=== PATIENT | female | born 1965 | race African-American/Black ===

== ENCOUNTER 2016-11-16 15:59 | Emergency (ER) | payer SELFPAY ==
[~2016-11-16] VITALS: Ht 167.6 cm; Wt 99.8 kg
[2016-11-16 16:11] VITALS: BP 186/89
--- NOTE | 2016-11-16 17:18 | PHYS DOC ---
Past Medical History Past Medical History: Arthritis, COPD, Diabetes-Type II, Hypertension Additional Past Medical Histor: chronic back pain, plantar fascitis Past Surgical History: , Knee Replacement Additional Past Surgical Histo: rotator cuff Alcohol Use: Occasionally Drug Use: Marijuana Adult General Chief Complaint Chief Complaint: NOSEBLEED HPI HPI This is a 51-year-old female who's had intermittent nosebleeds for the last 3 weeks. She states it continues to recur from her left nare. She has not tried anything other than direct pressure. She denies any digital trauma or trauma to her face. She does states she has some mild congestion with her symptoms. She denies any significant shortness of breath. She denies any history of bleeding disorders. Patient upon arrival is not actively bleeding. Her blood pressure is elevated at 186/90. She states this is a known issue for her and she is on multiple blood pressure medications. She states she has had a difficult time controlling her blood pressure and is compliant with her medications. Review of Systems Review of Systems Constitutional: Denies fever or chills [] Eyes: Denies change in visual acuity, redness, or eye pain [] HENT: Denies nasal congestion or sore throat [] Respiratory: Denies cough or shortness of breath [] Cardiovascular: No additional information not addressed in HPI [] GI: Denies abdominal pain, nausea, vomiting, bloody stools or diarrhea [] : Denies dysuria or hematuria [] Musculoskeletal: Denies back pain or joint pain [] Integument: Denies rash or skin lesions [] Neurologic: Denies headache, focal weakness or sensory changes [] Endocrine: Denies polyuria or polydipsia [] Current Medications Current Medications Current Medications Medications (Trade) Dose Ordered Sig/[facility] Start Time Stop Time Status Last Admin Dose Admin Oxymetazoline HCl (Afrin) 2 spray 1X ONCE 11/16/16 17:30 11/16/16 17:31 DC 11/16/16 17:21 2 SPRAY Allergies Allergies Allergies Coded Allergies Type Severity Reaction Last Updated Verified lisinopril Allergy Intermediate 11/16/16 Yes Physical Exam Physical Exam Constitutional: Well developed, well nourished, no acute distress, non-toxic appearance. [] HENT: Normocephalic, atraumatic, bilateral external ears normal, oropharynx moist, no oral exudates, nose normal, there is no active bleeding noted, there is no blood noted in the oropharynx. [] Eyes: PERRLA, EOMI, conjunctiva normal, no discharge. [] Neck: Normal range of motion, no tenderness, supple, no stridor. [] Cardiovascular:Heart rate regular rhythm, no murmur [] Lungs & Thorax: Bilateral breath sounds clear to auscultation [] Abdomen: Bowel sounds normal, soft, no tenderness, no masses, no pulsatile masses. [] Skin: Warm, dry, no erythema, no rash. [] Back: No tenderness, no CVA tenderness. [] Extremities: No tenderness, no cyanosis, no clubbing, ROM intact, no edema. [] Neurologic: Alert and oriented X 3, normal motor function, normal sensory function, no focal deficits noted. [] Psychologic: Affect normal, judgement normal, mood normal. [] Current Patient Data Vital Signs Vital Signs Date Time Temp Pulse Resp B/P Pulse Ox O2 Delivery O2 Flow Rate FiO2 11/16/16 16:11 98.2 86 20 186/89 99 Room Air 98.2 Lab Values Laboratory Tests Test 11/16/16 17:17 White Blood Count 5.1x10^3/uL (4.0-11.0) Red Blood Count 4.62x10^6/uL (3.50-5.40) Hemoglobin 13.6g/dL (12.0-15.5) Hematocrit 39.4% (36.0-47.0) Mean Corpuscular Volume 85fL (79-100) Mean Corpuscular Hemoglobin 29pg (25-35) Mean Corpuscular Hemoglobin Concent 35g/dL (31-37) Red Cell Distribution Width 14.4% (11.5-14.5) Platelet Count 196x10^3/uL (140-400) Neutrophils (%) (Auto) 49% (31-73) Lymphocytes (%) (Auto) 43% (24-48) Monocytes (%) (Auto) 7% (0-9) Eosinophils (%) (Auto) 1% (0-3) Basophils (%) (Auto) 1% (0-3) Neutrophils # (Auto) 2.5x10^3uL (1.8-7.7) Lymphocytes # (Auto) 2.2x10^3/uL (1.0-4.8) Monocytes # (Auto) 0.3x10^3/uL (0.0-1.1) Eosinophils # (Auto) 0.1x10^3/uL (0.0-0.7) Basophils # (Auto) 0.0x10^3/uL (0.0-0.2) Laboratory Tests 11/16/16 17:17 EKG EKG [] Radiology/Procedures Radiology/Procedures [] Course & Med Decision Making Course & Med Decision Making Pertinent Labs and Imaging studies reviewed. (See chart for details) 51-year-old female who's having intermittent epistaxis from her left nares has a exam is essentially unremarkable. I counseled the patient that we will check a blood count to rule out any platelet abnormality and will be giving her a dose of Afrin in the department. She has a follow-up with her primary care doctor tomorrow and I believe this is an appropriate plan. I counseled her to continue to use her Afrin nasal spray in each nostril at home and to return if she has any uncontrollable bleeding. CBC is pending at this time but if normal she will be discharged. CBC was unremarkable. Patient was observed in the department for several hours with no rebleeding episodes. I'll be discharging her with Afrin with close follow-up with her primary care doctor. Elbert Disclaimer Elbert Disclaimer This electronic medical record was generated, in whole or in part, using a voice recognition dictation system. Departure Departure Impression: Primary Impression: Epistaxis, recurrent Disposition: 01 HOME, SELF-CARE Admitting Physician: Other Condition: STABLE Patient Instructions: Nosebleed, [id number] Additional Instructions: Please use your Afrin nasal spray in each nostril as prescribed. Follow-up with your primary care doctor in the morning as discussed to have your blood pressure rechecked. Return to ER if you have any worsening of your bleeding despite taking medication Scripts Oxymetazoline Hcl (Afrin)30 Ml Spray30 Ml NS BID #1 SPRAY Prov:MALIK WADSWORTH DO 11/16/16 MALIK WADSWORTH DO Nov 16, 2016 17:18
[2016-11-16 17:27] LABS: BASO % 1 % (0-3); EOS % 1 % (0-3); HEMATOCRIT 39.4 % (36.0-47.0); HEMOGLOBIN 13.6 g/dL (12.0-15.5); LYMPH # 2.2 x10^3/uL (1.0-4.8); LYMPH % 43 % (24-48); MEAN CORPUSCULAR HEMOGLOBIN 29 pg (25-35); MEAN CORPUSCULAR HGB CONC 35 g/dL (31-37); MEAN CORPUSCULAR VOLUME 85 fL (79-100); MONO % 7 % (0-9); NEUT % 49 % (31-73); PLATELET COUNT 196 x10^3/uL (140-400); RED BLOOD COUNT 4.62 x10^6/uL (3.50-5.40); RED CELL DISTRIBUTION WIDTH 14.4 % (11.5-14.5); WHITE BLOOD COUNT 5.1 x10^3/uL (4.0-11.0)
[2016-11-16] MEDS ORDERED: OXYMETAZOLINE 0.05% NASAL SPRAY 30ML BOTTLE. NS ONE (17:30)
[2016-11-16] MEDS ORDERED: OXYM30SP NS (17:36)
== END 2016-11-16 17:48 | disposition home or self-care (01) ==
LOC: ER 15:59
DX: R04.0 Epistaxis (principal); J44.9 Chronic obstructive pulmonary disease, unspecified; I10 Essential (primary) hypertension; G89.29 Other chronic pain; E11.9 Type 2 diabetes mellitus without complications; M19.90 Unspecified osteoarthritis, unspecified site; F12.10 Cannabis abuse, uncomplicated; Z88.8 Allergy status to other drugs, medicaments and biological substances
CPT/HCPCS: 36415; 85027; 99283

== ENCOUNTER 2017-09-03 10:04 | Inpatient (IN) | payer SELFPAY, OTHER ==
[2017-09-03 10:40] LABS: ADD MAN DIFF? NO
[2017-09-03 10:56] LABS: ANION GAP 10 (6-14); BLOOD UREA NITROGEN 15 mg/dL (7-20); CALCIUM 9.5 mg/dL (8.5-10.1); CARBON DIOXIDE 28 mmol/L (21-32); CHLORIDE 99 mmol/L (98-107); CREATININE 0.8 mg/dL (0.6-1.0); GFR 91.1; GLUCOSE 343 mg/dL (70-99); POTASSIUM 4.1 mmol/L (3.5-5.1); SODIUM 137 mmol/L (136-145)
[2017-09-03] MEDS: LABETALOL 20 MG/4 ML DISP.SYRIN. IVP (10:59)
[2017-09-03 11:05] LABS: TROPONINI 0.358 ng/mL (0.000-0.055)
[2017-09-03 11:10] LABS: ALBUMIN 3.7 g/dL (3.4-5.0); ALK PHOS 110 U/L (46-116); ALT (SGPT) 88 U/L (14-59); AST (SGOT) 49 U/L (15-37); DIRECT BILIRUBIN 0.1 mg/dL (0.0-0.2); LIPASE 140 U/L (73-393); TOTAL BILIRUBIN 0.6 mg/dL (0.2-1.0); TOTAL PROTEIN 7.3 g/dL (6.4-8.2)
[2017-09-03] MEDS: ASPIRIN CHEWABLE 81 MG TABLET. PO (11:12)
[2017-09-03 11:35] LABS: BASO % 1 % (0-3); EOS # 0.1 x10^3/uL (0.0-0.7); EOS % 2 % (0-3); HEMATOCRIT 42.4 % (36.0-47.0); HEMOGLOBIN 14.1 g/dL (12.0-15.5); LYMPH # 1.6 x10^3/uL (1.0-4.8); LYMPH % 38 % (24-48); MEAN CORPUSCULAR HEMOGLOBIN 28 pg (25-35); MEAN CORPUSCULAR HGB CONC 33 g/dL (31-37); MEAN CORPUSCULAR VOLUME 85 fL (79-100); MONO # 0.3 x10^3/uL (0.0-1.1); MONO % 8 % (0-9); NEUT # 2.1 x10^3uL (1.8-7.7); NEUT % 51 % (31-73); PLATELET COUNT 180 x10^3/uL (140-400); RED CELL DISTRIBUTION WIDTH 14.2 % (11.5-14.5); WHITE BLOOD COUNT 4.1 x10^3/uL (4.0-11.0)
[2017-09-03 11:48] LABS: CLARITY,URINE CLEAR; COLOR,URINE YELLOW
[2017-09-03 11:49] LABS: BACTERIA,URINE 0 /HPF (0-FEW); BILIRUBIN,URINE NEGATIVE (NEG); GLUCOSE,URINE 1000 mg/dL (NEG); NITRITE,URINE NEGATIVE (NEG); PROTEIN,URINE NEGATIVE (NEG-TRACE); RBC,URINE 0 /HPF (0-2); SQUAMOUS EPITHELIAL CELL,UR FEW /LPF; UROBILINOGEN,URINE 0.2 mg/dL (0.2 mg/dL); WBC,URINE 0 /HPF (0-4)
[2017-09-03 11:50] LABS: D-DIMER 0.34 ug/mlFEU (0.00-0.50)
[2017-09-03] MEDS ORDERED: NITROGLYCERIN SUBLINGUAL 0.4 MG BOTTLE OF 25. SL (12:15)
[2017-09-03] MEDS ORDERED: ONDANSETRON PF 4 MG/2 ML VIAL. IV (12:15)
[2017-09-03] MEDS: IV NORMAL SALINE 1000ML BAG 1,000 ML IV (13:12)
[2017-09-03] MEDS: MORPHINE SULFATE 2 MG/ML DISP.SYRIN. IV (13:20)
[2017-09-03 17:32] LABS: THYROID STIM HORMONE (TSH) 1.598 uIU/mL (0.358-3.74)
[2017-09-03] MEDS: ISOSORBIDE MONONITRATE ER 30 MG TAB.ER.24H PO (17:35)
[2017-09-03] MEDS: PANTOPRAZOLE 40 MG TABLET.DR. PO (17:35)
[2017-09-03] MEDS: CARVEDILOL 12.5 MG TABLET. PO (17:35)
[2017-09-03 18:21] LABS: TROPONINI 0.339 ng/mL (0.000-0.055)
[2017-09-03] MEDS: ATORVASTATIN CALCIUM 40 MG TABLET. PO (21:37)
[2017-09-03 21:52] LABS: POC GLUCOSE 314 mg/dL (70-99)
[2017-09-03] MEDS ORDERED: DEXTROSE 50% 25 GM / 50ML DISP.SYRIN. IV (22:15)
[2017-09-03] MEDS ORDERED: INSULIN REGULAR 100 UNIT/ML 10ML VIAL. IV (22:30)
[2017-09-03] MEDS: INSULIN ASPART 300 UNITS/3 ML INSULN.PEN SQ (23:03)
[2017-09-03] MEDS: hydrALAZINE 20 MG/ML VIAL. IVP (23:47)
[2017-09-04 02:44] LABS: TROPONINI 0.291 ng/mL (0.000-0.055)
[2017-09-04 03:10] LABS: POC GLUCOSE 220 mg/dL (70-99)
[2017-09-04 03:15] LABS: HEMOGLOBIN A1C 11.4 % (4.8-5.6)
[2017-09-04 05:18] LABS: ADD MAN DIFF? NO
[2017-09-04 05:43] LABS: BASO # 0.1 x10^3/uL (0.0-0.2); BASO % 1 % (0-3); EOS # 0.1 x10^3/uL (0.0-0.7); EOS % 2 % (0-3); HEMATOCRIT 39.2 % (36.0-47.0); HEMOGLOBIN 12.9 g/dL (12.0-15.5); LYMPH # 2.8 x10^3/uL (1.0-4.8); LYMPH % 53 % (24-48); MEAN CORPUSCULAR HEMOGLOBIN 28 pg (25-35); MEAN CORPUSCULAR HGB CONC 33 g/dL (31-37); MEAN CORPUSCULAR VOLUME 85 fL (79-100); MONO # 0.4 x10^3/uL (0.0-1.1); MONO % 7 % (0-9); NEUT % 38 % (31-73); PLATELET COUNT 192 x10^3/uL (140-400); RED BLOOD COUNT 4.64 x10^6/uL (3.50-5.40); RED CELL DISTRIBUTION WIDTH 14.2 % (11.5-14.5); WHITE BLOOD COUNT 5.3 x10^3/uL (4.0-11.0)
[2017-09-04 06:14] LABS: ANION GAP 11 (6-14); BLOOD UREA NITROGEN 13 mg/dL (7-20); CALCIUM 9.2 mg/dL (8.5-10.1); CARBON DIOXIDE 25 mmol/L (21-32); CHLORIDE 100 mmol/L (98-107); CREATININE 0.7 mg/dL (0.6-1.0); GFR 106.3; GLUCOSE 233 mg/dL (70-99); POTASSIUM 3.9 mmol/L (3.5-5.1); SODIUM 136 mmol/L (136-145)
[2017-09-04 06:18] LABS: CHOLESTEROL 165 mg/dL (0-200); HDLC 26 mg/dL (40-60); LDLC 92 mg/dL (0-100); NON-HDL CHOLESTEROL 139 mg/dL (0-129); TRIGLYCERIDES 234 mg/dL (0-150); VLDLC 47 mg/dL (0-40)
[2017-09-04 06:20] LABS: CHOLESTEROL/HDL RATIO 6.3
[2017-09-04] MEDS: CARVEDILOL 12.5 MG TABLET. PO (08:26)
[2017-09-04] MEDS: PANTOPRAZOLE 40 MG TABLET.DR. PO (08:26)
[2017-09-04] MEDS: ASPIRIN ENTERIC COATED 81 MG TABLET.DR. PO (08:26)
[2017-09-04] MEDS: INSULIN ASPART 300 UNITS/3 ML INSULN.PEN SQ (08:35)
[2017-09-04 08:46] LABS: POC GLUCOSE 306 mg/dL (70-99)
[2017-09-04] MEDS: hydroCHLOROthiazide 12.5 MG CAPSULE PO (09:00)
[2017-09-04] MEDS ORDERED: ATENOLOL PO (09:00)
[2017-09-04] MEDS ORDERED: METFORMIN HCL PO (09:00)
[2017-09-04] MEDS: ISOSORBIDE MONONITRATE ER 30 MG TAB.ER.24H PO (09:00)
[2017-09-04] MEDS ORDERED: SITAGLIPTIN PHOS PO (09:00)
[2017-09-04] MEDS: cloNIDine HCL 0.2 MG TABLET PO (10:00)
[2017-09-04] MEDS: amLODIPine BESYLATE 10 MG TABLET PO (10:00)
[2017-09-04] MEDS: GABAPENTIN 300 MG CAPSULE. PO (10:00)
[2017-09-04] MEDS: LINAGLIPTIN 5 MG TABLET PO (10:01)
[2017-09-04] MEDS: NAPROXEN 500 MG TABLET PO (10:01)
[2017-09-04] MEDS: CYCLOBENZAPRINE 10 MG TABLET. PO (10:01)
[2017-09-04] MEDS: NICOTINE 21MG PATCH. TD (10:03)
[2017-09-04] MEDS: glyBURIDE 5 MG TABLET PO (10:11)
[2017-09-04] MEDS ORDERED: ATORVASTATIN CALCIUM 20 MG TABLET PO (21:00)
[2017-09-04] MEDS ORDERED: ATORVASTATIN CALCIUM 40 MG TABLET. PO (21:00)
[2017-09-04] MEDS ORDERED: AMITRIPTYLINE HCL 10 MG TABLET. PO (21:00)
[2017-09-07 10:15] LABS: MRSA BY PCR Negative (Negative)
== END 2017-09-04 11:55 | disposition home or self-care (01) | DRG 281 ==
LOC: ER 10:04 → 1 WEST ICU 12:12
DX: I21.A1 Myocardial infarction type 2 (principal); I16.1 Hypertensive emergency; E11.65 Type 2 diabetes mellitus with hyperglycemia; I15.8 Other secondary hypertension; I10 Essential (primary) hypertension; E66.9 Obesity, unspecified; E78.5 Hyperlipidemia, unspecified; F17.210 Nicotine dependence, cigarettes, uncomplicated; G89.29 Other chronic pain; J44.9 Chronic obstructive pulmonary disease, unspecified; M19.90 Unspecified osteoarthritis, unspecified site; Z96.651 Presence of right artificial knee joint; Z68.32 Body mass index [BMI] 32.0-32.9, adult; Z79.1 Long term (current) use of non-steroidal anti-inflammatories (NSAID); Z88.8 Allergy status to other drugs, medicaments and biological substances; Z91.19 Patient's noncompliance with other medical treatment and regimen; Z83.3 Family history of diabetes mellitus; Z82.49 Family history of ischemic heart disease and other diseases of the circulatory system
CPT/HCPCS: 36415; 70450; 71046; 80048; 80061; 80076; 81001; 82962; 83036; 83690; 84443; 84484; 85025; 85379; 87641; 93005; 93306; 96361; 96372; 96374; 99285; 99285-25; 99406; J0360; J1650; J1815; J2270; J3490; J7030; J7050

== ENCOUNTER 2018-05-20 23:48 | Inpatient (IN) | payer SELFPAY ==
[~2018-05-20] VITALS: Ht 167.6 cm; Wt 107.5 kg
[~2018-05-20 23:48] MED LIST: AMIT10TA PO; AMLO10TA6 PO; ATEN100T PO; ATOR40TA59 PO; CARV12.52 PO; CEFP100T PO; CLON0.2T PO; CYCL10TA2 PO; CYCL5TAB PO; GABA-586 PO; GLYB5TAB3 PO; HYDR12.53 PO; ISOS30TA4 PO; NAPR-514 PO; NIFE60TA16 PO; OXYM30SP NS; PROAIR HFA8.5 GM INH; SITA1TAB11 PO
[2018-05-21] VITALS (28 sets, daily range): BP systolic 130–212; BP diastolic 68–125
--- NOTE | 2018-05-21 00:17 | PHYS DOC ---
Past Medical History Past Medical History: Anxiety, Arthritis, COPD, Diabetes-Type II, High Cholesterol, Hypertension Additional Past Medical Histor: chronic back pain, plantar fascitis Past Surgical History: , Knee Replacement Additional Past Surgical Histo: rotator cuff, left ankle surgery Smoking: Cigarettes Alcohol Use: Occasionally Drug Use: Marijuana Adult General Chief Complaint Chief Complaint: SHORTNESS OF BREATH HPI HPI Patient is a 51-year-old -[place] female who presents to the emergency room for evaluation. She states that 2 hours ago she began experiencing some burning in her chest, which has now presents with solid discomfort, which she is unable to further describe. She reports increased shortness of breath as well. She has not had any nausea or vomiting, dizziness or lightheadedness. She does complain of some pleuritic pain as well. She has had a cough, sometimes productive of small amounts of green sputum. She has not had any fevers or chills. Exertion does seem to worsen her pain, and shortness of breath. Her pain does not radiate. There are no alleviating factors to her symptoms otherwise. Review of Systems Review of Systems Constitutional: Denies fever or chills [] Eyes: Denies change in visual acuity, redness, or eye pain [] HENT: Denies nasal congestion or sore throat [] Respiratory: Reports cough, pleuritic pain, and shortness of breath[] Cardiovascular: No additional information not addressed in HPI [] GI: Denies abdominal pain, nausea, vomiting, bloody stools or diarrhea [] : Denies dysuria or hematuria [] Musculoskeletal: Denies back pain or joint pain [] Integument: Denies rash or skin lesions [] Neurologic: Denies headache, focal weakness or sensory changes [] Endocrine: Denies polyuria or polydipsia [] All other systems were reviewed and found to be within normal limits, except as documented in this note. Current Medications Current Medications Current Medications Medications (Trade) Dose Ordered Sig/Nura Start Time Stop Time Status Last Admin Dose Admin Aspirin (Children'S Aspirin) 324 mg 1X ONCE 05/21/18 00:30 05/21/18 00:31 DC 05/21/18 00:26 324 MG Furosemide (Lasix) 40 mg 1X ONCE 05/21/18 01:00 05/21/18 01:01 UNV Heparin Sodium (Porcine) (Heparin Sodium) 2,500 unit PRN Q6HRS PRN 05/21/18 01:00 UNV Heparin Sodium/ Dextrose 500 ml @ 0 mls/hr CONT PRN 05/21/18 01:00 UNV Labetalol HCl (Normodyne Iv Push) 20 mg 1X ONCE 05/21/18 00:30 05/21/18 00:31 DC 05/21/18 00:26 20 MG Nitroglycerin (Nitro-Bid Oint) 1 inch 1X ONCE 05/21/18 00:30 05/21/18 00:31 DC 05/21/18 00:27 1 INCH Nitroglycerin/ Dextrose 250 ml @ 0 mls/hr 1X ONCE 05/21/18 01:00 05/21/18 01:01 UNV Allergies Allergies Allergies Coded Allergies Type Severity Reaction Last Updated Verified lisinopril Allergy Intermediate 11/16/16 Yes Physical Exam Physical Exam PHYSICAL EXAM: CONSTITUTIONAL: Well developed, well nourished HEAD: normocephalic, atraumatic EENT: PERRL, EOMI. Conjunctivae normal color, sclerae non-icteric; moist mucous membranes. NECK: Supple, non-tender; no meningismus. LUNGS: There are crackles in the right lower lung lyman, the remainder of the lungs are clear bilaterally. HEART: Regular rate and rhythm, no murmur CHEST: No deformity; non-tender ABDOMEN: The abdomen is soft, and non-tender, no masses or bruits. EXTREM: Normal ROM; no deformity, no calf tenderness. Normal pulses palpable in all extremities. There is no pedal edema. SKIN: No rash; no diaphoresis NEURO: Alert; normal speech and cognition; CN's grossly intact; strength grossly intact without focal deficit. BACK: No CVA TTP. Current Patient Data Vital Signs Vital Signs Date Time Temp Pulse Resp B/P (MAP) Pulse Ox O2 Delivery O2 Flow Rate FiO2 05/21/18 00:27 85 222/104 05/21/18 00:01 24 97 Room Air Lab Values Laboratory Tests Test 05/21/18 00:15 White Blood Count 5.9 x10^3/uL (4.0-11.0) Red Blood Count 5.30 x10^6/uL (3.50-5.40) Hemoglobin 14.8 g/dL (12.0-15.5) Hematocrit 43.6 % (36.0-47.0) Mean Corpuscular Volume 82 fL (79-100) Mean Corpuscular Hemoglobin 28 pg (25-35) Mean Corpuscular Hemoglobin Concent 34 g/dL (31-37) Red Cell Distribution Width 16.2 % (11.5-14.5) H Platelet Count 199 x10^3/uL (140-400) Neutrophils (%) (Auto) 67 % (31-73) Lymphocytes (%) (Auto) 25 % (24-48) Monocytes (%) (Auto) 5 % (0-9) Eosinophils (%) (Auto) 1 % (0-3) Basophils (%) (Auto) 1 % (0-3) Neutrophils # (Auto) 4.0 x10^3uL (1.8-7.7) Lymphocytes # (Auto) 1.5 x10^3/uL (1.0-4.8) Monocytes # (Auto) 0.3 x10^3/uL (0.0-1.1) Eosinophils # (Auto) 0.1 x10^3/uL (0.0-0.7) Basophils # (Auto) 0.1 x10^3/uL (0.0-0.2) Prothrombin Time 12.7 SEC (11.7-14.0) Prothrombin Time INR 1.0 (0.8-1.1) D-Dimer (Emilia) 0.60 ug/mlFEU (0.00-0.50) H Sodium Level 138 mmol/L (136-145) Potassium Level 3.9 mmol/L (3.5-5.1) Chloride Level 100 mmol/L (98-107) Carbon Dioxide Level 30 mmol/L (21-32) Anion Gap 8 (6-14) Blood Urea Nitrogen 16 mg/dL (7-20) Creatinine 0.9 mg/dL (0.6-1.0) Estimated GFR (Cockcroft-Gault) 79.3 BUN/Creatinine Ratio 18 (6-20) Glucose Level 380 mg/dL (70-99) H Calcium Level 9.3 mg/dL (8.5-10.1) Magnesium Level 2.1 mg/dL (1.8-2.4) Total Bilirubin 0.8 mg/dL (0.2-1.0) Aspartate Amino Transferase (AST) 43 U/L (15-37) H Alanine Aminotransferase (ALT) 72 U/L (14-59) H Alkaline Phosphatase 120 U/L (46-116) H Creatine Kinase 78 U/L (26-192) Creatine Kinase MB (Mass) 1.2 ng/mL (0.0-3.6) Creatine Kinase MB Relative Index 1.5 % (0-4) Troponin I Quantitative 2.691 ng/mL (0.000-0.055) ZU-Etu-I-Type Natriuretic Peptide 946 pg/mL (0-124) H Total Protein 8.1 g/dL (6.4-8.2) Albumin 3.9 g/dL (3.4-5.0) Albumin/Globulin Ratio 0.9 (1.0-1.7) L Lipase 130 U/L (73-393) Laboratory Tests 05/21/18 00:15 Laboratory Tests 05/21/18 00:15 EKG EKG [Normal sinus rhythm at a rate of 89 beats for minute, normal axis, normal intervals. There are is T-wave inversion laterally, nonspecific ST/T changes are present diffusely. Lateral T wave inversion appears new compared to patient' s prior EKG from 11/2017,] Radiology/Procedures Radiology/Procedures [ER physician preliminary chest X interpretation: Mild pulmonary vascular congestion, cardiomegaly with normal mediastinum. No definite confluent infiltrate.] Course & Med Decision Making Course & Med Decision Making Pertinent Labs and Imaging studies reviewed. (See chart for details) [1:00 AM:The patient's condition remains stable. I spoke with the hospitalist , who accepted the patient to the hospital for further evaluation and treatment. I also spoke with Dr. Lisa, cardiology on-call. The patient be started on a nitroglycerin drip, heparin drip, and admitted to the ICU.Despite the mildly elevated d-dimer, clinical suspicion for pulmonary embolism is very low. Patient be started on heparin regardless, I do not believe that she needs an emergent CT angiogram at this time. CRITICAL CARE TIME: 50 Minutes, excluding any procedures and care of other patients.] Dragon Disclaimer Dragon Disclaimer This electronic medical record was generated, in whole or in part, using a voice recognition dictation system. Departure Departure Impression: Primary Impression: NSTEMI (non-ST elevated myocardial infarction) Additional Impression: Hypertensive emergency Disposition: ADMITTED INPATIENT Admitting Physician: Cj Verduzco Condition: GUARDED Referrals: NO PCP (PCP) Problem Qualifiers WEST BUTCHER MD May 21, 2018 00:17
[2018-05-21 00:24] LABS: BASO # 0.1 x10^3/uL (0.0-0.2); BASO % 1 % (0-3); EOS # 0.1 x10^3/uL (0.0-0.7); EOS % 1 % (0-3); HEMATOCRIT 43.6 % (36.0-47.0); HEMOGLOBIN 14.8 g/dL (12.0-15.5); LYMPH # 1.5 x10^3/uL (1.0-4.8); LYMPH % 25 % (24-48); MEAN CORPUSCULAR HEMOGLOBIN 28 pg (25-35); MEAN CORPUSCULAR HGB CONC 34 g/dL (31-37); MEAN CORPUSCULAR VOLUME 82 fL (79-100); MONO # 0.3 x10^3/uL (0.0-1.1); MONO % 5 % (0-9); NEUT % 67 % (31-73); PLATELET COUNT 199 x10^3/uL (140-400); RED CELL DISTRIBUTION WIDTH 16.2 % (11.5-14.5); WHITE BLOOD COUNT 5.9 x10^3/uL (4.0-11.0)
[2018-05-21] MEDS ORDERED: NITROGLYCERIN OINT 1 GM PACKET. TP ONE (00:30)
[2018-05-21] MEDS ORDERED: ASPIRIN CHEWABLE 81 MG TABLET. PO ONE (00:30)
[2018-05-21] MEDS ORDERED: LABETALOL 20 MG/4 ML DISP.SYRIN. IVP ONE (00:30)
[2018-05-21 00:32] LABS: CALCIUM 9.3 mg/dL (8.5-10.1); CREATININE 0.9 mg/dL (0.6-1.0); GFR 79.3; POTASSIUM 3.9 mmol/L (3.5-5.1)
[2018-05-21 00:34] LABS: PROTHROMBIN TIME PATIENT 12.7 SEC (11.7-14.0)
[2018-05-21 00:38] LABS: ALBUMIN 3.9 g/dL (3.4-5.0); ALBUMIN/GLOBULIN RATIO 0.9 (1.0-1.7); MAGNESIUM 2.1 mg/dL (1.8-2.4); TOTAL BILIRUBIN 0.8 mg/dL (0.2-1.0); TOTAL PROTEIN 8.1 g/dL (6.4-8.2)
[2018-05-21 00:46] LABS: D-DIMER 0.6 ug/mlFEU (0.00-0.50)
[2018-05-21] MEDS ORDERED: HEPARIN for IV BOLUS 10,000 UNIT/10 ML VIAL. IV PRN (01:00)
[2018-05-21] MEDS ORDERED: HEPARIN 25,000UTS/500ML PREMIX 500 ML IV PRN (01:00)
[2018-05-21] MEDS ORDERED: NITROGLYCERIN PREMIX 250 ML IV ONE (01:15)
[2018-05-21] MEDS ORDERED: HEPARIN for IV BOLUS 10,000 UNIT/10 ML VIAL. IV ONE (01:15)
[2018-05-21] MEDS ORDERED: ANTI-COAG MONITOR BY PHARMACY. MC PRN (01:15)
[2018-05-21] MEDS ORDERED: IV NORMAL SALINE 1000ML BAG 1,000 ML IV SCH ×2 (01:30→17:01)
[2018-05-21] MEDS ORDERED: FUROSEMIDE 40 MG/4 ML VIAL. IVP ONE ×2 (01:30→09:15)
--- NOTE | 2018-05-21 07:14 | EKG ---
[facility] [address] [place] [address] Test Date: 2018-05-21 Test Time: 01:10:58 Pat Name: TATIANA CARLTON Department: Room: 104 1 Gender: F Stock Layer: : 1965 Requested By: WEST BUTCHER Order Number: [id number] Reading MD: Doe Erickson MD Measurements Intervals [place] Rate: 82 P: 20 ND: 190 QRS: 14 QRSD: 102 T: 24 QT: 396 QTc: 466 Interpretive Statements SINUS RHYTHM LVH Electronically Signed On 05-24-2018 11:19:39 CDT by Doe Erickson MD
--- NOTE | 2018-05-21 07:16 | EKG ---
[facility] [address] [place] [address] Test Date: 2018-05-21 Test Time: 00:03:11 Pat Name: TATIANA CARLTON Department: Room: 104 1 Gender: F Analyst Business Analysis: : 1965 Requested By: WEST BUTCHER Order Number: [id number] Reading MD: Doe Erickson MD Measurements Intervals [place] Rate: 89 P: 26 [place]: 182 QRS: 18 QRSD: 108 T: 47 QT: 390 QTc: 476 Interpretive Statements SINUS RHYTHM LEFT ATRIAL ABNORMALITY PROLONGED QT ABNORMAL ECG Electronically Signed On 05-24-2018 11:15:26 CDT by Doe Erickson MD
[2018-05-21 08:03] LABS: CHOLESTEROL/HDL RATIO 3.9
--- NOTE | 2018-05-21 08:47 | PDOC2 ---
CARDIAC CONSULT DATE OF CONSULT Date of Consult DATE: 05/21/18 TIME: 08:38 REASON FOR CONSULT Reason for Consult: NSTEMI REFERRING PHYSICIAN Referring Physician: To SOURCE Source: Chart review, Patient HISTORY OF PRESENT ILLNESS HISTORY OF PRESENT ILLNESS This is a 52 yo AA female admitted for complains of chest pain. Reports that in the last 1-2 weeks she has been having episodes of PAREKH and exertional CP. She also has been having intermittent episodes of heartburn. Yesterday after dinner she started having heartburn and this time it stayed on and actually took aleve and pepcid and her symptoms did not get relieved. Also was having chest pressure and jaw pain with SOA. Denies any prior VTE, and CAD. She goes to [facility] for PCP and ran out of meds 2 weeks ago. Her BP has been uncontrolled lately. PAST MEDICAL HISTORY Past Medical History Cardiovascular: HTN, Hyperlipidemia Pulmonary: COPD CENTRAL NERVOUS SYSTEM: Seizure (remotely) GI: No pertinent hx Heme/Onc: No pertinent hx Hepatobiliary: No pertinent hx Psych: No pertinent hx Musculoskeletal: low back pain, Osteoarthritis, Other (plantar fascitis) Rheumatologic: No pertinent hx Infectious disease: No pertinent hx ENT: No pertinent hx Renal/: No pertinent hx Endocrine: Diabetes (2) Dermatology: No pertinent hx PAST SURGICAL HISTORY Past Surgical History Arthroscopy (RTC repair to left), (x4), Total knee replacement (right) FAMILY HISTORY Family History: Coronary Artery Disease (father) SOCIAL HISTORY Social History Smoke: <1 pack per day (>35) ALCOHOL: none Drugs: None Lives: Alone CURRENT MEDICATIONS CURRENT MEDICATIONS Current Medications Medications (Trade) Dose Ordered Sig/Nura Route PRN Reason Start Time Stop Time Status Last Admin Dose Admin Labetalol HCl (Normodyne Iv Push) 20 mg 1X ONCE IVP 05/21/18 00:30 05/21/18 00:31 DC 05/21/18 00:26 Nitroglycerin (Nitro-Bid Oint) 1 inch 1X ONCE TP 05/21/18 00:30 05/21/18 00:31 DC 05/21/18 00:27 Aspirin (Children'S Aspirin) 324 mg 1X ONCE PO 05/21/18 00:30 05/21/18 00:31 DC 05/21/18 00:26 Nitroglycerin/ Dextrose 250 ml @ 0 mls/hr 1X ONCE IV 05/21/18 01:15 05/21/18 01:16 DC 05/21/18 01:17 Heparin Sodium (Porcine) (Heparin Sodium) 4,000 unit 1X ONCE IV 05/21/18 01:15 05/21/18 01:16 DC 05/21/18 02:56 Heparin Sodium/ Dextrose 500 ml @ 0 mls/hr CONT PRN IV SEE I/O RECORD 05/21/18 01:00 05/21/18 01:21 Furosemide (Lasix) 40 mg 1X ONCE IVP 05/21/18 01:30 05/21/18 01:31 DC 05/21/18 01:23 Info (Anti-Coagulation Monitoring By Pharmacy) 1 each PRN DAILY PRN MC SEE COMMENTS 05/21/18 01:15 05/21/18 02:26 ALLERGIES ALLERGIES: Coded Allergies: lisinopril (Verified Allergy, Intermediate, 11/16/16) ROS Review of System 14 point ROS evaluated with pertinent positives noted per HPI PHYSICAL EXAM General: Alert, Oriented X3, Cooperative, No acute distress HEENT: Atraumatic, Mucous membr. moist/pink Lungs: Other (basilar crackles) Heart: Regular rate (SR), Other (S4; diastolic murmur to LLS and AYDEN border 3/ 6 ) Abdomen: Soft, No tenderness Extremities: No cyanosis, Other (trace LE) Skin: No breakdown, No significant lesion Neuro: Normal speech, Sensation intact Psych/Mental Status: Mental status NL, Mood NL MUSCULOSKELETAL: Osteoarthritic changes both hands VITALS VITALS Vital Signs Date Time Temp Pulse Resp B/P (MAP) Pulse Ox O2 Delivery O2 Flow Rate FiO2 05/21/18 08:00 Room Air 05/21/18 08:00 82 20 164/78 (106) 95 05/21/18 07:00 98.5 98.5 05/21/18 06:00 1.0 LABS Lab: Laboratory Tests Test 05/21/18 00:05 05/21/18 00:15 05/21/18 00:30 05/21/18 05:05 Triglycerides Level 203 mg/dL (0-150) Cholesterol Level 144 mg/dL (0-200) LDL Cholesterol, Calculated 66 mg/dL (0-100) VLDL Cholesterol, Calculated 41 mg/dL (0-40) Non-HDL Cholesterol Calculated 107 mg/dL (0-129) HDL Cholesterol 37 mg/dL (40-60) Cholesterol/HDL Ratio 3.9 White Blood Count 5.9 x10^3/uL (4.0-11.0) Red Blood Count 5.30 x10^6/uL (3.50-5.40) Hemoglobin 14.8 g/dL (12.0-15.5) Hematocrit 43.6 % (36.0-47.0) Mean Corpuscular Volume 82 fL (79-100) Mean Corpuscular Hemoglobin 28 pg (25-35) Mean Corpuscular Hemoglobin Concent 34 g/dL (31-37) Red Cell Distribution Width 16.2 % (11.5-14.5) Platelet Count 199 x10^3/uL (140-400) Neutrophils (%) (Auto) 67 % (31-73) Lymphocytes (%) (Auto) 25 % (24-48) Monocytes (%) (Auto) 5 % (0-9) Eosinophils (%) (Auto) 1 % (0-3) Basophils (%) (Auto) 1 % (0-3) Neutrophils # (Auto) 4.0 x10^3uL (1.8-7.7) Lymphocytes # (Auto) 1.5 x10^3/uL (1.0-4.8) Monocytes # (Auto) 0.3 x10^3/uL (0.0-1.1) Eosinophils # (Auto) 0.1 x10^3/uL (0.0-0.7) Basophils # (Auto) 0.1 x10^3/uL (0.0-0.2) Prothrombin Time 12.7 SEC (11.7-14.0) Prothromb Time International Ratio 1.0 (0.8-1.1) D-Dimer (Emilia) 0.60 ug/mlFEU (0.00-0.50) Sodium Level 138 mmol/L (136-145) Potassium Level 3.9 mmol/L (3.5-5.1) Chloride Level 100 mmol/L (98-107) Carbon Dioxide Level 30 mmol/L (21-32) Anion Gap 8 (6-14) Blood Urea Nitrogen 16 mg/dL (7-20) Creatinine 0.9 mg/dL (0.6-1.0) Estimated GFR (Cockcroft-Gault) 79.3 BUN/Creatinine Ratio 18 (6-20) Glucose Level 380 mg/dL (70-99) Calcium Level 9.3 mg/dL (8.5-10.1) Magnesium Level 2.1 mg/dL (1.8-2.4) Total Bilirubin 0.8 mg/dL (0.2-1.0) Aspartate Amino Transf (AST/SGOT) 43 U/L (15-37) Alanine Aminotransferase (ALT/SGPT) 72 U/L (14-59) Alkaline Phosphatase 120 U/L (46-116) Creatine Kinase 78 U/L (26-192) Creatine Kinase MB (Mass) 1.2 ng/mL (0.0-3.6) Creatine Kinase MB Relative Index 1.5 % (0-4) Troponin I Quantitative 2.691 ng/mL (0.000-0.055) BO-Mjr-Q-Type Natriuretic Peptide 946 pg/mL (0-124) Total Protein 8.1 g/dL (6.4-8.2) Albumin 3.9 g/dL (3.4-5.0) Albumin/Globulin Ratio 0.9 (1.0-1.7) Lipase 130 U/L (73-393) Activated Partial Thromboplast Time 29 SEC (24-38) Glucose (Fingerstick) 285 mg/dL (70-99) Test 05/21/18 06:08 Heparin Anti-Xa Act, Unfractionated 0.19 IU/mL (0.30-0.70) Troponin I Quantitative 6.497 ng/mL (0.000-0.055) ECHOCARDIOGRAM ECHOCARDIOGRAM <Conclusion> The left ventricular systolic function is normal. The Ejection Fraction is 55-60%. There is normal LV segmental wall motion. The left atrium is mildly dilated. Mild to moderate aortic regurgitation. Mild mitral regurgitation. Mild tricuspid regurgitation. There is no evidence of significant pericardial effusion. DATE: 05/21/18 0949 ASSESSMENT/PLAN ASSESSMENT/PLAN 1. NSTEMI 2. Malignant HTN 3. Acute on chronic diastolic CHF 4. Tobaccoism 5. DM2/HLP 6. Allergy to lisinopril 7. Noncompliance: follow with [facility] [place] [place] clinic ran out of meds 2 weeks ago Recommendations 1. LHC, risks and benefits explained and agreeable to proceed 2. TTE, lipids. Will review home meds and will restart accordingly 3. NPO for now continue heparin drip and cardene. 4. Lasix has been given 5. Smoking cessation HUNTER [employer] May 21, 2018 08:47
--- NOTE | 2018-05-21 09:08 | RAD ---
PORTABLE CHEST 1V Clinical Indication: soa Comparison: AP chest December 18, 2017. Findings: Atherosclerotic aortic arch. Cardiac size stable. Mild pulmonary vascular congestion. Mild bibasilar atelectasis. There is no pleural abnormality. Bones appear stable. IMPRESSION: 1. Mild pulmonary vascular congestion. 2. Mild bibasilar atelectasis. Electronically signed by: Gian Johnson MD (05/21/2018 9:05 AM) [id number]
--- NOTE | 2018-05-21 09:50 | CARD ---
MR#: [id number] Date of Study: 05/21/2018 Ordering Physician: HUNTER ARMENDARIZ, Referring Physician: JOANIE VELAZCO Tech: Eleanor Mckenna RDCS APPROVED REPORT EXAM: Two-dimensional and M-mode echocardiogram with Doppler and color Doppler. Other Information Quality : Good INDICATION Non STEMI 2D DIMENSIONS RVDd2.8 (2.9-3.5cm)Left Atrium(2D)5.0 (1.6-4.0cm) IVSd1.2 (0.7-1.1cm)Aortic Root(2D)3.2 (2.0-3.7cm) LVDd6.0 (3.9-5.9cm)LVOT Diameter2.1 (1.8-2.4cm) PWd1.4 (0.7-1.1cm)LVDs4.4 (2.5-4.0cm) FS (%) 27.7 %SV95.9 ml LVEF(%)55.0 (>50%) Aortic Valve AoV Peak Mundo.214.6cm/sAoV VTI31.7cm AO Peak GR.18.4mmHgLVOT VTI 23.36cm AO Mean GR.9mmHgAVA (VTI)2.50cm2 AI P 1/2 [id number] Mitral Valve MV E Logsystn746.4cm/sMV DECEL [id number] MV A Uigkdfcl208.2cm/sE/A Ratio1.1 TDI Lateral E' P. V3.15cm/sMedial E' P. V4.51cm/s E/Lateral E'37.0E/Medial E'25.8 LEFT VENTRICLE The Left Ventricle is mildly dilated. There is mild concentric left ventricular hypertrophy. The left ventricular systolic function is normal. The Ejection Fraction is 55-60%. There is normal LV segment al wall motion. RIGHT VENTRICLE The right ventricle is normal size. The right ventricular systolic function is normal. ATRIA The left atrium is mildly dilated. The right atrium size is normal. The interatrial septum is intact with no evidence for an atrial septal defect or patent foramen ovale as noted on 2-D or Doppler imagi ng. AORTIC VALVE The aortic valve is calcified but opens well. Doppler and Color Flow revealed mild to moderate aortic regurgitation. There is no significant aortic valvular stenosis. MITRAL VALVE The mitral valve is thickened but opens well. There is no evidence of mitral valve prolapse. There is no mitral valve stenosis. Doppler and Color-flow revealed mild mitral regurgitation. TRICUSPID VALVE The tricuspid valve is normal in structure and function. Doppler and Color Flow revealed mild tricusp id regurgitation. There is no tricuspid valve stenosis. PULMONIC VALVE The pulmonary valve is normal in structure and function. Doppler and Color Flow revealed mild pulmoni c valvular regurgitation. There is no pulmonic valvular stenosis. GREAT VESSELS The aortic root is normal in size. The ascending aorta is mildly dilated at 3.4 cm. The IVC is normal in size and collapses >50% with inspiration. PERICARDIAL EFFUSION There is no evidence of significant pericardial effusion. Critical Notification Critical Value: No <Conclusion> The left ventricular systolic function is normal. The Ejection Fraction is 55-60%. There is normal LV segmental wall motion. The left atrium is mildly dilated. Mild to moderate aortic regurgitation. Mild mitral regurgitation. Mild tricuspid regurgitation. There is no evidence of significant pericardial effusion. Signed by : Steven Felton, Electronically Approved : 05/21/2018 09:49:52
[2018-05-21 11:19] LABS: BACTERIA,URINE 0 /HPF (0-FEW); BILIRUBIN,URINE NEGATIVE (NEG); CLARITY,URINE CLEAR; COLOR,URINE YELLOW; NITRITE,URINE NEGATIVE (NEG); PROTEIN,URINE NEGATIVE (NEG-TRACE); RBC,URINE 0 /HPF (0-2); SQUAMOUS EPITHELIAL CELL,UR FEW /LPF; UROBILINOGEN,URINE 0.2 mg/dL (0.2 mg/dL); WBC,URINE OCC /HPF (0-4)
[2018-05-21 11:24] LABS: BARBITURATES NEG (NEG); BENZODIAZEPINES NEG (NEG); COCAINE NEG (NEG); METHADONE NEG (NEG); OPIATES NEG (NEG); PHENCYCLIDINE NEG (NEG)
[2018-05-21 11:25] LABS: AMPHETAMINE/METHAMPHETAMINE NEG (NEG)
[2018-05-21 11:26] LABS: CANNABINOIDS POS (NEG)
[2018-05-21] MEDS ORDERED: ATROPINE 0.5 MG/5 ML DISP.SYRINGE. ONE (12:00)
[2018-05-21] MEDS ORDERED: SODIUM BICARB ADULT 8.4% 50 MEQ/50 ML DISP.SYRIN. ONE (12:00)
[2018-05-21] MEDS ORDERED: EPINEPHrine SYRINGE 1 MG/10 ML SYRINGE ONE (12:00)
[2018-05-21] MEDS ORDERED: CALCIUM CHLORIDE 1,000 MG/10 ML DISP.SYRIN ONE (12:00)
[2018-05-21] MEDS ORDERED: LABETALOL 20 MG/4 ML DISP.SYRIN. IVP PRN (13:15)
[2018-05-21] MEDS ORDERED: LIDOCAINE 1% Multi-Dose 50 ML VIAL. ONE (14:25)
[2018-05-21] MEDS ORDERED: IODIXANOL 320 MG/ML 100 ML VIAL. ONE (14:25)
[2018-05-21] MEDS ORDERED: MIDAZOLAM HCL/PF 5 MG/5 ML VIAL. ONE (15:09)
[2018-05-21] MEDS ORDERED: fentaNYL PF VIAL 100 MCG/2 ML VIAL ONE (15:09)
[2018-05-21] MEDS ORDERED: MIDAZOLAM HCL/PF 5 MG/5 ML VIAL. IV ONE (15:30)
[2018-05-21] MEDS ORDERED: HEPARIN for IV BOLUS 10,000 UNIT/10 ML VIAL. ONE (15:30)
[2018-05-21] MEDS ORDERED: CONTRAST GIVEN. MC PRN (15:30)
[2018-05-21] MEDS ORDERED: LIDOCAINE 1% Multi-Dose 50 ML VIAL. INJ ONE (15:30)
[2018-05-21] MEDS ORDERED: IODIXANOL 320 MG/ML 100 ML VIAL. IART ONE (15:30)
--- NOTE | 2018-05-21 15:55 | HP ---
ADMIT DATE: 05/21/2018 CHIEF COMPLAINT: Chest pain. HISTORY OF PRESENT ILLNESS: The patient is a pleasant 52-year-old female who presented to the ER with chest pain. It has been occurring off and on for a couple of weeks. She thought it was gastritis or GERD. She had some associated dyspnea on exertion, worse with movement, better with sitting still, described as agonizing. When she hit the ER, we checked blood draw and her troponin is bumped up to 2.69. She has now been admitted to the ICU. She is going to the cardiac catheterization this morning. Her troponin has now bumped up to 6.49 and then 8.79. PAST MEDICAL HISTORY: Hypertension, hyperlipidemia, COPD, seizures, back pain, arthritis, diabetes. ALLERGIES: LISINOPRIL. FAMILY HISTORY: Coronary artery disease. SOCIAL HISTORY: She smokes. No drink or drugs. MEDICATIONS: Reviewed, please refer to the MRAD. She is on 14 home medications including albuterol, cyclobenzaprine, atorvastatin, clonidine, isosorbide mononitrate, atenolol, Coreg, amlodipine, nifedipine, naproxen, gabapentin, Janumet and glyburide. REVIEW OF SYSTEMS: GENERAL: No history of weight change, weakness or fevers. SKIN: No bruising, hair changes or rashes. EYES: No blurred, double or loss of vision. NOSE AND THROAT: No history of nosebleeds, hoarseness or sore throat. HEART: She complains of chest pain. LUNGS: Denies cough, hemoptysis, wheezing or shortness of breath. GASTROINTESTINAL: Denies changes in appetite, nausea, vomiting, diarrhea or constipation. GENITOURINARY: No history of frequency, urgency, hesitancy or nocturia. NEUROLOGIC: Denies history of numbness, tingling, tremor or weakness. PSYCHIATRIC: No history of panic, anxiety or depression. ENDOCRINE: No history of heat or cold intolerance, polyuria or polydipsia. EXTREMITIES: Denies muscle weakness, joint pain, pain on walking or stiffness. PHYSICAL EXAMINATION: VITAL SIGNS: Temperature 98, pulse 80, respirations 18, blood pressure 167/83. GENERAL: She is alert, cooperative, a little anxious. She is in the ICU. HEART: Distant S1, S2 with a soft S3. LUNGS: Slight crackles. No cough. ABDOMEN: Soft, distended. EXTREMITIES: Trace edema. SKIN: No rashes. ENDOCRINE: No thyromegaly. LYMPHATICS: No cervical nodes. HEMATOPOIETIC: No bruising. LABORATORY DATA: White count 5.9, hemoglobin 14.8, platelets 199. INR 1. Electrolytes are pending. Troponin is up to 8.7s. Drug screen positive for marijuana. MRSA screen negative. ASSESSMENT AND PLAN: Acute myocardial infarction. The patient has been admitted. We will check more serial enzymes, serial EKGs, echocardiogram. She is scheduled to go to cardiac catheterization today, consult Cardiology, anticoagulation, will try to resume home meds. PROGNOSIS: Guarded. EMMANUEL BENNETT DO DR: ED/cassius JOB#: [id number] / [id number]
[2018-05-21] MEDS ORDERED: fentaNYL PF VIAL 100 MCG/2 ML VIAL IV ONE (16:00)
--- NOTE | 2018-05-21 16:49 | CARD ---
MR#: [id number] Date of Study: 05/21/2018 Ordering Physician: HUNTER ARMENDARIZ, Referring Physician: JOANIE VELAZCO Tech: Leslie Mckenna, RT (R) APPROVED REPORT Procedures Left heart catheterization Selective coronary angiogram Left ventriculogram. The patient is a 52-year-old female with a history of poorly controlled diabetes mellitus and poorly controlled hypertension. She had not been taking medications for the past 2-3 weeks. She was admitted through the emergency room for chest discomfort a systolic pressure greater than 210. Initial tropon in was elevated at 5.0. The patient was treated with IV Cardene with good control of her blood pressu re. She was also started on diabetes medications. Her pain resolved. She had no ST segment changes co nsistent with a acute ST elevated myocardial infarction. However in this setting cardiac catheterizat ion was recommended to examine the patient's coronaries. Risks and benefits were discussed. The patie nt agreed to proceed. After informed consent was obtained the patient was brought to the heart catheterization lab. The are a of the right femoral artery was prepared usual manner with Betadine, sterile draping and local anes thetic. An 18-gauge needle was used to enter the right femoral artery, a wire placed and a 6 Turkish s stefano placed over the wire. A 6 Turkish JL4 diagnostic catheter was used to engage the left coronary s ystem and sequential injections in various views were obtained. A 6 Turkish Oliver right diagnostic catheter was then used to engage the right coronary artery system and sequential injections in variou s views were obtained. A pigtail catheter was advanced to ascending aorta and then the left ventricle . Pressures were obtained. A 30 MALLORY left ventriculogram was performed. Pullback pressures were measu red. The catheter was removed from the patient. Injection the sheath showed normal placement. The she ath was removed and sealed with a Angio-Seal product. The patient was moved to the holding area pain- free. Findings. Hemodynamics. Left ventricular pressure of 162/19/28. Aortic root pressure 160/82. Coronaries. Left main. The left main was a large vessel. It had a distal greater than 50% lesion in comparison to the proximal vessel. Left anterior descending. The LAD was a large vessel. It had a mid 70-75% lesion present. Left circumflex. The left circumflex was a smaller tortuous vessel. It had a mid to distal occlusion. A significant sized obtuse marginal 1 branch had diffuse disease up to 85%. Right coronary artery. The right coronary was a moderately small vessel. It had a mid 75-80% lesion. Left ventriculogram. A left ventricle had intact systolic function with an ejection fraction of 55-60%. <Conclusion> Left main lesion of 50% or greater. Three-vessel coronary disease as outlined above. Intact LV systolic function. Signed by : Denton Thompson MD Electronically Approved : 05/21/2018 16:49:03
[2018-05-21] MEDS: ISOSORBIDE MONONITRATE ER 30 MG TAB.ER.24H PO SCH (16:59)
[2018-05-21] MEDS: CARVEDILOL 12.5 MG TABLET. PO SCH (17:00)
[2018-05-21] MEDS: amLODIPine BESYLATE 10 MG TABLET PO SCH (17:00)
[2018-05-21] MEDS ORDERED: 0.9 % SODIUM CHLORIDE 10 ML DISP.SYRIN. IV PRN (17:15)
[2018-05-21] MEDS ORDERED: NITROGLYCERIN SUBLINGUAL 0.4 MG BOTTLE OF 25. SL PRN (17:15)
[2018-05-21] MEDS: ATORVASTATIN CALCIUM 40 MG TABLET. PO SCH (21:51)
[2018-05-21] MEDS: CYCLOBENZAPRINE 10 MG TABLET. PO PRN (21:51)
[2018-05-21] MEDS: INSULIN LISPRO 300 UNITS/3 ML INSULN.PEN. SQ SCH (22:00)
--- NOTE | 2018-05-21 23:20 | PDOC2 ---
CONSULT Date of Consult Date of Consult DATE: 05/21/18 TIME: 23:09 Reason for Consult Reason for Consult: NSTEMI Referring Physician Referring Physician: Dr Nolasco Identification/Chief Complaint Chief Complaint Chest pain Source Source: Chart review, Patient History of Present Illness Reason for Visit: 52 year old female, with a hx of poorly controlled DM, HTN, who presents with 2 weeks of chest pain and SOB. She thought that her chest pain was reflux. The pain yesterday was not relieved with antacids so she came to the ER. No EKG changes but troponin peaked at 8. SBP was also in the 200s. She had a LHC today which showed distal 50% LM disease, 70 proximal LAD stenosis, an occluded mid Lcx with a large OM1 with 80% mid stenosis and a 70-80% mid RCA lesion. LV function is preserved. I was consulted to consider the patient for surgical coronary revascularization. Past Medical History Cardiovascular: HTN, Hyperlipidemia Pulmonary: COPD CENTRAL NERVOUS SYSTEM: Seizure GI: No pertinent hx Heme/Onc: No pertinent hx Hepatobiliary: No pertinent hx Psych: No pertinent hx Musculoskeletal: low back pain, Osteoarthritis, Other Rheumatologic: No pertinent hx Infectious disease: No pertinent hx Renal/: No pertinent hx Endocrine: Diabetes Past Surgical History Past Surgical History: Arthroscopy, , Total knee replacement Family History Family History: Coronary Artery Disease (father) Social History ALCOHOL: none Drugs: None, Marijuana Lives: Alone Current Problem List Problem List Problems Medical Problems: (1) Hypertensive emergency Status: Acute Current Medications Current Medications Current Medications Labetalol HCl (Normodyne Iv Push) 20 mg 1X ONCE IVP Last administered on 05/21at 00:26; Start 05/21/18 at 00:30; Stop 05/21/18 at 00:31; Status DC Nitroglycerin (Nitro-Bid Oint) 1 inch 1X ONCE TP Last administered on at 00:27; Start 05/21/18 at 00:30; Stop 05/21/18 at 00:31; Status DC Aspirin (Children'S Aspirin) 324 mg 1X ONCE PO Last administered on at 00:26; Start 05/21/18 at 00:30; Stop 05/21/18 at 00:31; Status DC Nitroglycerin/ Dextrose 250 ml @ 0 mls/hr 1X ONCE IV Last administered on 01:17; Start 05/21/18 at 01:15; Stop 05/21/18 at 01:16; Status DC Heparin Sodium (Porcine) (Heparin Sodium) 4,000 unit 1X ONCE IV Last administered on 05/21/18at 02:56; Start 05/21/18 at 01:15; Stop 05/21/18 at 01 :16; Status DC Heparin Sodium/ Dextrose 500 ml @ 0 mls/hr CONT PRN IV SEE I/O RECORD Last administered on 05/21/18at 01:21; Start 05/21/18 at 01:00 Heparin Sodium (Porcine) (Heparin Sodium) 2,500 unit PRN Q6HRS PRN IV FOR UFH LEVEL LESS THAN 0.2 Last administered on 05/21/18 12:32; Start 05/21/18 at 01 :00 Furosemide (Lasix) 40 mg 1X ONCE IVP Last administered on 05/21/18at 01:23; Start 05/21/18 at 01:30; Stop 05/21/18 at 01:31; Status DC Info (Anti-Coagulation Monitoring By Pharmacy) 1 each PRN DAILY PRN MC SEE COMMENTS Last administered on 05/21/18at 02:26; Start 05/21/18 at 01:15 Sodium Chloride 1,000 ml @ 100 mls/hr Q10H IV ; Start 05/21/18 at 01:30; Stop 05/21/18 at 17:47; Status DC Nicardipine HCl 50 mg/Sodium Chloride 270 ml @ 27 mls/hr CONT PRN IV SEE I/O RECORD Last administered on 05/21/18at 21:58; Start 05/21/18 at 03:30 Furosemide (Lasix) 40 mg 1X ONCE IVP Last administered on 05/21/18 09:24; Start 05/21/18 at 09:15; Stop 05/21/18 at 09:16; Status DC Amlodipine Besylate (Norvasc) 10 mg DAILY PO Last administered on 05/21/18 17 :00; Start 05/21/18 at 14:00 Atorvastatin Calcium (Lipitor) 40 mg QHS PO Last administered on 05/21/18at 21: 51; Start 05/21/18 at 21:00 Carvedilol (Coreg) 25 mg BIDWMEALS PO Last administered on 10/26/18at 17:00; Start 05/21/18 at 17:00 Isosorbide Mononitrate (Imdur) 30 mg DAILY PO Last administered on 05/21/18at 16:59; Start 05/21/18 at 14:00 Labetalol HCl (Normodyne Iv Push) 20 mg PRN Q2HR PRN IVP HYPERTENSION, SEE COMMENTS; Start 05/21/18 at 13:15 Iodixanol (Visipaque 320) 100 ml STK-MED ONCE .ROUTE ; Start 05/21/18 at 14:25 ; Stop 05/21/18 at 14:26; Status DC Lidocaine HCl (Lidocaine 1% 50ml Vial) 50 ml STK-MED ONCE .ROUTE ; Start at 14:25; Stop 05/21/18 at 14:26; Status DC Heparin Sodium/ Sodium Chloride 500 ml @ As Directed STK-MED ONCE .ROUTE ; Start 05/21/18 at 14:25; Stop 05/21/18 at 14:26; Status DC Fentanyl Citrate (Fentanyl 2ml Vial) 100 mcg STK-MED ONCE .ROUTE ; Start at 15:09; Stop 05/21/18 at 15:10; Status DC Midazolam HCl (Versed) 5 mg STK-MED ONCE .ROUTE ; Start 05/21/18 at 15:09; Stop 05/21/18 at 15:10; Status DC Heparin Sodium/ Sodium Chloride 500 ml @ As Directed STK-MED ONCE .ROUTE ; Start 05/21/18 at 15:13; Stop 05/21/18 at 15:14; Status DC Heparin Sodium/ Sodium Chloride (HEPARIN for ARTERIAL LINE FLUSH) 1,000 unit 1X ONCE IART Last administered on 05/21/18at 15:30; Start 05/21/18 at 15:30; Stop 05/21/18 at 15:31; Status DC Heparin Sodium/ Sodium Chloride (HEPARIN for ARTERIAL LINE FLUSH) 1,000 unit 1X ONCE IART Last administered on 05/21/18at 15:30; Start 05/21/18 at 15:30; Stop 05/21/18 at 15:31; Status DC Midazolam HCl (Versed) 5 mg 1X ONCE IV Last administered on 05/21/18at 15:30; Start 05/21/18 at 15:30; Stop 05/21/18 at 15:31; Status DC Iodixanol (Visipaque 320) 100 ml 1X ONCE IART Last administered on 05/21/18at 15:30; Start 05/21/18 at 15:30; Stop 05/21/18 at 15:31; Status DC Lidocaine HCl (Lidocaine 1% 50ml Vial) 50 ml 1X ONCE INJ Last administered on 05/21/18at 15:30; Start 05/21/18 at 15:30; Stop 05/21/18 at 15:31; Status DC Info (CONTRAST GIVEN -- Rx MONITORING) 1 each PRN DAILY PRN MC SEE COMMENTS; Start 05/21/18 at 15:30; Stop 05/23/18 at 15:29 Heparin Sodium (Porcine) (Heparin Sodium) 10,000 unit STK-MED ONCE .ROUTE ; Start 05/21/18 at 15:30; Stop 05/21/18 at 15:31; Status DC Fentanyl Citrate (Fentanyl 2ml Vial) 100 mcg 1X ONCE IV Last administered on 05/21/18at 16:00; Start 05/21/18 at 16:00; Stop 05/21/18 at 16:01; Status DC Cefazolin Sodium/ Dextrose 50 ml @ 100 mls/hr 1X PREOP PRN IV PEROP DOSE/ PRIOR TO PROCEDURE; Start 05/22/18 at 06:00; Stop 05/22/18 at 18:00 Sodium Chloride (Normal Saline Flush) 3 ml QSHIFT PRN IV AFTER MEDS AND BLOOD DRAWS; Start 05/21/18 at 17:15 Sodium Chloride 1,000 ml @ 60 mls/hr [id number] IV Last administered on at 21:58; Start 05/21/18 at 17:01; Stop 05/22/18 at 01:00 Nitroglycerin (Nitrostat) 0.4 mg PRN Q5MIN PRN SL CHEST PAIN; Start 05/21/18 at 17:15 Insulin Human Lispro (HumaLOG) 0-9 UNITS TIDWMEALHC SQ Last administered on at 22:00; Start 05/21/18 at 22:00 Dextrose (Dextrose 50%-Water Syringe) 12.5 gm PRN Q15MIN PRN IV SEE COMMENTS; Start 05/21/18 at 21:00 Cyclobenzaprine HCl (Flexeril) 10 mg PRN Q6HRS PRN PO MUSCLE SPASMS Last administered on 05/21/18at 21:51; Start 05/21/18 at 21:00 Active Scripts Active Proair Hfa Inhaler (Albuterol Sulfate) 8.5 Gm Hfa.aer.ad 1 Puff INH PRN Q6HRS PRN 60 Days Cefpodoxime Proxetil 100 Mg Tablet 200 Mg PO BID 7 Days Nifedipine Er (Nifedipine) 60 Mg Tab.er.24 1 Tab PO DAILY Carvedilol 12.5 Mg Tablet 25 Mg PO BIDWMEALS Isosorbide Mononitrate Er (Isosorbide Mononitrate) 30 Mg Tab.er.24h 30 Mg PO DAILY Reported Janumet 50-1,000 Mg Tablet (Sitagliptin Phos/Metformin Hcl) 1 Each Tablet 2 Tab PO QHS Glyburide 5 Mg Tablet 2 Tab PO BID Cyclobenzaprine Hcl 10 Mg Tablet 1 Tab PO BID Amlodipine Besylate 10 Mg Tablet 10 Mg PO DAILY Atenolol 100 Mg Tablet 1 Tab PO DAILY Naproxen 500 Mg Tablet 1 Tab PO BID Atorvastatin Calcium 40 Mg Tablet 1 Tab PO QHS Gabapentin 300 Mg Capsule 300 Mg PO TID Clonidine Hcl 0.2 Mg Tablet 1 Tab PO BID Allergies Allergies: Coded Allergies: lisinopril (Verified Allergy, Intermediate, 11/16/16) ROS General: No: Chills, Night Sweats, Fatigue, Malaise, Appetite PSYCHOLOGICAL ROS: No: Anxiety, Behavioral Disorder, Concentration difficultie , Decreased libido, Depression, Disorientation, Hallucinations, Hostility, Irritablity, Memory difficulties, Mood Swings, Obsessive thoughts, Physical abuse, Sexual abuse, Sleep disturbances, Suicidal ideation Eyes: No Blurry vision, No Decreased vision, No Double vision, No Dry eyes, No Excessive tearing, No Eye Pain, No Itchy Eyes, No Loss of vision, No Photophobia , No Scotomata, No Uses contacts, No Uses glasses HEENT: No: Heacaches, Visual Changes, Hearing change, Nasal congestion, Nasal discharge, Oral lesions, Sinus pain, Sore Throat, Epistaxis, Sneezing, Snoring, Tinnitus, Vertigo, Vocal changes ALLERGY AND IMMUNOLOGY: No: Hives, Insect Bite Sensitivity, Itchy/Watery Eyes, Nasal Congestion, Post Nasal Drip, Seasonal Allergies Hematological and Lymphatic: No: Bleeding Problems, Blood Clots, Blood Transfusions, Brusing, Night Sweats, Pallor, Swollen Lymph Nodes ENDOCRINE: No: Breast Changes, Galactorrhea, Hair Pattern Changes, Hot Flashes , Malaise/lethargy, Mood Swings, Palpitations, Polydipsia/polyuria, Skin Changes , Temperature Intolerance, Unexpected Weight Changes Breast: No New/Changing Breast Lumps, No Nipple changes, No Nipple discharge Respiratory: YES: Shortness of breath; No: Cough, Hemoptysis, Orthopnea, Pleuritic Pain, SOB with excertion, Sputum Changes, Stridor, Tachypnea, Wheezing Cardiovascular: yes Chest Pain; No Palpitations, No Orthopnea, No Paroxysmal Noc. Dyspnea, No Edema, No Lt Headedness Gastrointestinal: No Nausea, No Vomiting, No Abdominal Pain, No Diarrhea, No Constipation, No Melena, No Hematochezia Genitourinary: No Dysuria, No Frequency, No Incontinence, No Hematuria, No Retention, No Discharge, No Urgency, No Pain, No Flank Pain Musculoskeletal: No Gait Disturbance, No Joint Pain, No Joint Stiffness, No Joint Swelling, No Muscle Pain, No Muscular Weakness, No Pain In:, No Swelling In: Neurological: No Behavorial Changes, No Bowel/Bladder ControlChng, No Confusion , No Dizziness, No Gait Disturbance, No Headaches, No Impaired Coord/balance, No Memory Loss, No Numbness/Tingling, No Seizures, No Speech Problems, No Tremors, No Visual Changes, No Weakness Skin: No Dry Skin, No Eczema, No Hair Changes, No Lumps, No Mole Changes, No Mottling, No Nail Changes, No Pruritus, No Rash, No Skin Lesion Changes, No Acne Physical Exam General: Alert, Oriented X3, No acute distress HEENT: Atraumatic, PERRLA Lungs: Clear to auscultation Heart: Regular rate, Normal S1, Normal S2, No murmurs Abdomen: Soft, No tenderness, No hepatosplenomegaly Extremities: No edema Skin: No significant lesion Neuro: Normal gait, Normal speech, Strength at 5/5 X4 ext, Normal tone, Sensation intact, Cranial nerves 3-12 NL Psych/Mental Status: Mental status NL MUSCULOSKELETAL: No deformity Vitals VITALS Vital Signs Date Time Temp Pulse Resp B/P (MAP) Pulse Ox O2 Delivery O2 Flow Rate FiO2 05/21/18 22:00 74 18 139/74 (95) 96 Room Air 05/21/18 20:00 98.5 98.5 05/21/18 15:49 2.0 Labs Labs Laboratory Tests Test 05/21/18 00:05 05/21/18 00:15 05/21/18 00:30 05/21/18 04:25 Triglycerides Level 203 mg/dL (0-150) Cholesterol Level 144 mg/dL (0-200) LDL Cholesterol, Calculated 66 mg/dL (0-100) VLDL Cholesterol, Calculated 41 mg/dL (0-40) Non-HDL Cholesterol Calculated 107 mg/dL (0-129) HDL Cholesterol 37 mg/dL (40-60) Cholesterol/HDL Ratio 3.9 White Blood Count 5.9 x10^3/uL (4.0-11.0) Red Blood Count 5.30 x10^6/uL (3.50-5.40) Hemoglobin 14.8 g/dL (12.0-15.5) Hematocrit 43.6 % (36.0-47.0) Mean Corpuscular Volume 82 fL (79-100) Mean Corpuscular Hemoglobin 28 pg (25-35) Mean Corpuscular Hemoglobin Concent 34 g/dL (31-37) Red Cell Distribution Width 16.2 % (11.5-14.5) Platelet Count 199 x10^3/uL (140-400) Neutrophils (%) (Auto) 67 % (31-73) Lymphocytes (%) (Auto) 25 % (24-48) Monocytes (%) (Auto) 5 % (0-9) Eosinophils (%) (Auto) 1 % (0-3) Basophils (%) (Auto) 1 % (0-3) Neutrophils # (Auto) 4.0 x10^3uL (1.8-7.7) Lymphocytes # (Auto) 1.5 x10^3/uL (1.0-4.8) Monocytes # (Auto) 0.3 x10^3/uL (0.0-1.1) Eosinophils # (Auto) 0.1 x10^3/uL (0.0-0.7) Basophils # (Auto) 0.1 x10^3/uL (0.0-0.2) Prothrombin Time 12.7 SEC (11.7-14.0) Prothromb Time International Ratio 1.0 (0.8-1.1) D-Dimer (Emilia) 0.60 ug/mlFEU (0.00-0.50) Sodium Level 138 mmol/L (136-145) Potassium Level 3.9 mmol/L (3.5-5.1) Chloride Level 100 mmol/L (98-107) Carbon Dioxide Level 30 mmol/L (21-32) Anion Gap 8 (6-14) Blood Urea Nitrogen 16 mg/dL (7-20) Creatinine 0.9 mg/dL (0.6-1.0) Estimated GFR (Cockcroft-Gault) 79.3 BUN/Creatinine Ratio 18 (6-20) Glucose Level 380 mg/dL (70-99) Calcium Level 9.3 mg/dL (8.5-10.1) Magnesium Level 2.1 mg/dL (1.8-2.4) Total Bilirubin 0.8 mg/dL (0.2-1.0) Aspartate Amino Transf (AST/SGOT) 43 U/L (15-37) Alanine Aminotransferase (ALT/SGPT) 72 U/L (14-59) Alkaline Phosphatase 120 U/L (46-116) Creatine Kinase 78 U/L (26-192) Creatine Kinase MB (Mass) 1.2 ng/mL (0.0-3.6) Creatine Kinase MB Relative Index 1.5 % (0-4) Troponin I Quantitative 2.691 ng/mL (0.000-0.055) WB-Uoq-L-Type Natriuretic Peptide 946 pg/mL (0-124) Total Protein 8.1 g/dL (6.4-8.2) Albumin 3.9 g/dL (3.4-5.0) Albumin/Globulin Ratio 0.9 (1.0-1.7) Lipase 130 U/L (73-393) Activated Partial Thromboplast Time 29 SEC (24-38) Nasal Screen MRSA (PCR) Negative (Negative) Test 05/21/18 05:05 05/21/18 06:08 05/21/18 08:07 05/21/18 10:10 Glucose (Fingerstick) 285 mg/dL (70-99) Heparin Anti-Xa Act, Unfractionated 0.19 IU/mL (0.30-0.70) Troponin I Quantitative 6.497 ng/mL (0.000-0.055) 8.791 ng/mL (0.000-0.055) Urine Color Yellow Urine Clarity Clear Urine pH 8.0 Urine Specific [place] 1.015 Urine Protein Negative mg/dL (NEG-TRACE) Urine Glucose (UA) 500 mg/dL (NEG) Urine Ketones (Stick) Negative mg/dL (NEG) Urine Blood Negative (NEG) Urine Nitrite Negative (NEG) Urine Bilirubin Negative (NEG) Urine Urobilinogen Dipstick 0.2 mg/dL (0.2 mg/dL) Urine Leukocyte Esterase Negative (NEG) Urine RBC 0 /HPF (0-2) Urine WBC Occ /HPF (0-4) Urine Squamous Epithelial Cells Few /LPF Urine Bacteria 0 /HPF (0-FEW) Urine Opiates Screen Neg (NEG) Urine Methadone Screen Neg (NEG) Urine Barbiturates Neg (NEG) Urine Phencyclidine Screen Neg (NEG) Urine Amphetamine/Methamphetamine Neg (NEG) Urine Benzodiazepines Screen Neg (NEG) Urine Cocaine Screen Neg (NEG) Urine Cannabinoids Screen Pos (NEG) Urine Ethyl Alcohol Neg (NEG) Test 05/21/18 12:00 05/21/18 20:47 Heparin Anti-Xa Act, Unfractionated 0.17 IU/mL (0.30-0.70) Glucose (Fingerstick) 272 mg/dL (70-99) Laboratory Tests Test 05/21/18 00:05 05/21/18 00:15 05/21/18 00:30 05/21/18 04:25 Triglycerides Level 203 mg/dL (0-150) Cholesterol Level 144 mg/dL (0-200) LDL Cholesterol, Calculated 66 mg/dL (0-100) VLDL Cholesterol, Calculated 41 mg/dL (0-40) Non-HDL Cholesterol Calculated 107 mg/dL (0-129) HDL Cholesterol 37 mg/dL (40-60) Cholesterol/HDL Ratio 3.9 White Blood Count 5.9 x10^3/uL (4.0-11.0) Red Blood Count 5.30 x10^6/uL (3.50-5.40) Hemoglobin 14.8 g/dL (12.0-15.5) Hematocrit 43.6 % (36.0-47.0) Mean Corpuscular Volume 82 fL (79-100) Mean Corpuscular Hemoglobin 28 pg (25-35) Mean Corpuscular Hemoglobin Concent 34 g/dL (31-37) Red Cell Distribution Width 16.2 % (11.5-14.5) Platelet Count 199 x10^3/uL (140-400) Neutrophils (%) (Auto) 67 % (31-73) Lymphocytes (%) (Auto) 25 % (24-48) Monocytes (%) (Auto) 5 % (0-9) Eosinophils (%) (Auto) 1 % (0-3) Basophils (%) (Auto) 1 % (0-3) Neutrophils # (Auto) 4.0 x10^3uL (1.8-7.7) Lymphocytes # (Auto) 1.5 x10^3/uL (1.0-4.8) Monocytes # (Auto) 0.3 x10^3/uL (0.0-1.1) Eosinophils # (Auto) 0.1 x10^3/uL (0.0-0.7) Basophils # (Auto) 0.1 x10^3/uL (0.0-0.2) Prothrombin Time 12.7 SEC (11.7-14.0) Prothromb Time International Ratio 1.0 (0.8-1.1) D-Dimer (Emilia) 0.60 ug/mlFEU (0.00-0.50) Sodium Level 138 mmol/L (136-145) Potassium Level 3.9 mmol/L (3.5-5.1) Chloride Level 100 mmol/L (98-107) Carbon Dioxide Level 30 mmol/L (21-32) Anion Gap 8 (6-14) Blood Urea Nitrogen 16 mg/dL (7-20) Creatinine 0.9 mg/dL (0.6-1.0) Estimated GFR (Cockcroft-Gault) 79.3 BUN/Creatinine Ratio 18 (6-20) Glucose Level 380 mg/dL (70-99) Calcium Level 9.3 mg/dL (8.5-10.1) Magnesium Level 2.1 mg/dL (1.8-2.4) Total Bilirubin 0.8 mg/dL (0.2-1.0) Aspartate Amino Transf (AST/SGOT) 43 U/L (15-37) Alanine Aminotransferase (ALT/SGPT) 72 U/L (14-59) Alkaline Phosphatase 120 U/L (46-116) Creatine Kinase 78 U/L (26-192) Creatine Kinase MB (Mass) 1.2 ng/mL (0.0-3.6) Creatine Kinase MB Relative Index 1.5 % (0-4) Troponin I Quantitative 2.691 ng/mL (0.000-0.055) AJ-Jzp-I-Type Natriuretic Peptide 946 pg/mL (0-124) Total Protein 8.1 g/dL (6.4-8.2) Albumin 3.9 g/dL (3.4-5.0) Albumin/Globulin Ratio 0.9 (1.0-1.7) Lipase 130 U/L (73-393) Activated Partial Thromboplast Time 29 SEC (24-38) Nasal Screen MRSA (PCR) Negative (Negative) Test 05/21/18 05:05 05/21/18 06:08 05/21/18 08:07 05/21/18 10:10 Glucose (Fingerstick) 285 mg/dL (70-99) Heparin Anti-Xa Act, Unfractionated 0.19 IU/mL (0.30-0.70) Troponin I Quantitative 6.497 ng/mL (0.000-0.055) 8.791 ng/mL (0.000-0.055) Urine Color Yellow Urine Clarity Clear Urine pH 8.0 Urine Specific [place] 1.015 Urine Protein Negative mg/dL (NEG-TRACE) Urine Glucose (UA) 500 mg/dL (NEG) Urine Ketones (Stick) Negative mg/dL (NEG) Urine Blood Negative (NEG) Urine Nitrite Negative (NEG) Urine Bilirubin Negative (NEG) Urine Urobilinogen Dipstick 0.2 mg/dL (0.2 mg/dL) Urine Leukocyte Esterase Negative (NEG) Urine RBC 0 /HPF (0-2) Urine WBC Occ /HPF (0-4) Urine Squamous Epithelial Cells Few /LPF Urine Bacteria 0 /HPF (0-FEW) Urine Opiates Screen Neg (NEG) Urine Methadone Screen Neg (NEG) Urine Barbiturates Neg (NEG) Urine Phencyclidine Screen Neg (NEG) Urine Amphetamine/Methamphetamine Neg (NEG) Urine Benzodiazepines Screen Neg (NEG) Urine Cocaine Screen Neg (NEG) Urine Cannabinoids Screen Pos (NEG) Urine Ethyl Alcohol Neg (NEG) Test 05/21/18 12:00 05/21/18 20:47 Heparin Anti-Xa Act, Unfractionated 0.17 IU/mL (0.30-0.70) Glucose (Fingerstick) 272 mg/dL (70-99) Images Images LHC: Hemodynamics. Left ventricular pressure of 162/19/28. Aortic root pressure 160/82. Coronaries. Left main. The left main was a large vessel. It had a distal greater than 50% lesion in comparison to the proximal vessel. Left anterior descending. The LAD was a large vessel. It had a mid 70-75% lesion present. Left circumflex. The left circumflex was a smaller tortuous vessel. It had a mid to distal occlusion. A significant sized obtuse marginal 1 branch had diffuse disease up to 85%. Right coronary artery. The right coronary was a moderately small vessel. It had a mid 75-80% lesion. Left ventriculogram. A left ventricle had intact systolic function with an ejection fraction of 55-60 %. Assessment/Plan Assessment/Plan 52 year old female, with a hx of poorly controlled DM, HTN, who presents with 2 weeks of chest pain and SOB. She thought that her chest pain was reflux. The pain yesterday was not relieved with antacids so she came to the ER. No EKG changes but troponin peaked at 8. SBP was also in the 200s. She had a LHC today which showed distal 50% LM disease, 70 proximal LAD stenosis, an occluded mid Lcx with a large OM1 with 80% mid stenosis and a 70-80% mid RCA lesion. LV function is preserved. Patient is a candidate for CABG. She will need LEAVITT to LAD, SVG to OM +/- SVG to RPDA, depending on vessel size. The risks which include but are not limited to mortality 1%, stroke 1%, renal failure needing dialysis 1%, infection 5%, resternotomy for bleeding 5%, arrhythmias 20%. Patient accepts these risks and agrees to proceed. Plan for CABG on 05/25/18 Will obtain: Carotid duplex Vein mapping Non contrast CT chest x match BRANT VOGT MD May 21, 2018 23:20
[2018-05-22] VITALS (16 sets, daily range): BP systolic 110–161; BP diastolic 59–86
[2018-05-22] MEDS: CARVEDILOL 12.5 MG TABLET. PO SCH ×2 (08:02→17:32)
[2018-05-22] MEDS: ISOSORBIDE MONONITRATE ER 30 MG TAB.ER.24H PO SCH (08:03)
[2018-05-22] MEDS: amLODIPine BESYLATE 10 MG TABLET PO SCH (08:03)
[2018-05-22] MEDS: INSULIN LISPRO 300 UNITS/3 ML INSULN.PEN. SQ SCH ×4 (08:15→20:32)
[2018-05-22 10:23] LABS: BASO % 0 % (0-3); EOS % 0 % (0-3); HEMATOCRIT 38.3 % (36.0-47.0); HEMOGLOBIN 13.1 g/dL (12.0-15.5); LYMPH # 1.7 x10^3/uL (1.0-4.8); LYMPH % 26 % (24-48); MEAN CORPUSCULAR HEMOGLOBIN 28 pg (25-35); MEAN CORPUSCULAR HGB CONC 34 g/dL (31-37); MEAN CORPUSCULAR VOLUME 82 fL (79-100); MONO # 0.6 x10^3/uL (0.0-1.1); MONO % 9 % (0-9); NEUT # 4.3 x10^3uL (1.8-7.7); NEUT % 65 % (31-73); PLATELET COUNT 192 x10^3/uL (140-400); RED BLOOD COUNT 4.68 x10^6/uL (3.50-5.40); RED CELL DISTRIBUTION WIDTH 16.6 % (11.5-14.5); WHITE BLOOD COUNT 6.7 x10^3/uL (4.0-11.0)
[2018-05-22 10:39] LABS: CALCIUM 8.7 mg/dL (8.5-10.1); GFR 70.2; POTASSIUM 3.6 mmol/L (3.5-5.1)
--- NOTE | 2018-05-22 12:18 | PDOC ---
PROGRESS NOTES Subjective Subjective Patient feeling better. Denied any chest pain. Objective Objective Vital Signs Date Time Temp Pulse Resp B/P (MAP) Pulse Ox O2 Delivery O2 Flow Rate FiO2 05/22/18 11:00 74 20 150/73 (98) 95 Room Air 05/22/18 08:00 99.8 99.8 05/21/18 15:49 2.0 Intake and Output 05/22/18 07:00 Intake Total 825 ml Output Total 751 ml Balance 74 ml IV Total 825 ml Output Urine Total 751 ml Physical Exam Abdomen: Soft, No tenderness, No hepatosplenomegaly Heart: Regular rate, Normal S1, Normal S2, Other (ESM 2/6 aortic) Extremities: No edema General: Alert, Oriented X3, No acute distress HEENT: Atraumatic, PERRLA Lungs: Clear to auscultation MUSCULOSKELETAL: No deformity Neuro: Normal gait, Normal speech, Strength at 5/5 X4 ext, Normal tone, Sensation intact, Cranial nerves 3-12 NL Psych/Mental Status: Mental status NL Skin: No significant lesion Assessment Assessment 1. NSTEMI: Cardiac catheterization showed three-vessel coronary artery disease. Plan for coronary artery bypass surgery on Thursday per CTS. Patient is currently chest pain-free. Telemetry did not show any significant arrhythmias overnight. Patient is presently off heparin infusion. 2. Malignant HTN: Blood pressure better controlled and she is off Cardene infusion. Continue current medical regimen. 3. Acute on chronic diastolic CHF: Better compensated. 4. DM2/HLP: Treat per IM. Plan Plan of Care Problems Medical Problems: (1) Hypertensive emergency Status: Acute Comment Review of Relevant I have reviewed the following items yan (where applicable) has been applied. Labs Laboratory Tests Test 05/21/18 20:47 05/22/18 08:02 05/22/18 09:40 Glucose (Fingerstick) 272 mg/dL (70-99) 274 mg/dL (70-99) White Blood Count 6.7 x10^3/uL (4.0-11.0) Red Blood Count 4.68 x10^6/uL (3.50-5.40) Hemoglobin 13.1 g/dL (12.0-15.5) Hematocrit 38.3 % (36.0-47.0) Mean Corpuscular Volume 82 fL (79-100) Mean Corpuscular Hemoglobin 28 pg (25-35) Mean Corpuscular Hemoglobin Concent 34 g/dL (31-37) Red Cell Distribution Width 16.6 % (11.5-14.5) Platelet Count 192 x10^3/uL (140-400) Neutrophils (%) (Auto) 65 % (31-73) Lymphocytes (%) (Auto) 26 % (24-48) Monocytes (%) (Auto) 9 % (0-9) Eosinophils (%) (Auto) 0 % (0-3) Basophils (%) (Auto) 0 % (0-3) Neutrophils # (Auto) 4.3 x10^3uL (1.8-7.7) Lymphocytes # (Auto) 1.7 x10^3/uL (1.0-4.8) Monocytes # (Auto) 0.6 x10^3/uL (0.0-1.1) Eosinophils # (Auto) 0.0 x10^3/uL (0.0-0.7) Basophils # (Auto) 0.0 x10^3/uL (0.0-0.2) Sodium Level 137 mmol/L (136-145) Potassium Level 3.6 mmol/L (3.5-5.1) Chloride Level 100 mmol/L (98-107) Carbon Dioxide Level 26 mmol/L (21-32) Anion Gap 11 (6-14) Blood Urea Nitrogen 16 mg/dL (7-20) Creatinine 1.0 mg/dL (0.6-1.0) Estimated GFR (Cockcroft-Gault) 70.2 Glucose Level 317 mg/dL (70-99) Calcium Level 8.7 mg/dL (8.5-10.1) Medications Current Medications Amlodipine Besylate (Norvasc) 10 mg DAILY PO Last administered on 05/22/18at 08 :03; Start 05/21/18 at 14:00 Atorvastatin Calcium (Lipitor) 40 mg QHS PO Last administered on 05/21/18at 21: 51; Start 05/21/18 at 21:00 Carvedilol (Coreg) 25 mg BIDWMEALS PO Last administered on 05/22/18at 08:02; Start 05/21/18 at 17:00 Cefazolin Sodium/ Dextrose 50 ml @ 100 mls/hr 1X PREOP PRN IV PEROP DOSE/ PRIOR TO PROCEDURE; Start 05/22/18 at 06:00; Stop 05/22/18 at 18:00 Cyclobenzaprine HCl (Flexeril) 10 mg PRN Q6HRS PRN PO MUSCLE SPASMS Last administered on 05/21/18at 21:51; Start 05/21/18 at 21:00 Dextrose (Dextrose 50%-Water Syringe) 12.5 gm PRN Q15MIN PRN IV SEE COMMENTS; Start 05/21/18 at 21:00 Fentanyl Citrate (Fentanyl 2ml Vial) 100 mcg 1X ONCE IV Last administered on 05/21/18at 16:00; Start 05/21/18 at 16:00; Stop 05/21/18 at 16:01; Status DC Fentanyl Citrate (Fentanyl 2ml Vial) 100 mcg STK-MED ONCE .ROUTE ; Start at 15:09; Stop 05/21/18 at 15:10; Status DC Heparin Sodium (Porcine) (Heparin Sodium) 10,000 unit STK-MED ONCE .ROUTE ; Start 05/21/18 at 15:30; Stop 05/21/18 at 15:31; Status DC Heparin Sodium/ Sodium Chloride 500 ml @ As Directed STK-MED ONCE .ROUTE ; Start 05/21/18 at 14:25; Stop 05/21/18 at 14:26; Status DC Heparin Sodium/ Sodium Chloride 500 ml @ As Directed STK-MED ONCE .ROUTE ; Start 05/21/18 at 15:13; Stop 05/21/18 at 15:14; Status DC Heparin Sodium/ Sodium Chloride (HEPARIN for ARTERIAL LINE FLUSH) 1,000 unit 1X ONCE IART Last administered on 05/21/18at 15:30; Start 05/21/18 at 15:30; Stop 05/21/18 at 15:31; Status DC Heparin Sodium/ Sodium Chloride (HEPARIN for ARTERIAL LINE FLUSH) 1,000 unit 1X ONCE IART Last administered on 05/21/18at 15:30; Start 05/21/18 at 15:30; Stop 05/21/18 at 15:31; Status DC Info (CONTRAST GIVEN -- Rx MONITORING) 1 each PRN DAILY PRN MC SEE COMMENTS; Start 05/21/18 at 15:30; Stop 05/23/18 at 15:29 Insulin Human Lispro (HumaLOG) 0-9 UNITS [id number] SQ Last administered on at 08:15; Start 05/21/18 at 22:00 Iodixanol (Visipaque 320) 100 ml 1X ONCE IART Last administered on 05/21/18at 15:30; Start 05/21/18 at 15:30; Stop 05/21/18 at 15:31; Status DC Iodixanol (Visipaque 320) 100 ml STK-MED ONCE .ROUTE ; Start 05/21/18 at 14:25 ; Stop 05/21/18 at 14:26; Status DC Isosorbide Mononitrate (Imdur) 30 mg DAILY PO Last administered on 05/22/18at 08:03; Start 05/21/18 at 14:00 Labetalol HCl (Normodyne Iv Push) 20 mg PRN Q2HR PRN IVP HYPERTENSION, SEE COMMENTS; Start 05/21/18 at 13:15 Lidocaine HCl (Lidocaine 1% 50ml Vial) 50 ml 1X ONCE INJ Last administered on 05/21/18at 15:30; Start 05/21/18 at 15:30; Stop 05/21/18 at 15:31; Status DC Lidocaine HCl (Lidocaine 1% 50ml Vial) 50 ml STK-MED ONCE .ROUTE ; Start at 14:25; Stop 05/21/18 at 14:26; Status DC Midazolam HCl (Versed) 5 mg 1X ONCE IV Last administered on 05/21/18at 15:30; Start 05/21/18 at 15:30; Stop 05/21/18 at 15:31; Status DC Midazolam HCl (Versed) 5 mg STK-MED ONCE .ROUTE ; Start 05/21/18 at 15:09; Stop 05/21/18 at 15:10; Status DC Nitroglycerin (Nitrostat) 0.4 mg PRN Q5MIN PRN SL CHEST PAIN; Start 05/21/18 at 17:15 Sodium Chloride 1,000 ml @ 60 mls/hr [id number] IV Last administered on at 21:58; Start 05/21/18 at 17:01; Stop 05/22/18 at 01:00; Status DC Sodium Chloride (Normal Saline Flush) 3 ml QSHIFT PRN IV AFTER MEDS AND BLOOD DRAWS; Start 05/21/18 at 17:15 Vitals/I & O Vital Sign - Last 24 Hours 05/21/18 05/21/18 05/21/18 05/21/18 13:00 14:00 15:49 16:00 Pulse 79 74 79 Resp 21 19 17 18 B/P (MAP) 181/91 (121) 167/83 (111) Pulse Ox 95 94 96 O2 Delivery Room Air Room Air Nasal Cannula O2 Flow Rate 2.0 05/21/18 05/21/18 05/21/18 05/21/18 16:00 16:00 16:15 16:30 Temp 98.6 98.6 Pulse 80 82 79 Resp 22 14 20 B/P (MAP) 130/72 (91) 153/73 (99) 161/81 (107) Pulse Ox 96 97 94 O2 Delivery Room Air Room Air Room Air Room Air 05/21/18 05/21/18 05/21/18 05/21/18 16:45 16:59 17:00 17:00 Pulse 74 80 80 80 Resp 19 B/P (MAP) 155/78 (103) 155/78 155/78 155/78 Pulse Ox 95 O2 Delivery Room Air 05/21/18 05/21/18 05/21/18 05/21/18 17:00 17:15 19:00 19:20 Pulse 80 80 80 Resp 18 18 18 B/P (MAP) 148/68 (94) 162/82 (108) 144/73 (96) Pulse Ox 96 95 95 O2 Delivery Room Air Room Air Room Air Room Air 05/21/18 05/21/18 05/21/18 05/21/18 20:00 21:00 22:00 23:00 Temp 98.5 98.5 Pulse 80 70 74 70 Resp 14 17 18 23 B/P (MAP) 162/82 (108) 155/81 (105) 139/74 (95) 137/79 (98) Pulse Ox 95 95 96 99 O2 Delivery Room Air Room Air Room Air Room Air 05/22/18 05/22/18 05/22/18 05/22/18 00:00 00:15 01:00 02:00 Temp 99.5 99.5 Pulse 69 72 77 Resp 23 22 20 B/P (MAP) 144/70 (94) 113/62 (79) 132/74 (93) Pulse Ox 96 96 92 O2 Delivery Room Air Room Air Room Air Room Air 05/22/18 05/22/18 05/22/18 05/22/18 03:00 03:57 04:00 05:00 Temp 100.0 100.0 Pulse 74 76 76 Resp 20 20 20 B/P (MAP) 146/86 (106) 151/74 (99) 134/72 (92) Pulse Ox 94 92 93 O2 Delivery Room Air Room Air Room Air Room Air 05/22/18 05/22/18 05/22/18 05/22/18 06:00 07:00 08:00 08:00 Temp 99.8 99.8 Pulse 70 80 77 Resp 20 18 18 B/P (MAP) 141/74 (96) 149/72 (97) 125/69 (87) Pulse Ox 94 96 96 O2 Delivery Room Air Room Air Room Air Room Air 05/22/18 05/22/18 05/22/18 05/22/18 08:02 08:03 08:03 09:00 Pulse 80 80 80 73 Resp 17 B/P (MAP) 133/72 149/71 149/71 134/72 (92) Pulse Ox 95 O2 Delivery Room Air 05/22/18 05/22/18 10:00 11:00 Pulse 75 74 Resp 20 20 B/P (MAP) 119/59 (79) 150/73 (98) Pulse Ox 95 95 O2 Delivery Room Air Room Air Intake and Output 05/21/18 05/21/18 05/22/18 15:00 23:00 07:00 Intake Total 825 ml Output Total 750 ml 1 ml Balance -750 ml -1 ml 825 ml FRANSISCO PEDROZA MD May 22, 2018 12:18
--- NOTE | 2018-05-22 12:39 | PDOC ---
PROGRESS NOTES Chief Complaint Chief Complaint NSTEMI s/p cath, scheduled for triple vessel CABG 05/25/2018 Hypertension Hyperlipidemia COPD H/o seizures H/o diabetes History of Present Illness History of Present Illness Pt seen and examined in ICU Laying in bed, resting NAD Discussed with RN Vitals Vitals Vital Signs Date Time Temp Pulse Resp B/P (MAP) Pulse Ox O2 Delivery O2 Flow Rate FiO2 05/22/18 11:00 74 20 150/73 (98) 95 Room Air 05/22/18 08:00 99.8 99.8 05/21/18 15:49 2.0 Physical Exam General: Alert, Oriented X3, No acute distress Heart: Regular rate, Normal S1, Normal S2, No murmurs Lungs: Clear Abdomen: Soft, No tenderness Extremities: No clubbing, No cyanosis, No edema Skin: No rashes, No breakdown Labs LABS Laboratory Tests Test 05/21/18 20:47 05/22/18 08:02 05/22/18 09:40 Glucose (Fingerstick) 272 mg/dL (70-99) 274 mg/dL (70-99) White Blood Count 6.7 x10^3/uL (4.0-11.0) Red Blood Count 4.68 x10^6/uL (3.50-5.40) Hemoglobin 13.1 g/dL (12.0-15.5) Hematocrit 38.3 % (36.0-47.0) Mean Corpuscular Volume 82 fL (79-100) Mean Corpuscular Hemoglobin 28 pg (25-35) Mean Corpuscular Hemoglobin Concent 34 g/dL (31-37) Red Cell Distribution Width 16.6 % (11.5-14.5) Platelet Count 192 x10^3/uL (140-400) Neutrophils (%) (Auto) 65 % (31-73) Lymphocytes (%) (Auto) 26 % (24-48) Monocytes (%) (Auto) 9 % (0-9) Eosinophils (%) (Auto) 0 % (0-3) Basophils (%) (Auto) 0 % (0-3) Neutrophils # (Auto) 4.3 x10^3uL (1.8-7.7) Lymphocytes # (Auto) 1.7 x10^3/uL (1.0-4.8) Monocytes # (Auto) 0.6 x10^3/uL (0.0-1.1) Eosinophils # (Auto) 0.0 x10^3/uL (0.0-0.7) Basophils # (Auto) 0.0 x10^3/uL (0.0-0.2) Sodium Level 137 mmol/L (136-145) Potassium Level 3.6 mmol/L (3.5-5.1) Chloride Level 100 mmol/L (98-107) Carbon Dioxide Level 26 mmol/L (21-32) Anion Gap 11 (6-14) Blood Urea Nitrogen 16 mg/dL (7-20) Creatinine 1.0 mg/dL (0.6-1.0) Estimated GFR (Cockcroft-Gault) 70.2 Glucose Level 317 mg/dL (70-99) Calcium Level 8.7 mg/dL (8.5-10.1) Review of Systems Review of Systems Pt c/o fatigue today, but denies any fevers, chills, AGUIAR, CP, SOA, or N/V/D Assessment and Plan Assessmemt and Plan Problems Medical Problems: (1) Hypertensive emergency Status: Acute Assessment: NSTEMI s/p cath, scheduled for triple vessel CABG 05/25/2018 Hypertension Hyperlipidemia COPD H/o seizures H/o diabetes Plan: ICU monitoring Off cardene drip BP control Home meds PT/OT Labs DVT ppx Comment Review of Relevant I have reviewed the following items yan (where applicable) has been applied. Labs Laboratory Tests Test 05/21/18 00:05 05/21/18 00:15 05/21/18 00:30 05/21/18 04:25 Triglycerides Level 203 mg/dL (0-150) Cholesterol Level 144 mg/dL (0-200) LDL Cholesterol, Calculated 66 mg/dL (0-100) VLDL Cholesterol, Calculated 41 mg/dL (0-40) Non-HDL Cholesterol Calculated 107 mg/dL (0-129) HDL Cholesterol 37 mg/dL (40-60) Cholesterol/HDL Ratio 3.9 White Blood Count 5.9 x10^3/uL (4.0-11.0) Red Blood Count 5.30 x10^6/uL (3.50-5.40) Hemoglobin 14.8 g/dL (12.0-15.5) Hematocrit 43.6 % (36.0-47.0) Mean Corpuscular Volume 82 fL (79-100) Mean Corpuscular Hemoglobin 28 pg (25-35) Mean Corpuscular Hemoglobin Concent 34 g/dL (31-37) Red Cell Distribution Width 16.2 % (11.5-14.5) Platelet Count 199 x10^3/uL (140-400) Neutrophils (%) (Auto) 67 % (31-73) Lymphocytes (%) (Auto) 25 % (24-48) Monocytes (%) (Auto) 5 % (0-9) Eosinophils (%) (Auto) 1 % (0-3) Basophils (%) (Auto) 1 % (0-3) Neutrophils # (Auto) 4.0 x10^3uL (1.8-7.7) Lymphocytes # (Auto) 1.5 x10^3/uL (1.0-4.8) Monocytes # (Auto) 0.3 x10^3/uL (0.0-1.1) Eosinophils # (Auto) 0.1 x10^3/uL (0.0-0.7) Basophils # (Auto) 0.1 x10^3/uL (0.0-0.2) Prothrombin Time 12.7 SEC (11.7-14.0) Prothromb Time International Ratio 1.0 (0.8-1.1) D-Dimer (Emilia) 0.60 ug/mlFEU (0.00-0.50) Sodium Level 138 mmol/L (136-145) Potassium Level 3.9 mmol/L (3.5-5.1) Chloride Level 100 mmol/L (98-107) Carbon Dioxide Level 30 mmol/L (21-32) Anion Gap 8 (6-14) Blood Urea Nitrogen 16 mg/dL (7-20) Creatinine 0.9 mg/dL (0.6-1.0) Estimated GFR (Cockcroft-Gault) 79.3 BUN/Creatinine Ratio 18 (6-20) Glucose Level 380 mg/dL (70-99) Calcium Level 9.3 mg/dL (8.5-10.1) Magnesium Level 2.1 mg/dL (1.8-2.4) Total Bilirubin 0.8 mg/dL (0.2-1.0) Aspartate Amino Transf (AST/SGOT) 43 U/L (15-37) Alanine Aminotransferase (ALT/SGPT) 72 U/L (14-59) Alkaline Phosphatase 120 U/L (46-116) Creatine Kinase 78 U/L (26-192) Creatine Kinase MB (Mass) 1.2 ng/mL (0.0-3.6) Creatine Kinase MB Relative Index 1.5 % (0-4) Troponin I Quantitative 2.691 ng/mL (0.000-0.055) KD-Ifn-R-Type Natriuretic Peptide 946 pg/mL (0-124) Total Protein 8.1 g/dL (6.4-8.2) Albumin 3.9 g/dL (3.4-5.0) Albumin/Globulin Ratio 0.9 (1.0-1.7) Lipase 130 U/L (73-393) Activated Partial Thromboplast Time 29 SEC (24-38) Nasal Screen MRSA (PCR) Negative (Negative) Test 05/21/18 05:05 05/21/18 06:08 05/21/18 08:07 05/21/18 10:10 Glucose (Fingerstick) 285 mg/dL (70-99) Heparin Anti-Xa Act, Unfractionated 0.19 IU/mL (0.30-0.70) Troponin I Quantitative 6.497 ng/mL (0.000-0.055) 8.791 ng/mL (0.000-0.055) Urine Color Yellow Urine Clarity Clear Urine pH 8.0 Urine Specific Sanders 1.015 Urine Protein Negative mg/dL (NEG-TRACE) Urine Glucose (UA) 500 mg/dL (NEG) Urine Ketones (Stick) Negative mg/dL (NEG) Urine Blood Negative (NEG) Urine Nitrite Negative (NEG) Urine Bilirubin Negative (NEG) Urine Urobilinogen Dipstick 0.2 mg/dL (0.2 mg/dL) Urine Leukocyte Esterase Negative (NEG) Urine RBC 0 /HPF (0-2) Urine WBC Occ /HPF (0-4) Urine Squamous Epithelial Cells Few /LPF Urine Bacteria 0 /HPF (0-FEW) Urine Opiates Screen Neg (NEG) Urine Methadone Screen Neg (NEG) Urine Barbiturates Neg (NEG) Urine Phencyclidine Screen Neg (NEG) Urine Amphetamine/Methamphetamine Neg (NEG) Urine Benzodiazepines Screen Neg (NEG) Urine Cocaine Screen Neg (NEG) Urine Cannabinoids Screen Pos (NEG) Urine Ethyl Alcohol Neg (NEG) Test 05/21/18 12:00 05/21/18 20:47 05/22/18 08:02 05/22/18 09:40 Heparin Anti-Xa Act, Unfractionated 0.17 IU/mL (0.30-0.70) Glucose (Fingerstick) 272 mg/dL (70-99) 274 mg/dL (70-99) White Blood Count 6.7 x10^3/uL (4.0-11.0) Red Blood Count 4.68 x10^6/uL (3.50-5.40) Hemoglobin 13.1 g/dL (12.0-15.5) Hematocrit 38.3 % (36.0-47.0) Mean Corpuscular Volume 82 fL (79-100) Mean Corpuscular Hemoglobin 28 pg (25-35) Mean Corpuscular Hemoglobin Concent 34 g/dL (31-37) Red Cell Distribution Width 16.6 % (11.5-14.5) Platelet Count 192 x10^3/uL (140-400) Neutrophils (%) (Auto) 65 % (31-73) Lymphocytes (%) (Auto) 26 % (24-48) Monocytes (%) (Auto) 9 % (0-9) Eosinophils (%) (Auto) 0 % (0-3) Basophils (%) (Auto) 0 % (0-3) Neutrophils # (Auto) 4.3 x10^3uL (1.8-7.7) Lymphocytes # (Auto) 1.7 x10^3/uL (1.0-4.8) Monocytes # (Auto) 0.6 x10^3/uL (0.0-1.1) Eosinophils # (Auto) 0.0 x10^3/uL (0.0-0.7) Basophils # (Auto) 0.0 x10^3/uL (0.0-0.2) Sodium Level 137 mmol/L (136-145) Potassium Level 3.6 mmol/L (3.5-5.1) Chloride Level 100 mmol/L (98-107) Carbon Dioxide Level 26 mmol/L (21-32) Anion Gap 11 (6-14) Blood Urea Nitrogen 16 mg/dL (7-20) Creatinine 1.0 mg/dL (0.6-1.0) Estimated GFR (Cockcroft-Gault) 70.2 Glucose Level 317 mg/dL (70-99) Calcium Level 8.7 mg/dL (8.5-10.1) Laboratory Tests Test 05/21/18 20:47 05/22/18 08:02 05/22/18 09:40 Glucose (Fingerstick) 272 mg/dL (70-99) 274 mg/dL (70-99) White Blood Count 6.7 x10^3/uL (4.0-11.0) Red Blood Count 4.68 x10^6/uL (3.50-5.40) Hemoglobin 13.1 g/dL (12.0-15.5) Hematocrit 38.3 % (36.0-47.0) Mean Corpuscular Volume 82 fL (79-100) Mean Corpuscular Hemoglobin 28 pg (25-35) Mean Corpuscular Hemoglobin Concent 34 g/dL (31-37) Red Cell Distribution Width 16.6 % (11.5-14.5) Platelet Count 192 x10^3/uL (140-400) Neutrophils (%) (Auto) 65 % (31-73) Lymphocytes (%) (Auto) 26 % (24-48) Monocytes (%) (Auto) 9 % (0-9) Eosinophils (%) (Auto) 0 % (0-3) Basophils (%) (Auto) 0 % (0-3) Neutrophils # (Auto) 4.3 x10^3uL (1.8-7.7) Lymphocytes # (Auto) 1.7 x10^3/uL (1.0-4.8) Monocytes # (Auto) 0.6 x10^3/uL (0.0-1.1) Eosinophils # (Auto) 0.0 x10^3/uL (0.0-0.7) Basophils # (Auto) 0.0 x10^3/uL (0.0-0.2) Sodium Level 137 mmol/L (136-145) Potassium Level 3.6 mmol/L (3.5-5.1) Chloride Level 100 mmol/L (98-107) Carbon Dioxide Level 26 mmol/L (21-32) Anion Gap 11 (6-14) Blood Urea Nitrogen 16 mg/dL (7-20) Creatinine 1.0 mg/dL (0.6-1.0) Estimated GFR (Cockcroft-Gault) 70.2 Glucose Level 317 mg/dL (70-99) Calcium Level 8.7 mg/dL (8.5-10.1) Medications Current Medications Labetalol HCl (Normodyne Iv Push) 20 mg 1X ONCE IVP Last administered on 05/21at 00:26; Start 05/21/18 at 00:30; Stop 05/21/18 at 00:31; Status DC Nitroglycerin (Nitro-Bid Oint) 1 inch 1X ONCE TP Last administered on at 00:27; Start 05/21/18 at 00:30; Stop 05/21/18 at 00:31; Status DC Aspirin (Children'S Aspirin) 324 mg 1X ONCE PO Last administered on at 00:26; Start 05/21/18 at 00:30; Stop 05/21/18 at 00:31; Status DC Nitroglycerin/ Dextrose 250 ml @ 0 mls/hr 1X ONCE IV Last administered on at 01:17; Start 05/21/18 at 01:15; Stop 05/21/18 at 01:16; Status DC Heparin Sodium (Porcine) (Heparin Sodium) 4,000 unit 1X ONCE IV Last administered on 05/21/18at 02:56; Start 05/21/18 at 01:15; Stop 05/21/18 at 01 :16; Status DC Heparin Sodium/ Dextrose 500 ml @ 0 mls/hr CONT PRN IV SEE I/O RECORD Last administered on 05/21/18at 01:21; Start 05/21/18 at 01:00 Heparin Sodium (Porcine) (Heparin Sodium) 2,500 unit PRN Q6HRS PRN IV FOR UFH LEVEL LESS THAN 0.2 Last administered on 05/21/18at 12:32; Start 05/21/18 at 01 :00 Furosemide (Lasix) 40 mg 1X ONCE IVP Last administered on 05/21/18at 01:23; Start 05/21/18 at 01:30; Stop 05/21/18 at 01:31; Status DC Info (Anti-Coagulation Monitoring By Pharmacy) 1 each PRN DAILY PRN MC SEE COMMENTS Last administered on 05/21/18at 02:26; Start 05/21/18 at 01:15 Sodium Chloride 1,000 ml @ 100 mls/hr Q10H IV ; Start 05/21/18 at 01:30; Stop 05/21/18 at 17:47; Status DC Nicardipine HCl 50 mg/Sodium Chloride 270 ml @ 27 mls/hr CONT PRN IV SEE I/O RECORD Last administered on 05/21/18at 21:58; Start 05/21/18 at 03:30 Furosemide (Lasix) 40 mg 1X ONCE IVP Last administered on 05/21/18at 09:24; Start 05/21/18 at 09:15; Stop 05/21/18 at 09:16; Status DC Amlodipine Besylate (Norvasc) 10 mg DAILY PO Last administered on 05/22/18at 08 :03; Start 05/21/18 at 14:00 Atorvastatin Calcium (Lipitor) 40 mg QHS PO Last administered on 05/21/18at 21: 51; Start 05/21/18 at 21:00 Carvedilol (Coreg) 25 mg BIDWMEALS PO Last administered on 05/22/18at 08:02; Start 05/21/18 at 17:00 Isosorbide Mononitrate (Imdur) 30 mg DAILY PO Last administered on 05/22/18at 08:03; Start 05/21/18 at 14:00 Labetalol HCl (Normodyne Iv Push) 20 mg PRN Q2HR PRN IVP HYPERTENSION, SEE COMMENTS; Start 05/21/18 at 13:15 Iodixanol (Visipaque 320) 100 ml STK-MED ONCE .ROUTE ; Start 05/21/18 at 14:25 ; Stop 05/21/18 at 14:26; Status DC Lidocaine HCl (Lidocaine 1% 50ml Vial) 50 ml STK-MED ONCE .ROUTE ; Start at 14:25; Stop 05/21/18 at 14:26; Status DC Heparin Sodium/ Sodium Chloride 500 ml @ As Directed STK-MED ONCE .ROUTE ; Start 05/21/18 at 14:25; Stop 05/21/18 at 14:26; Status DC Fentanyl Citrate (Fentanyl 2ml Vial) 100 mcg STK-MED ONCE .ROUTE ; Start at 15:09; Stop 05/21/18 at 15:10; Status DC Midazolam HCl (Versed) 5 mg STK-MED ONCE .ROUTE ; Start 05/21/18 at 15:09; Stop 05/21/18 at 15:10; Status DC Heparin Sodium/ Sodium Chloride 500 ml @ As Directed STK-MED ONCE .ROUTE ; Start 05/21/18 at 15:13; Stop 05/21/18 at 15:14; Status DC Heparin Sodium/ Sodium Chloride (HEPARIN for ARTERIAL LINE FLUSH) 1,000 unit 1X ONCE IART Last administered on 05/21/18at 15:30; Start 05/21/18 at 15:30; Stop 05/21/18 at 15:31; Status DC Heparin Sodium/ Sodium Chloride (HEPARIN for ARTERIAL LINE FLUSH) 1,000 unit 1X ONCE IART Last administered on 05/21/18at 15:30; Start 05/21/18 at 15:30; Stop 05/21/18 at 15:31; Status DC Midazolam HCl (Versed) 5 mg 1X ONCE IV Last administered on 05/21/18at 15:30; Start 05/21/18 at 15:30; Stop 05/21/18 at 15:31; Status DC Iodixanol (Visipaque 320) 100 ml 1X ONCE IART Last administered on 05/21/18at 15:30; Start 05/21/18 at 15:30; Stop 05/21/18 at 15:31; Status DC Lidocaine HCl (Lidocaine 1% 50ml Vial) 50 ml 1X ONCE INJ Last administered on 05/21/18at 15:30; Start 05/21/18 at 15:30; Stop 05/21/18 at 15:31; Status DC Info (CONTRAST GIVEN -- Rx MONITORING) 1 each PRN DAILY PRN MC SEE COMMENTS; Start 05/21/18 at 15:30; Stop 05/23/18 at 15:29 Heparin Sodium (Porcine) (Heparin Sodium) 10,000 unit STK-MED ONCE .ROUTE ; Start 05/21/18 at 15:30; Stop 05/21/18 at 15:31; Status DC Fentanyl Citrate (Fentanyl 2ml Vial) 100 mcg 1X ONCE IV Last administered on 05/21/18at 16:00; Start 05/21/18 at 16:00; Stop 05/21/18 at 16:01; Status DC Cefazolin Sodium/ Dextrose 50 ml @ 100 mls/hr 1X PREOP PRN IV PEROP DOSE/ PRIOR TO PROCEDURE; Start 05/22/18 at 06:00; Stop 05/22/18 at 18:00 Sodium Chloride (Normal Saline Flush) 3 ml QSHIFT PRN IV AFTER MEDS AND BLOOD DRAWS; Start 05/21/18 at 17:15 Sodium Chloride 1,000 ml @ 60 mls/hr [id number] IV Last administered on at 21:58; Start 05/21/18 at 17:01; Stop 05/22/18 at 01:00; Status DC Nitroglycerin (Nitrostat) 0.4 mg PRN Q5MIN PRN SL CHEST PAIN; Start 05/21/18 at 17:15 Insulin Human Lispro (HumaLOG) 0-9 UNITS [id number] SQ Last administered on at 08:15; Start 05/21/18 at 22:00 Dextrose (Dextrose 50%-Water Syringe) 12.5 gm PRN Q15MIN PRN IV SEE COMMENTS; Start 05/21/18 at 21:00 Cyclobenzaprine HCl (Flexeril) 10 mg PRN Q6HRS PRN PO MUSCLE SPASMS Last administered on 05/21/18at 21:51; Start 05/21/18 at 21:00 Active Scripts Active Proair Hfa Inhaler (Albuterol Sulfate) 8.5 Gm Hfa.aer.ad 1 Puff INH PRN Q6HRS PRN 60 Days Cefpodoxime Proxetil 100 Mg Tablet 200 Mg PO BID 7 Days Nifedipine Er (Nifedipine) 60 Mg Tab.er.24 1 Tab PO DAILY Carvedilol 12.5 Mg Tablet 25 Mg PO BIDWMEALS Isosorbide Mononitrate Er (Isosorbide Mononitrate) 30 Mg Tab.er.24h 30 Mg PO DAILY Reported Janumet 50-1,000 Mg Tablet (Sitagliptin Phos/Metformin Hcl) 1 Each Tablet 2 Tab PO QHS Glyburide 5 Mg Tablet 2 Tab PO BID Cyclobenzaprine Hcl 10 Mg Tablet 1 Tab PO BID Amlodipine Besylate 10 Mg Tablet 10 Mg PO DAILY Atenolol 100 Mg Tablet 1 Tab PO DAILY Naproxen 500 Mg Tablet 1 Tab PO BID Atorvastatin Calcium 40 Mg Tablet 1 Tab PO QHS Gabapentin 300 Mg Capsule 300 Mg PO TID Clonidine Hcl 0.2 Mg Tablet 1 Tab PO BID Vitals/I & O Vital Sign - Last 24 Hours 05/21/18 05/21/18 05/21/18 05/21/18 13:00 14:00 15:49 16:00 Pulse 79 74 79 Resp 21 19 17 18 B/P (MAP) 181/91 (121) 167/83 (111) Pulse Ox 95 94 96 O2 Delivery Room Air Room Air Nasal Cannula O2 Flow Rate 2.0 05/21/18 05/21/18 05/21/18 05/21/18 16:00 16:00 16:15 16:30 Temp 98.6 98.6 Pulse 80 82 79 Resp 22 14 20 B/P (MAP) 130/72 (91) 153/73 (99) 161/81 (107) Pulse Ox 96 97 94 O2 Delivery Room Air Room Air Room Air Room Air 05/21/18 05/21/18 05/21/18 05/21/18 16:45 16:59 17:00 17:00 Pulse 74 80 80 80 Resp 19 B/P (MAP) 155/78 (103) 155/78 155/78 155/78 Pulse Ox 95 O2 Delivery Room Air 05/21/18 05/21/18 05/21/18 05/21/18 17:00 17:15 19:00 19:20 Pulse 80 80 80 Resp 18 18 18 B/P (MAP) 148/68 (94) 162/82 (108) 144/73 (96) Pulse Ox 96 95 95 O2 Delivery Room Air Room Air Room Air Room Air 05/21/18 05/21/18 05/21/18 05/21/18 20:00 21:00 22:00 23:00 Temp 98.5 98.5 Pulse 80 70 74 70 Resp 14 17 18 23 B/P (MAP) 162/82 (108) 155/81 (105) 139/74 (95) 137/79 (98) Pulse Ox 95 95 96 99 O2 Delivery Room Air Room Air Room Air Room Air 05/22/18 05/22/18 05/22/18 05/22/18 00:00 00:15 01:00 02:00 Temp 99.5 99.5 Pulse 69 72 77 Resp 23 22 20 B/P (MAP) 144/70 (94) 113/62 (79) 132/74 (93) Pulse Ox 96 96 92 O2 Delivery Room Air Room Air Room Air Room Air 05/22/18 05/22/18 05/22/18 05/22/18 03:00 03:57 04:00 05:00 Temp 100.0 100.0 Pulse 74 76 76 Resp 20 20 20 B/P (MAP) 146/86 (106) 151/74 (99) 134/72 (92) Pulse Ox 94 92 93 O2 Delivery Room Air Room Air Room Air Room Air 05/22/18 05/22/18 05/22/18 05/22/18 06:00 07:00 08:00 08:00 Temp 99.8 99.8 Pulse 70 80 77 Resp 20 18 18 B/P (MAP) 141/74 (96) 149/72 (97) 125/69 (87) Pulse Ox 94 96 96 O2 Delivery Room Air Room Air Room Air Room Air 05/22/18 05/22/18 05/22/18 05/22/18 08:02 08:03 08:03 09:00 Pulse 80 80 80 73 Resp 17 B/P (MAP) 133/72 149/71 149/71 134/72 (92) Pulse Ox 95 O2 Delivery Room Air 05/22/18 05/22/18 10:00 11:00 Pulse 75 74 Resp 20 20 B/P (MAP) 119/59 (79) 150/73 (98) Pulse Ox 95 95 O2 Delivery Room Air Room Air Intake and Output 05/21/18 05/21/18 05/22/18 15:00 23:00 07:00 Intake Total 825 ml Output Total 750 ml 1 ml Balance -750 ml -1 ml 825 ml EMMANUEL BENNETT III DO May 22, 2018 12:39
--- NOTE | 2018-05-22 12:40 | RAD ---
Examination: CT CHEST WO CONTRAST History: PEROP CABG
; aortic calcification assessment. Comparison/Correlation: None Findings: Axial images of the chest were obtained without contrast. Sagittal and coronal reformatted images were provided. Main pulmonary artery diameter of 4.6 cm is noted. Scattered correlation of the thoracic aortic wall is mild pulmonary at the arch and proximal descending level. Minimal pericardial effusion noted. Coronary arterial calcification is significant particularly at the left anterior descending distribution proximally. Minimal left lower lobe basilar atelectasis is present. Minimal linear atelectasis at the posterior right basilar aspect. No pneumothorax. Visualized trachea is unremarkable. Bony structures are unremarkable for the patient's age. High density within the gallbladder which may represent calculus involvement or sludge is noted. Correlate with contrast demonstration is this may represent residual contrast related to vicarious excretion. Impression: No significant coronary arterial calcification. Bibasilar lower lobe atelectasis is present. Partial left lower lobe atelectasis present. Minimal right lower lobe linear atelectasis. Dilated main pulmonary artery of concern for pulmonary artery hypertension. High density within the gallbladder. Correlate for underlying sludge or calculus involvement. Correlate with contrast administration. Electronically signed by: Lee Day MD (05/22/2018 12:37 PM) [facility]
[2018-05-22] MEDS: CYCLOBENZAPRINE 10 MG TABLET. PO PRN (17:32)
[2018-05-22] MEDS: ATORVASTATIN CALCIUM 40 MG TABLET. PO SCH (20:29)
[2018-05-23 02:45] VITALS: BP 150/66
[2018-05-23 07:00] VITALS: BP 161/66
[2018-05-23] MEDS: ONDANSETRON PF 4 MG/2 ML VIAL. IV PRN (08:04)
[2018-05-23 08:05] LABS: BASO % 1 % (0-3); EOS % 1 % (0-3); HEMATOCRIT 38.1 % (36.0-47.0); HEMOGLOBIN 13.1 g/dL (12.0-15.5); LYMPH # 1.8 x10^3/uL (1.0-4.8); LYMPH % 33 % (24-48); MEAN CORPUSCULAR HEMOGLOBIN 28 pg (25-35); MEAN CORPUSCULAR HGB CONC 34 g/dL (31-37); MEAN CORPUSCULAR VOLUME 82 fL (79-100); MONO # 0.7 x10^3/uL (0.0-1.1); MONO % 12 % (0-9); NEUT # 2.9 x10^3uL (1.8-7.7); NEUT % 54 % (31-73); PLATELET COUNT 155 x10^3/uL (140-400); RED BLOOD COUNT 4.66 x10^6/uL (3.50-5.40); RED CELL DISTRIBUTION WIDTH 16.1 % (11.5-14.5); WHITE BLOOD COUNT 5.4 x10^3/uL (4.0-11.0)
[2018-05-23 08:11] LABS: CALCIUM 8.5 mg/dL (8.5-10.1); CREATININE 0.8 mg/dL (0.6-1.0); GFR 90.8; POTASSIUM 3.9 mmol/L (3.5-5.1)
[2018-05-23] MEDS: ISOSORBIDE MONONITRATE ER 30 MG TAB.ER.24H PO SCH (09:24)
[2018-05-23] MEDS: CARVEDILOL 12.5 MG TABLET. PO SCH ×2 (09:24→17:40)
[2018-05-23] MEDS: amLODIPine BESYLATE 10 MG TABLET PO SCH (09:24)
[2018-05-23] MEDS: INSULIN LISPRO 300 UNITS/3 ML INSULN.PEN. SQ SCH ×4 (09:29→20:50)
[2018-05-23 11:00] VITALS: BP 132/66
--- NOTE | 2018-05-23 11:06 | PDOC ---
PROGRESS NOTES Subjective Subjective Patient denied any chest pain Objective Objective Vital Signs Date Time Temp Pulse Resp B/P (MAP) Pulse Ox O2 Delivery O2 Flow Rate FiO2 05/23/18 09:24 77 150/66 05/23/18 08:00 Room Air 05/23/18 07:00 99.0 18 96 99.0 Intake and Output 05/23/18 07:00 Intake Total 1000 ml Output Total 1 ml Balance 999 ml Intake Oral 1000 ml Output Urine Total 1 ml # Voids 2 Physical Exam Abdomen: Soft, No tenderness Heart: Regular rate, Normal S1, Normal S2, Other (ESM 2/6 aortic) Extremities: No clubbing, No cyanosis, No edema General: Alert, Oriented X3, No acute distress HEENT: Atraumatic, PERRLA Lungs: Clear to auscultation MUSCULOSKELETAL: No deformity Neuro: Normal gait, Normal speech, Strength at 5/5 X4 ext, Normal tone, Sensation intact, Cranial nerves 3-12 NL Psych/Mental Status: Mental status NL Skin: No rashes, No breakdown Assessment Assessment 1. NSTEMI: Cardiac catheterization showed three-vessel coronary artery disease. Plan for coronary artery bypass surgery on Thursday per CTS. Patient is currently chest pain-free. Telemetry did not show any significant arrhythmias overnight. Patient is presently off heparin infusion. 2. Malignant HTN: Blood pressure better controlled. Continue current medical regimen. 3. Acute on chronic diastolic CHF: Better compensated. 4. DM2/HLP: Treat per IM Plan Plan of Care Problems Medical Problems: (1) Hypertensive emergency Status: Acute Comment Review of Relevant I have reviewed the following items yan (where applicable) has been applied. Labs Laboratory Tests Test 05/22/18 13:38 05/22/18 17:22 05/22/18 20:27 05/23/18 07:10 Glucose (Fingerstick) 333 mg/dL (70-99) 207 mg/dL (70-99) 285 mg/dL (70-99) White Blood Count 5.4 x10^3/uL (4.0-11.0) Red Blood Count 4.66 x10^6/uL (3.50-5.40) Hemoglobin 13.1 g/dL (12.0-15.5) Hematocrit 38.1 % (36.0-47.0) Mean Corpuscular Volume 82 fL (79-100) Mean Corpuscular Hemoglobin 28 pg (25-35) Mean Corpuscular Hemoglobin Concent 34 g/dL (31-37) Red Cell Distribution Width 16.1 % (11.5-14.5) Platelet Count 155 x10^3/uL (140-400) Neutrophils (%) (Auto) 54 % (31-73) Lymphocytes (%) (Auto) 33 % (24-48) Monocytes (%) (Auto) 12 % (0-9) Eosinophils (%) (Auto) 1 % (0-3) Basophils (%) (Auto) 1 % (0-3) Neutrophils # (Auto) 2.9 x10^3uL (1.8-7.7) Lymphocytes # (Auto) 1.8 x10^3/uL (1.0-4.8) Monocytes # (Auto) 0.7 x10^3/uL (0.0-1.1) Eosinophils # (Auto) 0.0 x10^3/uL (0.0-0.7) Basophils # (Auto) 0.0 x10^3/uL (0.0-0.2) Sodium Level 139 mmol/L (136-145) Potassium Level 3.9 mmol/L (3.5-5.1) Chloride Level 103 mmol/L (98-107) Carbon Dioxide Level 27 mmol/L (21-32) Anion Gap 9 (6-14) Blood Urea Nitrogen 13 mg/dL (7-20) Creatinine 0.8 mg/dL (0.6-1.0) Estimated GFR (Cockcroft-Gault) 90.8 Glucose Level 234 mg/dL (70-99) Calcium Level 8.5 mg/dL (8.5-10.1) Medications Current Medications Ondansetron HCl (Zofran) 4 mg PRN Q6HRS PRN IV NAUSEA/VOMITING Last administered on 05/23/18at 08:04; Start 05/23/18 at 08:00 Vitals/I & O Vital Sign - Last 24 Hours 05/22/18 05/22/18 05/22/18 05/22/18 13:00 16:00 17:32 19:20 Temp 99.8 99.8 Pulse 76 77 77 82 Resp 18 18 18 B/P (MAP) 156/73 (100) 110/67 (81) 110/67 126/60 (82) Pulse Ox 96 96 98 O2 Delivery Room Air Room Air Room Air 05/22/18 05/22/18 05/23/18 05/23/18 19:30 23:24 02:45 07:00 Temp 100.1 99.4 99.0 100.1 99.4 99.0 Pulse 77 77 78 Resp 20 18 18 B/P (MAP) 161/69 (99) 150/66 (94) 161/66 (97) Pulse Ox 100 98 96 O2 Delivery Room Air Room Air Room Air Room Air 05/23/18 05/23/18 05/23/18 05/23/18 08:00 09:24 09:24 09:24 Pulse 77 77 77 B/P (MAP) 150/66 150/66 150/66 O2 Delivery Room Air Intake and Output 05/22/18 05/22/18 05/23/18 15:00 23:00 07:00 Intake Total 500 ml 500 ml Output Total 1 ml Balance 499 ml 500 ml FRANSISCO PEDROZA MD May 23, 2018 11:06
--- NOTE | 2018-05-23 13:31 | PDOC ---
PROGRESS NOTES Chief Complaint Chief Complaint NSTEMI s/p cath, scheduled for triple vessel CABG 05/25/2018 Hypertension Hyperlipidemia COPD H/o seizures H/o diabetes History of Present Illness History of Present Illness Pt seen and examined in ICU Reclining in chair, calm, cooperative Discussed with RN Vitals Vitals Vital Signs Date Time Temp Pulse Resp B/P (MAP) Pulse Ox O2 Delivery O2 Flow Rate FiO2 05/23/18 11:00 99.5 70 18 132/66 (88) 96 Room Air 99.5 Physical Exam General: Alert, Oriented X3, No acute distress Heart: Regular rate, Normal S1, Normal S2, Other (ESM 2/6 aortic) Lungs: Clear Abdomen: Soft, No tenderness Extremities: No clubbing, No cyanosis, No edema Skin: No rashes, No breakdown Labs LABS Laboratory Tests Test 05/22/18 13:38 05/22/18 17:22 05/22/18 20:27 05/23/18 07:10 Glucose (Fingerstick) 333 mg/dL (70-99) 207 mg/dL (70-99) 285 mg/dL (70-99) White Blood Count 5.4 x10^3/uL (4.0-11.0) Red Blood Count 4.66 x10^6/uL (3.50-5.40) Hemoglobin 13.1 g/dL (12.0-15.5) Hematocrit 38.1 % (36.0-47.0) Mean Corpuscular Volume 82 fL (79-100) Mean Corpuscular Hemoglobin 28 pg (25-35) Mean Corpuscular Hemoglobin Concent 34 g/dL (31-37) Red Cell Distribution Width 16.1 % (11.5-14.5) Platelet Count 155 x10^3/uL (140-400) Neutrophils (%) (Auto) 54 % (31-73) Lymphocytes (%) (Auto) 33 % (24-48) Monocytes (%) (Auto) 12 % (0-9) Eosinophils (%) (Auto) 1 % (0-3) Basophils (%) (Auto) 1 % (0-3) Neutrophils # (Auto) 2.9 x10^3uL (1.8-7.7) Lymphocytes # (Auto) 1.8 x10^3/uL (1.0-4.8) Monocytes # (Auto) 0.7 x10^3/uL (0.0-1.1) Eosinophils # (Auto) 0.0 x10^3/uL (0.0-0.7) Basophils # (Auto) 0.0 x10^3/uL (0.0-0.2) Sodium Level 139 mmol/L (136-145) Potassium Level 3.9 mmol/L (3.5-5.1) Chloride Level 103 mmol/L (98-107) Carbon Dioxide Level 27 mmol/L (21-32) Anion Gap 9 (6-14) Blood Urea Nitrogen 13 mg/dL (7-20) Creatinine 0.8 mg/dL (0.6-1.0) Estimated GFR (Cockcroft-Gault) 90.8 Glucose Level 234 mg/dL (70-99) Calcium Level 8.5 mg/dL (8.5-10.1) Test 05/23/18 11:28 Glucose (Fingerstick) 297 mg/dL (70-99) Review of Systems Review of Systems Pt denies any fevers, chills, AGUIAR, CP, SOA, or N/V/D. Assessment and Plan Assessmemt and Plan Problems Medical Problems: (1) Hypertensive emergency Status: Acute Assessment: NSTEMI s/p cath, scheduled for triple vessel CABG 05/25/2018 Hypertension Hyperlipidemia COPD H/o seizures H/o diabetes Plan: ICU monitoring BP control Home meds PT/OT Labs DVT ppx Comment Review of Relevant I have reviewed the following items yan (where applicable) has been applied. Labs Laboratory Tests Test 05/21/18 20:47 05/22/18 08:02 05/22/18 09:40 05/22/18 13:38 Glucose (Fingerstick) 272 mg/dL (70-99) 274 mg/dL (70-99) 333 mg/dL (70-99) White Blood Count 6.7 x10^3/uL (4.0-11.0) Red Blood Count 4.68 x10^6/uL (3.50-5.40) Hemoglobin 13.1 g/dL (12.0-15.5) Hematocrit 38.3 % (36.0-47.0) Mean Corpuscular Volume 82 fL (79-100) Mean Corpuscular Hemoglobin 28 pg (25-35) Mean Corpuscular Hemoglobin Concent 34 g/dL (31-37) Red Cell Distribution Width 16.6 % (11.5-14.5) Platelet Count 192 x10^3/uL (140-400) Neutrophils (%) (Auto) 65 % (31-73) Lymphocytes (%) (Auto) 26 % (24-48) Monocytes (%) (Auto) 9 % (0-9) Eosinophils (%) (Auto) 0 % (0-3) Basophils (%) (Auto) 0 % (0-3) Neutrophils # (Auto) 4.3 x10^3uL (1.8-7.7) Lymphocytes # (Auto) 1.7 x10^3/uL (1.0-4.8) Monocytes # (Auto) 0.6 x10^3/uL (0.0-1.1) Eosinophils # (Auto) 0.0 x10^3/uL (0.0-0.7) Basophils # (Auto) 0.0 x10^3/uL (0.0-0.2) Sodium Level 137 mmol/L (136-145) Potassium Level 3.6 mmol/L (3.5-5.1) Chloride Level 100 mmol/L (98-107) Carbon Dioxide Level 26 mmol/L (21-32) Anion Gap 11 (6-14) Blood Urea Nitrogen 16 mg/dL (7-20) Creatinine 1.0 mg/dL (0.6-1.0) Estimated GFR (Cockcroft-Gault) 70.2 Glucose Level 317 mg/dL (70-99) Calcium Level 8.7 mg/dL (8.5-10.1) Test 05/22/18 17:22 05/22/18 20:27 05/23/18 07:10 05/23/18 11:28 Glucose (Fingerstick) 207 mg/dL (70-99) 285 mg/dL (70-99) 297 mg/dL (70-99) White Blood Count 5.4 x10^3/uL (4.0-11.0) Red Blood Count 4.66 x10^6/uL (3.50-5.40) Hemoglobin 13.1 g/dL (12.0-15.5) Hematocrit 38.1 % (36.0-47.0) Mean Corpuscular Volume 82 fL (79-100) Mean Corpuscular Hemoglobin 28 pg (25-35) Mean Corpuscular Hemoglobin Concent 34 g/dL (31-37) Red Cell Distribution Width 16.1 % (11.5-14.5) Platelet Count 155 x10^3/uL (140-400) Neutrophils (%) (Auto) 54 % (31-73) Lymphocytes (%) (Auto) 33 % (24-48) Monocytes (%) (Auto) 12 % (0-9) Eosinophils (%) (Auto) 1 % (0-3) Basophils (%) (Auto) 1 % (0-3) Neutrophils # (Auto) 2.9 x10^3uL (1.8-7.7) Lymphocytes # (Auto) 1.8 x10^3/uL (1.0-4.8) Monocytes # (Auto) 0.7 x10^3/uL (0.0-1.1) Eosinophils # (Auto) 0.0 x10^3/uL (0.0-0.7) Basophils # (Auto) 0.0 x10^3/uL (0.0-0.2) Sodium Level 139 mmol/L (136-145) Potassium Level 3.9 mmol/L (3.5-5.1) Chloride Level 103 mmol/L (98-107) Carbon Dioxide Level 27 mmol/L (21-32) Anion Gap 9 (6-14) Blood Urea Nitrogen 13 mg/dL (7-20) Creatinine 0.8 mg/dL (0.6-1.0) Estimated GFR (Cockcroft-Gault) 90.8 Glucose Level 234 mg/dL (70-99) Calcium Level 8.5 mg/dL (8.5-10.1) Laboratory Tests Test 05/22/18 13:38 05/22/18 17:22 05/22/18 20:27 05/23/18 07:10 Glucose (Fingerstick) 333 mg/dL (70-99) 207 mg/dL (70-99) 285 mg/dL (70-99) White Blood Count 5.4 x10^3/uL (4.0-11.0) Red Blood Count 4.66 x10^6/uL (3.50-5.40) Hemoglobin 13.1 g/dL (12.0-15.5) Hematocrit 38.1 % (36.0-47.0) Mean Corpuscular Volume 82 fL (79-100) Mean Corpuscular Hemoglobin 28 pg (25-35) Mean Corpuscular Hemoglobin Concent 34 g/dL (31-37) Red Cell Distribution Width 16.1 % (11.5-14.5) Platelet Count 155 x10^3/uL (140-400) Neutrophils (%) (Auto) 54 % (31-73) Lymphocytes (%) (Auto) 33 % (24-48) Monocytes (%) (Auto) 12 % (0-9) Eosinophils (%) (Auto) 1 % (0-3) Basophils (%) (Auto) 1 % (0-3) Neutrophils # (Auto) 2.9 x10^3uL (1.8-7.7) Lymphocytes # (Auto) 1.8 x10^3/uL (1.0-4.8) Monocytes # (Auto) 0.7 x10^3/uL (0.0-1.1) Eosinophils # (Auto) 0.0 x10^3/uL (0.0-0.7) Basophils # (Auto) 0.0 x10^3/uL (0.0-0.2) Sodium Level 139 mmol/L (136-145) Potassium Level 3.9 mmol/L (3.5-5.1) Chloride Level 103 mmol/L (98-107) Carbon Dioxide Level 27 mmol/L (21-32) Anion Gap 9 (6-14) Blood Urea Nitrogen 13 mg/dL (7-20) Creatinine 0.8 mg/dL (0.6-1.0) Estimated GFR (Cockcroft-Gault) 90.8 Glucose Level 234 mg/dL (70-99) Calcium Level 8.5 mg/dL (8.5-10.1) Test 05/23/18 11:28 Glucose (Fingerstick) 297 mg/dL (70-99) Medications Current Medications Labetalol HCl (Normodyne Iv Push) 20 mg 1X ONCE IVP Last administered on 05/21at 00:26; Start 05/21/18 at 00:30; Stop 05/21/18 at 00:31; Status DC Nitroglycerin (Nitro-Bid Oint) 1 inch 1X ONCE TP Last administered on at 00:27; Start 05/21/18 at 00:30; Stop 05/21/18 at 00:31; Status DC Aspirin (Children'S Aspirin) 324 mg 1X ONCE PO Last administered on at 00:26; Start 05/21/18 at 00:30; Stop 05/21/18 at 00:31; Status DC Nitroglycerin/ Dextrose 250 ml @ 0 mls/hr 1X ONCE IV Last administered on at 01:17; Start 05/21/18 at 01:15; Stop 05/21/18 at 01:16; Status DC Heparin Sodium (Porcine) (Heparin Sodium) 4,000 unit 1X ONCE IV Last administered on 05/21/18at 02:56; Start 05/21/18 at 01:15; Stop 05/21/18 at 01 :16; Status DC Heparin Sodium/ Dextrose 500 ml @ 0 mls/hr CONT PRN IV SEE I/O RECORD Last administered on 05/21/18at 01:21; Start 05/21/18 at 01:00 Heparin Sodium (Porcine) (Heparin Sodium) 2,500 unit PRN Q6HRS PRN IV FOR UFH LEVEL LESS THAN 0.2 Last administered on 05/21/18at 12:32; Start 05/21/18 at 01 :00 Furosemide (Lasix) 40 mg 1X ONCE IVP Last administered on 05/21/18at 01:23; Start 05/21/18 at 01:30; Stop 05/21/18 at 01:31; Status DC Info (Anti-Coagulation Monitoring By Pharmacy) 1 each PRN DAILY PRN MC SEE COMMENTS Last administered on 05/21/18at 02:26; Start 05/21/18 at 01:15 Sodium Chloride 1,000 ml @ 100 mls/hr Q10H IV ; Start 05/21/18 at 01:30; Stop 05/21/18 at 17:47; Status DC Nicardipine HCl 50 mg/Sodium Chloride 270 ml @ 27 mls/hr CONT PRN IV SEE I/O RECORD Last administered on 05/21/18at 21:58; Start 05/21/18 at 03:30 Furosemide (Lasix) 40 mg 1X ONCE IVP Last administered on 05/21/18at 09:24; Start 05/21/18 at 09:15; Stop 05/21/18 at 09:16; Status DC Amlodipine Besylate (Norvasc) 10 mg DAILY PO Last administered on 05/23/18at 09 :24; Start 05/21/18 at 14:00 Atorvastatin Calcium (Lipitor) 40 mg QHS PO Last administered on 05/22/18at 20: 29; Start 05/21/18 at 21:00 Carvedilol (Coreg) 25 mg BIDWMEALS PO Last administered on 05/23/18at 09:24; Start 05/21/18 at 17:00 Isosorbide Mononitrate (Imdur) 30 mg DAILY PO Last administered on 05/23/18at 09:24; Start 05/21/18 at 14:00 Labetalol HCl (Normodyne Iv Push) 20 mg PRN Q2HR PRN IVP HYPERTENSION, SEE COMMENTS; Start 05/21/18 at 13:15 Iodixanol (Visipaque 320) 100 ml STK-MED ONCE .ROUTE ; Start 05/21/18 at 14:25 ; Stop 05/21/18 at 14:26; Status DC Lidocaine HCl (Lidocaine 1% 50ml Vial) 50 ml STK-MED ONCE .ROUTE ; Start at 14:25; Stop 05/21/18 at 14:26; Status DC Heparin Sodium/ Sodium Chloride 500 ml @ As Directed STK-MED ONCE .ROUTE ; Start 05/21/18 at 14:25; Stop 05/21/18 at 14:26; Status DC Fentanyl Citrate (Fentanyl 2ml Vial) 100 mcg STK-MED ONCE .ROUTE ; Start at 15:09; Stop 05/21/18 at 15:10; Status DC Midazolam HCl (Versed) 5 mg STK-MED ONCE .ROUTE ; Start 05/21/18 at 15:09; Stop 05/21/18 at 15:10; Status DC Heparin Sodium/ Sodium Chloride 500 ml @ As Directed STK-MED ONCE .ROUTE ; Start 05/21/18 at 15:13; Stop 05/21/18 at 15:14; Status DC Heparin Sodium/ Sodium Chloride (HEPARIN for ARTERIAL LINE FLUSH) 1,000 unit 1X ONCE IART Last administered on 05/21/18at 15:30; Start 05/21/18 at 15:30; Stop 05/21/18 at 15:31; Status DC Heparin Sodium/ Sodium Chloride (HEPARIN for ARTERIAL LINE FLUSH) 1,000 unit 1X ONCE IART Last administered on 05/21/18at 15:30; Start 05/21/18 at 15:30; Stop 05/21/18 at 15:31; Status DC Midazolam HCl (Versed) 5 mg 1X ONCE IV Last administered on 05/21/18at 15:30; Start 05/21/18 at 15:30; Stop 05/21/18 at 15:31; Status DC Iodixanol (Visipaque 320) 100 ml 1X ONCE IART Last administered on 05/21/18at 15:30; Start 05/21/18 at 15:30; Stop 05/21/18 at 15:31; Status DC Lidocaine HCl (Lidocaine 1% 50ml Vial) 50 ml 1X ONCE INJ Last administered on 05/21/18at 15:30; Start 05/21/18 at 15:30; Stop 05/21/18 at 15:31; Status DC Info (CONTRAST GIVEN -- Rx MONITORING) 1 each PRN DAILY PRN MC SEE COMMENTS; Start 05/21/18 at 15:30; Stop 05/23/18 at 15:29 Heparin Sodium (Porcine) (Heparin Sodium) 10,000 unit STK-MED ONCE .ROUTE ; Start 05/21/18 at 15:30; Stop 05/21/18 at 15:31; Status DC Fentanyl Citrate (Fentanyl 2ml Vial) 100 mcg 1X ONCE IV Last administered on 05/21/18at 16:00; Start 05/21/18 at 16:00; Stop 05/21/18 at 16:01; Status DC Cefazolin Sodium/ Dextrose 50 ml @ 100 mls/hr 1X PREOP PRN IV PEROP DOSE/ PRIOR TO PROCEDURE; Start 05/22/18 at 06:00; Stop 05/22/18 at 18:00; Status DC Sodium Chloride (Normal Saline Flush) 3 ml QSHIFT PRN IV AFTER MEDS AND BLOOD DRAWS; Start 05/21/18 at 17:15 Sodium Chloride 1,000 ml @ 60 mls/hr [id number] IV Last administered on at 21:58; Start 05/21/18 at 17:01; Stop 05/22/18 at 01:00; Status DC Nitroglycerin (Nitrostat) 0.4 mg PRN Q5MIN PRN SL CHEST PAIN; Start 05/21/18 at 17:15 Insulin Human Lispro (HumaLOG) 0-9 UNITS TIDWMEALHC SQ Last administered on at 12:26; Start 05/21/18 at 22:00 Dextrose (Dextrose 50%-Water Syringe) 12.5 gm PRN Q15MIN PRN IV SEE COMMENTS; Start 05/21/18 at 21:00 Cyclobenzaprine HCl (Flexeril) 10 mg PRN Q6HRS PRN PO MUSCLE SPASMS Last administered on 05/22/18at 17:32; Start 05/21/18 at 21:00 Ondansetron HCl (Zofran) 4 mg PRN Q6HRS PRN IV NAUSEA/VOMITING Last administered on 05/23/18at 08:04; Start 05/23/18 at 08:00 Active Scripts Active Proair Hfa Inhaler (Albuterol Sulfate) 8.5 Gm Hfa.aer.ad 1 Puff INH PRN Q6HRS PRN 60 Days Cefpodoxime Proxetil 100 Mg Tablet 200 Mg PO BID 7 Days Nifedipine Er (Nifedipine) 60 Mg Tab.er.24 1 Tab PO DAILY Carvedilol 12.5 Mg Tablet 25 Mg PO BIDWMEALS Isosorbide Mononitrate Er (Isosorbide Mononitrate) 30 Mg Tab.er.24h 30 Mg PO DAILY Reported Janumet 50-1,000 Mg Tablet (Sitagliptin Phos/Metformin Hcl) 1 Each Tablet 2 Tab PO QHS Glyburide 5 Mg Tablet 2 Tab PO BID Cyclobenzaprine Hcl 10 Mg Tablet 1 Tab PO BID Amlodipine Besylate 10 Mg Tablet 10 Mg PO DAILY Atenolol 100 Mg Tablet 1 Tab PO DAILY Naproxen 500 Mg Tablet 1 Tab PO BID Atorvastatin Calcium 40 Mg Tablet 1 Tab PO QHS Gabapentin 300 Mg Capsule 300 Mg PO TID Clonidine Hcl 0.2 Mg Tablet 1 Tab PO BID Vitals/I & O Vital Sign - Last 24 Hours 05/22/18 05/22/18 05/22/18 05/22/18 16:00 17:32 19:20 19:30 Temp 99.8 99.8 Pulse 77 77 82 Resp 18 18 B/P (MAP) 110/67 (81) 110/67 126/60 (82) Pulse Ox 96 98 O2 Delivery Room Air Room Air Room Air 05/22/18 05/23/18 05/23/18 05/23/18 23:24 02:45 07:00 08:00 Temp 100.1 99.4 99.0 100.1 99.4 99.0 Pulse 77 77 78 Resp 20 18 18 B/P (MAP) 161/69 (99) 150/66 (94) 161/66 (97) Pulse Ox 100 98 96 O2 Delivery Room Air Room Air Room Air Room Air 05/23/18 05/23/18 05/23/18 05/23/18 09:24 09:24 09:24 11:00 Temp 99.5 99.5 Pulse 77 77 77 70 Resp 18 B/P (MAP) 150/66 150/66 150/66 132/66 (88) Pulse Ox 96 O2 Delivery Room Air Intake and Output 05/22/18 05/22/18 05/23/18 15:00 23:00 07:00 Intake Total 500 ml 500 ml Output Total 1 ml Balance 499 ml 500 ml EMMANUEL BENNETT III DO May 23, 2018 13:31
[2018-05-23 15:00] VITALS: BP 137/79
[2018-05-23] MEDS: CYCLOBENZAPRINE 10 MG TABLET. PO PRN (19:35)
[2018-05-23 19:50] VITALS: BP 128/82
[2018-05-23] MEDS: ATORVASTATIN CALCIUM 40 MG TABLET. PO SCH (20:51)
[2018-05-23] MEDS: ACETAMINOPHEN 325 MG TABLET. PO PRN (20:51)
[2018-05-23 22:45] VITALS: BP 154/82
[2018-05-24 03:05] VITALS: BP 131/76
[2018-05-24 04:08] LABS: BASO % 1 % (0-3); EOS # 0.1 x10^3/uL (0.0-0.7); EOS % 2 % (0-3); HEMOGLOBIN 11.8 g/dL (12.0-15.5); LYMPH % 36 % (24-48); MEAN CORPUSCULAR HEMOGLOBIN 28 pg (25-35); MEAN CORPUSCULAR HGB CONC 34 g/dL (31-37); MEAN CORPUSCULAR VOLUME 83 fL (79-100); MONO # 0.8 x10^3/uL (0.0-1.1); MONO % 15 % (0-9); NEUT # 2.5 x10^3uL (1.8-7.7); NEUT % 46 % (31-73); PLATELET COUNT 148 x10^3/uL (140-400); RED BLOOD COUNT 4.22 x10^6/uL (3.50-5.40); RED CELL DISTRIBUTION WIDTH 15.9 % (11.5-14.5); WHITE BLOOD COUNT 5.4 x10^3/uL (4.0-11.0)
[2018-05-24 04:23] LABS: CALCIUM 8.7 mg/dL (8.5-10.1); CREATININE 0.8 mg/dL (0.6-1.0); GFR 90.8; POTASSIUM 4.4 mmol/L (3.5-5.1)
[2018-05-24 07:50] VITALS: BP 146/82
[2018-05-24] MEDS: amLODIPine BESYLATE 10 MG TABLET PO SCH (08:41)
[2018-05-24] MEDS: CARVEDILOL 12.5 MG TABLET. PO SCH ×2 (08:42→17:28)
[2018-05-24] MEDS: ISOSORBIDE MONONITRATE ER 30 MG TAB.ER.24H PO SCH (08:42)
[2018-05-24] MEDS: INSULIN LISPRO 300 UNITS/3 ML INSULN.PEN. SQ SCH ×4 (08:45→21:18)
--- NOTE | 2018-05-24 09:44 | RAD ---
MR#: [id number] Date of Study: 05/21/2018 Ordering Physician: BRANT VOGT, Referring Physician: JOANIE VELAZCO, Tech: Suni Post BS, RTR, RDMS, RVT APPROVED REPORT Patient Location: IN-PATIENT Laterality:Bilateral Indications pre op Risk Factors Hypertension: Hyperlipidemia Diabetes Doppler Spectral Velocity Analysis Right Left pCCA 131/18 cm/spCCA 124/14 cm/s mCCA 161/15 cm/smCCA 92/13 cm/s dCCA 133/20 cm/sdCCA 104/16 cm/s ECA 167/ cm/sECA 317/ cm/s pICA 76/17 cm/spICA 71/16 cm/s Nickolas 90/24 cm/smICA 106/30 cm/s dICA 84/18 cm/sdICA 73/22 cm/s Vert. 128/ cm/sVert. 46/ cm/s ICA/CCA 0.56ICA/CCA 0.85 Findings Grayscale images of the bilateral carotid vessels were limited due to body habitus. On the right velocities are mildly elevated in the common carotid artery suggestive of diffuse 50% st enosis. The velocity criteria in the internal carotid artery is suggestive 0 to less than 50% stenosi s. The right vertebral artery velocity is elevated but antegrade fashion. Normal ICA to CCA ratios ar e noted. On the left overall velocities are suggestive 0 to less than 50% stenosis in the common and internal carotid vessels. Vertebral velocities are antegrade. Spectral waveforms are less than optimal but oth erwise no significant stenosis is identified. The left external carotid artery is suggestive greater than 70% stenosis. Critical Notification Critical Value: No <Conclusion> 1. No significant internal carotid artery stenosis bilaterally 2. 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 Signed by : Doe Erickson, Electronically Approved : 05/24/2018 09:43:23
--- NOTE | 2018-05-24 09:51 | RAD ---
MR#: [id number] Date of Study: 05/21/2018 Ordering Physician: BRANT VOGT, Referring Physician: JOANIE VELAZCO Tech: Suni Post BS, RTR, RDMS, RVT APPROVED REPORT Patient Location: IN-PATIENT Risk Factors Cardiac Disease Obesity Vein Measurements Great Saphenous Small Saphenous RightLeft RightLeft Saph-Fem. Junction 5.60mmProximal 1.60mm1.60mm Mid Thigh 3.30mm3.10mmMid 1.20mm2.00mm Distal Thigh 2.80mm3.40mmDistal 1.90mm Proximal Calf 3.10mm2.80mm Mid Calf 2.40mm1.80mm Distal Calf 2.60mm1.90mm Findings Grayscale images of the bilateral greater and lesser saphenous veins do not reveal any obvious eviden ce of thrombus There is a duplicate greater saphenous vein within the subcutaneous sheath. The first great saphenous vein measurements are as noted. The right lesser saphenous vein is definitive in nature. The left great saphenous vein has uniform dimensions in the thigh. It tapers to a small caliber below the knee. The left lesser saphenous vein is also small in caliber. Critical Notification Critical Value: No <Conclusion> 1. 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 Signed by : Doe Erickson, Electronically Approved : 05/24/2018 09:50:58
[2018-05-24 11:25] VITALS: BP 123/71
--- NOTE | 2018-05-24 12:25 | PDOC ---
PROGRESS NOTES Chief Complaint Chief Complaint NSTEMI s/p cath, scheduled for triple vessel CABG 05/25 Acute on chronic diastolic CHF HTN Hyperlipidemia H/o COPD H/o seizures H/o DM2 History of Present Illness History of Present Illness Pt seen and examined while sitting on bed Pt was pleasant, smiling, talkative and said she's ready for surgery tomorrow Pt expressed concern about fully understanding her condition as well as asked if she possibly had pneumonia We discussed her concerns, reviewed her CXR with her and her son and answered her questions about the upcoming CABG Vitals Vitals Vital Signs Date Time Temp Pulse Resp B/P (MAP) Pulse Ox O2 Delivery O2 Flow Rate FiO2 05/24/18 11:25 98.1 79 18 123/71 (88) 94 Room Air 98.1 Physical Exam Physical Exam Neck: Supple, no JVD General: Alert, Oriented X3, No acute distress Heart: Regular rate, Normal S1, Normal S2, Other (ESM 2/6 aortic) Lungs: Other (mild congestion heard in right upper lung) Abdomen: Normal bowel sounds, Soft, No tenderness Extremities: No clubbing, No cyanosis, No edema Skin: No rashes, No breakdown Labs LABS Laboratory Tests Test 05/23/18 17:44 05/23/18 20:39 05/24/18 03:15 05/24/18 03:25 Glucose (Fingerstick) 261 mg/dL (70-99) 195 mg/dL (70-99) Sodium Level 136 mmol/L (136-145) Potassium Level 4.4 mmol/L (3.5-5.1) Chloride Level 101 mmol/L (98-107) Carbon Dioxide Level 26 mmol/L (21-32) Anion Gap 9 (6-14) Blood Urea Nitrogen 14 mg/dL (7-20) Creatinine 0.8 mg/dL (0.6-1.0) Estimated GFR (Cockcroft-Gault) 90.8 Glucose Level 358 mg/dL (70-99) Calcium Level 8.7 mg/dL (8.5-10.1) White Blood Count 5.4 x10^3/uL (4.0-11.0) Red Blood Count 4.22 x10^6/uL (3.50-5.40) Hemoglobin 11.8 g/dL (12.0-15.5) Hematocrit 35.0 % (36.0-47.0) Mean Corpuscular Volume 83 fL (79-100) Mean Corpuscular Hemoglobin 28 pg (25-35) Mean Corpuscular Hemoglobin Concent 34 g/dL (31-37) Red Cell Distribution Width 15.9 % (11.5-14.5) Platelet Count 148 x10^3/uL (140-400) Neutrophils (%) (Auto) 46 % (31-73) Lymphocytes (%) (Auto) 36 % (24-48) Monocytes (%) (Auto) 15 % (0-9) Eosinophils (%) (Auto) 2 % (0-3) Basophils (%) (Auto) 1 % (0-3) Neutrophils # (Auto) 2.5 x10^3uL (1.8-7.7) Lymphocytes # (Auto) 2.0 x10^3/uL (1.0-4.8) Monocytes # (Auto) 0.8 x10^3/uL (0.0-1.1) Eosinophils # (Auto) 0.1 x10^3/uL (0.0-0.7) Basophils # (Auto) 0.0 x10^3/uL (0.0-0.2) Test 05/24/18 07:46 05/24/18 11:45 Glucose (Fingerstick) 274 mg/dL (70-99) 295 mg/dL (70-99) Review of Systems Review of Systems C/o cough productive of some mucus Denies chest pain, abdominal pain Otherwise stated she is feeling well and is ready for tomorrow's CABG She was very excited to have her daughter and son in town from [place] to see her through tomorrows procedure Assessment and Plan Assessmemt and Plan Problems Medical Problems: (1) Hypertensive emergency Status: Acute Assessment: NSTEMI s/p cath, scheduled for triple vessel CABG 05/25 Acute on chronic diastolic CHF HTN Hyperlipidemia H/o COPD H/o seizures H/o DM2 Plan: BP control PT/OT Labs DVT ppx Home meds Comment Review of Relevant I have reviewed the following items yan (where applicable) has been applied. Labs Laboratory Tests Test 05/22/18 13:38 05/22/18 17:22 05/22/18 20:27 05/23/18 07:10 Glucose (Fingerstick) 333 mg/dL (70-99) 207 mg/dL (70-99) 285 mg/dL (70-99) White Blood Count 5.4 x10^3/uL (4.0-11.0) Red Blood Count 4.66 x10^6/uL (3.50-5.40) Hemoglobin 13.1 g/dL (12.0-15.5) Hematocrit 38.1 % (36.0-47.0) Mean Corpuscular Volume 82 fL (79-100) Mean Corpuscular Hemoglobin 28 pg (25-35) Mean Corpuscular Hemoglobin Concent 34 g/dL (31-37) Red Cell Distribution Width 16.1 % (11.5-14.5) Platelet Count 155 x10^3/uL (140-400) Neutrophils (%) (Auto) 54 % (31-73) Lymphocytes (%) (Auto) 33 % (24-48) Monocytes (%) (Auto) 12 % (0-9) Eosinophils (%) (Auto) 1 % (0-3) Basophils (%) (Auto) 1 % (0-3) Neutrophils # (Auto) 2.9 x10^3uL (1.8-7.7) Lymphocytes # (Auto) 1.8 x10^3/uL (1.0-4.8) Monocytes # (Auto) 0.7 x10^3/uL (0.0-1.1) Eosinophils # (Auto) 0.0 x10^3/uL (0.0-0.7) Basophils # (Auto) 0.0 x10^3/uL (0.0-0.2) Sodium Level 139 mmol/L (136-145) Potassium Level 3.9 mmol/L (3.5-5.1) Chloride Level 103 mmol/L (98-107) Carbon Dioxide Level 27 mmol/L (21-32) Anion Gap 9 (6-14) Blood Urea Nitrogen 13 mg/dL (7-20) Creatinine 0.8 mg/dL (0.6-1.0) Estimated GFR (Cockcroft-Gault) 90.8 Glucose Level 234 mg/dL (70-99) Calcium Level 8.5 mg/dL (8.5-10.1) Test 05/23/18 11:28 05/23/18 17:44 05/23/18 20:39 05/24/18 03:15 Glucose (Fingerstick) 297 mg/dL (70-99) 261 mg/dL (70-99) 195 mg/dL (70-99) Sodium Level 136 mmol/L (136-145) Potassium Level 4.4 mmol/L (3.5-5.1) Chloride Level 101 mmol/L (98-107) Carbon Dioxide Level 26 mmol/L (21-32) Anion Gap 9 (6-14) Blood Urea Nitrogen 14 mg/dL (7-20) Creatinine 0.8 mg/dL (0.6-1.0) Estimated GFR (Cockcroft-Gault) 90.8 Glucose Level 358 mg/dL (70-99) Calcium Level 8.7 mg/dL (8.5-10.1) Test 05/24/18 03:25 05/24/18 07:46 05/24/18 11:45 White Blood Count 5.4 x10^3/uL (4.0-11.0) Red Blood Count 4.22 x10^6/uL (3.50-5.40) Hemoglobin 11.8 g/dL (12.0-15.5) Hematocrit 35.0 % (36.0-47.0) Mean Corpuscular Volume 83 fL (79-100) Mean Corpuscular Hemoglobin 28 pg (25-35) Mean Corpuscular Hemoglobin Concent 34 g/dL (31-37) Red Cell Distribution Width 15.9 % (11.5-14.5) Platelet Count 148 x10^3/uL (140-400) Neutrophils (%) (Auto) 46 % (31-73) Lymphocytes (%) (Auto) 36 % (24-48) Monocytes (%) (Auto) 15 % (0-9) Eosinophils (%) (Auto) 2 % (0-3) Basophils (%) (Auto) 1 % (0-3) Neutrophils # (Auto) 2.5 x10^3uL (1.8-7.7) Lymphocytes # (Auto) 2.0 x10^3/uL (1.0-4.8) Monocytes # (Auto) 0.8 x10^3/uL (0.0-1.1) Eosinophils # (Auto) 0.1 x10^3/uL (0.0-0.7) Basophils # (Auto) 0.0 x10^3/uL (0.0-0.2) Glucose (Fingerstick) 274 mg/dL (70-99) 295 mg/dL (70-99) Laboratory Tests Test 05/23/18 17:44 05/23/18 20:39 05/24/18 03:15 05/24/18 03:25 Glucose (Fingerstick) 261 mg/dL (70-99) 195 mg/dL (70-99) Sodium Level 136 mmol/L (136-145) Potassium Level 4.4 mmol/L (3.5-5.1) Chloride Level 101 mmol/L (98-107) Carbon Dioxide Level 26 mmol/L (21-32) Anion Gap 9 (6-14) Blood Urea Nitrogen 14 mg/dL (7-20) Creatinine 0.8 mg/dL (0.6-1.0) Estimated GFR (Cockcroft-Gault) 90.8 Glucose Level 358 mg/dL (70-99) Calcium Level 8.7 mg/dL (8.5-10.1) White Blood Count 5.4 x10^3/uL (4.0-11.0) Red Blood Count 4.22 x10^6/uL (3.50-5.40) Hemoglobin 11.8 g/dL (12.0-15.5) Hematocrit 35.0 % (36.0-47.0) Mean Corpuscular Volume 83 fL (79-100) Mean Corpuscular Hemoglobin 28 pg (25-35) Mean Corpuscular Hemoglobin Concent 34 g/dL (31-37) Red Cell Distribution Width 15.9 % (11.5-14.5) Platelet Count 148 x10^3/uL (140-400) Neutrophils (%) (Auto) 46 % (31-73) Lymphocytes (%) (Auto) 36 % (24-48) Monocytes (%) (Auto) 15 % (0-9) Eosinophils (%) (Auto) 2 % (0-3) Basophils (%) (Auto) 1 % (0-3) Neutrophils # (Auto) 2.5 x10^3uL (1.8-7.7) Lymphocytes # (Auto) 2.0 x10^3/uL (1.0-4.8) Monocytes # (Auto) 0.8 x10^3/uL (0.0-1.1) Eosinophils # (Auto) 0.1 x10^3/uL (0.0-0.7) Basophils # (Auto) 0.0 x10^3/uL (0.0-0.2) Test 05/24/18 07:46 05/24/18 11:45 Glucose (Fingerstick) 274 mg/dL (70-99) 295 mg/dL (70-99) Medications Current Medications Labetalol HCl (Normodyne Iv Push) 20 mg 1X ONCE IVP Last administered on 05/21at 00:26; Start 05/21/18 at 00:30; Stop 05/21/18 at 00:31; Status DC Nitroglycerin (Nitro-Bid Oint) 1 inch 1X ONCE TP Last administered on at 00:27; Start 05/21/18 at 00:30; Stop 05/21/18 at 00:31; Status DC Aspirin (Children'S Aspirin) 324 mg 1X ONCE PO Last administered on at 00:26; Start 05/21/18 at 00:30; Stop 05/21/18 at 00:31; Status DC Nitroglycerin/ Dextrose 250 ml @ 0 mls/hr 1X ONCE IV Last administered on at 01:17; Start 05/21/18 at 01:15; Stop 05/21/18 at 01:16; Status DC Heparin Sodium (Porcine) (Heparin Sodium) 4,000 unit 1X ONCE IV Last administered on 05/21/18at 02:56; Start 05/21/18 at 01:15; Stop 05/21/18 at 01 :16; Status DC Heparin Sodium/ Dextrose 500 ml @ 0 mls/hr CONT PRN IV SEE I/O RECORD Last administered on 05/21/18at 01:21; Start 05/21/18 at 01:00 Heparin Sodium (Porcine) (Heparin Sodium) 2,500 unit PRN Q6HRS PRN IV FOR UFH LEVEL LESS THAN 0.2 Last administered on 05/21/18at 12:32; Start 05/21/18 at 01 :00 Furosemide (Lasix) 40 mg 1X ONCE IVP Last administered on 05/21/18at 01:23; Start 05/21/18 at 01:30; Stop 05/21/18 at 01:31; Status DC Info (Anti-Coagulation Monitoring By Pharmacy) 1 each PRN DAILY PRN MC SEE COMMENTS Last administered on 05/21/18at 02:26; Start 05/21/18 at 01:15; Stop 05/23/18 at 14:55; Status DC Sodium Chloride 1,000 ml @ 100 mls/hr Q10H IV ; Start 05/21/18 at 01:30; Stop 05/21/18 at 17:47; Status DC Nicardipine HCl 50 mg/Sodium Chloride 270 ml @ 27 mls/hr CONT PRN IV SEE I/O RECORD Last administered on 05/21/18at 21:58; Start 05/21/18 at 03:30 Furosemide (Lasix) 40 mg 1X ONCE IVP Last administered on 05/21/18at 09:24; Start 05/21/18 at 09:15; Stop 05/21/18 at 09:16; Status DC Amlodipine Besylate (Norvasc) 10 mg DAILY PO Last administered on 05/24/18at 08 :41; Start 05/21/18 at 14:00 Atorvastatin Calcium (Lipitor) 40 mg QHS PO Last administered on 05/23/18at 20: 51; Start 05/21/18 at 21:00 Carvedilol (Coreg) 25 mg BIDWMEALS PO Last administered on 05/24/18at 08:42; Start 05/21/18 at 17:00 Isosorbide Mononitrate (Imdur) 30 mg DAILY PO Last administered on 05/24/18at 08:42; Start 05/21/18 at 14:00 Labetalol HCl (Normodyne Iv Push) 20 mg PRN Q2HR PRN IVP HYPERTENSION, SEE COMMENTS; Start 05/21/18 at 13:15 Iodixanol (Visipaque 320) 100 ml STK-MED ONCE .ROUTE ; Start 05/21/18 at 14:25 ; Stop 05/21/18 at 14:26; Status DC Lidocaine HCl (Lidocaine 1% 50ml Vial) 50 ml STK-MED ONCE .ROUTE ; Start at 14:25; Stop 05/21/18 at 14:26; Status DC Heparin Sodium/ Sodium Chloride 500 ml @ As Directed STK-MED ONCE .ROUTE ; Start 05/21/18 at 14:25; Stop 05/21/18 at 14:26; Status DC Fentanyl Citrate (Fentanyl 2ml Vial) 100 mcg STK-MED ONCE .ROUTE ; Start at 15:09; Stop 05/21/18 at 15:10; Status DC Midazolam HCl (Versed) 5 mg STK-MED ONCE .ROUTE ; Start 05/21/18 at 15:09; Stop 05/21/18 at 15:10; Status DC Heparin Sodium/ Sodium Chloride 500 ml @ As Directed STK-MED ONCE .ROUTE ; Start 05/21/18 at 15:13; Stop 05/21/18 at 15:14; Status DC Heparin Sodium/ Sodium Chloride (HEPARIN for ARTERIAL LINE FLUSH) 1,000 unit 1X ONCE IART Last administered on 05/21/18at 15:30; Start 05/21/18 at 15:30; Stop 05/21/18 at 15:31; Status DC Heparin Sodium/ Sodium Chloride (HEPARIN for ARTERIAL LINE FLUSH) 1,000 unit 1X ONCE IART Last administered on 05/21/18at 15:30; Start 05/21/18 at 15:30; Stop 05/21/18 at 15:31; Status DC Midazolam HCl (Versed) 5 mg 1X ONCE IV Last administered on 05/21/18at 15:30; Start 05/21/18 at 15:30; Stop 05/21/18 at 15:31; Status DC Iodixanol (Visipaque 320) 100 ml 1X ONCE IART Last administered on 05/21/18at 15:30; Start 05/21/18 at 15:30; Stop 05/21/18 at 15:31; Status DC Lidocaine HCl (Lidocaine 1% 50ml Vial) 50 ml 1X ONCE INJ Last administered on 05/21/18at 15:30; Start 05/21/18 at 15:30; Stop 05/21/18 at 15:31; Status DC Info (CONTRAST GIVEN -- Rx MONITORING) 1 each PRN DAILY PRN MC SEE COMMENTS; Start 05/21/18 at 15:30; Stop 05/23/18 at 15:29; Status DC Heparin Sodium (Porcine) (Heparin Sodium) 10,000 unit STK-MED ONCE .ROUTE ; Start 05/21/18 at 15:30; Stop 05/21/18 at 15:31; Status DC Fentanyl Citrate (Fentanyl 2ml Vial) 100 mcg 1X ONCE IV Last administered on 05/21/18at 16:00; Start 05/21/18 at 16:00; Stop 05/21/18 at 16:01; Status DC Cefazolin Sodium/ Dextrose 50 ml @ 100 mls/hr 1X PREOP PRN IV PEROP DOSE/ PRIOR TO PROCEDURE; Start 05/22/18 at 06:00; Stop 05/22/18 at 18:00; Status DC Sodium Chloride (Normal Saline Flush) 3 ml QSHIFT PRN IV AFTER MEDS AND BLOOD DRAWS; Start 05/21/18 at 17:15 Sodium Chloride 1,000 ml @ 60 mls/hr [id number] IV Last administered on at 21:58; Start 05/21/18 at 17:01; Stop 05/22/18 at 01:00; Status DC Nitroglycerin (Nitrostat) 0.4 mg PRN Q5MIN PRN SL CHEST PAIN; Start 05/21/18 at 17:15 Insulin Human Lispro (HumaLOG) 0-9 UNITS TIDWMEALHC SQ Last administered on at 08:45; Start 05/21/18 at 22:00 Dextrose (Dextrose 50%-Water Syringe) 12.5 gm PRN Q15MIN PRN IV SEE COMMENTS; Start 05/21/18 at 21:00 Cyclobenzaprine HCl (Flexeril) 10 mg PRN Q6HRS PRN PO MUSCLE SPASMS Last administered on 05/23/18at 19:35; Start 05/21/18 at 21:00 Ondansetron HCl (Zofran) 4 mg PRN Q6HRS PRN IV NAUSEA/VOMITING Last administered on 05/23/18at 08:04; Start 05/23/18 at 08:00 Acetaminophen (Tylenol) 650 mg PRN Q6HRS PRN PO MILD PAIN / TEMP Last administered on 05/23/18at 20:51; Start 05/23/18 at 20:45 Potassium Chloride 70 meq/ Sodium Bicarbonate 12.5 meq/Lidocaine HCl 24 ml/ Parenteral Electrolytes 571.5 ml @ 571.5 mls/ hr 1X ONCE IRR ; Start at 06:00; Stop 05/25/18 at 06:59 Potassium Chloride 15 meq/ Sodium Bicarbonate 12.5 meq/Parenteral Electrolytes 520 ml @ 520 mls/hr 1X ONCE IRR ; Start 05/25/18 at 06:00; Stop 05/25/18 at 06:59 Heparin Sodium (Porcine) 49074 unit/Ringer's Solution 1,020 ml @ 1,020 mls/hr 1X ONCE IRR ; Start 05/25/18 at 06:00; Stop 05/25/18 at 06:59 Cefazolin Sodium 1 gm/Sodium Chloride 500 ml @ 500 mls/hr 1X ONCE IRR ; Start 05/25/18 at 06:00; Stop 05/25/18 at 06:59 Active Scripts Active Proair Hfa Inhaler (Albuterol Sulfate) 8.5 Gm Hfa.aer.ad 1 Puff INH PRN Q6HRS PRN 60 Days Cefpodoxime Proxetil 100 Mg Tablet 200 Mg PO BID 7 Days Nifedipine Er (Nifedipine) 60 Mg Tab.er.24 1 Tab PO DAILY Carvedilol 12.5 Mg Tablet 25 Mg PO BIDWMEALS Isosorbide Mononitrate Er (Isosorbide Mononitrate) 30 Mg Tab.er.24h 30 Mg PO DAILY Reported Janumet 50-1,000 Mg Tablet (Sitagliptin Phos/Metformin Hcl) 1 Each Tablet 2 Tab PO QHS Glyburide 5 Mg Tablet 2 Tab PO BID Cyclobenzaprine Hcl 10 Mg Tablet 1 Tab PO BID Amlodipine Besylate 10 Mg Tablet 10 Mg PO DAILY Atenolol 100 Mg Tablet 1 Tab PO DAILY Naproxen 500 Mg Tablet 1 Tab PO BID Atorvastatin Calcium 40 Mg Tablet 1 Tab PO QHS Gabapentin 300 Mg Capsule 300 Mg PO TID Clonidine Hcl 0.2 Mg Tablet 1 Tab PO BID Vitals/I & O Vital Sign - Last 24 Hours 05/23/18 05/23/18 05/23/18 05/23/18 15:00 15:30 17:40 19:50 Temp 98.4 100.6 98.4 100.6 Pulse 84 84 81 Resp 18 20 B/P (MAP) 137/79 (98) 138/79 128/82 (97) Pulse Ox 97 97 O2 Delivery Room Air Room Air Room Air 05/23/18 05/23/18 05/24/18 05/24/18 20:00 22:45 03:05 07:50 Temp 97.6 98.2 99.3 97.6 98.2 99.3 Pulse 77 68 77 Resp 18 18 18 B/P (MAP) 154/82 (106) 131/76 (94) 146/82 (103) Pulse Ox 97 94 93 O2 Delivery Room Air Room Air Room Air Room Air 05/24/18 05/24/18 05/24/18 05/24/18 08:23 08:41 08:42 08:42 Pulse 77 77 77 B/P (MAP) 146/82 146/82 146/82 O2 Delivery Room Air 05/24/18 11:25 Temp 98.1 98.1 Pulse 79 Resp 18 B/P (MAP) 123/71 (88) Pulse Ox 94 O2 Delivery Room Air Intake and Output 05/23/18 05/23/18 05/24/18 15:00 23:00 07:00 Intake Total 1100 ml 880 ml Balance 1100 ml 880 ml EMMANUEL BENNETT III DO May 24, 2018 12:25
[2018-05-24 14:53] VITALS: BP 119/61
--- NOTE | 2018-05-24 16:57 | PDOC ---
CARDIO Progress Notes Date and Time Date of Service 05/24/18 Time of Evaluation 1415 Subjective Subjective: No Chest Pain, No shortness of breath Vitals Vitals Vital Signs Date Time Temp Pulse Resp B/P (MAP) Pulse Ox O2 Delivery O2 Flow Rate FiO2 05/24/18 14:53 98.6 82 16 119/61 (80) 97 Room Air 98.6 Weight Weight [ ] Input and Output Intake and Output Intake and Output 05/24/18 07:00 Intake Total 1980 ml Balance 1980 ml Intake Oral 1980 ml # Voids 5 Laboratory Labs Laboratory Tests Test 05/23/18 17:44 05/23/18 20:39 05/24/18 03:15 05/24/18 03:25 Glucose (Fingerstick) 261 mg/dL (70-99) 195 mg/dL (70-99) Sodium Level 136 mmol/L (136-145) Potassium Level 4.4 mmol/L (3.5-5.1) Chloride Level 101 mmol/L (98-107) Carbon Dioxide Level 26 mmol/L (21-32) Anion Gap 9 (6-14) Blood Urea Nitrogen 14 mg/dL (7-20) Creatinine 0.8 mg/dL (0.6-1.0) Estimated GFR (Cockcroft-Gault) 90.8 Glucose Level 358 mg/dL (70-99) Calcium Level 8.7 mg/dL (8.5-10.1) White Blood Count 5.4 x10^3/uL (4.0-11.0) Red Blood Count 4.22 x10^6/uL (3.50-5.40) Hemoglobin 11.8 g/dL (12.0-15.5) Hematocrit 35.0 % (36.0-47.0) Mean Corpuscular Volume 83 fL (79-100) Mean Corpuscular Hemoglobin 28 pg (25-35) Mean Corpuscular Hemoglobin Concent 34 g/dL (31-37) Red Cell Distribution Width 15.9 % (11.5-14.5) Platelet Count 148 x10^3/uL (140-400) Neutrophils (%) (Auto) 46 % (31-73) Lymphocytes (%) (Auto) 36 % (24-48) Monocytes (%) (Auto) 15 % (0-9) Eosinophils (%) (Auto) 2 % (0-3) Basophils (%) (Auto) 1 % (0-3) Neutrophils # (Auto) 2.5 x10^3uL (1.8-7.7) Lymphocytes # (Auto) 2.0 x10^3/uL (1.0-4.8) Monocytes # (Auto) 0.8 x10^3/uL (0.0-1.1) Eosinophils # (Auto) 0.1 x10^3/uL (0.0-0.7) Basophils # (Auto) 0.0 x10^3/uL (0.0-0.2) Test 05/24/18 07:46 05/24/18 11:45 Glucose (Fingerstick) 274 mg/dL (70-99) 295 mg/dL (70-99) Physical Exam HEENT: Neck Supple W Full Motion Chest: Symmetric LUNGS: Clear to Auscultation Heart: S1S2, RRR, murmurs (2/6 systolic murmur) Abdomen: Soft N/T Extremities: No Edema Neurology: alert, oriented, follow commands Assessment Assessment 1. NSTEMI; trop highest 8.7. 3. 3-vessel disease; plan for CABG tomorrow as per CTS. no acute events overnight. 2. Malignant hypertension; now controlled 3. Acute on chronic diastolic CHF; compensated. 4. DM2/HLP: Treat per LES GONZALEZ APRN May 24, 2018 16:57
[2018-05-24] MEDS: CYCLOBENZAPRINE 10 MG TABLET. PO PRN (17:28)
[2018-05-24 18:55] VITALS: BP 119/57
[2018-05-24] MEDS: ATORVASTATIN CALCIUM 40 MG TABLET. PO SCH (21:11)
[2018-05-24 22:30] VITALS: BP 159/76
[2018-05-25] VITALS (8 sets, daily range): BP systolic 128–164; BP diastolic 60–85
[2018-05-25] MEDS ORDERED: ROCURONIUM 100 MG/10 ML VIAL. ONE ×2 (02:49→08:57)
[2018-05-25] MEDS ORDERED: fentaNYL PF VIAL 100 MCG/2 ML VIAL ONE (02:49)
[2018-05-25] MEDS ORDERED: SUFentanil 100 MCG/2 ML AMPUL. ONE ×2 (02:49→08:44)
[2018-05-25] MEDS ORDERED: MIDAZOLAM HCL/PF 2 MG/2 ML VIAL. ONE (02:49)
[2018-05-25] MEDS ORDERED: NITROGLYCERIN PREMIX 250 ML IV ONE (02:54)
[2018-05-25] MEDS ORDERED: ePHEDrine PF IN SALINE 50 MG/5 ML DISP.SYRIN IV ONE (02:54)
[2018-05-25] MEDS ORDERED: AMINOCAPROIC ACID 5,000 MG/20 ML VIAL. IV ONE ×3 (02:55)
[2018-05-25] MEDS ORDERED: PHENYLEPHRINE 10 MG/ML VIAL. ONE ×3 (02:55)
[2018-05-25] MEDS ORDERED: HEPARIN for IV BOLUS 10,000 UNIT/10 ML VIAL. ONE ×2 (02:55→12:52)
[2018-05-25] MEDS ORDERED: HEPARIN 30,000 UNIT/30 ML VIAL. ONE ×2 (02:55→12:52)
[2018-05-25] MEDS ORDERED: ISOFLURANE > 120 MINUTES. IH ONE (02:55)
[2018-05-25] MEDS ORDERED: ETOMIDATE 20 MG/10 ML VIAL. IV ONE (03:01)
[2018-05-25] MEDS ORDERED: INSULIN REGULAR VIAL 150 UNIT in 0.9 % SODIUM CHLORIDE 150ML 150 ML IV PRN ×2 (03:15→14:00)
[2018-05-25] MEDS ORDERED: PAPAVERINE 60 MG/2 ML VIAL FOR OR ONLY. ONE (04:18)
[2018-05-25] MEDS ORDERED: VANCOMYCIN 10GM VIAL for OR. ONE (04:18)
[2018-05-25] MEDS ORDERED: SURGICEL HEMOSTAT 4X8 EACH. ONE (04:18)
[2018-05-25] MEDS ORDERED: ASPIRIN 300 MG SUPP.RECT ONE (04:18)
[2018-05-25] MEDS ORDERED: 0.9 % SODIUM CHLORIDE 20 ML VIAL. IJ ONE ×3 (04:19)
[2018-05-25 05:56] LABS: BASO % 1 % (0-3); EOS # 0.1 x10^3/uL (0.0-0.7); EOS % 1 % (0-3); HEMATOCRIT 37.3 % (36.0-47.0); HEMOGLOBIN 12.5 g/dL (12.0-15.5); LYMPH # 2.1 x10^3/uL (1.0-4.8); LYMPH % 35 % (24-48); MEAN CORPUSCULAR HEMOGLOBIN 28 pg (25-35); MEAN CORPUSCULAR HGB CONC 34 g/dL (31-37); MEAN CORPUSCULAR VOLUME 82 fL (79-100); MONO # 0.7 x10^3/uL (0.0-1.1); MONO % 11 % (0-9); NEUT # 3.2 x10^3uL (1.8-7.7); NEUT % 52 % (31-73); PLATELET COUNT 209 x10^3/uL (140-400); RED BLOOD COUNT 4.53 x10^6/uL (3.50-5.40); RED CELL DISTRIBUTION WIDTH 15.7 % (11.5-14.5); WHITE BLOOD COUNT 6.1 x10^3/uL (4.0-11.0)
[2018-05-25] MEDS ORDERED: POTASSIUM CHLORIDE 70 MEQ, SODIUM BICARBONATE VIAL 12.5 MEQ, LIDOCAINE 2% 24 ML in IV E... IRR ONE (06:00)
[2018-05-25] MEDS ORDERED: POTASSIUM CHLORIDE 15 MEQ, SODIUM BICARBONATE VIAL 12.5 MEQ in IV ELECTROLYTE-S (PH 7.4... IRR ONE (06:00)
[2018-05-25] MEDS ORDERED: HEPARIN 20,000 UNIT in IV RINGERS,LACTATED 1000ML 1,000 ML IRR ONE (06:00)
[2018-05-25 06:34] LABS: CREATININE 0.9 mg/dL (0.6-1.0); GFR 79.3; POTASSIUM 4.2 mmol/L (3.5-5.1)
[2018-05-25] MEDS ORDERED: LIDOCAINE 2% PF 2ML VIAL. ONE (06:58)
[2018-05-25] MEDS ORDERED: fentaNYL PF VIAL 100 MCG/2 ML VIAL IV PRN ×2 (07:00)
[2018-05-25] MEDS ORDERED: ONDANSETRON PF 4 MG/2 ML VIAL. IV PRN ×2 (07:00→14:00)
[2018-05-25] MEDS ORDERED: LIDOCAINE 1% PF 2 ML VIAL. ID PRN (07:00)
[2018-05-25] MEDS ORDERED: HYDROmorphone 2 MG/ML VIAL IV PRN (07:00)
[2018-05-25] MEDS ORDERED: IV RINGERS,LACTATED 1000ML 1,000 ML IV SCH ×2 (07:00→17:15)
[2018-05-25] MEDS ORDERED: PROCHLORPERAZINE 10 MG/2 ML VIAL. IV PRN (07:00)
[2018-05-25] MEDS ORDERED: MORPHINE SULFATE 2 MG/ML VIAL. IV PRN (07:00)
[2018-05-25] MEDS ORDERED: INSULIN LISPRO 100 UNIT/ML 3ML VIAL. SQ ONE (07:45)
[2018-05-25] MEDS ORDERED: MIDAZOLAM HCL/PF 5 MG/5 ML VIAL. ONE (07:48)
[2018-05-25] MEDS: CARVEDILOL 12.5 MG TABLET. PO SCH ×2 (08:00→16:27)
[2018-05-25] MEDS: INSULIN LISPRO 300 UNITS/3 ML INSULN.PEN. SQ SCH ×2 (08:00→12:00)
[2018-05-25] MEDS: amLODIPine BESYLATE 10 MG TABLET PO SCH (09:00)
[2018-05-25] MEDS: ISOSORBIDE MONONITRATE ER 30 MG TAB.ER.24H PO SCH (09:00)
[2018-05-25] MEDS ORDERED: ROCURONIUM 50 MG/5 ML VIAL. ONE (12:48)
[2018-05-25] MEDS ORDERED: ALBUMIN HUMAN 25% 200 ML IV ONE (12:52)
[2018-05-25] MEDS ORDERED: MAGNESIUM SULFATE 5 GM/10 ML VIAL. ONE (12:52)
[2018-05-25] MEDS ORDERED: SODIUM BICARB ADULT 8.4% 50 MEQ/50 ML DISP.SYRIN. ONE (12:52)
[2018-05-25] MEDS ORDERED: MANNITOL 25% 12.5 G/50 ML VIAL FOR OR. ONE (12:52)
[2018-05-25] MEDS ORDERED: CALCIUM CHLORIDE 1,000 MG/10 ML DISP.SYRIN ONE (12:52)
[2018-05-25] MEDS ORDERED: LIDOCAINE 2% PF Vial for OR 5 ML VIAL. ONE (12:52)
[2018-05-25 13:09] LABS: BASO % 0 % (0-3); EOS % 1 % (0-3); HEMATOCRIT 26.5 % (36.0-47.0); HEMOGLOBIN 9.1 g/dL (12.0-15.5); LYMPH # 1.5 x10^3/uL (1.0-4.8); LYMPH % 21 % (24-48); MEAN CORPUSCULAR HEMOGLOBIN 28 pg (25-35); MEAN CORPUSCULAR HGB CONC 34 g/dL (31-37); MEAN CORPUSCULAR VOLUME 82 fL (79-100); MONO # 0.3 x10^3/uL (0.0-1.1); MONO % 4 % (0-9); NEUT # 5.2 x10^3uL (1.8-7.7); NEUT % 75 % (31-73); PLATELET COUNT 97 x10^3/uL (140-400); RED BLOOD COUNT 3.23 x10^6/uL (3.50-5.40); RED CELL DISTRIBUTION WIDTH 15.4 % (11.5-14.5)
[2018-05-25 13:19] LABS: PROTHROMBIN TIME PATIENT 17.9 SEC (11.7-14.0)
[2018-05-25] MEDS ORDERED: PROTAMINE 250 MG/25 ML VIAL IV ONE ×2 (13:36)
--- NOTE | 2018-05-25 13:43 | PDOC ---
BRIEF OPERATIVE NOTE Date: May 25, 2018 Pre-Op Diagnosis NSTEMI Coronary artery disease Diabetes type 1 Hypertension Hyperlipidemia Morbid obesity COPD Post-Op Diagnosis NSTEMI Coronary artery disease Diabetes type 1 Hypertension Hyperlipidemia Morbid obesity COPD Procedure Performed CABG x 3 (LEAVITT to LAD, SVG to OM1, SVG to RPDA) Left endoscopic greater saphenous vein harvest Surgeon Brant Vogt MD Cigarette Examiner HEATHER Malave Anesthesiologist Dr Rodrigues Anesthesia Type: General Blood Loss Cellsaver IV Fluid Crystalloid: 1000 mls Cellsaver: 600 mls Urine Output 500 mls Specimens Obtained None Findings 2mm LAD and OM1 targets 1.5mm RPDA Good size LEAVITT with excellent flow Good quality and caliber saphenous vein conduit Off CPB without inotropic support BRANT VOGT MD May 25, 2018 13:43
--- NOTE | 2018-05-25 13:44 | PDOC4 ---
Operative Note Operative Note Date May 25, 2018 Preoperative diagnosis NSTEMI Coronary artery disease Diabetes type 1 Hypertension Hyperlipidemia Morbid obesity COPD Postoperative diagnosis NSTEMI Coronary artery disease Diabetes type 1 Hypertension Hyperlipidemia Morbid obesity COPD Procedure performed CABG x 3 (LEAVITT to LAD, SVG to OM1, SVG to RPDA) Left endoscopic greater saphenous vein harvest Surgeon Brant Vogt MD Roller Mechanic HEATHER Malave Anesthesiologist Dr Rodrigues Anesthesia type General Blood loss Cellsaver IV fluids Crystalloid: 1000 mls Cellsaver: 600 mls Urine output 500 mls Specimens obtained None Findings 2mm LAD and OM1 targets 1.5mm RPDA Good size LEAVITT with excellent flow Good quality and caliber saphenous vein conduit Off CPB without inotropic support Indication 52 year old female, with a hx of poorly controlled DM, HTN, who presented with 2 weeks of chest pain and SOB. She thought that her chest pain was reflux. The pain last weel was not relieved with antacids so she came to the ER. No EKG changes but troponin peaked at 8. SBP was also in the 200s. She had a LHC which showed distal 50% LM disease, 70% proximal LAD stenosis, an occluded mid Lcx with a large OM1 with 80% mid stenosis and a 70-80% mid RCA lesion. LV function is preserved. A CABG was indicated. Operation After appropriate identification, the patient was brought to the operating room and placed supine on the operating table. Anesthesia was induced and the airway was secured with an endotracheal tube. A right IJ [place]-Tara catheter was placed. A left radial arterial line was also inserted. Antibiotics were delivered and the patient was preped and draped in the usual standard surgical sterile fashion. A timeout was then performed. A median sternotomy was performed and the left internal mammary artery was harvested, which was of good size, with excellent flow. Simultaneously the left greater saphenous vein was harvested endoscopically, which was of good quality and caliber. The pericardium was incised. The patient was heparinized. Cardiopulmonary bypass was established through the ascending aorta and the right atrium. The patient was cooled to 34. Arrest was achieved with induction antegrade cold blood cardioplegia. The cross-clamp was applied and diastolic arrest was achieved. Intermittent dosages of antegrade cardioplegia was given every 20 minutes. Grafts: Saphenous vein graft to right posterior descending coronary artery, end to side anastomosis with 7-0 Prolene. 1.5 mm vessel. I attempted to place the graft on the distal RCA which appeared to be a bigger vessel. Once opened it was severely calcified so the arteriotomy was closed with 7-0 Prolene and a small RPDA was identified distally. Saphenous vein graft to obtuse marginal coronary artery, end to side anastomosis with 7-0 Prolene, 2 mm vessel. Left internal mammary artery to left anterior descending coronary artery, end to side anastomosis with 7-0 Prolene. 2 mm vessel. Two proximal anastomosis were performed using a 5-0 Prolene running suture. The cross-clamp was removed. The heart was allowed to rewarm and reperfuse. The grafts were de-aired. The patient resumed normal sinus rhythm after and was from cardiopulmonary bypass without inotropic support. All cannulae were removed. Heparin was reversed with protamine. Atrial and ventricular pacing wires were placed. Hemostasis was confirmed. An angled 32 English chest tube was placed in the left pleural space, a 32Fr angled in the posterior pericardium and a 32 straight in the anterior pericardium. The sternotomy was closed with seven stainless steel wires. The incision was closed with a layer of 0 Vicryl, followed by 2-0 Vicryl and then 4-0 Monocryl for the epidermis. Sterile dressings were applied. The total cardiopulmonary bypass time was 122 minutes and the cross-clamp time was 98 minutes. The instrument, sponge and needle counts were correct. The patient was then transferred to the ICU in critical condition. BRANT VOGT MD May 25, 2018 13:44
[2018-05-25] MEDS ORDERED: MAGNESIUM SULFATE 1GM 100 ML IV PRN (14:00)
[2018-05-25] MEDS ORDERED: AMIODARONE 900 MG in IV DEXTROSE 5% 500 ML IV PRN (14:00)
[2018-05-25] MEDS ORDERED: ACETAMINOPHEN 325 MG TABLET. PO PRN (14:00)
[2018-05-25] MEDS ORDERED: ASPIRIN 300 MG SUPP.RECT PR PRN (14:00)
[2018-05-25] MEDS ORDERED: DEXTROSE 50% 25 GM / 50ML DISP.SYRIN. IV PRN (14:00)
[2018-05-25] MEDS ORDERED: AMIODARONE 150 MG in IV DEXTROSE 5% 100ML 100 ML IV PRN (14:00)
[2018-05-25] MEDS ORDERED: PHENYLEPHRINE INJ 20 MG in IV NORMAL SALINE 250ML 250 ML IV PRN (14:00)
[2018-05-25] MEDS ORDERED: KCL PER PROTOCOL MC PRN (14:00)
[2018-05-25] MEDS ORDERED: NITROGLYCERIN PREMIX 250 ML IV PRN (14:00)
[2018-05-25] MEDS ORDERED: ALBUTEROL SULFATE 2.5 MG/3 ML NEBU. NEB PRN (14:00)
[2018-05-25] MEDS ORDERED: MEPERIDINE PF 25 MG/ML VIAL. IV PRN (14:00)
[2018-05-25 14:12] LABS: ART BE ISTAT 2 mmol/L (0-3); ART GLUC ISTAT 164 mg/dL (70-99); ART HCO3 ISTAT 26 mmol/L (21-28); ART HCT ISTAT 25 % (36-40); ART HGB ISTAT 8.5 g/dL (12-15); ART ION CA ISTAT 1.92 mmol/L (1.13-1.32); ART K ISTAT 4.3 mmol/L (3.5-5.0); ART NA ISTAT 136 mmol/L (135-145); ART PCO2 ISTAT 42 mmHg (35-45); ART PH ISTAT 7.41 (7.35-7.45); ART PO2 ISTAT 331 mmHg (75-100); ART SAT O2 SAT 100 % (95-99); ART TCO2 ISTAT 28 mmol/L (21-32)
[2018-05-25 14:12] LABS: ART BE ISTAT 1 mmol/L (0-3); ART GLUC ISTAT 193 mg/dL (70-99); ART HCO3 ISTAT 26 mmol/L (21-28); ART HCT ISTAT 26 % (36-40); ART HGB ISTAT 8.8 g/dL (12-15); ART ION CA ISTAT 1.07 mmol/L (1.13-1.32); ART K ISTAT 4.6 mmol/L (3.5-5.0); ART NA ISTAT 137 mmol/L (135-145); ART PCO2 ISTAT 49 mmHg (35-45); ART PH ISTAT 7.34 (7.35-7.45); ART PO2 ISTAT 307 mmHg (75-100); ART SAT O2 SAT 100 % (95-99); ART TCO2 ISTAT 28 mmol/L (21-32)
[2018-05-25 14:12] LABS: ART BE ISTAT 1 mmol/L (0-3); ART GLUC ISTAT 262 mg/dL (70-99); ART HCO3 ISTAT 26 mmol/L (21-28); ART HCT ISTAT 31 % (36-40); ART HGB ISTAT 10.5 g/dL (12-15); ART ION CA ISTAT 1.14 mmol/L (1.13-1.32); ART K ISTAT 4.2 mmol/L (3.5-5.0); ART NA ISTAT 137 mmol/L (135-145); ART PCO2 ISTAT 42 mmHg (35-45); ART PH ISTAT 7.39 (7.35-7.45); ART PO2 ISTAT 87 mmHg (75-100); ART SAT O2 SAT 97 % (95-99); ART TCO2 ISTAT 27 mmol/L (21-32)
[2018-05-25 14:12] LABS: FIO2 ISTAT 100; VEN BASE EXCESS ISTAT 0 mmol/L (0-3); VEN GLUC ISTAT 202 mg/dL (70-99); VEN HCO3 ISTAT 25 mmol/L (24-28); VEN HCT ISTAT 28 % (36-40); VEN HGB ISTAT 9.5 g/dL (12-15); VEN ION CA ISTAT 1.15 mmol/L (1.13-1.32); VEN K ISTAT 3.8 mmol/L (3.5-5.0); VEN NA ISTAT 138 mmol/L (135-145); VEN O2 ISTAT 35 mmHg (20-40); VEN PCO2 ISTAT 45 mmHg (41-51); VEN PH ISTAT 7.36 (7.32-7.42); VEN SO2 ISTAT 65 %; VEN TCO2 ISTAT 27 mmol/L (21-32)
[2018-05-25 14:12] LABS: ART BE ISTAT 0 mmol/L (0-3); ART GLUC ISTAT 184 mg/dL (70-99); ART HCO3 ISTAT 27 mmol/L (21-28); ART HCT ISTAT 30 % (36-40); ART HGB ISTAT 10.2 g/dL (12-15); ART ION CA ISTAT 1.15 mmol/L (1.13-1.32); ART K ISTAT 4.5 mmol/L (3.5-5.0); ART NA ISTAT 139 mmol/L (135-145); ART PCO2 ISTAT 55 mmHg (35-45); ART PH ISTAT 7.29 (7.35-7.45); ART PO2 ISTAT 191 mmHg (75-100); ART SAT O2 SAT 100 % (95-99); ART TCO2 ISTAT 28 mmol/L (21-32)
[2018-05-25 14:12] LABS: ART BE ISTAT 0 mmol/L (0-3); ART GLUC ISTAT 201 mg/dL (70-99); ART HCO3 ISTAT 26 mmol/L (21-28); ART HCT ISTAT 30 % (36-40); ART HGB ISTAT 10.2 g/dL (12-15); ART ION CA ISTAT 1.15 mmol/L (1.13-1.32); ART K ISTAT 4.1 mmol/L (3.5-5.0); ART NA ISTAT 138 mmol/L (135-145); ART PCO2 ISTAT 52 mmHg (35-45); ART PH ISTAT 7.31 (7.35-7.45); ART PO2 ISTAT 176 mmHg (75-100); ART SAT O2 SAT 99 % (95-99); ART TCO2 ISTAT 28 mmol/L (21-32)
[2018-05-25 14:12] LABS: ART BE ISTAT 0 mmol/L (0-3); ART GLUC ISTAT 245 mg/dL (70-99); ART HCO3 ISTAT 26 mmol/L (21-28); ART HCT ISTAT 28 % (36-40); ART HGB ISTAT 9.5 g/dL (12-15); ART ION CA ISTAT 1.13 mmol/L (1.13-1.32); ART K ISTAT 4.2 mmol/L (3.5-5.0); ART NA ISTAT 136 mmol/L (135-145); ART PCO2 ISTAT 44 mmHg (35-45); ART PH ISTAT 7.37 (7.35-7.45); ART PO2 ISTAT 149 mmHg (75-100); ART SAT O2 SAT 99 % (95-99); ART TCO2 ISTAT 27 mmol/L (21-32)
[2018-05-25 14:12] LABS: ART BE ISTAT 0 mmol/L (0-3); ART GLUC ISTAT 133 mg/dL (70-99); ART HCO3 ISTAT 24 mmol/L (21-28); ART HCT ISTAT 28 % (36-40); ART HGB ISTAT 9.5 g/dL (12-15); ART ION CA ISTAT 1.62 mmol/L (1.13-1.32); ART K ISTAT 3.9 mmol/L (3.5-5.0); ART NA ISTAT 139 mmol/L (135-145); ART PCO2 ISTAT 35 mmHg (35-45); ART PH ISTAT 7.45 (7.35-7.45); ART PO2 ISTAT 341 mmHg (75-100); ART SAT O2 SAT 100 % (95-99); ART TCO2 ISTAT 25 mmol/L (21-32)
[2018-05-25 14:12] LABS: ART BE ISTAT 2 mmol/L (0-3); ART GLUC ISTAT 181 mg/dL (70-99); ART HCO3 ISTAT 28 mmol/L (21-28); ART HCT ISTAT 30 % (36-40); ART HGB ISTAT 10.2 g/dL (12-15); ART ION CA ISTAT 1.12 mmol/L (1.13-1.32); ART K ISTAT 4.6 mmol/L (3.5-5.0); ART NA ISTAT 139 mmol/L (135-145); ART PCO2 ISTAT 50 mmHg (35-45); ART PH ISTAT 7.35 (7.35-7.45); ART PO2 ISTAT 317 mmHg (75-100); ART SAT O2 SAT 100 % (95-99); ART TCO2 ISTAT 29 mmol/L (21-32)
[2018-05-25 14:39] LABS: BASE EXCESS COOX -4 mmol/L (-3-3); HCO3 COOX 22 mmol/L (21-28); METHEMOGLOBIN 0.3 % (0.0-1.9); OXYHEMOGLOBIN 93.8 %; PCO2 COOX 41 mmHg (35-46); PO2 COOX 83 mmHg (75-108); SAT O2 COOX 95 % (92-99)
[2018-05-25] MEDS: PROPOFOL 100 ML IV PRN (15:01)
[2018-05-25] MEDS ORDERED: SODIUM BICARB ADULT 8.4% 50 MEQ/50 ML DISP.SYRIN. IV ONE (15:15)
[2018-05-25] MEDS: MORPHINE SULFATE 2 MG/ML VIAL. IV PRN ×3 (15:19→20:16)
[2018-05-25 15:46] LABS: HEMATOCRIT 32.8 % (36.0-47.0); HEMOGLOBIN 11.1 g/dL (12.0-15.5); RED BLOOD COUNT 3.99 x10^6/uL (3.50-5.40); RED CELL DISTRIBUTION WIDTH 15.6 % (11.5-14.5); WHITE BLOOD COUNT 8.2 x10^3/uL (4.0-11.0)
[2018-05-25 15:49] LABS: PROTHROMBIN TIME PATIENT 15.3 SEC (11.7-14.0)
[2018-05-25 15:52] LABS: CALCIUM 10.1 mg/dL (8.5-10.1); CREATININE 0.7 mg/dL (0.6-1.0); GFR 105.9; MAGNESIUM 2.4 mg/dL (1.8-2.4); POTASSIUM 4.2 mmol/L (3.5-5.1)
--- NOTE | 2018-05-25 16:14 | EKG ---
[facility] [address] [place] [address] Test Date: 2018-05-25 Test Time: 16:08:41 Pat Name: TATIANA CARLTON Department: Room: 108 1 Gender: F Labor Service Representative: IDALIA : [id number] Requested By: BRANT VOGT Order Number: [id number] Reading MD: Steven Felton Measurements Intervals Milner Rate: 81 P: -61 TX: 124 QRS: 20 QRSD: 96 T: 43 QT: 380 QTc: 442 Interpretive Statements SINUS RHYTHM QRS(T) CONTOUR ABNORMALITY CONSIDER ANTEROSEPTAL MYOCARDIAL DAMAGE POSSIBLY ABNORMAL ECG Electronically Signed On 05-28-2018 10:26:12 CDT by Steven Felton
[2018-05-25] MEDS: ALBUMIN HUMAN 5% 250 ML IV PRN ×4 (16:23→21:15)
--- NOTE | 2018-05-25 16:28 | RAD ---
Indication:POST OP CXR, ALL COUNTS REPORTED CORRECT PER ROOM. POST OPEN HEART. TECHNIQUE:Portable AP chest X-ray COMPARISON:CT chest from 05/22/2018 FINDINGS: ET tube is appropriate in position. Pulmonary artery catheter is seen with its tip in the central pulmonary outflow tract. 3 mediastinal chest tubes are seen. NG tube is seen with its tip in the distal GE junction. Heart is mildly enlarged in size. Lungs are clear. No pneumothorax or pleural effusion. Visualized bony thorax is within normal limits. IMPRESSION: Postoperative changes from CABG. No acute pulmonary process. Please advance NG tube by approximately 7 to 10 cm.w Electronically signed by: Richard Vallejo DO (05/25/2018 4:25 PM) [facility]
[2018-05-25] MEDS ORDERED: POTASSIUM CHLORIDE 20MEQ 50 ML IV ONE (16:30)
[2018-05-25] MEDS ORDERED: KETOROLAC 15 MG/ML VIAL. IV PRN (18:00)
[2018-05-25 18:25] LABS: BASE EXCESS ABG -1 mmol/L (-3-3); HCO3 ABG 24 mmol/L (21-28); PCO2 ABG 40 mmHg (35-46); PO2 ABG 66 mmHg (75-108); SAT O2 ABG 91 % (92-99)
[2018-05-25 18:27] LABS: FIO2 ABG 40%
[2018-05-25] MEDS: ONDANSETRON PF 4 MG/2 ML VIAL. IV PRN (19:42)
[2018-05-25 20:02] LABS: HEMATOCRIT 30.5 % (36.0-47.0); HEMOGLOBIN 10.3 g/dL (12.0-15.5); RED BLOOD COUNT 3.7 x10^6/uL (3.50-5.40); RED CELL DISTRIBUTION WIDTH 15.5 % (11.5-14.5); WHITE BLOOD COUNT 8.5 x10^3/uL (4.0-11.0)
[2018-05-25] MEDS: ACETAMINOPHEN 325 MG TABLET. PO PRN (20:15)
[2018-05-25] MEDS: CHLORHEXIDINE 0.12% 15 ML MOUTHWASH. MM SCH (20:39)
[2018-05-25] MEDS: FAMOTIDINE 20 MG/2 ML VIAL IVP SCH (20:39)
[2018-05-25] MEDS: SENNOSIDES/DOCUSATE 8.6/50MG TABLET. PO SCH (20:42)
[2018-05-25] MEDS: ATORVASTATIN CALCIUM 40 MG TABLET. PO SCH (20:42)
[2018-05-25] MEDS: oxyCODONE IR 5 MG TABLET PO PRN (21:54)
[2018-05-26] VITALS (30 sets, daily range): BP systolic 80–155; BP diastolic 40–83
[2018-05-26] MEDS: ACETAMINOPHEN 325 MG TABLET. PO PRN (01:59)
[2018-05-26] MEDS ORDERED: ALBUMIN HUMAN 5% 250 ML IV ONE (02:30)
[2018-05-26] MEDS: ONDANSETRON PF 4 MG/2 ML VIAL. IV PRN (02:37)
[2018-05-26] MEDS: MORPHINE SULFATE 2 MG/ML VIAL. IV PRN ×2 (03:44→19:35)
[2018-05-26] MEDS: oxyCODONE IR 5 MG TABLET PO PRN ×2 (04:09→17:03)
[2018-05-26] MEDS ORDERED: FUROSEMIDE 20 MG/2 ML VIAL. IVP ONE (06:00)
[2018-05-26 06:47] LABS: CALCIUM 8.9 mg/dL (8.5-10.1); CREATININE 1.7 mg/dL (0.6-1.0)
[2018-05-26] MEDS ORDERED: IV NORMAL SALINE 1000ML BAG 1,000 ML IV SCH (07:00)
[2018-05-26] MEDS ORDERED: DEXTROSE 50% 25 GM / 50ML DISP.SYRIN. IV ONE (07:00)
[2018-05-26 07:14] LABS: MAGNESIUM 2.4 mg/dL (1.8-2.4)
[2018-05-26] MEDS ORDERED: INSULIN REGULAR 100 UNIT/ML 3ML VIAL. IV ONE (07:30)
[2018-05-26] MEDS: ASPIRIN ENTERIC COATED 325 MG TABLET.DR. PO SCH (08:00)
[2018-05-26] MEDS: CARVEDILOL 12.5 MG TABLET. PO SCH ×2 (08:00→17:00)
[2018-05-26 08:07] LABS: BASO % 0 % (0-3); EOS % 0 % (0-3); HEMATOCRIT 30.3 % (36.0-47.0); HEMOGLOBIN 10.3 g/dL (12.0-15.5); LYMPH % 11 % (24-48); MEAN CORPUSCULAR HEMOGLOBIN 28 pg (25-35); MEAN CORPUSCULAR HGB CONC 34 g/dL (31-37); MEAN CORPUSCULAR VOLUME 83 fL (79-100); MONO # 1.2 x10^3/uL (0.0-1.1); MONO % 13 % (0-9); NEUT # 7.1 x10^3uL (1.8-7.7); NEUT % 76 % (31-73); PLATELET COUNT 166 x10^3/uL (140-400); RED BLOOD COUNT 3.64 x10^6/uL (3.50-5.40); RED CELL DISTRIBUTION WIDTH 15.7 % (11.5-14.5); WHITE BLOOD COUNT 9.3 x10^3/uL (4.0-11.0)
--- NOTE | 2018-05-26 08:24 | RAD ---
Portable chest, 05/26/2018: HISTORY: Postop CABG Comparison is made to yesterday's study. The ET tube, NG tube and [place] catheter been removed. A right vascular sheath, mediastinal drains and a left chest tube remain in place. The heart is enlarged. The pulmonary vascularity is within normal limits. There is mild atelectasis/infiltrate in the left base. No pneumothorax or large pleural effusion is seen. IMPRESSION: 1. Cardiomegaly. 2. Mild left basilar atelectasis/infiltrate. Electronically signed by: Ventura Anglin MD (05/26/2018 8:21 AM) [facility]
[2018-05-26] MEDS: CHLORHEXIDINE 0.12% 15 ML MOUTHWASH. MM SCH ×2 (09:00→21:14)
[2018-05-26] MEDS: amLODIPine BESYLATE 10 MG TABLET PO SCH (09:00)
[2018-05-26] MEDS: ISOSORBIDE MONONITRATE ER 30 MG TAB.ER.24H PO SCH (09:00)
[2018-05-26] MEDS: SENNOSIDES/DOCUSATE 8.6/50MG TABLET. PO SCH ×2 (09:00→21:14)
[2018-05-26] MEDS ORDERED: MIDAZOLAM HCL/PF 5 MG/5 ML VIAL. ONE ×2 (09:21→12:00)
[2018-05-26 09:24] LABS: HEMATOCRIT 26.4 % (36.0-47.0); HEMOGLOBIN 8.8 g/dL (12.0-15.5); RED BLOOD COUNT 3.12 x10^6/uL (3.50-5.40); RED CELL DISTRIBUTION WIDTH 15.9 % (11.5-14.5); WHITE BLOOD COUNT 12.2 x10^3/uL (4.0-11.0)
--- NOTE | 2018-05-26 09:25 | PDOC ---
CARDIO Progress Notes Date and Time Date of Service 05/26/2018 Time of Evaluation 0830 Subjective Subjective: Other (post code blue) Vitals Vitals Vital Signs Date Time Temp Pulse Resp B/P (MAP) Pulse Ox O2 Delivery O2 Flow Rate FiO2 05/26/18 06:00 60 25 141/62 (88) 92 Nasal Cannula 8.0 05/26/18 04:00 98.3 98.3 Weight Weight [ ] Input and Output Intake and Output Intake and Output 05/26/18 07:00 Intake Total 4547 ml Output Total 2044 ml Balance 2503 ml Intake Oral 1400 ml IV Total 3147 ml Output Urine Total 1585 ml Gastric Drainage Total 0 ml Chest Tube Drainage Total 459 ml Laboratory Labs Laboratory Tests Test 05/25/18 09:45 05/25/18 09:46 05/25/18 10:36 05/25/18 10:48 Bedside Hemoglobin (Calculated) 9.5 g/dL (12-15) 8.8 g/dL (12-15) Bedside Hematocrit 28 % (36-40) 28 % (36-40) 26 % (36-40) Bedside Arterial pH 7.37 (7.35-7.45) 7.34 (7.35-7.45) Bedside Arterial pCO2 44 mmHg (35-45) 49 mmHg (35-45) Bedside Arterial pO2 149 mmHg (75-100) 307 mmHg (75-100) Bedside Arterial HCO3 26 mmol/L (21-28) 26 mmol/L (21-28) Bedside Arterial Total CO2 27 mmol/L (21-32) 28 mmol/L (21-32) Arterial Bld O2 Saturation (Measur) 99 % (95-99) 100 % (95-99) Bedside Arterial Blood Base Excess 0 mmol/L (0-3) 1 mmol/L (0-3) Bedside FiO2 100.0 100 75.0 Bedside Sodium 136 mmol/L (135-145) 138 mmol/L (135-145) 137 mmol/L (135-145) Bedside Potassium 4.2 mmol/L (3.5-5.0) 3.8 mmol/L (3.5-5.0) 4.6 mmol/L (3.5-5.0) Glucose Level 245 mg/dL (70-99) 202 mg/dL (70-99) 193 mg/dL (70-99) Bedside Ionized Calcium (Donald) 1.13 mmol/L (1.13-1.32) 1.15 mmol/L (1.13-1.32) 1.07 mmol/L (1.13-1.32) Activated Clotting Time 487 SEC (90-125) Bedside Venous pH 7.36 (7.32-7.42) Bedside Venous pCO2 45 mmHg (41-51) Bedside Venous pO2 35 mmHg (20-40) Bedside Venous HCO3 25 mmol/L (24-28) Bedside Venous Blood Total CO2 27 mmol/L (21-32) Bedside Venous Blood O2 Saturation 65 % Bedside Venous Blood Base Excess 0 mmol/L (0-3) POC Venous Hemoglobin (Calc) 9.5 g/dL (12-15) Test 05/25/18 10:49 05/25/18 11:16 05/25/18 11:48 05/25/18 11:49 Activated Clotting Time 536 SEC (90-125) 455 SEC (90-125) 468 SEC (90-125) Bedside Hemoglobin (Calculated) 10.2 g/dL (12-15) 10.2 g/dL (12-15) Bedside Hematocrit 30 % (36-40) 30 % (36-40) Bedside Arterial pH 7.31 (7.35-7.45) 7.29 (7.35-7.45) Bedside Arterial pCO2 52 mmHg (35-45) 55 mmHg (35-45) Bedside Arterial pO2 176 mmHg (75-100) 191 mmHg (75-100) Bedside Arterial HCO3 26 mmol/L (21-28) 27 mmol/L (21-28) Bedside Arterial Total CO2 28 mmol/L (21-32) 28 mmol/L (21-32) Arterial Bld O2 Saturation (Measur) 99 % (95-99) 100 % (95-99) Bedside Arterial Blood Base Excess 0 mmol/L (0-3) 0 mmol/L (0-3) Bedside FiO2 70.0 75.0 Bedside Sodium 138 mmol/L (135-145) 139 mmol/L (135-145) Bedside Potassium 4.1 mmol/L (3.5-5.0) 4.5 mmol/L (3.5-5.0) Glucose Level 201 mg/dL (70-99) 184 mg/dL (70-99) Bedside Ionized Calcium (Donald) 1.15 mmol/L (1.13-1.32) 1.15 mmol/L (1.13-1.32) Test 05/25/18 12:16 05/25/18 12:54 05/25/18 12:55 05/25/18 13:00 Bedside Hemoglobin (Calculated) 10.2 g/dL (12-15) 8.5 g/dL (12-15) Bedside Hematocrit 30 % (36-40) 25 % (36-40) Activated Clotting Time 500 SEC (90-125) 116 SEC (90-125) Bedside Arterial pH 7.35 (7.35-7.45) 7.41 (7.35-7.45) Bedside Arterial pCO2 50 mmHg (35-45) 42 mmHg (35-45) Bedside Arterial pO2 317 mmHg (75-100) 331 mmHg (75-100) Bedside Arterial HCO3 28 mmol/L (21-28) 26 mmol/L (21-28) Bedside Arterial Total CO2 29 mmol/L (21-32) 28 mmol/L (21-32) Arterial Bld O2 Saturation (Measur) 100 % (95-99) 100 % (95-99) Bedside Arterial Blood Base Excess 2 mmol/L (0-3) 2 mmol/L (0-3) Bedside FiO2 85.0 100.0 Bedside Sodium 139 mmol/L (135-145) 136 mmol/L (135-145) Bedside Potassium 4.6 mmol/L (3.5-5.0) 4.3 mmol/L (3.5-5.0) Glucose Level 181 mg/dL (70-99) 164 mg/dL (70-99) Bedside Ionized Calcium (Donald) 1.12 mmol/L (1.13-1.32) 1.92 mmol/L (1.13-1.32) White Blood Count 7.0 x10^3/uL (4.0-11.0) Red Blood Count 3.23 x10^6/uL (3.50-5.40) Hemoglobin 9.1 g/dL (12.0-15.5) Hematocrit 26.5 % (36.0-47.0) Mean Corpuscular Volume 82 fL (79-100) Mean Corpuscular Hemoglobin 28 pg (25-35) Mean Corpuscular Hemoglobin Concent 34 g/dL (31-37) Red Cell Distribution Width 15.4 % (11.5-14.5) Platelet Count 97 x10^3/uL (140-400) Neutrophils (%) (Auto) 75 % (31-73) Lymphocytes (%) (Auto) 21 % (24-48) Monocytes (%) (Auto) 4 % (0-9) Eosinophils (%) (Auto) 1 % (0-3) Basophils (%) (Auto) 0 % (0-3) Neutrophils # (Auto) 5.2 x10^3uL (1.8-7.7) Lymphocytes # (Auto) 1.5 x10^3/uL (1.0-4.8) Monocytes # (Auto) 0.3 x10^3/uL (0.0-1.1) Eosinophils # (Auto) 0.0 x10^3/uL (0.0-0.7) Basophils # (Auto) 0.0 x10^3/uL (0.0-0.2) Prothrombin Time 17.9 SEC (11.7-14.0) Prothromb Time International Ratio 1.5 (0.8-1.1) Activated Partial Thromboplast Time 31 SEC (24-38) Fibrinogen 417 mg/dL (200-440) Test 05/25/18 13:49 05/25/18 14:35 05/25/18 14:40 05/25/18 15:30 Bedside Hemoglobin (Calculated) 9.5 g/dL (12-15) Bedside Hematocrit 28 % (36-40) Bedside Arterial pH 7.45 (7.35-7.45) Bedside Arterial pCO2 35 mmHg (35-45) Bedside Arterial pO2 341 mmHg (75-100) Bedside Arterial HCO3 24 mmol/L (21-28) Bedside Arterial Total CO2 25 mmol/L (21-32) Arterial Bld O2 Saturation (Measur) 100 % (95-99) Bedside Arterial Blood Base Excess 0 mmol/L (0-3) Bedside FiO2 100.0 Bedside Sodium 139 mmol/L (135-145) Bedside Potassium 3.9 mmol/L (3.5-5.0) Glucose Level 133 mg/dL (70-99) 218 mg/dL (70-99) Bedside Ionized Calcium (Donald) 1.62 mmol/L (1.13-1.32) Glucose (Fingerstick) 148 mg/dL (70-99) O2 Saturation 95 % (92-99) Arterial Blood pH 7.34 (7.35-7.45) Arterial Blood pCO2 at Patient Temp 41 mmHg (35-46) Arterial Blood pO2 at Patient Temp 83 mmHg (75-108) Arterial Blood HCO3 22 mmol/L (21-28) Arterial Blood Base Excess -4 mmol/L (-3-3) Oxyhemoglobin 93.8 % Methemoglobin 0.3 % (0.0-1.9) Carbon Monoxide, Quantitative 0.4 % (0.0-1.9) FiO2 100% simv12 650 ps10 White Blood Count 8.2 x10^3/uL (4.0-11.0) Red Blood Count 3.99 x10^6/uL (3.50-5.40) Hemoglobin 11.1 g/dL (12.0-15.5) Hematocrit 32.8 % (36.0-47.0) Mean Corpuscular Volume 82 fL (79-100) Mean Corpuscular Hemoglobin 28 pg (25-35) Mean Corpuscular Hemoglobin Concent 34 g/dL (31-37) Red Cell Distribution Width 15.6 % (11.5-14.5) Platelet Count 135 x10^3/uL (140-400) Prothrombin Time 15.3 SEC (11.7-14.0) Prothromb Time International Ratio 1.3 (0.8-1.1) Activated Partial Thromboplast Time 31 SEC (24-38) Sodium Level 142 mmol/L (136-145) Potassium Level 4.2 mmol/L (3.5-5.1) Chloride Level 108 mmol/L (98-107) Carbon Dioxide Level 28 mmol/L (21-32) Anion Gap 6 (6-14) Blood Urea Nitrogen 13 mg/dL (7-20) Creatinine 0.7 mg/dL (0.6-1.0) Estimated GFR (Cockcroft-Gault) 105.9 Calcium Level 10.1 mg/dL (8.5-10.1) Magnesium Level 2.4 mg/dL (1.8-2.4) Test 05/25/18 15:47 05/25/18 16:56 05/25/18 18:00 05/25/18 18:20 Glucose (Fingerstick) 201 mg/dL (70-99) 202 mg/dL (70-99) 188 mg/dL (70-99) O2 Saturation 91 % (92-99) Arterial Blood pH 7.39 (7.35-7.45) Arterial Blood pCO2 at Patient Temp 40 mmHg (35-46) Arterial Blood pO2 at Patient Temp 66 mmHg (75-108) Arterial Blood HCO3 24 mmol/L (21-28) Arterial Blood Base Excess -1 mmol/L (-3-3) FiO2 40% Test 05/25/18 19:04 05/25/18 19:57 05/25/18 21:07 05/25/18 22:02 Glucose (Fingerstick) 174 mg/dL (70-99) 165 mg/dL (70-99) 143 mg/dL (70-99) 125 mg/dL (70-99) White Blood Count 8.5 x10^3/uL (4.0-11.0) Red Blood Count 3.70 x10^6/uL (3.50-5.40) Hemoglobin 10.3 g/dL (12.0-15.5) Hematocrit 30.5 % (36.0-47.0) Mean Corpuscular Volume 83 fL (79-100) Mean Corpuscular Hemoglobin 28 pg (25-35) Mean Corpuscular Hemoglobin Concent 34 g/dL (31-37) Red Cell Distribution Width 15.5 % (11.5-14.5) Platelet Count 145 x10^3/uL (140-400) Potassium Level 5.4 mmol/L (3.5-5.1) Test 05/25/18 23:04 05/26/18 00:02 05/26/18 01:12 05/26/18 02:20 Glucose (Fingerstick) 121 mg/dL (70-99) 116 mg/dL (70-99) 113 mg/dL (70-99) 140 mg/dL (70-99) Test 05/26/18 03:14 05/26/18 04:17 05/26/18 05:30 05/26/18 05:32 Glucose (Fingerstick) 138 mg/dL (70-99) 135 mg/dL (70-99) 130 mg/dL (70-99) White Blood Count 9.3 x10^3/uL (4.0-11.0) Red Blood Count 3.64 x10^6/uL (3.50-5.40) Hemoglobin 10.3 g/dL (12.0-15.5) Hematocrit 30.3 % (36.0-47.0) Mean Corpuscular Volume 83 fL (79-100) Mean Corpuscular Hemoglobin 28 pg (25-35) Mean Corpuscular Hemoglobin Concent 34 g/dL (31-37) Red Cell Distribution Width 15.7 % (11.5-14.5) Platelet Count 166 x10^3/uL (140-400) Neutrophils (%) (Auto) 76 % (31-73) Lymphocytes (%) (Auto) 11 % (24-48) Monocytes (%) (Auto) 13 % (0-9) Eosinophils (%) (Auto) 0 % (0-3) Basophils (%) (Auto) 0 % (0-3) Neutrophils # (Auto) 7.1 x10^3uL (1.8-7.7) Lymphocytes # (Auto) 1.0 x10^3/uL (1.0-4.8) Monocytes # (Auto) 1.2 x10^3/uL (0.0-1.1) Eosinophils # (Auto) 0.0 x10^3/uL (0.0-0.7) Basophils # (Auto) 0.0 x10^3/uL (0.0-0.2) Test 05/26/18 06:25 05/26/18 06:40 Sodium Level 135 mmol/L (136-145) Potassium Level 7.0 mmol/L (3.5-5.1) Chloride Level 104 mmol/L (98-107) Carbon Dioxide Level 20 mmol/L (21-32) Anion Gap 11 (6-14) Blood Urea Nitrogen 22 mg/dL (7-20) Creatinine 1.7 mg/dL (0.6-1.0) Estimated GFR (Cockcroft-Gault) 38.0 Glucose Level 143 mg/dL (70-99) Calcium Level 8.9 mg/dL (8.5-10.1) Magnesium Level 2.4 mg/dL (1.8-2.4) Glucose (Fingerstick) 137 mg/dL (70-99) Physical Exam HEENT: Neck Supple W Full Motion Chest: Symmetric LUNGS: Other (diminished, intubated/vented) Heart: S1S2, RRR (AV paced), murmurs (2/6 systolic murmur) Abdomen: Soft N/T Neurology: other (sedated) Other Exams mid chest surgical dressing intact intact. Chest tubes intact with serosanguineous drain epicardial pacer in place. Assessment Assessment Pt was noted to be unresponsive upon RN check. Pt was noted to be pacing but no pulse and noted with agonal breathing. Code blue was initiated. K was noted earlier at 7 and IVF/D50/insulin were given. Lasix was also given earlier. She was noted initially with PEA then asystole. Epi x3 was given, HCO3 x2 given and I ordered for calcium to be given as well. ROSC noted with AV paced approximately 12 minutes. Pt has been reintubated and vented. 1. Post code Blue; likely from hyperkalemia 2. NSTEMI/CAD; S/P CABG x 3 (LEAVITT to LAD, SVG to OM1, SVG to RPDA) POD#1. 3. KANIKA with with hyperkalemia: K 7 4. Diastolic CHF: EF nml. Compensated 5. HTN; post ROSC 98/64 6. DM2/HLP 7. Mild post op anemia: expected. 8. Allergy to ACEi Recommendations 1. Continue IVF, Stop amiodarone. BP currently stable. May hold cardene. Pressor as warranted 2. BMP, Mg, CBC, lactic, PT/INR. Repeat BMP at 11. CXR, KUB 3. Notified CTS and primary valet parking attendant. 4. Consult pulmonary and nephrology. 5. Rectal Kayexelate. Albuterol x1 if K remains elevated HUNTER ARMENDARIZ APRN May 26, 2018 09:25
[2018-05-26 09:32] LABS: CALCIUM 10.3 mg/dL (8.5-10.1); CREATININE 2.3 mg/dL (0.6-1.0); GFR 26.8; MAGNESIUM 2.6 mg/dL (1.8-2.4)
--- NOTE | 2018-05-26 09:35 | PDOC5 ---
CODE REPORT CODE REPORT This provider on duty today in the ER responded to CODE BLUE alert in the intensive care unit. Patient is Nichelle Wetzel who was admitted recently for an NSTEMI. She had CABG yesterday. Patient was found unresponsive and in PEA. CODE BLUE was initiated. This provider came to ICU. CPR was in progress per ICU team. Patient was in PEA. ACLS protocol was carried out. This provider intubated patient emergently by rapid sequence intubation. NO medications were given for intubation. ET tube number 7.5, cuffed, MAC 4 blade was used. Patient was intubated, Positive END TIDAL CO2. ET tube was secured 24 at lip. OXYGEN SATURATION IMPROVED. CPR was continued. ROSC was achieved. Please see CODE BLUE SHEET for detail. Patient was in sinus rhythm, sustainable blood pressure present. Cardiology service was involved in resuscitation effort. Attending physician was notified. Chest xray was obtained, confirmed proper tube placement. MARILEE REYES DO May 26, 2018 09:35
[2018-05-26 09:36] LABS: PROTHROMBIN TIME PATIENT 28.6 SEC (11.7-14.0)
[2018-05-26 09:37] LABS: POTASSIUM 7.3 mmol/L (3.5-5.1)
[2018-05-26] MEDS ORDERED: SODIUM POLYSTYRENE SULFONATE 15 GM/60 ML ORAL.SUSP. PO ONE (09:45)
[2018-05-26] MEDS ORDERED: ALBUTEROL SULFATE 2.5 MG/3 ML NEBU. NEB ONE (09:45)
[2018-05-26] MEDS ORDERED: SODIUM POLYSTYRENE SULFONATE 15 GM/60 ML ORAL.SUSP. RC ONE (10:00)
--- NOTE | 2018-05-26 10:05 | RAD ---
KUB, PORTABLE CHEST 1V Clinical Indication: Endotracheal and og placement post code Comparison: AP chest, earlier same day. Findings: There is endotracheal tube, tip is 4.5 cm superior to the jenn. Enteric tube tip is in the proximal stomach. Mediastinal drains and left chest tube are unchanged. Right IJ sheath is stable. Median sternotomy wires and CABG. Stable cardiomegaly. There are interstitial opacities in the lungs. Left basilar airspace disease is unchanged. There is no pneumothorax. IMPRESSION: 1. Life support devices as above. 2. Interstitial opacities in the lungs may be pulmonary edema. 3. Unchanged left basilar airspace disease. Electronically signed by: Gian Johnson MD (05/26/2018 10:02 AM) [id number]
[2018-05-26 10:08] LABS: BASE EXCESS ABG -15 mmol/L (-3-3); FIO2 ABG 100; HCO3 ABG 12 mmol/L (21-28); PCO2 ABG 31 mmHg (35-46); PO2 ABG 73 mmHg (75-108); SAT O2 ABG 89 % (92-99)
[2018-05-26] MEDS ORDERED: SODIUM BICARB ADULT 8.4% 50 MEQ/50 ML DISP.SYRIN. IV ONE ×3 (10:15→22:45)
--- NOTE | 2018-05-26 10:34 | EKG ---
[facility] [address] [place] [address] Test Date: 2018-05-26 Test Time: 09:34:21 Pat Name: TATIANA CARLTON Department: Room: 108 1 Gender: Female Skein Straightener: SANDER : 1965 Requested By: TAYLOR MANNING Order Number: [id number] Reading MD: Steven Felton Measurements Intervals [place] Rate: 63 P: RI: QRS: -57 QRSD: 292 T: 100 QT: 528 QTc: 544 Interpretive Statements PACED RHYTHM WITH INTERMITTENT FAILURE TO SENSE Electronically Signed On 05-28-2018 10:33:16 CDT by Steven Felton
[2018-05-26] MEDS ORDERED: LIDOCAINE WITH 8.4% SOD BICARB 3 ML DISP.SYRIN. ONE (10:41)
[2018-05-26] MEDS ORDERED: HEPARIN for IV BOLUS 10,000 UNIT/10 ML VIAL. ONE (10:42)
[2018-05-26] MEDS: DEXTROSE 50% 25 GM / 50ML DISP.SYRIN. IV PRN ×2 (10:53→18:15)
[2018-05-26 10:59] LABS: CREATININE 2.7 mg/dL (0.6-1.0); GFR 22.3
[2018-05-26] MEDS ORDERED: LIDOCAINE WITH 8.4% SOD BICARB 3 ML DISP.SYRIN. INJ ONE (11:00)
[2018-05-26 11:03] LABS: POTASSIUM 8.6 mmol/L (3.5-5.1)
[2018-05-26] MEDS ORDERED: IV NORMAL SALINE 1000ML BAG 1,000 ML IV PRN ×2 (11:28)
[2018-05-26 11:29] LABS: BASE EXCESS ABG -16 mmol/L (-3-3); FIO2 ABG 100; HCO3 ABG 12 mmol/L (21-28); PCO2 ABG 36 mmHg (35-46); PO2 ABG 80 mmHg (75-108); SAT O2 ABG 90 % (92-99)
[2018-05-26] MEDS ORDERED: ALBUMIN HUMAN 25% 200 ML IV PRN (11:30)
[2018-05-26] MEDS ORDERED: ATROPINE 1 MG/10 ML DISP.SYRINGE. IM ONE (11:30)
[2018-05-26] MEDS ORDERED: CALCIUM CHLORIDE 1,000 MG/10 ML DISP.SYRIN IV ONE (11:30)
[2018-05-26] MEDS ORDERED: DIALYSIS PATIENT. MC PRN ×2 (11:30)
--- NOTE | 2018-05-26 11:43 | RAD ---
CHEST AP ONLY History: DIALYSIS CATHETER PLACEMENT. Comparison: Earlier today at 9:11 AM Cardiomediastinal silhouette: Remains enlarged. Lungs: Diffuse infiltrates/edema is again seen. There is worsening of airspace consolidation in the right upper lobe right lateral lung base not completely included. Pleura: No evidence of pleural effusion. Pneumothorax: None visualized Right IJ line stable. Feeding tube extends beyond the [id number] in the left upper quadrant. Endotracheal tube is stable in position. Impression: Worsening of right upper lobe infiltrate, continued infiltrates and edema throughout the remaining lung. Electronically signed by: Julio Olivares MD (05/26/2018 11:40 AM) [facility]
--- NOTE | 2018-05-26 11:56 | CARD ---
MR#: [id number] Date of Study: 05/26/2018 Ordering Physician: TAYLOR MANNING, Referring Physician: JOANIE VELAZCO Tech: Eleanor Mckenna RDCS APPROVED REPORT EXAM: LIMITED Two-dimensional echocardiogram Other Information Quality : Good INDICATION R/O Cardiac Tamponade, S/P Cardiac Arrest Surgery/Intervention CABG: Date: 05/25/18 LEFT VENTRICLE Mild LV dysfunction. EF 40-45%. Septal motion suggestive of CABG. The inferolateral wall is moderatel y hypokinetic. The anterior wall has normal function/wall motion. GREAT VESSELS The aortic root is normal in size. PERICARDIAL EFFUSION There is no evidence of significant pericardial effusion. Critical Notification Critical Value: No <Conclusion> Mild LV dysfunction. EF 40-45%. Septal motion suggestive of CABG. The inferolateral wall is moderatel y hypokinetic. The anterior wall has normal function/wall motion. There is no evidence of significant pericardial effusion. Limited echo only. Signed by : Doe Erickson, Electronically Approved : 05/26/2018 11:55:16
--- NOTE | 2018-05-26 11:57 | PDOC ---
Progress Note Subjective Subjective Code this morning. K was 7, treated, has gone up to 8,5. Creat 2,7, pH 7,15, post code. ROSC after 10 minutes. Now intubated, on epi, dopamine. Paced at 80. Expected tube output. UO 20-30cc/hr before code. No complains before arrest, was doing well. This was an acute event. ECHO shows normal LV function. ROS ROS Unable to assess-patient intubated and sedated Vital Sign Vital Signs Vital Signs Date Time Temp Pulse Resp B/P (MAP) Pulse Ox O2 Delivery O2 Flow Rate FiO2 05/26/18 09:17 Ventilator 05/26/18 06:00 60 25 141/62 (88) 92 8.0 05/26/18 04:00 98.3 98.3 Physical Exam PHYSICAL EXAM Abdo: non distended, non tender, soft Lungs: clear Heart: S1 S2 Calfs: soft Labs Lab Laboratory Tests Test 05/25/18 11:48 05/25/18 11:49 05/25/18 12:16 05/25/18 12:54 Bedside Hemoglobin (Calculated) 10.2 g/dL (12-15) 10.2 g/dL (12-15) 8.5 g/dL (12-15) Bedside Hematocrit 30 % (36-40) 30 % (36-40) 25 % (36-40) Bedside Arterial pH 7.29 (7.35-7.45) 7.35 (7.35-7.45) 7.41 (7.35-7.45) Bedside Arterial pCO2 55 mmHg (35-45) 50 mmHg (35-45) 42 mmHg (35-45) Bedside Arterial pO2 191 mmHg (75-100) 317 mmHg (75-100) 331 mmHg (75-100) Bedside Arterial HCO3 27 mmol/L (21-28) 28 mmol/L (21-28) 26 mmol/L (21-28) Bedside Arterial Total CO2 28 mmol/L (21-32) 29 mmol/L (21-32) 28 mmol/L (21-32) Arterial Bld O2 Saturation (Measur) 100 % (95-99) 100 % (95-99) 100 % (95-99) Bedside Arterial Blood Base Excess 0 mmol/L (0-3) 2 mmol/L (0-3) 2 mmol/L (0-3) Bedside FiO2 75.0 85.0 100.0 Bedside Sodium 139 mmol/L (135-145) 139 mmol/L (135-145) 136 mmol/L (135-145) Bedside Potassium 4.5 mmol/L (3.5-5.0) 4.6 mmol/L (3.5-5.0) 4.3 mmol/L (3.5-5.0) Glucose Level 184 mg/dL (70-99) 181 mg/dL (70-99) 164 mg/dL (70-99) Bedside Ionized Calcium (Donald) 1.15 mmol/L (1.13-1.32) 1.12 mmol/L (1.13-1.32) 1.92 mmol/L (1.13-1.32) Activated Clotting Time 468 SEC (90-125) 500 SEC (90-125) Test 05/25/18 12:55 05/25/18 13:00 05/25/18 13:49 05/25/18 14:35 Activated Clotting Time 116 SEC (90-125) White Blood Count 7.0 x10^3/uL (4.0-11.0) Red Blood Count 3.23 x10^6/uL (3.50-5.40) Hemoglobin 9.1 g/dL (12.0-15.5) Hematocrit 26.5 % (36.0-47.0) Mean Corpuscular Volume 82 fL (79-100) Mean Corpuscular Hemoglobin 28 pg (25-35) Mean Corpuscular Hemoglobin Concent 34 g/dL (31-37) Red Cell Distribution Width 15.4 % (11.5-14.5) Platelet Count 97 x10^3/uL (140-400) Neutrophils (%) (Auto) 75 % (31-73) Lymphocytes (%) (Auto) 21 % (24-48) Monocytes (%) (Auto) 4 % (0-9) Eosinophils (%) (Auto) 1 % (0-3) Basophils (%) (Auto) 0 % (0-3) Neutrophils # (Auto) 5.2 x10^3uL (1.8-7.7) Lymphocytes # (Auto) 1.5 x10^3/uL (1.0-4.8) Monocytes # (Auto) 0.3 x10^3/uL (0.0-1.1) Eosinophils # (Auto) 0.0 x10^3/uL (0.0-0.7) Basophils # (Auto) 0.0 x10^3/uL (0.0-0.2) Prothrombin Time 17.9 SEC (11.7-14.0) Prothromb Time International Ratio 1.5 (0.8-1.1) Activated Partial Thromboplast Time 31 SEC (24-38) Fibrinogen 417 mg/dL (200-440) Bedside Hemoglobin (Calculated) 9.5 g/dL (12-15) Bedside Hematocrit 28 % (36-40) Bedside Arterial pH 7.45 (7.35-7.45) Bedside Arterial pCO2 35 mmHg (35-45) Bedside Arterial pO2 341 mmHg (75-100) Bedside Arterial HCO3 24 mmol/L (21-28) Bedside Arterial Total CO2 25 mmol/L (21-32) Arterial Bld O2 Saturation (Measur) 100 % (95-99) Bedside Arterial Blood Base Excess 0 mmol/L (0-3) Bedside FiO2 100.0 Bedside Sodium 139 mmol/L (135-145) Bedside Potassium 3.9 mmol/L (3.5-5.0) Glucose Level 133 mg/dL (70-99) Bedside Ionized Calcium (Donald) 1.62 mmol/L (1.13-1.32) Glucose (Fingerstick) 148 mg/dL (70-99) Test 05/25/18 14:40 05/25/18 15:30 05/25/18 15:47 05/25/18 16:56 O2 Saturation 95 % (92-99) Arterial Blood pH 7.34 (7.35-7.45) Arterial Blood pCO2 at Patient Temp 41 mmHg (35-46) Arterial Blood pO2 at Patient Temp 83 mmHg (75-108) Arterial Blood HCO3 22 mmol/L (21-28) Arterial Blood Base Excess -4 mmol/L (-3-3) Oxyhemoglobin 93.8 % Methemoglobin 0.3 % (0.0-1.9) Carbon Monoxide, Quantitative 0.4 % (0.0-1.9) FiO2 100% simv12 650 ps10 White Blood Count 8.2 x10^3/uL (4.0-11.0) Red Blood Count 3.99 x10^6/uL (3.50-5.40) Hemoglobin 11.1 g/dL (12.0-15.5) Hematocrit 32.8 % (36.0-47.0) Mean Corpuscular Volume 82 fL (79-100) Mean Corpuscular Hemoglobin 28 pg (25-35) Mean Corpuscular Hemoglobin Concent 34 g/dL (31-37) Red Cell Distribution Width 15.6 % (11.5-14.5) Platelet Count 135 x10^3/uL (140-400) Prothrombin Time 15.3 SEC (11.7-14.0) Prothromb Time International Ratio 1.3 (0.8-1.1) Activated Partial Thromboplast Time 31 SEC (24-38) Sodium Level 142 mmol/L (136-145) Potassium Level 4.2 mmol/L (3.5-5.1) Chloride Level 108 mmol/L (98-107) Carbon Dioxide Level 28 mmol/L (21-32) Anion Gap 6 (6-14) Blood Urea Nitrogen 13 mg/dL (7-20) Creatinine 0.7 mg/dL (0.6-1.0) Estimated GFR (Cockcroft-Gault) 105.9 Glucose Level 218 mg/dL (70-99) Calcium Level 10.1 mg/dL (8.5-10.1) Magnesium Level 2.4 mg/dL (1.8-2.4) Glucose (Fingerstick) 201 mg/dL (70-99) 202 mg/dL (70-99) Test 05/25/18 18:00 05/25/18 18:20 05/25/18 19:04 05/25/18 19:57 Glucose (Fingerstick) 188 mg/dL (70-99) 174 mg/dL (70-99) 165 mg/dL (70-99) O2 Saturation 91 % (92-99) Arterial Blood pH 7.39 (7.35-7.45) Arterial Blood pCO2 at Patient Temp 40 mmHg (35-46) Arterial Blood pO2 at Patient Temp 66 mmHg (75-108) Arterial Blood HCO3 24 mmol/L (21-28) Arterial Blood Base Excess -1 mmol/L (-3-3) FiO2 40% White Blood Count 8.5 x10^3/uL (4.0-11.0) Red Blood Count 3.70 x10^6/uL (3.50-5.40) Hemoglobin 10.3 g/dL (12.0-15.5) Hematocrit 30.5 % (36.0-47.0) Mean Corpuscular Volume 83 fL (79-100) Mean Corpuscular Hemoglobin 28 pg (25-35) Mean Corpuscular Hemoglobin Concent 34 g/dL (31-37) Red Cell Distribution Width 15.5 % (11.5-14.5) Platelet Count 145 x10^3/uL (140-400) Potassium Level 5.4 mmol/L (3.5-5.1) Test 05/25/18 21:07 05/25/18 22:02 05/25/18 23:04 05/26/18 00:02 Glucose (Fingerstick) 143 mg/dL (70-99) 125 mg/dL (70-99) 121 mg/dL (70-99) 116 mg/dL (70-99) Test 05/26/18 01:12 05/26/18 02:20 05/26/18 03:14 05/26/18 04:17 Glucose (Fingerstick) 113 mg/dL (70-99) 140 mg/dL (70-99) 138 mg/dL (70-99) 135 mg/dL (70-99) Test 05/26/18 05:30 05/26/18 05:32 05/26/18 06:25 05/26/18 06:40 Glucose (Fingerstick) 130 mg/dL (70-99) 137 mg/dL (70-99) White Blood Count 9.3 x10^3/uL (4.0-11.0) Red Blood Count 3.64 x10^6/uL (3.50-5.40) Hemoglobin 10.3 g/dL (12.0-15.5) Hematocrit 30.3 % (36.0-47.0) Mean Corpuscular Volume 83 fL (79-100) Mean Corpuscular Hemoglobin 28 pg (25-35) Mean Corpuscular Hemoglobin Concent 34 g/dL (31-37) Red Cell Distribution Width 15.7 % (11.5-14.5) Platelet Count 166 x10^3/uL (140-400) Neutrophils (%) (Auto) 76 % (31-73) Lymphocytes (%) (Auto) 11 % (24-48) Monocytes (%) (Auto) 13 % (0-9) Eosinophils (%) (Auto) 0 % (0-3) Basophils (%) (Auto) 0 % (0-3) Neutrophils # (Auto) 7.1 x10^3uL (1.8-7.7) Lymphocytes # (Auto) 1.0 x10^3/uL (1.0-4.8) Monocytes # (Auto) 1.2 x10^3/uL (0.0-1.1) Eosinophils # (Auto) 0.0 x10^3/uL (0.0-0.7) Basophils # (Auto) 0.0 x10^3/uL (0.0-0.2) Sodium Level 135 mmol/L (136-145) Potassium Level 7.0 mmol/L (3.5-5.1) Chloride Level 104 mmol/L (98-107) Carbon Dioxide Level 20 mmol/L (21-32) Anion Gap 11 (6-14) Blood Urea Nitrogen 22 mg/dL (7-20) Creatinine 1.7 mg/dL (0.6-1.0) Estimated GFR (Cockcroft-Gault) 38.0 Glucose Level 143 mg/dL (70-99) Calcium Level 8.9 mg/dL (8.5-10.1) Magnesium Level 2.4 mg/dL (1.8-2.4) Test 05/26/18 09:05 05/26/18 09:10 05/26/18 09:55 05/26/18 10:45 Glucose (Fingerstick) 173 mg/dL (70-99) White Blood Count 12.2 x10^3/uL (4.0-11.0) Red Blood Count 3.12 x10^6/uL (3.50-5.40) Hemoglobin 8.8 g/dL (12.0-15.5) Hematocrit 26.4 % (36.0-47.0) Mean Corpuscular Volume 85 fL (79-100) Mean Corpuscular Hemoglobin 28 pg (25-35) Mean Corpuscular Hemoglobin Concent 33 g/dL (31-37) Red Cell Distribution Width 15.9 % (11.5-14.5) Platelet Count 135 x10^3/uL (140-400) Prothrombin Time 28.6 SEC (11.7-14.0) Prothromb Time International Ratio 2.8 (0.8-1.1) Sodium Level 140 mmol/L (136-145) 137 mmol/L (136-145) Potassium Level 7.3 mmol/L (3.5-5.1) 8.6 mmol/L (3.5-5.1) Chloride Level 104 mmol/L (98-107) 99 mmol/L (98-107) Carbon Dioxide Level 17 mmol/L (21-32) 15 mmol/L (21-32) Anion Gap 19 (6-14) 23 (6-14) Blood Urea Nitrogen 25 mg/dL (7-20) 27 mg/dL (7-20) Creatinine 2.3 mg/dL (0.6-1.0) 2.7 mg/dL (0.6-1.0) Estimated GFR (Cockcroft-Gault) 26.8 22.3 Glucose Level 177 mg/dL (70-99) 232 mg/dL (70-99) Lactic Acid Level 11.4 mmol/L (0.4-2.0) Calcium Level 10.3 mg/dL (8.5-10.1) 9.0 mg/dL (8.5-10.1) Magnesium Level 2.6 mg/dL (1.8-2.4) O2 Saturation 89 % (92-99) Arterial Blood pH 7.20 (7.35-7.45) Arterial Blood pCO2 at Patient Temp 31 mmHg (35-46) Arterial Blood pO2 at Patient Temp 73 mmHg (75-108) Arterial Blood HCO3 12 mmol/L (21-28) Arterial Blood Base Excess -15 mmol/L (-3-3) FiO2 100 Test 05/26/18 11:25 O2 Saturation 90 % (92-99) Arterial Blood pH 7.15 (7.35-7.45) Arterial Blood pCO2 at Patient Temp 36 mmHg (35-46) Arterial Blood pO2 at Patient Temp 80 mmHg (75-108) Arterial Blood HCO3 12 mmol/L (21-28) Arterial Blood Base Excess -16 mmol/L (-3-3) FiO2 100 Objective Assessment POD#1, s/p CABG x 3 (LEAVITT to LAD, SVG to RPDA, SVG to OM1) Code this morning. K was 7, treated, has gone up to 8,5. Creat 2,7, pH 7,15, post code. ROSC after 10 minutes. Now intubated, on epi, dopamine. Paced at 80. Expected tube output. UO 20-30cc/hr before code. No complains before arrest, was doing well. ECHO shows normal LV function. Not sure what the cause of the hyperkalemia and acidosis is. Most likely cause is acute renal failure causing the hyperK and acidosis or bowel ischemia which caused acidosis and subsequent hyperK. The lack of any abdominal complains before the code would be against this. Her creatinine has gone from 0,7 to 2,8, which makes the ARF cause more likely. Dialysis catheter has been placed Plan Plan of Care Emergent dialysis Follow K and pH after dialysis Give 2 amp bicarb now Add levo for BP if needed during dialysis BRANT VOGT MD May 26, 2018 11:57
--- NOTE | 2018-05-26 11:59 | RAD ---
Complete abdominal ultrasound History: Bowel obstruction. Comparison: None. Procedure: Transabdominal ultrasound images are obtained. Findings: Pancreas is obscured. Aorta and IVC are obscured. Liver is increased in echogenicity. No focal hepatic masses are identified. Right lobe of the liver measures enlarged at 23.5 cm. Gallbladder demonstrates wall thickening with wall thickness of 6 mm. There is pericholecystic fluid. Common bile duct measures normally at 5 mm in diameter. Spleen is homogeneous and measures 11.5 cm in length. Right kidney is measured at 14.1 cm in length. Right kidney is without evidence of obstruction. Left kidney measures 14.1 cm in length. Left kidney is without evidence of obstruction. Parenchymal echogenicity of both kidneys appears mildly increased. Impression: 1. Gallbladder wall thickening pericholecystic fluid. No convincing gallstones are seen. Patient is NPO from the lung., Finding are compatible with acalculous cholecystitis. 2. Echogenic, enlarged liver. Most likely etiology is fatty liver disease. At times, early cirrhosis or hepatitis can give a similar appearance. 3. Both kidneys are apparently mildly enlarged and mildly echogenic. Findings are compatible with nonspecific medical renal disease. Electronically signed by: Julio Irwin MD (05/26/2018 11:56 AM) [email or web address]
[2018-05-26] MEDS ORDERED: DOPamine 400MG/250ML PREMIX 400 MG/250 ML BAG IV ONE (12:00)
[2018-05-26] MEDS ORDERED: NOREPINEPHRINE PREMIX 8 MG/250 ML BAG. IV ONE (12:00)
[2018-05-26] MEDS ORDERED: LIDOCAINE 1% PF 2 ML VIAL. ONE (12:00)
--- NOTE | 2018-05-26 12:22 | CONS ---
DATE OF CONSULTATION: PULMONARY CONSULTATION ATTENDING PHYSICIAN: Dr. Lynn. REASON FOR CONSULTATION: Code blue cardiac arrest. HISTORY OF PRESENT ILLNESS: The patient is a 52-year-old obese patient who came into the hospital with chest pain. This was starting 1-2 weeks. She was seen by Cardiology and was found to have non-ST ID. She underwent a cardiac catheterization and had left main disease, 50% and 3-vessel coronary artery disease. She underwent coronary artery bypass grafting on 05/25/2018. She was extubated yesterday. This morning, she was sitting in a chair and was found to have agonal breathing. Lisa martinez was called. She was placed back on the ventilator. She had significant electrolyte abnormalities with potassium of 7.3. Renal function worsened to BUN of 25 and a creatinine of 2.3. Lactic acid was 11.4. Her INR was 2.8. ABG showed a pH of 7.39, pCO2 of 40 and a pO2 of 66 with bicarbonate 24 post intubation. This morning, another lisa martinez was called. She was noted to be bradycardic. She was already on epinephrine at 10 mcg and blood pressure also dropped in the 70s. I was in the ICU. The patient was acidotic with a pH of 7.20, pCO2 of 31 and a pO2 of 12. We gave 2 amps of bicarbonate. The patient's potassium level of 7.3. She has received insulin and an amp of D50. Her external pacer was not capturing and the rate was increased and an amp of atropine was given. She did have a pulse in the 80s and her blood pressure went up above 100. Her chest x-ray post-intubation showed development of asymmetric interstitial infiltrates favoring asymmetric edema. Her family was also at the bedside. We did a stat bedside echo and no definite pericardial tamponade were observed. PAST MEDICAL HISTORY: Significant for morbid obesity, BMI of 36. History of arthritis, COPD, type 2 diabetes, dyslipidemia, hypertension, chronic back pain and inflammatory fasciitis. PAST SURGICAL HISTORY: , knee replacement, rotator cuff and left ankle surgery. ALLERGIES: LISINOPRIL. MEDICATIONS: Reviewed as listed in the MRAD. PHYSICAL EXAMINATION: GENERAL: On examination, she intubated and sedated. VITAL SIGNS: Blood pressure is now in the 110s. Pulse is in the 80s. HEENT: Pupils small, but reactive. NECK: Supple. LUNGS: With diminished breath sounds. CARDIOVASCULAR EXAMINATION: Regular rate and rhythm. ABDOMEN: Soft, obese. EXTREMITIES: Trace pitting edema. LABORATORY DATA: Labs were reviewed. ABGs as discussed in my history of present illness. Urine drug screen positive for marijuana. BUN and creatinine were reviewed. Potassium was 7.3. Lactic 11.4. White cell count 12.2, hemoglobin 8.8 and platelets are 135,000. IMPRESSION: 1. Acute respiratory failure secondary to respiratory/cardiac arrest post coronary artery bypass graft. The patient was extubated yesterday and had to be reintubated today. Coded twice since re-intubation with PEA activity 2. Status post coronary artery bypass graft for 3-vessel coronary artery disease. 3. [id number] myocardial infarction, present on admission, with 3-vessel coronary artery disease. 4. Hyperkalemia. Probably the etiology of code blue 5. Acute renal failure. 6. Abnormal chest x-ray, consistent with asymmetric interstitial edema. 7. Reactive leukocytosis. 8. Positive marijuana use. 9. Metabolic acidosis.post code 10. Lactic acidosis secondary to code blue with poor perfusion. 11. shock RECOMMENDATIONS: 1. Discussed with Dr. Nolasco. Discussed with Dr. Cheek. We will continue with present assist control mode. We will follow ABGs and make necessary adjustment. 2. Two amps of bicarbonate has been given and we will give more amps of bicarbonate if acidosis is still low. 3. Followup hyperkalemia per renal recommendation and consider need for dialysis per Renal recommendation. 4. Follow chest x-rays. 5. Follow ABGs. 6. Follow CV Surgery recommendation. 7. Continue present vasopressors. She is currently in cardiogenic shock. 8. No evidence of any pericardial tamponade. 9. Continue external pacemaker. 10. Discussed with RN and RT. Discussed with the family and we will follow along with you. Critical care time 39 minutes. TAYLOR MANNING MD DR: IMTIAZ/cassius JOB#: [id number] / [id number] QUIQUE
--- NOTE | 2018-05-26 12:44 | PDOC ---
PROGRESS NOTES Chief Complaint Chief Complaint NSTEMI s/p triple vessel CABG (LEAVITT to LAD, SVG to RPDA, SVG to OM1) on 05/25 Hyperkalemia KANIKA PEA, coded three times on 05/26 before 1200hrs Acute on chronic diastolic CHF HTN Hyperlipidemia H/o COPD H/o seizures H/o T2DM History of Present Illness History of Present Illness Pt seen and examined in ICU Pt sedated and intubated on vent (AC20/600/100%/5 PEEP) Pt had gone into PEA and coded prior to our arrival in ICU During our examination, pt coded: CPR started, atropine, calcium, bicarb, dopamine given, stat echo ordered that showed normal LV function, HR responded to atropine and she stabilized briefly before coding again, CPR reinitiated, atropine given, patient stabilized; IR paged stat for temporary dialysis cath placement and HD is running Daughter and son at bedside Vitals Vitals Vital Signs Date Time Temp Pulse Resp B/P (MAP) Pulse Ox O2 Delivery O2 Flow Rate FiO2 05/26/18 11:48 Ventilator 05/26/18 06:00 60 25 141/62 (88) 92 8.0 05/26/18 04:00 98.3 98.3 Physical Exam Physical Exam Pupils pinpoint and reactive General: severe distress, Other (patient coded twice during examination) Heart: Other (ESM 2/6 aortic, lisette, PEA, widened QRS) Lungs: Clear, Other (diminished breath sounds, on vent) Abdomen: Soft, No masses Extremities: No clubbing, No cyanosis, No edema Skin: No rashes, No breakdown Labs LABS Laboratory Tests Test 05/25/18 12:54 05/25/18 12:55 05/25/18 13:00 05/25/18 13:49 Bedside Hemoglobin (Calculated) 8.5 g/dL (12-15) 9.5 g/dL (12-15) Bedside Hematocrit 25 % (36-40) 28 % (36-40) Bedside Arterial pH 7.41 (7.35-7.45) 7.45 (7.35-7.45) Bedside Arterial pCO2 42 mmHg (35-45) 35 mmHg (35-45) Bedside Arterial pO2 331 mmHg (75-100) 341 mmHg (75-100) Bedside Arterial HCO3 26 mmol/L (21-28) 24 mmol/L (21-28) Bedside Arterial Total CO2 28 mmol/L (21-32) 25 mmol/L (21-32) Arterial Bld O2 Saturation (Measur) 100 % (95-99) 100 % (95-99) Bedside Arterial Blood Base Excess 2 mmol/L (0-3) 0 mmol/L (0-3) Bedside FiO2 100.0 100.0 Bedside Sodium 136 mmol/L (135-145) 139 mmol/L (135-145) Bedside Potassium 4.3 mmol/L (3.5-5.0) 3.9 mmol/L (3.5-5.0) Glucose Level 164 mg/dL (70-99) 133 mg/dL (70-99) Bedside Ionized Calcium (Donald) 1.92 mmol/L (1.13-1.32) 1.62 mmol/L (1.13-1.32) Activated Clotting Time 116 SEC (90-125) White Blood Count 7.0 x10^3/uL (4.0-11.0) Red Blood Count 3.23 x10^6/uL (3.50-5.40) Hemoglobin 9.1 g/dL (12.0-15.5) Hematocrit 26.5 % (36.0-47.0) Mean Corpuscular Volume 82 fL (79-100) Mean Corpuscular Hemoglobin 28 pg (25-35) Mean Corpuscular Hemoglobin Concent 34 g/dL (31-37) Red Cell Distribution Width 15.4 % (11.5-14.5) Platelet Count 97 x10^3/uL (140-400) Neutrophils (%) (Auto) 75 % (31-73) Lymphocytes (%) (Auto) 21 % (24-48) Monocytes (%) (Auto) 4 % (0-9) Eosinophils (%) (Auto) 1 % (0-3) Basophils (%) (Auto) 0 % (0-3) Neutrophils # (Auto) 5.2 x10^3uL (1.8-7.7) Lymphocytes # (Auto) 1.5 x10^3/uL (1.0-4.8) Monocytes # (Auto) 0.3 x10^3/uL (0.0-1.1) Eosinophils # (Auto) 0.0 x10^3/uL (0.0-0.7) Basophils # (Auto) 0.0 x10^3/uL (0.0-0.2) Prothrombin Time 17.9 SEC (11.7-14.0) Prothromb Time International Ratio 1.5 (0.8-1.1) Activated Partial Thromboplast Time 31 SEC (24-38) Fibrinogen 417 mg/dL (200-440) Test 05/25/18 14:35 05/25/18 14:40 05/25/18 15:30 05/25/18 15:47 Glucose (Fingerstick) 148 mg/dL (70-99) 201 mg/dL (70-99) O2 Saturation 95 % (92-99) Arterial Blood pH 7.34 (7.35-7.45) Arterial Blood pCO2 at Patient Temp 41 mmHg (35-46) Arterial Blood pO2 at Patient Temp 83 mmHg (75-108) Arterial Blood HCO3 22 mmol/L (21-28) Arterial Blood Base Excess -4 mmol/L (-3-3) Oxyhemoglobin 93.8 % Methemoglobin 0.3 % (0.0-1.9) Carbon Monoxide, Quantitative 0.4 % (0.0-1.9) FiO2 100% simv12 650 ps10 White Blood Count 8.2 x10^3/uL (4.0-11.0) Red Blood Count 3.99 x10^6/uL (3.50-5.40) Hemoglobin 11.1 g/dL (12.0-15.5) Hematocrit 32.8 % (36.0-47.0) Mean Corpuscular Volume 82 fL (79-100) Mean Corpuscular Hemoglobin 28 pg (25-35) Mean Corpuscular Hemoglobin Concent 34 g/dL (31-37) Red Cell Distribution Width 15.6 % (11.5-14.5) Platelet Count 135 x10^3/uL (140-400) Prothrombin Time 15.3 SEC (11.7-14.0) Prothromb Time International Ratio 1.3 (0.8-1.1) Activated Partial Thromboplast Time 31 SEC (24-38) Sodium Level 142 mmol/L (136-145) Potassium Level 4.2 mmol/L (3.5-5.1) Chloride Level 108 mmol/L (98-107) Carbon Dioxide Level 28 mmol/L (21-32) Anion Gap 6 (6-14) Blood Urea Nitrogen 13 mg/dL (7-20) Creatinine 0.7 mg/dL (0.6-1.0) Estimated GFR (Cockcroft-Gault) 105.9 Glucose Level 218 mg/dL (70-99) Calcium Level 10.1 mg/dL (8.5-10.1) Magnesium Level 2.4 mg/dL (1.8-2.4) Test 05/25/18 16:56 05/25/18 18:00 05/25/18 18:20 05/25/18 19:04 Glucose (Fingerstick) 202 mg/dL (70-99) 188 mg/dL (70-99) 174 mg/dL (70-99) O2 Saturation 91 % (92-99) Arterial Blood pH 7.39 (7.35-7.45) Arterial Blood pCO2 at Patient Temp 40 mmHg (35-46) Arterial Blood pO2 at Patient Temp 66 mmHg (75-108) Arterial Blood HCO3 24 mmol/L (21-28) Arterial Blood Base Excess -1 mmol/L (-3-3) FiO2 40% Test 05/25/18 19:57 05/25/18 21:07 05/25/18 22:02 05/25/18 23:04 White Blood Count 8.5 x10^3/uL (4.0-11.0) Red Blood Count 3.70 x10^6/uL (3.50-5.40) Hemoglobin 10.3 g/dL (12.0-15.5) Hematocrit 30.5 % (36.0-47.0) Mean Corpuscular Volume 83 fL (79-100) Mean Corpuscular Hemoglobin 28 pg (25-35) Mean Corpuscular Hemoglobin Concent 34 g/dL (31-37) Red Cell Distribution Width 15.5 % (11.5-14.5) Platelet Count 145 x10^3/uL (140-400) Potassium Level 5.4 mmol/L (3.5-5.1) Glucose (Fingerstick) 165 mg/dL (70-99) 143 mg/dL (70-99) 125 mg/dL (70-99) 121 mg/dL (70-99) Test 05/26/18 00:02 05/26/18 01:12 05/26/18 02:20 05/26/18 03:14 Glucose (Fingerstick) 116 mg/dL (70-99) 113 mg/dL (70-99) 140 mg/dL (70-99) 138 mg/dL (70-99) Test 05/26/18 04:17 05/26/18 05:30 05/26/18 05:32 05/26/18 06:25 Glucose (Fingerstick) 135 mg/dL (70-99) 130 mg/dL (70-99) White Blood Count 9.3 x10^3/uL (4.0-11.0) Red Blood Count 3.64 x10^6/uL (3.50-5.40) Hemoglobin 10.3 g/dL (12.0-15.5) Hematocrit 30.3 % (36.0-47.0) Mean Corpuscular Volume 83 fL (79-100) Mean Corpuscular Hemoglobin 28 pg (25-35) Mean Corpuscular Hemoglobin Concent 34 g/dL (31-37) Red Cell Distribution Width 15.7 % (11.5-14.5) Platelet Count 166 x10^3/uL (140-400) Neutrophils (%) (Auto) 76 % (31-73) Lymphocytes (%) (Auto) 11 % (24-48) Monocytes (%) (Auto) 13 % (0-9) Eosinophils (%) (Auto) 0 % (0-3) Basophils (%) (Auto) 0 % (0-3) Neutrophils # (Auto) 7.1 x10^3uL (1.8-7.7) Lymphocytes # (Auto) 1.0 x10^3/uL (1.0-4.8) Monocytes # (Auto) 1.2 x10^3/uL (0.0-1.1) Eosinophils # (Auto) 0.0 x10^3/uL (0.0-0.7) Basophils # (Auto) 0.0 x10^3/uL (0.0-0.2) Sodium Level 135 mmol/L (136-145) Potassium Level 7.0 mmol/L (3.5-5.1) Chloride Level 104 mmol/L (98-107) Carbon Dioxide Level 20 mmol/L (21-32) Anion Gap 11 (6-14) Blood Urea Nitrogen 22 mg/dL (7-20) Creatinine 1.7 mg/dL (0.6-1.0) Estimated GFR (Cockcroft-Gault) 38.0 Glucose Level 143 mg/dL (70-99) Calcium Level 8.9 mg/dL (8.5-10.1) Magnesium Level 2.4 mg/dL (1.8-2.4) Test 05/26/18 06:40 05/26/18 09:05 05/26/18 09:10 05/26/18 09:55 Glucose (Fingerstick) 137 mg/dL (70-99) 173 mg/dL (70-99) White Blood Count 12.2 x10^3/uL (4.0-11.0) Red Blood Count 3.12 x10^6/uL (3.50-5.40) Hemoglobin 8.8 g/dL (12.0-15.5) Hematocrit 26.4 % (36.0-47.0) Mean Corpuscular Volume 85 fL (79-100) Mean Corpuscular Hemoglobin 28 pg (25-35) Mean Corpuscular Hemoglobin Concent 33 g/dL (31-37) Red Cell Distribution Width 15.9 % (11.5-14.5) Platelet Count 135 x10^3/uL (140-400) Prothrombin Time 28.6 SEC (11.7-14.0) Prothromb Time International Ratio 2.8 (0.8-1.1) Sodium Level 140 mmol/L (136-145) Potassium Level 7.3 mmol/L (3.5-5.1) Chloride Level 104 mmol/L (98-107) Carbon Dioxide Level 17 mmol/L (21-32) Anion Gap 19 (6-14) Blood Urea Nitrogen 25 mg/dL (7-20) Creatinine 2.3 mg/dL (0.6-1.0) Estimated GFR (Cockcroft-Gault) 26.8 Glucose Level 177 mg/dL (70-99) Lactic Acid Level 11.4 mmol/L (0.4-2.0) Calcium Level 10.3 mg/dL (8.5-10.1) Magnesium Level 2.6 mg/dL (1.8-2.4) O2 Saturation 89 % (92-99) Arterial Blood pH 7.20 (7.35-7.45) Arterial Blood pCO2 at Patient Temp 31 mmHg (35-46) Arterial Blood pO2 at Patient Temp 73 mmHg (75-108) Arterial Blood HCO3 12 mmol/L (21-28) Arterial Blood Base Excess -15 mmol/L (-3-3) FiO2 100 Test 05/26/18 10:45 05/26/18 11:25 05/26/18 12:07 Sodium Level 137 mmol/L (136-145) Potassium Level 8.6 mmol/L (3.5-5.1) Chloride Level 99 mmol/L (98-107) Carbon Dioxide Level 15 mmol/L (21-32) Anion Gap 23 (6-14) Blood Urea Nitrogen 27 mg/dL (7-20) Creatinine 2.7 mg/dL (0.6-1.0) Estimated GFR (Cockcroft-Gault) 22.3 Glucose Level 232 mg/dL (70-99) Calcium Level 9.0 mg/dL (8.5-10.1) O2 Saturation 90 % (92-99) Arterial Blood pH 7.15 (7.35-7.45) Arterial Blood pCO2 at Patient Temp 36 mmHg (35-46) Arterial Blood pO2 at Patient Temp 80 mmHg (75-108) Arterial Blood HCO3 12 mmol/L (21-28) Arterial Blood Base Excess -16 mmol/L (-3-3) FiO2 100 Glucose (Fingerstick) 152 mg/dL (70-99) Review of Systems Review of Systems Pt sedated, intubated on vent. Actively coded during examination. Unable to obtain. Assessment and Plan Assessmemt and Plan Problems Medical Problems: (1) Hypertensive emergency Status: Acute Assessment: NSTEMI s/p triple vessel CABG (LEAVITT to LAD, SVG to RPDA, SVG to OM1) on 05/25 Hyperkalemia KANIKA PEA, coded three times on 05/26 before 1200hrs Acute on chronic diastolic CHF HTN Hyperlipidemia H/o COPD H/o seizures H/o T2DM Plan: ICU monitoring Severe hyperkalemia: insulin, dextrose, kayexalate, calcium, stat hemodialysis PEA: CPR, stat echo with normal LV function, atropine, sodium bicarbonate, dopamine Monitor labs and ABG Vent monitoring IV pressors Prognosis guarded Total time spent: 42 minutes Comment Review of Relevant I have reviewed the following items yan (where applicable) has been applied. Labs Laboratory Tests Test 05/24/18 17:17 05/24/18 20:40 05/25/18 05:35 05/25/18 07:26 Glucose (Fingerstick) 262 mg/dL (70-99) 264 mg/dL (70-99) 254 mg/dL (70-99) White Blood Count 6.1 x10^3/uL (4.0-11.0) Red Blood Count 4.53 x10^6/uL (3.50-5.40) Hemoglobin 12.5 g/dL (12.0-15.5) Hematocrit 37.3 % (36.0-47.0) Mean Corpuscular Volume 82 fL (79-100) Mean Corpuscular Hemoglobin 28 pg (25-35) Mean Corpuscular Hemoglobin Concent 34 g/dL (31-37) Red Cell Distribution Width 15.7 % (11.5-14.5) Platelet Count 209 x10^3/uL (140-400) Neutrophils (%) (Auto) 52 % (31-73) Lymphocytes (%) (Auto) 35 % (24-48) Monocytes (%) (Auto) 11 % (0-9) Eosinophils (%) (Auto) 1 % (0-3) Basophils (%) (Auto) 1 % (0-3) Neutrophils # (Auto) 3.2 x10^3uL (1.8-7.7) Lymphocytes # (Auto) 2.1 x10^3/uL (1.0-4.8) Monocytes # (Auto) 0.7 x10^3/uL (0.0-1.1) Eosinophils # (Auto) 0.1 x10^3/uL (0.0-0.7) Basophils # (Auto) 0.0 x10^3/uL (0.0-0.2) Sodium Level 138 mmol/L (136-145) Potassium Level 4.2 mmol/L (3.5-5.1) Chloride Level 101 mmol/L (98-107) Carbon Dioxide Level 27 mmol/L (21-32) Anion Gap 10 (6-14) Blood Urea Nitrogen 13 mg/dL (7-20) Creatinine 0.9 mg/dL (0.6-1.0) Estimated GFR (Cockcroft-Gault) 79.3 Glucose Level 253 mg/dL (70-99) Calcium Level 9.0 mg/dL (8.5-10.1) Test 05/25/18 08:34 05/25/18 08:35 05/25/18 09:45 05/25/18 09:46 Bedside Hemoglobin (Calculated) 10.5 g/dL (12-15) 9.5 g/dL (12-15) Bedside Hematocrit 31 % (36-40) 28 % (36-40) Bedside Arterial pH 7.39 (7.35-7.45) 7.37 (7.35-7.45) Bedside Arterial pCO2 42 mmHg (35-45) 44 mmHg (35-45) Bedside Arterial pO2 87 mmHg (75-100) 149 mmHg (75-100) Bedside Arterial HCO3 26 mmol/L (21-28) 26 mmol/L (21-28) Bedside Arterial Total CO2 27 mmol/L (21-32) 27 mmol/L (21-32) Arterial Bld O2 Saturation (Measur) 97 % (95-99) 99 % (95-99) Bedside Arterial Blood Base Excess 1 mmol/L (0-3) 0 mmol/L (0-3) Bedside FiO2 100.0 100.0 Bedside Sodium 137 mmol/L (135-145) 136 mmol/L (135-145) Bedside Potassium 4.2 mmol/L (3.5-5.0) 4.2 mmol/L (3.5-5.0) Glucose Level 262 mg/dL (70-99) 245 mg/dL (70-99) Bedside Ionized Calcium (Donald) 1.14 mmol/L (1.13-1.32) 1.13 mmol/L (1.13-1.32) Activated Clotting Time 108 SEC (90-125) 487 SEC (90-125) Test 05/25/18 10:36 05/25/18 10:48 05/25/18 10:49 05/25/18 11:16 Bedside Hematocrit 28 % (36-40) 26 % (36-40) 30 % (36-40) Bedside Venous pH 7.36 (7.32-7.42) Bedside Venous pCO2 45 mmHg (41-51) Bedside Venous pO2 35 mmHg (20-40) Bedside Venous HCO3 25 mmol/L (24-28) Bedside Venous Blood Total CO2 27 mmol/L (21-32) Bedside Venous Blood O2 Saturation 65 % Bedside Venous Blood Base Excess 0 mmol/L (0-3) POC Venous Hemoglobin (Calc) 9.5 g/dL (12-15) Bedside FiO2 100 75.0 70.0 Bedside Sodium 138 mmol/L (135-145) 137 mmol/L (135-145) 138 mmol/L (135-145) Bedside Potassium 3.8 mmol/L (3.5-5.0) 4.6 mmol/L (3.5-5.0) 4.1 mmol/L (3.5-5.0) Glucose Level 202 mg/dL (70-99) 193 mg/dL (70-99) 201 mg/dL (70-99) Bedside Ionized Calcium (Donald) 1.15 mmol/L (1.13-1.32) 1.07 mmol/L (1.13-1.32) 1.15 mmol/L (1.13-1.32) Bedside Hemoglobin (Calculated) 8.8 g/dL (12-15) 10.2 g/dL (12-15) Bedside Arterial pH 7.34 (7.35-7.45) 7.31 (7.35-7.45) Bedside Arterial pCO2 49 mmHg (35-45) 52 mmHg (35-45) Bedside Arterial pO2 307 mmHg (75-100) 176 mmHg (75-100) Bedside Arterial HCO3 26 mmol/L (21-28) 26 mmol/L (21-28) Bedside Arterial Total CO2 28 mmol/L (21-32) 28 mmol/L (21-32) Arterial Bld O2 Saturation (Measur) 100 % (95-99) 99 % (95-99) Bedside Arterial Blood Base Excess 1 mmol/L (0-3) 0 mmol/L (0-3) Activated Clotting Time 536 SEC (90-125) 455 SEC (90-125) Test 05/25/18 11:48 05/25/18 11:49 05/25/18 12:16 05/25/18 12:54 Bedside Hemoglobin (Calculated) 10.2 g/dL (12-15) 10.2 g/dL (12-15) 8.5 g/dL (12-15) Bedside Hematocrit 30 % (36-40) 30 % (36-40) 25 % (36-40) Bedside Arterial pH 7.29 (7.35-7.45) 7.35 (7.35-7.45) 7.41 (7.35-7.45) Bedside Arterial pCO2 55 mmHg (35-45) 50 mmHg (35-45) 42 mmHg (35-45) Bedside Arterial pO2 191 mmHg (75-100) 317 mmHg (75-100) 331 mmHg (75-100) Bedside Arterial HCO3 27 mmol/L (21-28) 28 mmol/L (21-28) 26 mmol/L (21-28) Bedside Arterial Total CO2 28 mmol/L (21-32) 29 mmol/L (21-32) 28 mmol/L (21-32) Arterial Bld O2 Saturation (Measur) 100 % (95-99) 100 % (95-99) 100 % (95-99) Bedside Arterial Blood Base Excess 0 mmol/L (0-3) 2 mmol/L (0-3) 2 mmol/L (0-3) Bedside FiO2 75.0 85.0 100.0 Bedside Sodium 139 mmol/L (135-145) 139 mmol/L (135-145) 136 mmol/L (135-145) Bedside Potassium 4.5 mmol/L (3.5-5.0) 4.6 mmol/L (3.5-5.0) 4.3 mmol/L (3.5-5.0) Glucose Level 184 mg/dL (70-99) 181 mg/dL (70-99) 164 mg/dL (70-99) Bedside Ionized Calcium (Donald) 1.15 mmol/L (1.13-1.32) 1.12 mmol/L (1.13-1.32) 1.92 mmol/L (1.13-1.32) Activated Clotting Time 468 SEC (90-125) 500 SEC (90-125) Test 05/25/18 12:55 05/25/18 13:00 05/25/18 13:49 05/25/18 14:35 Activated Clotting Time 116 SEC (90-125) White Blood Count 7.0 x10^3/uL (4.0-11.0) Red Blood Count 3.23 x10^6/uL (3.50-5.40) Hemoglobin 9.1 g/dL (12.0-15.5) Hematocrit 26.5 % (36.0-47.0) Mean Corpuscular Volume 82 fL (79-100) Mean Corpuscular Hemoglobin 28 pg (25-35) Mean Corpuscular Hemoglobin Concent 34 g/dL (31-37) Red Cell Distribution Width 15.4 % (11.5-14.5) Platelet Count 97 x10^3/uL (140-400) Neutrophils (%) (Auto) 75 % (31-73) Lymphocytes (%) (Auto) 21 % (24-48) Monocytes (%) (Auto) 4 % (0-9) Eosinophils (%) (Auto) 1 % (0-3) Basophils (%) (Auto) 0 % (0-3) Neutrophils # (Auto) 5.2 x10^3uL (1.8-7.7) Lymphocytes # (Auto) 1.5 x10^3/uL (1.0-4.8) Monocytes # (Auto) 0.3 x10^3/uL (0.0-1.1) Eosinophils # (Auto) 0.0 x10^3/uL (0.0-0.7) Basophils # (Auto) 0.0 x10^3/uL (0.0-0.2) Prothrombin Time 17.9 SEC (11.7-14.0) Prothromb Time International Ratio 1.5 (0.8-1.1) Activated Partial Thromboplast Time 31 SEC (24-38) Fibrinogen 417 mg/dL (200-440) Bedside Hemoglobin (Calculated) 9.5 g/dL (12-15) Bedside Hematocrit 28 % (36-40) Bedside Arterial pH 7.45 (7.35-7.45) Bedside Arterial pCO2 35 mmHg (35-45) Bedside Arterial pO2 341 mmHg (75-100) Bedside Arterial HCO3 24 mmol/L (21-28) Bedside Arterial Total CO2 25 mmol/L (21-32) Arterial Bld O2 Saturation (Measur) 100 % (95-99) Bedside Arterial Blood Base Excess 0 mmol/L (0-3) Bedside FiO2 100.0 Bedside Sodium 139 mmol/L (135-145) Bedside Potassium 3.9 mmol/L (3.5-5.0) Glucose Level 133 mg/dL (70-99) Bedside Ionized Calcium (Donald) 1.62 mmol/L (1.13-1.32) Glucose (Fingerstick) 148 mg/dL (70-99) Test 05/25/18 14:40 05/25/18 15:30 05/25/18 15:47 05/25/18 16:56 O2 Saturation 95 % (92-99) Arterial Blood pH 7.34 (7.35-7.45) Arterial Blood pCO2 at Patient Temp 41 mmHg (35-46) Arterial Blood pO2 at Patient Temp 83 mmHg (75-108) Arterial Blood HCO3 22 mmol/L (21-28) Arterial Blood Base Excess -4 mmol/L (-3-3) Oxyhemoglobin 93.8 % Methemoglobin 0.3 % (0.0-1.9) Carbon Monoxide, Quantitative 0.4 % (0.0-1.9) FiO2 100% simv12 650 ps10 White Blood Count 8.2 x10^3/uL (4.0-11.0) Red Blood Count 3.99 x10^6/uL (3.50-5.40) Hemoglobin 11.1 g/dL (12.0-15.5) Hematocrit 32.8 % (36.0-47.0) Mean Corpuscular Volume 82 fL (79-100) Mean Corpuscular Hemoglobin 28 pg (25-35) Mean Corpuscular Hemoglobin Concent 34 g/dL (31-37) Red Cell Distribution Width 15.6 % (11.5-14.5) Platelet Count 135 x10^3/uL (140-400) Prothrombin Time 15.3 SEC (11.7-14.0) Prothromb Time International Ratio 1.3 (0.8-1.1) Activated Partial Thromboplast Time 31 SEC (24-38) Sodium Level 142 mmol/L (136-145) Potassium Level 4.2 mmol/L (3.5-5.1) Chloride Level 108 mmol/L (98-107) Carbon Dioxide Level 28 mmol/L (21-32) Anion Gap 6 (6-14) Blood Urea Nitrogen 13 mg/dL (7-20) Creatinine 0.7 mg/dL (0.6-1.0) Estimated GFR (Cockcroft-Gault) 105.9 Glucose Level 218 mg/dL (70-99) Calcium Level 10.1 mg/dL (8.5-10.1) Magnesium Level 2.4 mg/dL (1.8-2.4) Glucose (Fingerstick) 201 mg/dL (70-99) 202 mg/dL (70-99) Test 05/25/18 18:00 05/25/18 18:20 05/25/18 19:04 05/25/18 19:57 Glucose (Fingerstick) 188 mg/dL (70-99) 174 mg/dL (70-99) 165 mg/dL (70-99) O2 Saturation 91 % (92-99) Arterial Blood pH 7.39 (7.35-7.45) Arterial Blood pCO2 at Patient Temp 40 mmHg (35-46) Arterial Blood pO2 at Patient Temp 66 mmHg (75-108) Arterial Blood HCO3 24 mmol/L (21-28) Arterial Blood Base Excess -1 mmol/L (-3-3) FiO2 40% White Blood Count 8.5 x10^3/uL (4.0-11.0) Red Blood Count 3.70 x10^6/uL (3.50-5.40) Hemoglobin 10.3 g/dL (12.0-15.5) Hematocrit 30.5 % (36.0-47.0) Mean Corpuscular Volume 83 fL (79-100) Mean Corpuscular Hemoglobin 28 pg (25-35) Mean Corpuscular Hemoglobin Concent 34 g/dL (31-37) Red Cell Distribution Width 15.5 % (11.5-14.5) Platelet Count 145 x10^3/uL (140-400) Potassium Level 5.4 mmol/L (3.5-5.1) Test 05/25/18 21:07 05/25/18 22:02 05/25/18 23:04 05/26/18 00:02 Glucose (Fingerstick) 143 mg/dL (70-99) 125 mg/dL (70-99) 121 mg/dL (70-99) 116 mg/dL (70-99) Test 05/26/18 01:12 05/26/18 02:20 05/26/18 03:14 05/26/18 04:17 Glucose (Fingerstick) 113 mg/dL (70-99) 140 mg/dL (70-99) 138 mg/dL (70-99) 135 mg/dL (70-99) Test 05/26/18 05:30 05/26/18 05:32 05/26/18 06:25 05/26/18 06:40 Glucose (Fingerstick) 130 mg/dL (70-99) 137 mg/dL (70-99) White Blood Count 9.3 x10^3/uL (4.0-11.0) Red Blood Count 3.64 x10^6/uL (3.50-5.40) Hemoglobin 10.3 g/dL (12.0-15.5) Hematocrit 30.3 % (36.0-47.0) Mean Corpuscular Volume 83 fL (79-100) Mean Corpuscular Hemoglobin 28 pg (25-35) Mean Corpuscular Hemoglobin Concent 34 g/dL (31-37) Red Cell Distribution Width 15.7 % (11.5-14.5) Platelet Count 166 x10^3/uL (140-400) Neutrophils (%) (Auto) 76 % (31-73) Lymphocytes (%) (Auto) 11 % (24-48) Monocytes (%) (Auto) 13 % (0-9) Eosinophils (%) (Auto) 0 % (0-3) Basophils (%) (Auto) 0 % (0-3) Neutrophils # (Auto) 7.1 x10^3uL (1.8-7.7) Lymphocytes # (Auto) 1.0 x10^3/uL (1.0-4.8) Monocytes # (Auto) 1.2 x10^3/uL (0.0-1.1) Eosinophils # (Auto) 0.0 x10^3/uL (0.0-0.7) Basophils # (Auto) 0.0 x10^3/uL (0.0-0.2) Sodium Level 135 mmol/L (136-145) Potassium Level 7.0 mmol/L (3.5-5.1) Chloride Level 104 mmol/L (98-107) Carbon Dioxide Level 20 mmol/L (21-32) Anion Gap 11 (6-14) Blood Urea Nitrogen 22 mg/dL (7-20) Creatinine 1.7 mg/dL (0.6-1.0) Estimated GFR (Cockcroft-Gault) 38.0 Glucose Level 143 mg/dL (70-99) Calcium Level 8.9 mg/dL (8.5-10.1) Magnesium Level 2.4 mg/dL (1.8-2.4) Test 05/26/18 09:05 05/26/18 09:10 05/26/18 09:55 05/26/18 10:45 Glucose (Fingerstick) 173 mg/dL (70-99) White Blood Count 12.2 x10^3/uL (4.0-11.0) Red Blood Count 3.12 x10^6/uL (3.50-5.40) Hemoglobin 8.8 g/dL (12.0-15.5) Hematocrit 26.4 % (36.0-47.0) Mean Corpuscular Volume 85 fL (79-100) Mean Corpuscular Hemoglobin 28 pg (25-35) Mean Corpuscular Hemoglobin Concent 33 g/dL (31-37) Red Cell Distribution Width 15.9 % (11.5-14.5) Platelet Count 135 x10^3/uL (140-400) Prothrombin Time 28.6 SEC (11.7-14.0) Prothromb Time International Ratio 2.8 (0.8-1.1) Sodium Level 140 mmol/L (136-145) 137 mmol/L (136-145) Potassium Level 7.3 mmol/L (3.5-5.1) 8.6 mmol/L (3.5-5.1) Chloride Level 104 mmol/L (98-107) 99 mmol/L (98-107) Carbon Dioxide Level 17 mmol/L (21-32) 15 mmol/L (21-32) Anion Gap 19 (6-14) 23 (6-14) Blood Urea Nitrogen 25 mg/dL (7-20) 27 mg/dL (7-20) Creatinine 2.3 mg/dL (0.6-1.0) 2.7 mg/dL (0.6-1.0) Estimated GFR (Cockcroft-Gault) 26.8 22.3 Glucose Level 177 mg/dL (70-99) 232 mg/dL (70-99) Lactic Acid Level 11.4 mmol/L (0.4-2.0) Calcium Level 10.3 mg/dL (8.5-10.1) 9.0 mg/dL (8.5-10.1) Magnesium Level 2.6 mg/dL (1.8-2.4) O2 Saturation 89 % (92-99) Arterial Blood pH 7.20 (7.35-7.45) Arterial Blood pCO2 at Patient Temp 31 mmHg (35-46) Arterial Blood pO2 at Patient Temp 73 mmHg (75-108) Arterial Blood HCO3 12 mmol/L (21-28) Arterial Blood Base Excess -15 mmol/L (-3-3) FiO2 100 Test 05/26/18 11:25 05/26/18 12:07 O2 Saturation 90 % (92-99) Arterial Blood pH 7.15 (7.35-7.45) Arterial Blood pCO2 at Patient Temp 36 mmHg (35-46) Arterial Blood pO2 at Patient Temp 80 mmHg (75-108) Arterial Blood HCO3 12 mmol/L (21-28) Arterial Blood Base Excess -16 mmol/L (-3-3) FiO2 100 Glucose (Fingerstick) 152 mg/dL (70-99) Laboratory Tests Test 05/25/18 12:54 05/25/18 12:55 05/25/18 13:00 05/25/18 13:49 Bedside Hemoglobin (Calculated) 8.5 g/dL (12-15) 9.5 g/dL (12-15) Bedside Hematocrit 25 % (36-40) 28 % (36-40) Bedside Arterial pH 7.41 (7.35-7.45) 7.45 (7.35-7.45) Bedside Arterial pCO2 42 mmHg (35-45) 35 mmHg (35-45) Bedside Arterial pO2 331 mmHg (75-100) 341 mmHg (75-100) Bedside Arterial HCO3 26 mmol/L (21-28) 24 mmol/L (21-28) Bedside Arterial Total CO2 28 mmol/L (21-32) 25 mmol/L (21-32) Arterial Bld O2 Saturation (Measur) 100 % (95-99) 100 % (95-99) Bedside Arterial Blood Base Excess 2 mmol/L (0-3) 0 mmol/L (0-3) Bedside FiO2 100.0 100.0 Bedside Sodium 136 mmol/L (135-145) 139 mmol/L (135-145) Bedside Potassium 4.3 mmol/L (3.5-5.0) 3.9 mmol/L (3.5-5.0) Glucose Level 164 mg/dL (70-99) 133 mg/dL (70-99) Bedside Ionized Calcium (Donald) 1.92 mmol/L (1.13-1.32) 1.62 mmol/L (1.13-1.32) Activated Clotting Time 116 SEC (90-125) White Blood Count 7.0 x10^3/uL (4.0-11.0) Red Blood Count 3.23 x10^6/uL (3.50-5.40) Hemoglobin 9.1 g/dL (12.0-15.5) Hematocrit 26.5 % (36.0-47.0) Mean Corpuscular Volume 82 fL (79-100) Mean Corpuscular Hemoglobin 28 pg (25-35) Mean Corpuscular Hemoglobin Concent 34 g/dL (31-37) Red Cell Distribution Width 15.4 % (11.5-14.5) Platelet Count 97 x10^3/uL (140-400) Neutrophils (%) (Auto) 75 % (31-73) Lymphocytes (%) (Auto) 21 % (24-48) Monocytes (%) (Auto) 4 % (0-9) Eosinophils (%) (Auto) 1 % (0-3) Basophils (%) (Auto) 0 % (0-3) Neutrophils # (Auto) 5.2 x10^3uL (1.8-7.7) Lymphocytes # (Auto) 1.5 x10^3/uL (1.0-4.8) Monocytes # (Auto) 0.3 x10^3/uL (0.0-1.1) Eosinophils # (Auto) 0.0 x10^3/uL (0.0-0.7) Basophils # (Auto) 0.0 x10^3/uL (0.0-0.2) Prothrombin Time 17.9 SEC (11.7-14.0) Prothromb Time International Ratio 1.5 (0.8-1.1) Activated Partial Thromboplast Time 31 SEC (24-38) Fibrinogen 417 mg/dL (200-440) Test 05/25/18 14:35 05/25/18 14:40 05/25/18 15:30 05/25/18 15:47 Glucose (Fingerstick) 148 mg/dL (70-99) 201 mg/dL (70-99) O2 Saturation 95 % (92-99) Arterial Blood pH 7.34 (7.35-7.45) Arterial Blood pCO2 at Patient Temp 41 mmHg (35-46) Arterial Blood pO2 at Patient Temp 83 mmHg (75-108) Arterial Blood HCO3 22 mmol/L (21-28) Arterial Blood Base Excess -4 mmol/L (-3-3) Oxyhemoglobin 93.8 % Methemoglobin 0.3 % (0.0-1.9) Carbon Monoxide, Quantitative 0.4 % (0.0-1.9) FiO2 100% simv12 650 ps10 White Blood Count 8.2 x10^3/uL (4.0-11.0) Red Blood Count 3.99 x10^6/uL (3.50-5.40) Hemoglobin 11.1 g/dL (12.0-15.5) Hematocrit 32.8 % (36.0-47.0) Mean Corpuscular Volume 82 fL (79-100) Mean Corpuscular Hemoglobin 28 pg (25-35) Mean Corpuscular Hemoglobin Concent 34 g/dL (31-37) Red Cell Distribution Width 15.6 % (11.5-14.5) Platelet Count 135 x10^3/uL (140-400) Prothrombin Time 15.3 SEC (11.7-14.0) Prothromb Time International Ratio 1.3 (0.8-1.1) Activated Partial Thromboplast Time 31 SEC (24-38) Sodium Level 142 mmol/L (136-145) Potassium Level 4.2 mmol/L (3.5-5.1) Chloride Level 108 mmol/L (98-107) Carbon Dioxide Level 28 mmol/L (21-32) Anion Gap 6 (6-14) Blood Urea Nitrogen 13 mg/dL (7-20) Creatinine 0.7 mg/dL (0.6-1.0) Estimated GFR (Cockcroft-Gault) 105.9 Glucose Level 218 mg/dL (70-99) Calcium Level 10.1 mg/dL (8.5-10.1) Magnesium Level 2.4 mg/dL (1.8-2.4) Test 05/25/18 16:56 05/25/18 18:00 05/25/18 18:20 05/25/18 19:04 Glucose (Fingerstick) 202 mg/dL (70-99) 188 mg/dL (70-99) 174 mg/dL (70-99) O2 Saturation 91 % (92-99) Arterial Blood pH 7.39 (7.35-7.45) Arterial Blood pCO2 at Patient Temp 40 mmHg (35-46) Arterial Blood pO2 at Patient Temp 66 mmHg (75-108) Arterial Blood HCO3 24 mmol/L (21-28) Arterial Blood Base Excess -1 mmol/L (-3-3) FiO2 40% Test 05/25/18 19:57 05/25/18 21:07 05/25/18 22:02 05/25/18 23:04 White Blood Count 8.5 x10^3/uL (4.0-11.0) Red Blood Count 3.70 x10^6/uL (3.50-5.40) Hemoglobin 10.3 g/dL (12.0-15.5) Hematocrit 30.5 % (36.0-47.0) Mean Corpuscular Volume 83 fL (79-100) Mean Corpuscular Hemoglobin 28 pg (25-35) Mean Corpuscular Hemoglobin Concent 34 g/dL (31-37) Red Cell Distribution Width 15.5 % (11.5-14.5) Platelet Count 145 x10^3/uL (140-400) Potassium Level 5.4 mmol/L (3.5-5.1) Glucose (Fingerstick) 165 mg/dL (70-99) 143 mg/dL (70-99) 125 mg/dL (70-99) 121 mg/dL (70-99) Test 05/26/18 00:02 05/26/18 01:12 05/26/18 02:20 05/26/18 03:14 Glucose (Fingerstick) 116 mg/dL (70-99) 113 mg/dL (70-99) 140 mg/dL (70-99) 138 mg/dL (70-99) Test 05/26/18 04:17 05/26/18 05:30 05/26/18 05:32 05/26/18 06:25 Glucose (Fingerstick) 135 mg/dL (70-99) 130 mg/dL (70-99) White Blood Count 9.3 x10^3/uL (4.0-11.0) Red Blood Count 3.64 x10^6/uL (3.50-5.40) Hemoglobin 10.3 g/dL (12.0-15.5) Hematocrit 30.3 % (36.0-47.0) Mean Corpuscular Volume 83 fL (79-100) Mean Corpuscular Hemoglobin 28 pg (25-35) Mean Corpuscular Hemoglobin Concent 34 g/dL (31-37) Red Cell Distribution Width 15.7 % (11.5-14.5) Platelet Count 166 x10^3/uL (140-400) Neutrophils (%) (Auto) 76 % (31-73) Lymphocytes (%) (Auto) 11 % (24-48) Monocytes (%) (Auto) 13 % (0-9) Eosinophils (%) (Auto) 0 % (0-3) Basophils (%) (Auto) 0 % (0-3) Neutrophils # (Auto) 7.1 x10^3uL (1.8-7.7) Lymphocytes # (Auto) 1.0 x10^3/uL (1.0-4.8) Monocytes # (Auto) 1.2 x10^3/uL (0.0-1.1) Eosinophils # (Auto) 0.0 x10^3/uL (0.0-0.7) Basophils # (Auto) 0.0 x10^3/uL (0.0-0.2) Sodium Level 135 mmol/L (136-145) Potassium Level 7.0 mmol/L (3.5-5.1) Chloride Level 104 mmol/L (98-107) Carbon Dioxide Level 20 mmol/L (21-32) Anion Gap 11 (6-14) Blood Urea Nitrogen 22 mg/dL (7-20) Creatinine 1.7 mg/dL (0.6-1.0) Estimated GFR (Cockcroft-Gault) 38.0 Glucose Level 143 mg/dL (70-99) Calcium Level 8.9 mg/dL (8.5-10.1) Magnesium Level 2.4 mg/dL (1.8-2.4) Test 05/26/18 06:40 05/26/18 09:05 05/26/18 09:10 05/26/18 09:55 Glucose (Fingerstick) 137 mg/dL (70-99) 173 mg/dL (70-99) White Blood Count 12.2 x10^3/uL (4.0-11.0) Red Blood Count 3.12 x10^6/uL (3.50-5.40) Hemoglobin 8.8 g/dL (12.0-15.5) Hematocrit 26.4 % (36.0-47.0) Mean Corpuscular Volume 85 fL (79-100) Mean Corpuscular Hemoglobin 28 pg (25-35) Mean Corpuscular Hemoglobin Concent 33 g/dL (31-37) Red Cell Distribution Width 15.9 % (11.5-14.5) Platelet Count 135 x10^3/uL (140-400) Prothrombin Time 28.6 SEC (11.7-14.0) Prothromb Time International Ratio 2.8 (0.8-1.1) Sodium Level 140 mmol/L (136-145) Potassium Level 7.3 mmol/L (3.5-5.1) Chloride Level 104 mmol/L (98-107) Carbon Dioxide Level 17 mmol/L (21-32) Anion Gap 19 (6-14) Blood Urea Nitrogen 25 mg/dL (7-20) Creatinine 2.3 mg/dL (0.6-1.0) Estimated GFR (Cockcroft-Gault) 26.8 Glucose Level 177 mg/dL (70-99) Lactic Acid Level 11.4 mmol/L (0.4-2.0) Calcium Level 10.3 mg/dL (8.5-10.1) Magnesium Level 2.6 mg/dL (1.8-2.4) O2 Saturation 89 % (92-99) Arterial Blood pH 7.20 (7.35-7.45) Arterial Blood pCO2 at Patient Temp 31 mmHg (35-46) Arterial Blood pO2 at Patient Temp 73 mmHg (75-108) Arterial Blood HCO3 12 mmol/L (21-28) Arterial Blood Base Excess -15 mmol/L (-3-3) FiO2 100 Test 05/26/18 10:45 05/26/18 11:25 05/26/18 12:07 Sodium Level 137 mmol/L (136-145) Potassium Level 8.6 mmol/L (3.5-5.1) Chloride Level 99 mmol/L (98-107) Carbon Dioxide Level 15 mmol/L (21-32) Anion Gap 23 (6-14) Blood Urea Nitrogen 27 mg/dL (7-20) Creatinine 2.7 mg/dL (0.6-1.0) Estimated GFR (Cockcroft-Gault) 22.3 Glucose Level 232 mg/dL (70-99) Calcium Level 9.0 mg/dL (8.5-10.1) O2 Saturation 90 % (92-99) Arterial Blood pH 7.15 (7.35-7.45) Arterial Blood pCO2 at Patient Temp 36 mmHg (35-46) Arterial Blood pO2 at Patient Temp 80 mmHg (75-108) Arterial Blood HCO3 12 mmol/L (21-28) Arterial Blood Base Excess -16 mmol/L (-3-3) FiO2 100 Glucose (Fingerstick) 152 mg/dL (70-99) Medications Current Medications Labetalol HCl (Normodyne Iv Push) 20 mg 1X ONCE IVP Last administered on 05/21at 00:26; Start 05/21/18 at 00:30; Stop 05/21/18 at 00:31; Status DC Nitroglycerin (Nitro-Bid Oint) 1 inch 1X ONCE TP Last administered on at 00:27; Start 05/21/18 at 00:30; Stop 05/21/18 at 00:31; Status DC Aspirin (Children'S Aspirin) 324 mg 1X ONCE PO Last administered on at 00:26; Start 05/21/18 at 00:30; Stop 05/21/18 at 00:31; Status DC Nitroglycerin/ Dextrose 250 ml @ 0 mls/hr 1X ONCE IV Last administered on at 01:17; Start 05/21/18 at 01:15; Stop 05/21/18 at 01:16; Status DC Heparin Sodium (Porcine) (Heparin Sodium) 4,000 unit 1X ONCE IV Last administered on 05/21/18at 02:56; Start 05/21/18 at 01:15; Stop 05/21/18 at 01 :16; Status DC Heparin Sodium/ Dextrose 500 ml @ 0 mls/hr CONT PRN IV SEE I/O RECORD Last administered on 05/21/18at 01:21; Start 05/21/18 at 01:00; Stop 05/25/18 at 15 :21; Status DC Heparin Sodium (Porcine) (Heparin Sodium) 2,500 unit PRN Q6HRS PRN IV FOR UFH LEVEL LESS THAN 0.2 Last administered on 05/21/18at 12:32; Start 05/21/18 at 01 :00; Stop 05/25/18 at 15:21; Status DC Furosemide (Lasix) 40 mg 1X ONCE IVP Last administered on 05/21/18at 01:23; Start 05/21/18 at 01:30; Stop 05/21/18 at 01:31; Status DC Info (Anti-Coagulation Monitoring By Pharmacy) 1 each PRN DAILY PRN MC SEE COMMENTS Last administered on 05/21/18at 02:26; Start 05/21/18 at 01:15; Stop 05/23/18 at 14:55; Status DC Sodium Chloride 1,000 ml @ 100 mls/hr Q10H IV ; Start 05/21/18 at 01:30; Stop 05/21/18 at 17:47; Status DC Nicardipine HCl 50 mg/Sodium Chloride 270 ml @ 27 mls/hr CONT PRN IV SEE I/O RECORD Last administered on 05/26/18at 06:13; Start 05/21/18 at 03:30 Furosemide (Lasix) 40 mg 1X ONCE IVP Last administered on 05/21/18at 09:24; Start 05/21/18 at 09:15; Stop 05/21/18 at 09:16; Status DC Amlodipine Besylate (Norvasc) 10 mg DAILY PO Last administered on 05/24/18at 08 :41; Start 05/21/18 at 14:00 Atorvastatin Calcium (Lipitor) 40 mg QHS PO Last administered on 05/25/18at 20: 42; Start 05/21/18 at 21:00 Carvedilol (Coreg) 25 mg BIDWMEALS PO Last administered on 05/24/18at 17:28; Start 05/21/18 at 17:00 Isosorbide Mononitrate (Imdur) 30 mg DAILY PO Last administered on 05/24/18at 08:42; Start 05/21/18 at 14:00 Labetalol HCl (Normodyne Iv Push) 20 mg PRN Q2HR PRN IVP HYPERTENSION, SEE COMMENTS; Start 05/21/18 at 13:15 Iodixanol (Visipaque 320) 100 ml STK-MED ONCE .ROUTE ; Start 05/21/18 at 14:25 ; Stop 05/21/18 at 14:26; Status DC Lidocaine HCl (Lidocaine 1% 50ml Vial) 50 ml STK-MED ONCE .ROUTE ; Start at 14:25; Stop 05/21/18 at 14:26; Status DC Heparin Sodium/ Sodium Chloride 500 ml @ As Directed STK-MED ONCE .ROUTE ; Start 05/21/18 at 14:25; Stop 05/21/18 at 14:26; Status DC Fentanyl Citrate (Fentanyl 2ml Vial) 100 mcg STK-MED ONCE .ROUTE ; Start at 15:09; Stop 05/21/18 at 15:10; Status DC Midazolam HCl (Versed) 5 mg STK-MED ONCE .ROUTE ; Start 05/21/18 at 15:09; Stop 05/21/18 at 15:10; Status DC Heparin Sodium/ Sodium Chloride 500 ml @ As Directed STK-MED ONCE .ROUTE ; Start 05/21/18 at 15:13; Stop 05/21/18 at 15:14; Status DC Heparin Sodium/ Sodium Chloride (HEPARIN for ARTERIAL LINE FLUSH) 1,000 unit 1X ONCE IART Last administered on 05/21/18at 15:30; Start 05/21/18 at 15:30; Stop 05/21/18 at 15:31; Status DC Heparin Sodium/ Sodium Chloride (HEPARIN for ARTERIAL LINE FLUSH) 1,000 unit 1X ONCE IART Last administered on 05/21/18at 15:30; Start 05/21/18 at 15:30; Stop 05/21/18 at 15:31; Status DC Midazolam HCl (Versed) 5 mg 1X ONCE IV Last administered on 05/21/18at 15:30; Start 05/21/18 at 15:30; Stop 05/21/18 at 15:31; Status DC Iodixanol (Visipaque 320) 100 ml 1X ONCE IART Last administered on 05/21/18at 15:30; Start 05/21/18 at 15:30; Stop 05/21/18 at 15:31; Status DC Lidocaine HCl (Lidocaine 1% 50ml Vial) 50 ml 1X ONCE INJ Last administered on 05/21/18at 15:30; Start 05/21/18 at 15:30; Stop 05/21/18 at 15:31; Status DC Info (CONTRAST GIVEN -- Rx MONITORING) 1 each PRN DAILY PRN MC SEE COMMENTS; Start 05/21/18 at 15:30; Stop 05/23/18 at 15:29; Status DC Heparin Sodium (Porcine) (Heparin Sodium) 10,000 unit STK-MED ONCE .ROUTE ; Start 05/21/18 at 15:30; Stop 05/21/18 at 15:31; Status DC Fentanyl Citrate (Fentanyl 2ml Vial) 100 mcg 1X ONCE IV Last administered on 05/21/18at 16:00; Start 05/21/18 at 16:00; Stop 05/21/18 at 16:01; Status DC Cefazolin Sodium/ Dextrose 50 ml @ 100 mls/hr 1X PREOP PRN IV PEROP DOSE/ PRIOR TO PROCEDURE; Start 05/22/18 at 06:00; Stop 05/22/18 at 18:00; Status DC Sodium Chloride (Normal Saline Flush) 3 ml QSHIFT PRN IV AFTER MEDS AND BLOOD DRAWS; Start 05/21/18 at 17:15 Sodium Chloride 1,000 ml @ 60 mls/hr [id number] IV Last administered on at 21:58; Start 05/21/18 at 17:01; Stop 05/22/18 at 01:00; Status DC Nitroglycerin (Nitrostat) 0.4 mg PRN Q5MIN PRN SL CHEST PAIN; Start 05/21/18 at 17:15 Insulin Human Lispro (HumaLOG) 0-9 UNITS [id number] SQ Last administered on at 21:18; Start 05/21/18 at 22:00; Stop 05/25/18 at 16:30; Status DC Dextrose (Dextrose 50%-Water Syringe) 12.5 gm PRN Q15MIN PRN IV SEE COMMENTS Last administered on 05/26/18at 10:53; Start 05/21/18 at 21:00 Cyclobenzaprine HCl (Flexeril) 10 mg PRN Q6HRS PRN PO MUSCLE SPASMS Last administered on 05/24/18at 17:28; Start 05/21/18 at 21:00 Ondansetron HCl (Zofran) 4 mg PRN Q6HRS PRN IV NAUSEA/VOMITING Last administered on 05/26/18at 02:37; Start 05/23/18 at 08:00 Acetaminophen (Tylenol) 650 mg PRN Q6HRS PRN PO MILD PAIN / TEMP Last administered on 05/26/18at 01:59; Start 05/23/18 at 20:45 Potassium Chloride 70 meq/ Sodium Bicarbonate 12.5 meq/Lidocaine HCl 24 ml/ Parenteral Electrolytes 571.5 ml @ 571.5 mls/ hr 1X ONCE IRR Last administered on 05/25/18at 10:38; Start 05/25/18 at 06:00; Stop 05/25/18 at 06 :59; Status DC Potassium Chloride 15 meq/ Sodium Bicarbonate 12.5 meq/Parenteral Electrolytes 520 ml @ 520 mls/hr 1X ONCE IRR Last administered on 05/25/18at 10:38; Start 05/25/18 at 06:00; Stop 05/25/18 at 06:59; Status DC Heparin Sodium (Porcine) 84043 unit/Ringer's Solution 1,020 ml @ 1,020 mls/hr 1X ONCE IRR Last administered on 05/25/18at 08:49; Start 05/25/18 at 06:00; Stop 05/25/18 at 06:59; Status DC Cefazolin Sodium 1 gm/Sodium Chloride 500 ml @ 500 mls/hr 1X ONCE IRR Last administered on 05/25/18at 08:49; Start 05/25/18 at 06:00; Stop 05/25/18 at 06 :59; Status DC Ondansetron HCl (Zofran) 4 mg PRN Q6HRS PRN IV NAUSEA/VOMITING; Start at 07:00; Stop 05/26/18 at 06:59; Status DC Fentanyl Citrate (Fentanyl 2ml Vial) 25 mcg PRN Q5MIN PRN IV MILD PAIN; Start 05/25/18 at 07:00; Stop 05/26/18 at 06:59; Status DC Fentanyl Citrate (Fentanyl 2ml Vial) 50 mcg PRN Q5MIN PRN IV MODERATE TO SEVERE PAIN; Start 05/25/18 at 07:00; Stop 05/26/18 at 06:59; Status DC Morphine Sulfate (Morphine Sulfate) 1 mg PRN Q10MIN PRN IV SEVERE PAIN; Start 05/25/18 at 07:00; Stop 05/26/18 at 06:59; Status DC Ringer's Solution 1,000 ml @ 30 mls/hr Q24H IV Last administered on at 07:41; Start 05/25/18 at 07:00; Stop 05/25/18 at 17:08; Status DC Lidocaine HCl (Xylocaine-Mpf 1% 2ml Vial) 2 ml PRN 1X PRN ID IV START Last administered on 05/25/18at 07:20; Start 05/25/18 at 07:00; Stop 05/26/18 at 06 :59; Status DC Hydromorphone HCl (Dilaudid) 0.5 mg PRN Q10MIN PRN IV SEV PAIN, Second choice; Start 05/25/18 at 07:00; Stop 05/26/18 at 06:59; Status DC Prochlorperazine Edisylate (Compazine) 5 mg PACU PRN PRN IV NAUSEA, MRX1; Start 05/25/18 at 07:00; Stop 05/26/18 at 06:59; Status DC Rocuronium Hamilton (Zemuron) 100 mg STK-MED ONCE .ROUTE ; Start 05/25/18 at 02: 49; Stop 05/25/18 at 02:50; Status DC Sufentanil Citrate (Sufenta) 100 mcg STK-MED ONCE .ROUTE ; Start 05/25/18 at 02 :49; Stop 05/25/18 at 02:50; Status DC Fentanyl Citrate (Fentanyl 2ml Vial) 100 mcg STK-MED ONCE .ROUTE ; Start at 02:49; Stop 05/25/18 at 02:50; Status DC Midazolam HCl (Versed) 2 mg STK-MED ONCE .ROUTE ; Start 05/25/18 at 02:49; Stop 05/25/18 at 02:50; Status DC Ephedrine Sulfate (ePHEDrine PF IN SALINE SYRINGE) 50 mg STK-MED ONCE IV ; Start 05/25/18 at 02:54; Stop 05/25/18 at 02:55; Status DC Nitroglycerin/ Dextrose 250 ml @ As Directed STK-MED ONCE IV ; Start 05/25/18 at 02:54; Stop 05/25/18 at 02:55; Status DC Aminocaproic Acid (Amicar) 5,000 mg STK-MED ONCE IV ; Start 05/25/18 at 02:55; Stop 05/25/18 at 02:56; Status DC Heparin Sodium (Porcine) (Heparin Sodium) 10,000 unit STK-MED ONCE .ROUTE ; Start 05/25/18 at 02:55; Stop 05/25/18 at 02:56; Status DC Heparin Sodium (Porcine) 30,000 unit STK-MED ONCE .ROUTE ; Start 05/25/18 at 02 :55; Stop 05/25/18 at 02:56; Status DC Phenylephrine HCl (Bryan-Synephrine Inj) 10 mg STK-MED ONCE .ROUTE ; Start at 02:55; Stop 05/25/18 at 02:56; Status DC Phenylephrine HCl (Bryan-Synephrine Inj) 10 mg STK-MED ONCE .ROUTE ; Start at 02:55; Stop 05/25/18 at 02:56; Status DC Phenylephrine HCl (Bryan-Synephrine Inj) 10 mg STK-MED ONCE .ROUTE ; Start at 02:55; Stop 05/25/18 at 02:56; Status DC Aminocaproic Acid (Amicar) 5,000 mg STK-MED ONCE IV ; Start 05/25/18 at 02:55; Stop 05/25/18 at 02:56; Status DC Aminocaproic Acid (Amicar) 5,000 mg STK-MED ONCE IV ; Start 05/25/18 at 02:55; Stop 05/25/18 at 02:56; Status DC Isoflurane (Isoflurane) 90 ml STK-MED ONCE IH ; Start 05/25/18 at 02:55; Stop 05/25/18 at 02:56; Status DC Etomidate (Amidate) 20 mg STK-MED ONCE IV ; Start 05/25/18 at 03:01; Stop at 03:02; Status DC Insulin Human Regular 150 unit/ Sodium Chloride 151.5 ml @ 1 mls/hr CONT PRN IV SEE I/O RECORD Last administered on 05/25/18at 15:02; Start 05/25/18 at 03: 15 Vancomycin HCl (VANCO for OR ONLY) 10 gm STK-MED ONCE .ROUTE Last administered on 05/25/18at 08:49; Start 05/25/18 at 04:18; Stop 05/25/18 at 05:18; Status DC Cellulose (Surgicel Hemostat 4x8) 1 each STK-MED ONCE .ROUTE Last administered on 05/25/18at 08:49; Start 05/25/18 at 04:18; Stop 05/25/18 at 05:19; Status DC Papaverine HCl 60 mg STK-MED ONCE .ROUTE Last administered on 05/25/18at 08:49 ; Start 05/25/18 at 04:18; Stop 05/25/18 at 05:19; Status DC Aspirin (Aspirin) 300 mg STK-MED ONCE .ROUTE Last administered on 05/25/18at 13 :51; Start 05/25/18 at 04:18; Stop 05/25/18 at 05:19; Status DC Sodium Chloride (SODIUM CHLORIDE 20ml) 20 ml STK-MED ONCE IJ Last administered on 05/25/18at 08:49; Start 05/25/18 at 04:19; Stop 05/25/18 at 05:19; Status DC Sodium Chloride (SODIUM CHLORIDE 20ml) 20 ml STK-MED ONCE IJ Last administered on 05/25/18at 08:49; Start 05/25/18 at 04:19; Stop 05/25/18 at 05:20; Status DC Sodium Chloride (SODIUM CHLORIDE 20ml) 20 ml STK-MED ONCE IJ Last administered on 05/25/18at 08:49; Start 05/25/18 at 04:19; Stop 05/25/18 at 05:20; Status DC Cefazolin Sodium/ Dextrose 50 ml @ As Directed STK-MED ONCE IV ; Start at 06:58; Stop 05/25/18 at 06:59; Status DC Lidocaine HCl (Xylocaine-Mpf 2% Vial) 2 ml STK-MED ONCE .ROUTE ; Start at 06:58; Stop 05/25/18 at 06:59; Status DC Insulin Human Lispro (HumaLOG VIAL) 5 unit 1X ONCE SQ ; Start 05/25/18 at 07: 45; Stop 05/25/18 at 07:54; Status DC Cefazolin Sodium/ Dextrose 50 ml @ 100 mls/hr 1X ONCE IV Last administered on 05/25/18at 08:31; Start 05/25/18 at 07:45; Stop 05/25/18 at 08:14; Status DC Midazolam HCl (Versed) 5 mg STK-MED ONCE .ROUTE ; Start 05/25/18 at 07:48; Stop 05/25/18 at 07:49; Status DC Sufentanil Citrate (Sufenta) 100 mcg STK-MED ONCE .ROUTE ; Start 05/25/18 at 08 :44; Stop 05/25/18 at 08:45; Status DC Rocuronium Hamilton (Zemuron) 100 mg STK-MED ONCE .ROUTE ; Start 05/25/18 at 08: 57; Stop 05/25/18 at 08:58; Status DC Cefazolin Sodium/ Dextrose 50 ml @ 100 mls/hr 1X ONCE IV Last administered on 05/25/18at 12:45; Start 05/25/18 at 12:45; Stop 05/25/18 at 13:14; Status DC Rocuronium Hamilton (Zemuron) 50 mg STK-MED ONCE .ROUTE ; Start 05/25/18 at 12: 48; Stop 05/25/18 at 12:49; Status DC Heparin Sodium (Porcine) (Heparin Sodium) 10,000 unit STK-MED ONCE .ROUTE ; Start 05/25/18 at 12:52; Stop 05/25/18 at 12:53; Status DC Lidocaine HCl (Lidocaine Pf 2% Vial) 5 ml STK-MED ONCE .ROUTE ; Start 05/25/18 at 12:52; Stop 05/25/18 at 12:53; Status DC Magnesium Sulfate 5 gm STK-MED ONCE .ROUTE ; Start 05/25/18 at 12:52; Stop at 12:53; Status DC Heparin Sodium (Porcine) 30,000 unit STK-MED ONCE .ROUTE ; Start 05/25/18 at 12 :52; Stop 05/25/18 at 12:53; Status DC Mannitol (Mannitol) 12.5 g STK-MED ONCE .ROUTE ; Start 05/25/18 at 12:52; Stop 05/25/18 at 12:53; Status DC Albumin Human 200 ml @ As Directed STK-MED ONCE IV ; Start 05/25/18 at 12:52; Stop 05/25/18 at 12:53; Status DC Calcium Chloride (Calcium Chloride) 1,000 mg STK-MED ONCE .ROUTE ; Start at 12:52; Stop 05/25/18 at 12:53; Status DC Sodium Bicarbonate (Sodium Bicarb Adult 8.4% Syr) 50 meq STK-MED ONCE .ROUTE ; Start 05/25/18 at 12:52; Stop 05/25/18 at 12:53; Status DC Protamine Sulfate (Protamine) 250 mg STK-MED ONCE IV ; Start 05/25/18 at 13:36 ; Stop 05/25/18 at 13:37; Status DC Protamine Sulfate (Protamine) 250 mg STK-MED ONCE IV ; Start 05/25/18 at 13:36 ; Stop 05/25/18 at 13:37; Status DC Albumin Human 250 ml @ 60 mls/hr PRN Q4HRS PRN IV SEE I/O RECORD Last administered on 05/25/18at 21:15; Start 05/25/18 at 14:00; Stop 05/26/18 at 13 :45 Insulin Human Regular 150 unit/ Sodium Chloride 151.5 ml @ 0 mls/hr CONT PRN PRN IV SEE I/O RECORD; Start 05/25/18 at 14:00; Status UNV Dextrose (Dextrose 50%-Water Syringe) 25 gm PRN Q15MIN PRN IV LOW BLOOD SUGAR; Start 05/25/18 at 14:00; Status UNV Nitroglycerin/ Dextrose 250 ml @ 0 mls/hr CONT PRN PRN IV SEE I/O RECORD; Start 05/25/18 at 14:00 Phenylephrine HCl 20 mg/Sodium Chloride 252 ml @ 0 mls/hr CONT PRN PRN IV HYPOTENSION; Start 05/25/18 at 14:00 Epinephrine HCl 4 mg/Sodium Chloride 254 ml @ 0 mls/hr CONT PRN PRN IV POST CV SURGERY; Start 05/25/18 at 14:00 Amiodarone HCl 150 mg/Dextrose 103 ml @ 200 mls/hr 1X PRN PRN IV VT Last administered on 05/25/18at 14:55; Start 05/25/18 at 14:00 Amiodarone HCl 900 mg/Dextrose 518 ml @ 33.33 mls/ hr CONT PRN PRN IV SEE COMMENTS Last administered on 05/25/18at 14:55; Start 05/25/18 at 14:00 Info (KCl Per Protocol) 1 ea CONT PRN PRN MC SEE COMMENTS; Start 05/25/18 at 14:00 Magnesium Sulfate/ Dextrose 100 ml @ 100 mls/hr PRN DAILY PRN IV FOR MAG < 2.2 ; Start 05/25/18 at 14:00 Famotidine (Pepcid Vial) 20 mg BID IVP Last administered on 05/25/18at 20:39; Start 05/25/18 at 21:00 Ondansetron HCl (Zofran) 4 mg PRN Q4HRS PRN IV NAUSEA/VOMITING; Start at 14:00; Status UNV Morphine Sulfate (Morphine Sulfate) 2 mg PRN Q1HR PRN IV PAIN Last administered on 05/26/18at 03:44; Start 05/25/18 at 14:00 Acetaminophen (Tylenol) 650 mg PRN Q4HRS PRN PO MILD PAIN / TEMP; Start at 14:00; Status UNV Meperidine HCl (Demerol) 12.5 mg PRN Q15MIN PRN IV SHIVERING; Start 05/25/18 at 14:00; Stop 05/26/18 at 13:46 Propofol 100 ml @ 0 mls/hr CONT PRN PRN IV POSTOP SEDATION UNTIL EXTUBATE Last administered on 05/25/18at 15:01; Start 05/25/18 at 14:00 Senna/Docusate Sodium (Senna Plus) 1 tab BID PO Last administered on at 20:42; Start 05/25/18 at 21:00 Chlorhexidine Gluconate (Peridex) 15 ml BID MM ; Start 05/25/18 at 21:00 Aspirin (Ecotrin) 325 mg DAILYWBKFT PO ; Start 05/26/18 at 08:00 Aspirin (Aspirin) 300 mg PRN DAILY PRN MD IF UNABLE TO TAKE PO; Start at 14:00 Albuterol Sulfate (Ventolin Neb Soln) 2.5 mg PRN Q4HRS PRN NEB SHORTNESS OF BREATH; Start 05/25/18 at 14:00 Nicardipine HCl 50 mg/Sodium Chloride 270 ml @ 0 mls/hr CONT PRN PRN IV PER PROTOCOL; Start 05/25/18 at 14:00; Status UNV Cefazolin Sodium/ Dextrose 50 ml @ 100 mls/hr Q8H IV Last administered on at 04:54; Start 05/25/18 at 16:00; Stop 05/27/18 at 05:29 Oxycodone HCl (Roxicodone) 10 mg PRN Q6HRS PRN PO MODERATE-SEVERE PAIN Last administered on 05/26/18at 04:09; Start 05/25/18 at 14:00 Sodium Bicarbonate (Sodium Bicarb Adult 8.4% Syr) 50 meq 1X ONCE IV Last administered on 05/25/18at 15:18; Start 05/25/18 at 15:15; Stop 05/25/18 at 15 :16; Status DC Potassium Chloride/Water 50 ml @ 50 mls/hr 1X ONCE IV Last administered on at 16:33; Start 05/25/18 at 16:30; Stop 05/25/18 at 17:29; Status DC Ringer's Solution 1,000 ml @ 30 mls/hr Q24H IV Last administered on at 17:17; Start 05/25/18 at 17:15 Ketorolac Tromethamine (Toradol 15mg Vial) 15 mg PRN Q6HRS PRN IV PAIN; Start 05/25/18 at 18:00; Stop 05/30/18 at 17:59 Albumin Human 250 ml @ 62.5 mls/hr 1X ONCE IV Last administered on at 02:13; Start 05/26/18 at 02:30; Stop 05/26/18 at 06:29; Status DC Furosemide (Lasix) 20 mg 1X ONCE IVP Last administered on 05/26/18at 06:14; Start 05/26/18 at 06:00; Stop 05/26/18 at 06:01; Status DC Sodium Chloride 1,000 ml @ 60 mls/hr [id number] IV Last administered on at 08:20; Start 05/26/18 at 07:00 Insulin Human Regular (HumuLIN R VIAL) 10 unit 1X ONCE IV Last administered on 05/26/18at 07:30; Start 05/26/18 at 07:30; Stop 05/26/18 at 07:31; Status DC Dextrose (Dextrose 50%-Water Syringe) 25 gm 1X ONCE IV Last administered on at 08:17; Start 05/26/18 at 07:00; Stop 05/26/18 at 07:11; Status DC Midazolam HCl (Versed) 5 mg STK-MED ONCE .ROUTE ; Start 05/26/18 at 09:21; Stop 05/26/18 at 09:22; Status DC Epinephrine HCl 4 mg/Sodium Chloride 254 ml @ 385.92 mls/ hr CONT PRN IV SEE I /O RECORD; Start 05/26/18 at 09:45; Status UNV Albuterol Sulfate (Ventolin Neb Soln) 2.5 mg 1X ONCE NEB ; Start 05/26/18 at 09:45; Stop 05/26/18 at 09:46; Status DC Sodium Polystyrene Sulfonate (Kayexalate) 30 gm 1X ONCE PO ; Start 05/26/18 at 09:45; Stop 05/26/18 at 09:48; Status DC Sodium Polystyrene Sulfonate (Kayexalate) 30 gm 1X ONCE RC ; Start 05/26/18 at 10:00; Stop 05/26/18 at 10:01; Status DC Sodium Bicarbonate (Sodium Bicarb Adult 8.4% Syr) 100 meq 1X ONCE IV Last administered on 05/26/18at 10:52; Start 05/26/18 at 10:15; Stop 05/26/18 at 10 :16; Status DC Dopamine HCl/ Dextrose 250 ml @ As Directed STK-MED ONCE IV ; Start 05/26/18 at 10:29; Stop 05/26/18 at 10:30; Status DC Lidocaine/Sodium Bicarbonate (Buffered Lidocaine 1%) 3 ml STK-MED ONCE .ROUTE ; Start 05/26/18 at 10:41; Stop 05/26/18 at 10:42; Status DC Heparin Sodium (Porcine) (Heparin Sodium) 10,000 unit STK-MED ONCE .ROUTE ; Start 05/26/18 at 10:42; Stop 05/26/18 at 10:43; Status DC Lidocaine/Sodium Bicarbonate (Buffered Lidocaine 1%) 6 ml 1X ONCE INJ Last administered on 05/26/18at 11:00; Start 05/26/18 at 11:00; Stop 05/26/18 at 11 :01; Status DC Heparin Sodium (Porcine) (Heparin Sodium) 2,500 unit 1X ONCE INT CAT Last administered on 05/26/18at 11:30; Start 05/26/18 at 11:00; Stop 05/26/18 at 11 :01; Status DC Atropine Sulfate (ATROPINE 1mg SYRINGE) 2 mg 1X ONCE IM ; Start 05/26/18 at 11 :30; Stop 05/26/18 at 11:31; Status DC Calcium Chloride (Calcium Chloride) 1,000 mg 1X ONCE IV Last administered on 05/26/18at 11:30; Start 05/26/18 at 11:30; Stop 05/26/18 at 11:31; Status DC Sodium Chloride 1,000 ml @ 1,000 mls/hr Q1H PRN IV hypotension; Start at 11:28; Stop 05/26/18 at 17:27 Albumin Human 200 ml @ 200 mls/hr 1X PRN PRN IV Hypotension; Start 05/26/18 at 11:30; Stop 05/26/18 at 17:29 Sodium Chloride 1,000 ml @ 400 mls/hr Q2H30M PRN IV PATENCY; Start 05/26/18 at 11:28; Stop 05/26/18 at 23:27 Info (PHARMACY MONITORING -- do not chart) 1 each PRN DAILY PRN MC SEE COMMENTS ; Start 05/26/18 at 11:30 Info (PHARMACY MONITORING -- do not chart) 1 each PRN DAILY PRN MC SEE COMMENTS ; Start 05/26/18 at 11:30; Status UNV Sodium Bicarbonate (Sodium Bicarb Adult 8.4% Syr) 50 meq 1X ONCE IV Last administered on 05/26/18at 11:53; Start 05/26/18 at 11:45; Stop 05/26/18 at 11 :46; Status DC Active Scripts Active Proair Hfa Inhaler (Albuterol Sulfate) 8.5 Gm Hfa.aer.ad 1 Puff INH PRN Q6HRS PRN 60 Days Cefpodoxime Proxetil 100 Mg Tablet 200 Mg PO BID 7 Days Nifedipine Er (Nifedipine) 60 Mg Tab.er.24 1 Tab PO DAILY Carvedilol 12.5 Mg Tablet 25 Mg PO BIDWMEALS Isosorbide Mononitrate Er (Isosorbide Mononitrate) 30 Mg Tab.er.24h 30 Mg PO DAILY Reported Janumet 50-1,000 Mg Tablet (Sitagliptin Phos/Metformin Hcl) 1 Each Tablet 2 Tab PO QHS Glyburide 5 Mg Tablet 2 Tab PO BID Cyclobenzaprine Hcl 10 Mg Tablet 1 Tab PO BID Amlodipine Besylate 10 Mg Tablet 10 Mg PO DAILY Atenolol 100 Mg Tablet 1 Tab PO DAILY Naproxen 500 Mg Tablet 1 Tab PO BID Atorvastatin Calcium 40 Mg Tablet 1 Tab PO QHS Gabapentin 300 Mg Capsule 300 Mg PO TID Clonidine Hcl 0.2 Mg Tablet 1 Tab PO BID Vitals/I & O Vital Sign - Last 24 Hours 05/25/18 05/25/18 05/25/18 05/25/18 14:15 14:15 14:15 14:44 Temp 99.3 99.3 Pulse 82 Resp 12 B/P (MAP) 142/60 (87) 142/60 (87) Pulse Ox 100 97 O2 Delivery Mechanical Ventilator Ventilator Ventilator 05/25/18 05/25/18 05/25/18 05/25/18 14:55 15:00 15:19 16:44 Pulse 89 Resp 12 B/P (MAP) 180/78 Pulse Ox 97 98 O2 Delivery Mechanical Ventilator Room Air Ventilator 05/25/18 05/25/18 05/25/18 05/25/18 17:29 17:54 19:00 19:00 Temp 102.2 102.2 Pulse 80 Resp 12 20 B/P (MAP) 132/68 (89) Pulse Ox 98 97 96 O2 Delivery Nasal Cannula O2 Flow Rate 4.0 05/25/18 05/25/18 05/25/18 05/25/18 19:30 19:46 20:00 20:00 Temp 102.4 102.4 Pulse 82 Resp 23 B/P (MAP) 130/60 (83) Pulse Ox 96 96 O2 Delivery Nasal Cannula Nasal Cannula Nasal Cannula O2 Flow Rate 4.0 4.0 4.0 05/25/18 05/25/18 05/25/18 05/25/18 20:16 21:00 21:00 21:04 Temp 102.4 102.4 Pulse 81 Resp 17 15 15 B/P (MAP) 145/85 (105) Pulse Ox 97 96 O2 Delivery Nasal Cannula Nasal Cannula O2 Flow Rate 4.0 1005/25/18 05/25/18 05/25/18 21:54 22:00 22:00 23:00 Temp 101.8 101.5 101.8 101.5 Pulse 76 74 Resp 17 15 17 B/P (MAP) 128/62 (84) 131/60 (83) Pulse Ox 94 95 96 O2 Delivery Nasal Cannula Nasal Cannula Nasal Cannula O2 Flow Rate 4.0 4.0 05/25/18 05/26/18 05/26/18 05/26/18 23:08 00:00 00:00 00:00 Temp 101.2 101.2 Pulse 72 Resp 17 20 B/P (MAP) 137/60 (85) Pulse Ox 91 O2 Delivery Nasal Cannula Nasal Cannula Nasal Cannula O2 Flow Rate 4.0 4.0 05/26/18 05/26/18 05/26/18 05/26/18 01:00 02:00 03:00 03:44 Pulse 66 56 60 Resp 15 20 22 27 B/P (MAP) 131/60 (83) 131/56 (81) 143/56 (85) Pulse Ox 91 92 96 95 O2 Delivery Nasal Cannula Nasal Cannula Nasal Cannula Nasal Cannula O2 Flow Rate 5.0 8.0 8.0 8.0 05/26/18 05/26/18 05/26/18 05/26/18 04:00 04:00 04:00 04:09 Temp 98.3 98.3 Pulse 60 Resp 23 B/P (MAP) 155/83 (107) Pulse Ox 93 92 O2 Delivery Nasal Cannula Nasal Cannula Nasal Cannula O2 Flow Rate 8.0 8.0 05/26/18 05/26/18 05/26/18 05/26/18 04:48 05:00 05:58 06:00 Pulse 60 60 Resp 20 25 B/P (MAP) 141/59 (86) 141/62 (88) Pulse Ox 93 93 92 92 O2 Delivery Nasal Cannula Nasal Cannula Nasal Cannula O2 Flow Rate 8.0 8.0 8.0 05/26/18 05/26/18 09:17 11:48 O2 Delivery Ventilator Ventilator Intake and Output 05/25/18 05/25/18 05/26/18 15:00 23:00 07:00 Intake Total 2308 ml 2239 ml Output Total 1686 ml 358 ml Balance 622 ml 1881 ml CASTLE,NIAL K III DO May 26, 2018 12:44
--- NOTE | 2018-05-26 12:47 | RAD ---
Procedure: Ultrasound-guided placement left internal jugular temporary dialysis [id number]/2018 12:42 PM Clinical Indication: dialysis catheter placement Discussion: The risks and benefits of the procedure were discussed the patient's family members. The procedure was also performed under medical necessity consent.. A timeout procedure was performed. All elements of maximal sterile barrier technique including the use of a cap, mask, sterile gown, sterile gloves, large sterile sheet, appropriate hand hygiene, and 2% chlorhexidine for cutaneous antisepsis (or acceptable alternative antiseptic per current guidelines) were followed for this procedure. The patient was prepped and draped in the usual sterile fashion. Ultrasound interrogation of the left neck revealed patency and compressibility of the left internal jugular vein. A 21-gauge micropuncture was then used to gain access to this vein under ultrasound guidance. A hard copy ultrasound image was recorded. A guidewire was advanced centrally. Following, dilatation a 24 cm temporary dialysis catheter was placed Catheter was found to flush and aspirate normally. Follow-up chest radiograph demonstrates tip at the cavoatrial junction. Catheter secured in place and a sterile dressing was applied. No immediate complications were identified. Impression: Successful ultrasound-guided placement of left internal jugular temporary dialysis catheter
--- NOTE | 2018-05-26 14:50 | PDOC2 ---
CONSULT Date of Consult Date of Consult DATE: 05/26/18 TIME: 14:31 Reason for Consult Reason for Consult: Hyperkalemia Identification/Chief Complaint Chief Complaint unable to obtain, Pt intubated Source Source: Chart review History of Present Illness Reason for Visit: Pt is a 52 yo AA female admitted for complains of chest pain. Episodes of PAREKH and exertional CP going on for 1-2 weeks . She also has been having intermittent episodes of heartburn. Yesterday after dinner she started having heartburn which was constant , she took aleve and pepcid and her symptoms did not get relieved. She was having chest pressure and jaw pain with SOA. Denies any prior VTE, and CAD. She goes to [facility] [place] for PCP and ran out of meds 2 weeks ago. Her BP has been uncontrolled lately. 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 She underwent coronary artery bypass grafting on 05/25/2018. She was extubated yesterday. This morning, she was sitting in a chair and was found to have agonal breathing. Ester martinez was called. She was placed back on the ventilator. Post code she had significant electrolyte abnormalities with potassium of 7.3 and worsening of renal function BUN 25 and creatinine of 2.3. Lactic acid was 11.4. Temporizing measures taken for Hyperkalemia .Another code blue was called, she was was noted to be bradycardic--was on epinephrine at 10 mcg and Bp also dropped in the 70s. Her external pacer was not capturing and the rate and an amp of atropine was given. Chest x-ray post-intubation - development of asymmetric interstitial infiltrates favoring asymmetric edema. Renal Consulted for emergent Dialysis -Hyperkalemic K went up to 8 , coded x 2 . Past Medical History Cardiovascular: HTN, Hyperlipidemia Pulmonary: COPD CENTRAL NERVOUS SYSTEM: Seizure GI: No pertinent hx Heme/Onc: No pertinent hx Hepatobiliary: No pertinent hx Psych: No pertinent hx Musculoskeletal: low back pain, Osteoarthritis, Other Rheumatologic: No pertinent hx Infectious disease: No pertinent hx Renal/: No pertinent hx Endocrine: Diabetes Past Surgical History Past Surgical History: Arthroscopy, , Total knee replacement Family History Family History: Coronary Artery Disease (father) Social History ALCOHOL: none Drugs: None, Marijuana Lives: Alone Current Problem List Problem List Problems Medical Problems: (1) Hypertensive emergency Status: Acute Current Medications Current Medications Current Medications Labetalol HCl (Normodyne Iv Push) 20 mg 1X ONCE IVP Last administered on 05/21at 00:26; Start 05/21/18 at 00:30; Stop 05/21/18 at 00:31; Status DC Nitroglycerin (Nitro-Bid Oint) 1 inch 1X ONCE TP Last administered on at 00:27; Start 05/21/18 at 00:30; Stop 05/21/18 at 00:31; Status DC Aspirin (Children'S Aspirin) 324 mg 1X ONCE PO Last administered on at 00:26; Start 05/21/18 at 00:30; Stop 05/21/18 at 00:31; Status DC Nitroglycerin/ Dextrose 250 ml @ 0 mls/hr 1X ONCE IV Last administered on at 01:17; Start 05/21/18 at 01:15; Stop 05/21/18 at 01:16; Status DC Heparin Sodium (Porcine) (Heparin Sodium) 4,000 unit 1X ONCE IV Last administered on 05/21/18at 02:56; Start 05/21/18 at 01:15; Stop 05/21/18 at 01 :16; Status DC Heparin Sodium/ Dextrose 500 ml @ 0 mls/hr CONT PRN IV SEE I/O RECORD Last administered on 05/21/18at 01:21; Start 05/21/18 at 01:00; Stop 05/25/18 at 15 :21; Status DC Heparin Sodium (Porcine) (Heparin Sodium) 2,500 unit PRN Q6HRS PRN IV FOR UFH LEVEL LESS THAN 0.2 Last administered on 05/21/18at 12:32; Start 05/21/18 at 01 :00; Stop 05/25/18 at 15:21; Status DC Furosemide (Lasix) 40 mg 1X ONCE IVP Last administered on 05/21/18at 01:23; Start 05/21/18 at 01:30; Stop 05/21/18 at 01:31; Status DC Info (Anti-Coagulation Monitoring By Pharmacy) 1 each PRN DAILY PRN MC SEE COMMENTS Last administered on 05/21/18at 02:26; Start 05/21/18 at 01:15; Stop 05/23/18 at 14:55; Status DC Sodium Chloride 1,000 ml @ 100 mls/hr Q10H IV ; Start 05/21/18 at 01:30; Stop 05/21/18 at 17:47; Status DC Nicardipine HCl 50 mg/Sodium Chloride 270 ml @ 27 mls/hr CONT PRN IV SEE I/O RECORD Last administered on 05/26/18at 06:13; Start 05/21/18 at 03:30 Furosemide (Lasix) 40 mg 1X ONCE IVP Last administered on 05/21/18at 09:24; Start 05/21/18 at 09:15; Stop 05/21/18 at 09:16; Status DC Amlodipine Besylate (Norvasc) 10 mg DAILY PO Last administered on 05/24/18at 08 :41; Start 05/21/18 at 14:00 Atorvastatin Calcium (Lipitor) 40 mg QHS PO Last administered on 05/25/18at 20: 42; Start 05/21/18 at 21:00 Carvedilol (Coreg) 25 mg BIDWMEALS PO Last administered on 05/24/18at 17:28; Start 05/21/18 at 17:00 Isosorbide Mononitrate (Imdur) 30 mg DAILY PO Last administered on 05/24/18at 08:42; Start 05/21/18 at 14:00 Labetalol HCl (Normodyne Iv Push) 20 mg PRN Q2HR PRN IVP HYPERTENSION, SEE COMMENTS; Start 05/21/18 at 13:15 Iodixanol (Visipaque 320) 100 ml STK-MED ONCE .ROUTE ; Start 05/21/18 at 14:25 ; Stop 05/21/18 at 14:26; Status DC Lidocaine HCl (Lidocaine 1% 50ml Vial) 50 ml STK-MED ONCE .ROUTE ; Start at 14:25; Stop 05/21/18 at 14:26; Status DC Heparin Sodium/ Sodium Chloride 500 ml @ As Directed STK-MED ONCE .ROUTE ; Start 05/21/18 at 14:25; Stop 05/21/18 at 14:26; Status DC Fentanyl Citrate (Fentanyl 2ml Vial) 100 mcg STK-MED ONCE .ROUTE ; Start at 15:09; Stop 05/21/18 at 15:10; Status DC Midazolam HCl (Versed) 5 mg STK-MED ONCE .ROUTE ; Start 05/21/18 at 15:09; Stop 05/21/18 at 15:10; Status DC Heparin Sodium/ Sodium Chloride 500 ml @ As Directed STK-MED ONCE .ROUTE ; Start 05/21/18 at 15:13; Stop 05/21/18 at 15:14; Status DC Heparin Sodium/ Sodium Chloride (HEPARIN for ARTERIAL LINE FLUSH) 1,000 unit 1X ONCE IART Last administered on 05/21/18at 15:30; Start 05/21/18 at 15:30; Stop 05/21/18 at 15:31; Status DC Heparin Sodium/ Sodium Chloride (HEPARIN for ARTERIAL LINE FLUSH) 1,000 unit 1X ONCE IART Last administered on 05/21/18at 15:30; Start 05/21/18 at 15:30; Stop 05/21/18 at 15:31; Status DC Midazolam HCl (Versed) 5 mg 1X ONCE IV Last administered on 05/21/18at 15:30; Start 05/21/18 at 15:30; Stop 05/21/18 at 15:31; Status DC Iodixanol (Visipaque 320) 100 ml 1X ONCE IART Last administered on 05/21/18at 15:30; Start 05/21/18 at 15:30; Stop 05/21/18 at 15:31; Status DC Lidocaine HCl (Lidocaine 1% 50ml Vial) 50 ml 1X ONCE INJ Last administered on 05/21/18at 15:30; Start 05/21/18 at 15:30; Stop 05/21/18 at 15:31; Status DC Info (CONTRAST GIVEN -- Rx MONITORING) 1 each PRN DAILY PRN MC SEE COMMENTS; Start 05/21/18 at 15:30; Stop 05/23/18 at 15:29; Status DC Heparin Sodium (Porcine) (Heparin Sodium) 10,000 unit STK-MED ONCE .ROUTE ; Start 05/21/18 at 15:30; Stop 05/21/18 at 15:31; Status DC Fentanyl Citrate (Fentanyl 2ml Vial) 100 mcg 1X ONCE IV Last administered on 05/21/18at 16:00; Start 05/21/18 at 16:00; Stop 05/21/18 at 16:01; Status DC Cefazolin Sodium/ Dextrose 50 ml @ 100 mls/hr 1X PREOP PRN IV PEROP DOSE/ PRIOR TO PROCEDURE; Start 05/22/18 at 06:00; Stop 05/22/18 at 18:00; Status DC Sodium Chloride (Normal Saline Flush) 3 ml QSHIFT PRN IV AFTER MEDS AND BLOOD DRAWS; Start 05/21/18 at 17:15 Sodium Chloride 1,000 ml @ 60 mls/hr [id number] IV Last administered on at 21:58; Start 05/21/18 at 17:01; Stop 05/22/18 at 01:00; Status DC Nitroglycerin (Nitrostat) 0.4 mg PRN Q5MIN PRN SL CHEST PAIN; Start 05/21/18 at 17:15 Insulin Human Lispro (HumaLOG) 0-9 UNITS [id number] SQ Last administered on at 21:18; Start 05/21/18 at 22:00; Stop 05/25/18 at 16:30; Status DC Dextrose (Dextrose 50%-Water Syringe) 12.5 gm PRN Q15MIN PRN IV SEE COMMENTS Last administered on 05/26/18at 10:53; Start 05/21/18 at 21:00 Cyclobenzaprine HCl (Flexeril) 10 mg PRN Q6HRS PRN PO MUSCLE SPASMS Last administered on 05/24/18at 17:28; Start 05/21/18 at 21:00 Ondansetron HCl (Zofran) 4 mg PRN Q6HRS PRN IV NAUSEA/VOMITING Last administered on 05/26/18at 02:37; Start 05/23/18 at 08:00 Acetaminophen (Tylenol) 650 mg PRN Q6HRS PRN PO MILD PAIN / TEMP Last administered on 05/26/18at 01:59; Start 05/23/18 at 20:45 Potassium Chloride 70 meq/ Sodium Bicarbonate 12.5 meq/Lidocaine HCl 24 ml/ Parenteral Electrolytes 571.5 ml @ 571.5 mls/ hr 1X ONCE IRR Last administered on 05/25/18at 10:38; Start 05/25/18 at 06:00; Stop 05/25/18 at 06 :59; Status DC Potassium Chloride 15 meq/ Sodium Bicarbonate 12.5 meq/Parenteral Electrolytes 520 ml @ 520 mls/hr 1X ONCE IRR Last administered on 05/25/18at 10:38; Start 05/25/18 at 06:00; Stop 05/25/18 at 06:59; Status DC Heparin Sodium (Porcine) 31631 unit/Ringer's Solution 1,020 ml @ 1,020 mls/hr 1X ONCE IRR Last administered on 05/25/18at 08:49; Start 05/25/18 at 06:00; Stop 05/25/18 at 06:59; Status DC Cefazolin Sodium 1 gm/Sodium Chloride 500 ml @ 500 mls/hr 1X ONCE IRR Last administered on 05/25/18at 08:49; Start 05/25/18 at 06:00; Stop 05/25/18 at 06 :59; Status DC Ondansetron HCl (Zofran) 4 mg PRN Q6HRS PRN IV NAUSEA/VOMITING; Start at 07:00; Stop 05/26/18 at 06:59; Status DC Fentanyl Citrate (Fentanyl 2ml Vial) 25 mcg PRN Q5MIN PRN IV MILD PAIN; Start 05/25/18 at 07:00; Stop 05/26/18 at 06:59; Status DC Fentanyl Citrate (Fentanyl 2ml Vial) 50 mcg PRN Q5MIN PRN IV MODERATE TO SEVERE PAIN; Start 05/25/18 at 07:00; Stop 05/26/18 at 06:59; Status DC Morphine Sulfate (Morphine Sulfate) 1 mg PRN Q10MIN PRN IV SEVERE PAIN; Start 05/25/18 at 07:00; Stop 05/26/18 at 06:59; Status DC Ringer's Solution 1,000 ml @ 30 mls/hr Q24H IV Last administered on at 07:41; Start 05/25/18 at 07:00; Stop 05/25/18 at 17:08; Status DC Lidocaine HCl (Xylocaine-Mpf 1% 2ml Vial) 2 ml PRN 1X PRN ID IV START Last administered on 05/25/18at 07:20; Start 05/25/18 at 07:00; Stop 05/26/18 at 06 :59; Status DC Hydromorphone HCl (Dilaudid) 0.5 mg PRN Q10MIN PRN IV SEV PAIN, Second choice; Start 05/25/18 at 07:00; Stop 05/26/18 at 06:59; Status DC Prochlorperazine Edisylate (Compazine) 5 mg PACU PRN PRN IV NAUSEA, MRX1; Start 05/25/18 at 07:00; Stop 05/26/18 at 06:59; Status DC Rocuronium Athena (Zemuron) 100 mg STK-MED ONCE .ROUTE ; Start 05/25/18 at 02: 49; Stop 05/25/18 at 02:50; Status DC Sufentanil Citrate (Sufenta) 100 mcg STK-MED ONCE .ROUTE ; Start 05/25/18 at 02 :49; Stop 05/25/18 at 02:50; Status DC Fentanyl Citrate (Fentanyl 2ml Vial) 100 mcg STK-MED ONCE .ROUTE ; Start at 02:49; Stop 05/25/18 at 02:50; Status DC Midazolam HCl (Versed) 2 mg STK-MED ONCE .ROUTE ; Start 05/25/18 at 02:49; Stop 05/25/18 at 02:50; Status DC Ephedrine Sulfate (ePHEDrine PF IN SALINE SYRINGE) 50 mg STK-MED ONCE IV ; Start 05/25/18 at 02:54; Stop 05/25/18 at 02:55; Status DC Nitroglycerin/ Dextrose 250 ml @ As Directed STK-MED ONCE IV ; Start 05/25/18 at 02:54; Stop 05/25/18 at 02:55; Status DC Aminocaproic Acid (Amicar) 5,000 mg STK-MED ONCE IV ; Start 05/25/18 at 02:55; Stop 05/25/18 at 02:56; Status DC Heparin Sodium (Porcine) (Heparin Sodium) 10,000 unit STK-MED ONCE .ROUTE ; Start 05/25/18 at 02:55; Stop 05/25/18 at 02:56; Status DC Heparin Sodium (Porcine) 30,000 unit STK-MED ONCE .ROUTE ; Start 05/25/18 at 02 :55; Stop 05/25/18 at 02:56; Status DC Phenylephrine HCl (Bryan-Synephrine Inj) 10 mg STK-MED ONCE .ROUTE ; Start at 02:55; Stop 05/25/18 at 02:56; Status DC Phenylephrine HCl (Bryan-Synephrine Inj) 10 mg STK-MED ONCE .ROUTE ; Start at 02:55; Stop 05/25/18 at 02:56; Status DC Phenylephrine HCl (Bryan-Synephrine Inj) 10 mg STK-MED ONCE .ROUTE ; Start at 02:55; Stop 05/25/18 at 02:56; Status DC Aminocaproic Acid (Amicar) 5,000 mg STK-MED ONCE IV ; Start 05/25/18 at 02:55; Stop 05/25/18 at 02:56; Status DC Aminocaproic Acid (Amicar) 5,000 mg STK-MED ONCE IV ; Start 05/25/18 at 02:55; Stop 05/25/18 at 02:56; Status DC Isoflurane (Isoflurane) 90 ml STK-MED ONCE IH ; Start 05/25/18 at 02:55; Stop 05/25/18 at 02:56; Status DC Etomidate (Amidate) 20 mg STK-MED ONCE IV ; Start 05/25/18 at 03:01; Stop at 03:02; Status DC Insulin Human Regular 150 unit/ Sodium Chloride 151.5 ml @ 1 mls/hr CONT PRN IV SEE I/O RECORD Last administered on 05/25/18at 15:02; Start 05/25/18 at 03: 15 Vancomycin HCl (VANCO for OR ONLY) 10 gm STK-MED ONCE .ROUTE Last administered on 05/25/18at 08:49; Start 05/25/18 at 04:18; Stop 05/25/18 at 05:18; Status DC Cellulose (Surgicel Hemostat 4x8) 1 each STK-MED ONCE .ROUTE Last administered on 05/25/18at 08:49; Start 05/25/18 at 04:18; Stop 05/25/18 at 05:19; Status DC Papaverine HCl 60 mg STK-MED ONCE .ROUTE Last administered on 05/25/18at 08:49 ; Start 05/25/18 at 04:18; Stop 05/25/18 at 05:19; Status DC Aspirin (Aspirin) 300 mg STK-MED ONCE .ROUTE Last administered on 05/25/18at 13 :51; Start 05/25/18 at 04:18; Stop 05/25/18 at 05:19; Status DC Sodium Chloride (SODIUM CHLORIDE 20ml) 20 ml STK-MED ONCE IJ Last administered on 05/25/18at 08:49; Start 05/25/18 at 04:19; Stop 05/25/18 at 05:19; Status DC Sodium Chloride (SODIUM CHLORIDE 20ml) 20 ml STK-MED ONCE IJ Last administered on 05/25/18at 08:49; Start 05/25/18 at 04:19; Stop 05/25/18 at 05:20; Status DC Sodium Chloride (SODIUM CHLORIDE 20ml) 20 ml STK-MED ONCE IJ Last administered on 05/25/18at 08:49; Start 05/25/18 at 04:19; Stop 05/25/18 at 05:20; Status DC Cefazolin Sodium/ Dextrose 50 ml @ As Directed STK-MED ONCE IV ; Start at 06:58; Stop 05/25/18 at 06:59; Status DC Lidocaine HCl (Xylocaine-Mpf 2% Vial) 2 ml STK-MED ONCE .ROUTE ; Start at 06:58; Stop 05/25/18 at 06:59; Status DC Insulin Human Lispro (HumaLOG VIAL) 5 unit 1X ONCE SQ ; Start 05/25/18 at 07: 45; Stop 05/25/18 at 07:54; Status DC Cefazolin Sodium/ Dextrose 50 ml @ 100 mls/hr 1X ONCE IV Last administered on 05/25/18at 08:31; Start 05/25/18 at 07:45; Stop 05/25/18 at 08:14; Status DC Midazolam HCl (Versed) 5 mg STK-MED ONCE .ROUTE ; Start 05/25/18 at 07:48; Stop 05/25/18 at 07:49; Status DC Sufentanil Citrate (Sufenta) 100 mcg STK-MED ONCE .ROUTE ; Start 05/25/18 at 08 :44; Stop 05/25/18 at 08:45; Status DC Rocuronium Athena (Zemuron) 100 mg STK-MED ONCE .ROUTE ; Start 05/25/18 at 08: 57; Stop 05/25/18 at 08:58; Status DC Cefazolin Sodium/ Dextrose 50 ml @ 100 mls/hr 1X ONCE IV Last administered on 05/25/18at 12:45; Start 05/25/18 at 12:45; Stop 05/25/18 at 13:14; Status DC Rocuronium Athena (Zemuron) 50 mg STK-MED ONCE .ROUTE ; Start 05/25/18 at 12: 48; Stop 05/25/18 at 12:49; Status DC Heparin Sodium (Porcine) (Heparin Sodium) 10,000 unit STK-MED ONCE .ROUTE ; Start 05/25/18 at 12:52; Stop 05/25/18 at 12:53; Status DC Lidocaine HCl (Lidocaine Pf 2% Vial) 5 ml STK-MED ONCE .ROUTE ; Start 05/25/18 at 12:52; Stop 05/25/18 at 12:53; Status DC Magnesium Sulfate 5 gm STK-MED ONCE .ROUTE ; Start 05/25/18 at 12:52; Stop at 12:53; Status DC Heparin Sodium (Porcine) 30,000 unit STK-MED ONCE .ROUTE ; Start 05/25/18 at 12 :52; Stop 05/25/18 at 12:53; Status DC Mannitol (Mannitol) 12.5 g STK-MED ONCE .ROUTE ; Start 05/25/18 at 12:52; Stop 05/25/18 at 12:53; Status DC Albumin Human 200 ml @ As Directed STK-MED ONCE IV ; Start 05/25/18 at 12:52; Stop 05/25/18 at 12:53; Status DC Calcium Chloride (Calcium Chloride) 1,000 mg STK-MED ONCE .ROUTE ; Start at 12:52; Stop 05/25/18 at 12:53; Status DC Sodium Bicarbonate (Sodium Bicarb Adult 8.4% Syr) 50 meq STK-MED ONCE .ROUTE ; Start 05/25/18 at 12:52; Stop 05/25/18 at 12:53; Status DC Protamine Sulfate (Protamine) 250 mg STK-MED ONCE IV ; Start 05/25/18 at 13:36 ; Stop 05/25/18 at 13:37; Status DC Protamine Sulfate (Protamine) 250 mg STK-MED ONCE IV ; Start 05/25/18 at 13:36 ; Stop 05/25/18 at 13:37; Status DC Albumin Human 250 ml @ 60 mls/hr PRN Q4HRS PRN IV SEE I/O RECORD Last administered on 05/25/18at 21:15; Start 05/25/18 at 14:00; Stop 05/26/18 at 13 :45; Status DC Insulin Human Regular 150 unit/ Sodium Chloride 151.5 ml @ 0 mls/hr CONT PRN PRN IV SEE I/O RECORD; Start 05/25/18 at 14:00; Status UNV Dextrose (Dextrose 50%-Water Syringe) 25 gm PRN Q15MIN PRN IV LOW BLOOD SUGAR; Start 05/25/18 at 14:00; Status UNV Nitroglycerin/ Dextrose 250 ml @ 0 mls/hr CONT PRN PRN IV SEE I/O RECORD; Start 05/25/18 at 14:00 Phenylephrine HCl 20 mg/Sodium Chloride 252 ml @ 0 mls/hr CONT PRN PRN IV HYPOTENSION; Start 05/25/18 at 14:00 Epinephrine HCl 4 mg/Sodium Chloride 254 ml @ 0 mls/hr CONT PRN PRN IV POST CV SURGERY; Start 05/25/18 at 14:00 Amiodarone HCl 150 mg/Dextrose 103 ml @ 200 mls/hr 1X PRN PRN IV VT Last administered on 05/25/18at 14:55; Start 05/25/18 at 14:00 Amiodarone HCl 900 mg/Dextrose 518 ml @ 33.33 mls/ hr CONT PRN PRN IV SEE COMMENTS Last administered on 05/25/18at 14:55; Start 05/25/18 at 14:00 Info (KCl Per Protocol) 1 ea CONT PRN PRN MC SEE COMMENTS; Start 05/25/18 at 14:00 Magnesium Sulfate/ Dextrose 100 ml @ 100 mls/hr PRN DAILY PRN IV FOR MAG < 2.2 ; Start 05/25/18 at 14:00 Famotidine (Pepcid Vial) 20 mg BID IVP Last administered on 05/25/18at 20:39; Start 05/25/18 at 21:00 Ondansetron HCl (Zofran) 4 mg PRN Q4HRS PRN IV NAUSEA/VOMITING; Start at 14:00; Status UNV Morphine Sulfate (Morphine Sulfate) 2 mg PRN Q1HR PRN IV PAIN Last administered on 05/26/18at 03:44; Start 05/25/18 at 14:00 Acetaminophen (Tylenol) 650 mg PRN Q4HRS PRN PO MILD PAIN / TEMP; Start at 14:00; Status UNV Meperidine HCl (Demerol) 12.5 mg PRN Q15MIN PRN IV SHIVERING; Start 05/25/18 at 14:00; Stop 05/26/18 at 13:46; Status DC Propofol 100 ml @ 0 mls/hr CONT PRN PRN IV POSTOP SEDATION UNTIL EXTUBATE Last administered on 05/25/18at 15:01; Start 05/25/18 at 14:00 Senna/Docusate Sodium (Senna Plus) 1 tab BID PO Last administered on at 20:42; Start 05/25/18 at 21:00 Chlorhexidine Gluconate (Peridex) 15 ml BID MM ; Start 05/25/18 at 21:00 Aspirin (Ecotrin) 325 mg DAILYWBKFT PO ; Start 05/26/18 at 08:00 Aspirin (Aspirin) 300 mg PRN DAILY PRN NV IF UNABLE TO TAKE PO; Start at 14:00 Albuterol Sulfate (Ventolin Neb Soln) 2.5 mg PRN Q4HRS PRN NEB SHORTNESS OF BREATH; Start 05/25/18 at 14:00 Nicardipine HCl 50 mg/Sodium Chloride 270 ml @ 0 mls/hr CONT PRN PRN IV PER PROTOCOL; Start 05/25/18 at 14:00; Status UNV Cefazolin Sodium/ Dextrose 50 ml @ 100 mls/hr Q8H IV Last administered on at 04:54; Start 05/25/18 at 16:00; Stop 05/27/18 at 05:29 Oxycodone HCl (Roxicodone) 10 mg PRN Q6HRS PRN PO MODERATE-SEVERE PAIN Last administered on 05/26/18at 04:09; Start 05/25/18 at 14:00 Sodium Bicarbonate (Sodium Bicarb Adult 8.4% Syr) 50 meq 1X ONCE IV Last administered on 05/25/18at 15:18; Start 05/25/18 at 15:15; Stop 05/25/18 at 15 :16; Status DC Potassium Chloride/Water 50 ml @ 50 mls/hr 1X ONCE IV Last administered on at 16:33; Start 05/25/18 at 16:30; Stop 05/25/18 at 17:29; Status DC Ringer's Solution 1,000 ml @ 30 mls/hr Q24H IV Last administered on at 17:17; Start 05/25/18 at 17:15 Ketorolac Tromethamine (Toradol 15mg Vial) 15 mg PRN Q6HRS PRN IV PAIN; Start 05/25/18 at 18:00; Stop 05/30/18 at 17:59 Albumin Human 250 ml @ 62.5 mls/hr 1X ONCE IV Last administered on at 02:13; Start 05/26/18 at 02:30; Stop 05/26/18 at 06:29; Status DC Furosemide (Lasix) 20 mg 1X ONCE IVP Last administered on 05/26/18at 06:14; Start 05/26/18 at 06:00; Stop 05/26/18 at 06:01; Status DC Sodium Chloride 1,000 ml @ 60 mls/hr [id number] IV Last administered on at 08:20; Start 05/26/18 at 07:00 Insulin Human Regular (HumuLIN R VIAL) 10 unit 1X ONCE IV Last administered on 05/26/18at 07:30; Start 05/26/18 at 07:30; Stop 05/26/18 at 07:31; Status DC Dextrose (Dextrose 50%-Water Syringe) 25 gm 1X ONCE IV Last administered on at 08:17; Start 05/26/18 at 07:00; Stop 05/26/18 at 07:11; Status DC Midazolam HCl (Versed) 5 mg STK-MED ONCE .ROUTE ; Start 05/26/18 at 09:21; Stop 05/26/18 at 09:22; Status DC Epinephrine HCl 4 mg/Sodium Chloride 254 ml @ 385.92 mls/ hr CONT PRN IV SEE I /O RECORD; Start 05/26/18 at 09:45; Status UNV Albuterol Sulfate (Ventolin Neb Soln) 2.5 mg 1X ONCE NEB ; Start 05/26/18 at 09:45; Stop 05/26/18 at 09:46; Status DC Sodium Polystyrene Sulfonate (Kayexalate) 30 gm 1X ONCE PO ; Start 05/26/18 at 09:45; Stop 05/26/18 at 09:48; Status DC Sodium Polystyrene Sulfonate (Kayexalate) 30 gm 1X ONCE RC ; Start 05/26/18 at 10:00; Stop 05/26/18 at 10:01; Status DC Sodium Bicarbonate (Sodium Bicarb Adult 8.4% Syr) 100 meq 1X ONCE IV Last administered on 05/26/18at 10:52; Start 05/26/18 at 10:15; Stop 05/26/18 at 10 :16; Status DC Dopamine HCl/ Dextrose 250 ml @ As Directed STK-MED ONCE IV ; Start 05/26/18 at 10:29; Stop 05/26/18 at 10:30; Status DC Lidocaine/Sodium Bicarbonate (Buffered Lidocaine 1%) 3 ml STK-MED ONCE .ROUTE ; Start 05/26/18 at 10:41; Stop 05/26/18 at 10:42; Status DC Heparin Sodium (Porcine) (Heparin Sodium) 10,000 unit STK-MED ONCE .ROUTE ; Start 05/26/18 at 10:42; Stop 05/26/18 at 10:43; Status DC Lidocaine/Sodium Bicarbonate (Buffered Lidocaine 1%) 6 ml 1X ONCE INJ Last administered on 05/26/18at 11:00; Start 05/26/18 at 11:00; Stop 05/26/18 at 11 :01; Status DC Heparin Sodium (Porcine) (Heparin Sodium) 2,500 unit 1X ONCE INT CAT Last administered on 05/26/18at 11:30; Start 05/26/18 at 11:00; Stop 05/26/18 at 11 :01; Status DC Atropine Sulfate (ATROPINE 1mg SYRINGE) 2 mg 1X ONCE IM ; Start 05/26/18 at 11 :30; Stop 05/26/18 at 11:31; Status DC Calcium Chloride (Calcium Chloride) 1,000 mg 1X ONCE IV Last administered on 05/26/18at 11:30; Start 05/26/18 at 11:30; Stop 05/26/18 at 11:31; Status DC Sodium Chloride 1,000 ml @ 1,000 mls/hr Q1H PRN IV hypotension; Start at 11:28; Stop 05/26/18 at 17:27 Albumin Human 200 ml @ 200 mls/hr 1X PRN PRN IV Hypotension; Start 05/26/18 at 11:30; Stop 05/26/18 at 17:29 Sodium Chloride 1,000 ml @ 400 mls/hr Q2H30M PRN IV PATENCY; Start 05/26/18 at 11:28; Stop 05/26/18 at 23:27 Info (PHARMACY MONITORING -- do not chart) 1 each PRN DAILY PRN MC SEE COMMENTS ; Start 05/26/18 at 11:30 Info (PHARMACY MONITORING -- do not chart) 1 each PRN DAILY PRN MC SEE COMMENTS ; Start 05/26/18 at 11:30; Status UNV Sodium Bicarbonate (Sodium Bicarb Adult 8.4% Syr) 50 meq 1X ONCE IV Last administered on 05/26/18at 11:53; Start 05/26/18 at 11:45; Stop 05/26/18 at 11 :46; Status DC Active Scripts Active Proair Hfa Inhaler (Albuterol Sulfate) 8.5 Gm Hfa.aer.ad 1 Puff INH PRN Q6HRS PRN 60 Days Cefpodoxime Proxetil 100 Mg Tablet 200 Mg PO BID 7 Days Nifedipine Er (Nifedipine) 60 Mg Tab.er.24 1 Tab PO DAILY Carvedilol 12.5 Mg Tablet 25 Mg PO BIDWMEALS Isosorbide Mononitrate Er (Isosorbide Mononitrate) 30 Mg Tab.er.24h 30 Mg PO DAILY Reported Janumet 50-1,000 Mg Tablet (Sitagliptin Phos/Metformin Hcl) 1 Each Tablet 2 Tab PO QHS Glyburide 5 Mg Tablet 2 Tab PO BID Cyclobenzaprine Hcl 10 Mg Tablet 1 Tab PO BID Amlodipine Besylate 10 Mg Tablet 10 Mg PO DAILY Atenolol 100 Mg Tablet 1 Tab PO DAILY Naproxen 500 Mg Tablet 1 Tab PO BID Atorvastatin Calcium 40 Mg Tablet 1 Tab PO QHS Gabapentin 300 Mg Capsule 300 Mg PO TID Clonidine Hcl 0.2 Mg Tablet 1 Tab PO BID Allergies Allergies: Coded Allergies: lisinopril (Verified Allergy, Intermediate, 11/16/16) ROS Review of System Unable to Obtain, Intubated Physical Exam Physical Exam GENERAL: intubated and sedated. HEENT: Pupils small, but reactive. NECK: Supple. LUNGS: With diminished breath sounds. CARDIOVASCULAR EXAMINATION: Regular rate and rhythm. ABDOMEN: Soft, obese. EXTREMITIES: Trace pitting edema Barber + NEURO - Intubated on vent SKIN- No rash Vital Signs Vital Signs Date Time Temp Pulse Resp B/P (MAP) Pulse Ox O2 Delivery O2 Flow Rate FiO2 05/26/18 13:35 95 Ventilator 05/26/18 13:00 84 20 90/50 (63) 05/26/18 12:00 98.3 98.3 05/26/18 09:00 8.0 Assessment & Plan Hyperkalemia-- secondary to respiratory/cardiac arrest post coronary artery bypass graft on 05/25 . Coded this am followed by Hyperkalemia, Temporizing measures including Ca Gluconate and Insulin Given' Code Blue called gain with Bradycardia, Hypotensive , K Up to 8.4 Emergent dialysis Done , seen on HD , On Epi and Dopamine Repeat Labs , Monitor KANIKA - post Code, Normal Creatinine on admission Decreased UOP HD today- emergent as above Acute respiratory failure secondary to respiratory/cardiac arrest post coronary artery bypass graft. The patient was extubated yesterday and had to be reintubated today. Status post coronary artery bypass graft for 3-vessel coronary artery disease. [id number] myocardial infarction, present on admission, with 3- vessel coronary artery disease. Interstial Edema - On chest x-ray Positive marijuana use. Metabolic acidosis/ Lactic acidosis secondary to code blue with poor perfusio Discussed with RN, Pulm, Cardiology and family Labs Labs Laboratory Tests Test 05/24/18 17:17 05/24/18 20:40 05/25/18 05:35 05/25/18 07:26 Glucose (Fingerstick) 262 mg/dL (70-99) 264 mg/dL (70-99) 254 mg/dL (70-99) White Blood Count 6.1 x10^3/uL (4.0-11.0) Red Blood Count 4.53 x10^6/uL (3.50-5.40) Hemoglobin 12.5 g/dL (12.0-15.5) Hematocrit 37.3 % (36.0-47.0) Mean Corpuscular Volume 82 fL (79-100) Mean Corpuscular Hemoglobin 28 pg (25-35) Mean Corpuscular Hemoglobin Concent 34 g/dL (31-37) Red Cell Distribution Width 15.7 % (11.5-14.5) Platelet Count 209 x10^3/uL (140-400) Neutrophils (%) (Auto) 52 % (31-73) Lymphocytes (%) (Auto) 35 % (24-48) Monocytes (%) (Auto) 11 % (0-9) Eosinophils (%) (Auto) 1 % (0-3) Basophils (%) (Auto) 1 % (0-3) Neutrophils # (Auto) 3.2 x10^3uL (1.8-7.7) Lymphocytes # (Auto) 2.1 x10^3/uL (1.0-4.8) Monocytes # (Auto) 0.7 x10^3/uL (0.0-1.1) Eosinophils # (Auto) 0.1 x10^3/uL (0.0-0.7) Basophils # (Auto) 0.0 x10^3/uL (0.0-0.2) Sodium Level 138 mmol/L (136-145) Potassium Level 4.2 mmol/L (3.5-5.1) Chloride Level 101 mmol/L (98-107) Carbon Dioxide Level 27 mmol/L (21-32) Anion Gap 10 (6-14) Blood Urea Nitrogen 13 mg/dL (7-20) Creatinine 0.9 mg/dL (0.6-1.0) Estimated GFR (Cockcroft-Gault) 79.3 Glucose Level 253 mg/dL (70-99) Calcium Level 9.0 mg/dL (8.5-10.1) Test 05/25/18 08:34 05/25/18 08:35 05/25/18 09:45 05/25/18 09:46 Bedside Hemoglobin (Calculated) 10.5 g/dL (12-15) 9.5 g/dL (12-15) Bedside Hematocrit 31 % (36-40) 28 % (36-40) Bedside Arterial pH 7.39 (7.35-7.45) 7.37 (7.35-7.45) Bedside Arterial pCO2 42 mmHg (35-45) 44 mmHg (35-45) Bedside Arterial pO2 87 mmHg (75-100) 149 mmHg (75-100) Bedside Arterial HCO3 26 mmol/L (21-28) 26 mmol/L (21-28) Bedside Arterial Total CO2 27 mmol/L (21-32) 27 mmol/L (21-32) Arterial Bld O2 Saturation (Measur) 97 % (95-99) 99 % (95-99) Bedside Arterial Blood Base Excess 1 mmol/L (0-3) 0 mmol/L (0-3) Bedside FiO2 100.0 100.0 Bedside Sodium 137 mmol/L (135-145) 136 mmol/L (135-145) Bedside Potassium 4.2 mmol/L (3.5-5.0) 4.2 mmol/L (3.5-5.0) Glucose Level 262 mg/dL (70-99) 245 mg/dL (70-99) Bedside Ionized Calcium (Donald) 1.14 mmol/L (1.13-1.32) 1.13 mmol/L (1.13-1.32) Activated Clotting Time 108 SEC (90-125) 487 SEC (90-125) Test 05/25/18 10:36 05/25/18 10:48 05/25/18 10:49 05/25/18 11:16 Bedside Hematocrit 28 % (36-40) 26 % (36-40) 30 % (36-40) Bedside Venous pH 7.36 (7.32-7.42) Bedside Venous pCO2 45 mmHg (41-51) Bedside Venous pO2 35 mmHg (20-40) Bedside Venous HCO3 25 mmol/L (24-28) Bedside Venous Blood Total CO2 27 mmol/L (21-32) Bedside Venous Blood O2 Saturation 65 % Bedside Venous Blood Base Excess 0 mmol/L (0-3) POC Venous Hemoglobin (Calc) 9.5 g/dL (12-15) Bedside FiO2 100 75.0 70.0 Bedside Sodium 138 mmol/L (135-145) 137 mmol/L (135-145) 138 mmol/L (135-145) Bedside Potassium 3.8 mmol/L (3.5-5.0) 4.6 mmol/L (3.5-5.0) 4.1 mmol/L (3.5-5.0) Glucose Level 202 mg/dL (70-99) 193 mg/dL (70-99) 201 mg/dL (70-99) Bedside Ionized Calcium (Donald) 1.15 mmol/L (1.13-1.32) 1.07 mmol/L (1.13-1.32) 1.15 mmol/L (1.13-1.32) Bedside Hemoglobin (Calculated) 8.8 g/dL (12-15) 10.2 g/dL (12-15) Bedside Arterial pH 7.34 (7.35-7.45) 7.31 (7.35-7.45) Bedside Arterial pCO2 49 mmHg (35-45) 52 mmHg (35-45) Bedside Arterial pO2 307 mmHg (75-100) 176 mmHg (75-100) Bedside Arterial HCO3 26 mmol/L (21-28) 26 mmol/L (21-28) Bedside Arterial Total CO2 28 mmol/L (21-32) 28 mmol/L (21-32) Arterial Bld O2 Saturation (Measur) 100 % (95-99) 99 % (95-99) Bedside Arterial Blood Base Excess 1 mmol/L (0-3) 0 mmol/L (0-3) Activated Clotting Time 536 SEC (90-125) 455 SEC (90-125) Test 05/25/18 11:48 05/25/18 11:49 05/25/18 12:16 05/25/18 12:54 Bedside Hemoglobin (Calculated) 10.2 g/dL (12-15) 10.2 g/dL (12-15) 8.5 g/dL (12-15) Bedside Hematocrit 30 % (36-40) 30 % (36-40) 25 % (36-40) Bedside Arterial pH 7.29 (7.35-7.45) 7.35 (7.35-7.45) 7.41 (7.35-7.45) Bedside Arterial pCO2 55 mmHg (35-45) 50 mmHg (35-45) 42 mmHg (35-45) Bedside Arterial pO2 191 mmHg (75-100) 317 mmHg (75-100) 331 mmHg (75-100) Bedside Arterial HCO3 27 mmol/L (21-28) 28 mmol/L (21-28) 26 mmol/L (21-28) Bedside Arterial Total CO2 28 mmol/L (21-32) 29 mmol/L (21-32) 28 mmol/L (21-32) Arterial Bld O2 Saturation (Measur) 100 % (95-99) 100 % (95-99) 100 % (95-99) Bedside Arterial Blood Base Excess 0 mmol/L (0-3) 2 mmol/L (0-3) 2 mmol/L (0-3) Bedside FiO2 75.0 85.0 100.0 Bedside Sodium 139 mmol/L (135-145) 139 mmol/L (135-145) 136 mmol/L (135-145) Bedside Potassium 4.5 mmol/L (3.5-5.0) 4.6 mmol/L (3.5-5.0) 4.3 mmol/L (3.5-5.0) Glucose Level 184 mg/dL (70-99) 181 mg/dL (70-99) 164 mg/dL (70-99) Bedside Ionized Calcium (Donald) 1.15 mmol/L (1.13-1.32) 1.12 mmol/L (1.13-1.32) 1.92 mmol/L (1.13-1.32) Activated Clotting Time 468 SEC (90-125) 500 SEC (90-125) Test 05/25/18 12:55 05/25/18 13:00 05/25/18 13:49 05/25/18 14:35 Activated Clotting Time 116 SEC (90-125) White Blood Count 7.0 x10^3/uL (4.0-11.0) Red Blood Count 3.23 x10^6/uL (3.50-5.40) Hemoglobin 9.1 g/dL (12.0-15.5) Hematocrit 26.5 % (36.0-47.0) Mean Corpuscular Volume 82 fL (79-100) Mean Corpuscular Hemoglobin 28 pg (25-35) Mean Corpuscular Hemoglobin Concent 34 g/dL (31-37) Red Cell Distribution Width 15.4 % (11.5-14.5) Platelet Count 97 x10^3/uL (140-400) Neutrophils (%) (Auto) 75 % (31-73) Lymphocytes (%) (Auto) 21 % (24-48) Monocytes (%) (Auto) 4 % (0-9) Eosinophils (%) (Auto) 1 % (0-3) Basophils (%) (Auto) 0 % (0-3) Neutrophils # (Auto) 5.2 x10^3uL (1.8-7.7) Lymphocytes # (Auto) 1.5 x10^3/uL (1.0-4.8) Monocytes # (Auto) 0.3 x10^3/uL (0.0-1.1) Eosinophils # (Auto) 0.0 x10^3/uL (0.0-0.7) Basophils # (Auto) 0.0 x10^3/uL (0.0-0.2) Prothrombin Time 17.9 SEC (11.7-14.0) Prothromb Time International Ratio 1.5 (0.8-1.1) Activated Partial Thromboplast Time 31 SEC (24-38) Fibrinogen 417 mg/dL (200-440) Bedside Hemoglobin (Calculated) 9.5 g/dL (12-15) Bedside Hematocrit 28 % (36-40) Bedside Arterial pH 7.45 (7.35-7.45) Bedside Arterial pCO2 35 mmHg (35-45) Bedside Arterial pO2 341 mmHg (75-100) Bedside Arterial HCO3 24 mmol/L (21-28) Bedside Arterial Total CO2 25 mmol/L (21-32) Arterial Bld O2 Saturation (Measur) 100 % (95-99) Bedside Arterial Blood Base Excess 0 mmol/L (0-3) Bedside FiO2 100.0 Bedside Sodium 139 mmol/L (135-145) Bedside Potassium 3.9 mmol/L (3.5-5.0) Glucose Level 133 mg/dL (70-99) Bedside Ionized Calcium (Donald) 1.62 mmol/L (1.13-1.32) Glucose (Fingerstick) 148 mg/dL (70-99) Test 05/25/18 14:40 05/25/18 15:30 05/25/18 15:47 05/25/18 16:56 O2 Saturation 95 % (92-99) Arterial Blood pH 7.34 (7.35-7.45) Arterial Blood pCO2 at Patient Temp 41 mmHg (35-46) Arterial Blood pO2 at Patient Temp 83 mmHg (75-108) Arterial Blood HCO3 22 mmol/L (21-28) Arterial Blood Base Excess -4 mmol/L (-3-3) Oxyhemoglobin 93.8 % Methemoglobin 0.3 % (0.0-1.9) Carbon Monoxide, Quantitative 0.4 % (0.0-1.9) FiO2 100% simv12 650 ps10 White Blood Count 8.2 x10^3/uL (4.0-11.0) Red Blood Count 3.99 x10^6/uL (3.50-5.40) Hemoglobin 11.1 g/dL (12.0-15.5) Hematocrit 32.8 % (36.0-47.0) Mean Corpuscular Volume 82 fL (79-100) Mean Corpuscular Hemoglobin 28 pg (25-35) Mean Corpuscular Hemoglobin Concent 34 g/dL (31-37) Red Cell Distribution Width 15.6 % (11.5-14.5) Platelet Count 135 x10^3/uL (140-400) Prothrombin Time 15.3 SEC (11.7-14.0) Prothromb Time International Ratio 1.3 (0.8-1.1) Activated Partial Thromboplast Time 31 SEC (24-38) Sodium Level 142 mmol/L (136-145) Potassium Level 4.2 mmol/L (3.5-5.1) Chloride Level 108 mmol/L (98-107) Carbon Dioxide Level 28 mmol/L (21-32) Anion Gap 6 (6-14) Blood Urea Nitrogen 13 mg/dL (7-20) Creatinine 0.7 mg/dL (0.6-1.0) Estimated GFR (Cockcroft-Gault) 105.9 Glucose Level 218 mg/dL (70-99) Calcium Level 10.1 mg/dL (8.5-10.1) Magnesium Level 2.4 mg/dL (1.8-2.4) Glucose (Fingerstick) 201 mg/dL (70-99) 202 mg/dL (70-99) Test 05/25/18 18:00 05/25/18 18:20 05/25/18 19:04 05/25/18 19:57 Glucose (Fingerstick) 188 mg/dL (70-99) 174 mg/dL (70-99) 165 mg/dL (70-99) O2 Saturation 91 % (92-99) Arterial Blood pH 7.39 (7.35-7.45) Arterial Blood pCO2 at Patient Temp 40 mmHg (35-46) Arterial Blood pO2 at Patient Temp 66 mmHg (75-108) Arterial Blood HCO3 24 mmol/L (21-28) Arterial Blood Base Excess -1 mmol/L (-3-3) FiO2 40% White Blood Count 8.5 x10^3/uL (4.0-11.0) Red Blood Count 3.70 x10^6/uL (3.50-5.40) Hemoglobin 10.3 g/dL (12.0-15.5) Hematocrit 30.5 % (36.0-47.0) Mean Corpuscular Volume 83 fL (79-100) Mean Corpuscular Hemoglobin 28 pg (25-35) Mean Corpuscular Hemoglobin Concent 34 g/dL (31-37) Red Cell Distribution Width 15.5 % (11.5-14.5) Platelet Count 145 x10^3/uL (140-400) Potassium Level 5.4 mmol/L (3.5-5.1) Test 05/25/18 21:07 05/25/18 22:02 05/25/18 23:04 05/26/18 00:02 Glucose (Fingerstick) 143 mg/dL (70-99) 125 mg/dL (70-99) 121 mg/dL (70-99) 116 mg/dL (70-99) Test 05/26/18 01:12 05/26/18 02:20 05/26/18 03:14 05/26/18 04:17 Glucose (Fingerstick) 113 mg/dL (70-99) 140 mg/dL (70-99) 138 mg/dL (70-99) 135 mg/dL (70-99) Test 05/26/18 05:30 05/26/18 05:32 05/26/18 06:25 05/26/18 06:40 Glucose (Fingerstick) 130 mg/dL (70-99) 137 mg/dL (70-99) White Blood Count 9.3 x10^3/uL (4.0-11.0) Red Blood Count 3.64 x10^6/uL (3.50-5.40) Hemoglobin 10.3 g/dL (12.0-15.5) Hematocrit 30.3 % (36.0-47.0) Mean Corpuscular Volume 83 fL (79-100) Mean Corpuscular Hemoglobin 28 pg (25-35) Mean Corpuscular Hemoglobin Concent 34 g/dL (31-37) Red Cell Distribution Width 15.7 % (11.5-14.5) Platelet Count 166 x10^3/uL (140-400) Neutrophils (%) (Auto) 76 % (31-73) Lymphocytes (%) (Auto) 11 % (24-48) Monocytes (%) (Auto) 13 % (0-9) Eosinophils (%) (Auto) 0 % (0-3) Basophils (%) (Auto) 0 % (0-3) Neutrophils # (Auto) 7.1 x10^3uL (1.8-7.7) Lymphocytes # (Auto) 1.0 x10^3/uL (1.0-4.8) Monocytes # (Auto) 1.2 x10^3/uL (0.0-1.1) Eosinophils # (Auto) 0.0 x10^3/uL (0.0-0.7) Basophils # (Auto) 0.0 x10^3/uL (0.0-0.2) Sodium Level 135 mmol/L (136-145) Potassium Level 7.0 mmol/L (3.5-5.1) Chloride Level 104 mmol/L (98-107) Carbon Dioxide Level 20 mmol/L (21-32) Anion Gap 11 (6-14) Blood Urea Nitrogen 22 mg/dL (7-20) Creatinine 1.7 mg/dL (0.6-1.0) Estimated GFR (Cockcroft-Gault) 38.0 Glucose Level 143 mg/dL (70-99) Calcium Level 8.9 mg/dL (8.5-10.1) Magnesium Level 2.4 mg/dL (1.8-2.4) Test 05/26/18 09:05 05/26/18 09:10 05/26/18 09:55 05/26/18 10:45 Glucose (Fingerstick) 173 mg/dL (70-99) White Blood Count 12.2 x10^3/uL (4.0-11.0) Red Blood Count 3.12 x10^6/uL (3.50-5.40) Hemoglobin 8.8 g/dL (12.0-15.5) Hematocrit 26.4 % (36.0-47.0) Mean Corpuscular Volume 85 fL (79-100) Mean Corpuscular Hemoglobin 28 pg (25-35) Mean Corpuscular Hemoglobin Concent 33 g/dL (31-37) Red Cell Distribution Width 15.9 % (11.5-14.5) Platelet Count 135 x10^3/uL (140-400) Prothrombin Time 28.6 SEC (11.7-14.0) Prothromb Time International Ratio 2.8 (0.8-1.1) Sodium Level 140 mmol/L (136-145) 137 mmol/L (136-145) Potassium Level 7.3 mmol/L (3.5-5.1) 8.6 mmol/L (3.5-5.1) Chloride Level 104 mmol/L (98-107) 99 mmol/L (98-107) Carbon Dioxide Level 17 mmol/L (21-32) 15 mmol/L (21-32) Anion Gap 19 (6-14) 23 (6-14) Blood Urea Nitrogen 25 mg/dL (7-20) 27 mg/dL (7-20) Creatinine 2.3 mg/dL (0.6-1.0) 2.7 mg/dL (0.6-1.0) Estimated GFR (Cockcroft-Gault) 26.8 22.3 Glucose Level 177 mg/dL (70-99) 232 mg/dL (70-99) Lactic Acid Level 11.4 mmol/L (0.4-2.0) Calcium Level 10.3 mg/dL (8.5-10.1) 9.0 mg/dL (8.5-10.1) Magnesium Level 2.6 mg/dL (1.8-2.4) O2 Saturation 89 % (92-99) Arterial Blood pH 7.20 (7.35-7.45) Arterial Blood pCO2 at Patient Temp 31 mmHg (35-46) Arterial Blood pO2 at Patient Temp 73 mmHg (75-108) Arterial Blood HCO3 12 mmol/L (21-28) Arterial Blood Base Excess -15 mmol/L (-3-3) FiO2 100 Test 05/26/18 11:25 05/26/18 12:07 05/26/18 13:01 O2 Saturation 90 % (92-99) Arterial Blood pH 7.15 (7.35-7.45) Arterial Blood pCO2 at Patient Temp 36 mmHg (35-46) Arterial Blood pO2 at Patient Temp 80 mmHg (75-108) Arterial Blood HCO3 12 mmol/L (21-28) Arterial Blood Base Excess -16 mmol/L (-3-3) FiO2 100 Glucose (Fingerstick) 152 mg/dL (70-99) 112 mg/dL (70-99) Laboratory Tests Test 05/25/18 14:35 05/25/18 14:40 05/25/18 15:30 05/25/18 15:47 Glucose (Fingerstick) 148 mg/dL (70-99) 201 mg/dL (70-99) O2 Saturation 95 % (92-99) Arterial Blood pH 7.34 (7.35-7.45) Arterial Blood pCO2 at Patient Temp 41 mmHg (35-46) Arterial Blood pO2 at Patient Temp 83 mmHg (75-108) Arterial Blood HCO3 22 mmol/L (21-28) Arterial Blood Base Excess -4 mmol/L (-3-3) Oxyhemoglobin 93.8 % Methemoglobin 0.3 % (0.0-1.9) Carbon Monoxide, Quantitative 0.4 % (0.0-1.9) FiO2 100% simv12 650 ps10 White Blood Count 8.2 x10^3/uL (4.0-11.0) Red Blood Count 3.99 x10^6/uL (3.50-5.40) Hemoglobin 11.1 g/dL (12.0-15.5) Hematocrit 32.8 % (36.0-47.0) Mean Corpuscular Volume 82 fL (79-100) Mean Corpuscular Hemoglobin 28 pg (25-35) Mean Corpuscular Hemoglobin Concent 34 g/dL (31-37) Red Cell Distribution Width 15.6 % (11.5-14.5) Platelet Count 135 x10^3/uL (140-400) Prothrombin Time 15.3 SEC (11.7-14.0) Prothromb Time International Ratio 1.3 (0.8-1.1) Activated Partial Thromboplast Time 31 SEC (24-38) Sodium Level 142 mmol/L (136-145) Potassium Level 4.2 mmol/L (3.5-5.1) Chloride Level 108 mmol/L (98-107) Carbon Dioxide Level 28 mmol/L (21-32) Anion Gap 6 (6-14) Blood Urea Nitrogen 13 mg/dL (7-20) Creatinine 0.7 mg/dL (0.6-1.0) Estimated GFR (Cockcroft-Gault) 105.9 Glucose Level 218 mg/dL (70-99) Calcium Level 10.1 mg/dL (8.5-10.1) Magnesium Level 2.4 mg/dL (1.8-2.4) Test 05/25/18 16:56 05/25/18 18:00 05/25/18 18:20 05/25/18 19:04 Glucose (Fingerstick) 202 mg/dL (70-99) 188 mg/dL (70-99) 174 mg/dL (70-99) O2 Saturation 91 % (92-99) Arterial Blood pH 7.39 (7.35-7.45) Arterial Blood pCO2 at Patient Temp 40 mmHg (35-46) Arterial Blood pO2 at Patient Temp 66 mmHg (75-108) Arterial Blood HCO3 24 mmol/L (21-28) Arterial Blood Base Excess -1 mmol/L (-3-3) FiO2 40% Test 05/25/18 19:57 05/25/18 21:07 05/25/18 22:02 05/25/18 23:04 White Blood Count 8.5 x10^3/uL (4.0-11.0) Red Blood Count 3.70 x10^6/uL (3.50-5.40) Hemoglobin 10.3 g/dL (12.0-15.5) Hematocrit 30.5 % (36.0-47.0) Mean Corpuscular Volume 83 fL (79-100) Mean Corpuscular Hemoglobin 28 pg (25-35) Mean Corpuscular Hemoglobin Concent 34 g/dL (31-37) Red Cell Distribution Width 15.5 % (11.5-14.5) Platelet Count 145 x10^3/uL (140-400) Potassium Level 5.4 mmol/L (3.5-5.1) Glucose (Fingerstick) 165 mg/dL (70-99) 143 mg/dL (70-99) 125 mg/dL (70-99) 121 mg/dL (70-99) Test 05/26/18 00:02 05/26/18 01:12 05/26/18 02:20 05/26/18 03:14 Glucose (Fingerstick) 116 mg/dL (70-99) 113 mg/dL (70-99) 140 mg/dL (70-99) 138 mg/dL (70-99) Test 05/26/18 04:17 05/26/18 05:30 05/26/18 05:32 05/26/18 06:25 Glucose (Fingerstick) 135 mg/dL (70-99) 130 mg/dL (70-99) White Blood Count 9.3 x10^3/uL (4.0-11.0) Red Blood Count 3.64 x10^6/uL (3.50-5.40) Hemoglobin 10.3 g/dL (12.0-15.5) Hematocrit 30.3 % (36.0-47.0) Mean Corpuscular Volume 83 fL (79-100) Mean Corpuscular Hemoglobin 28 pg (25-35) Mean Corpuscular Hemoglobin Concent 34 g/dL (31-37) Red Cell Distribution Width 15.7 % (11.5-14.5) Platelet Count 166 x10^3/uL (140-400) Neutrophils (%) (Auto) 76 % (31-73) Lymphocytes (%) (Auto) 11 % (24-48) Monocytes (%) (Auto) 13 % (0-9) Eosinophils (%) (Auto) 0 % (0-3) Basophils (%) (Auto) 0 % (0-3) Neutrophils # (Auto) 7.1 x10^3uL (1.8-7.7) Lymphocytes # (Auto) 1.0 x10^3/uL (1.0-4.8) Monocytes # (Auto) 1.2 x10^3/uL (0.0-1.1) Eosinophils # (Auto) 0.0 x10^3/uL (0.0-0.7) Basophils # (Auto) 0.0 x10^3/uL (0.0-0.2) Sodium Level 135 mmol/L (136-145) Potassium Level 7.0 mmol/L (3.5-5.1) Chloride Level 104 mmol/L (98-107) Carbon Dioxide Level 20 mmol/L (21-32) Anion Gap 11 (6-14) Blood Urea Nitrogen 22 mg/dL (7-20) Creatinine 1.7 mg/dL (0.6-1.0) Estimated GFR (Cockcroft-Gault) 38.0 Glucose Level 143 mg/dL (70-99) Calcium Level 8.9 mg/dL (8.5-10.1) Magnesium Level 2.4 mg/dL (1.8-2.4) Test 05/26/18 06:40 05/26/18 09:05 05/26/18 09:10 05/26/18 09:55 Glucose (Fingerstick) 137 mg/dL (70-99) 173 mg/dL (70-99) White Blood Count 12.2 x10^3/uL (4.0-11.0) Red Blood Count 3.12 x10^6/uL (3.50-5.40) Hemoglobin 8.8 g/dL (12.0-15.5) Hematocrit 26.4 % (36.0-47.0) Mean Corpuscular Volume 85 fL (79-100) Mean Corpuscular Hemoglobin 28 pg (25-35) Mean Corpuscular Hemoglobin Concent 33 g/dL (31-37) Red Cell Distribution Width 15.9 % (11.5-14.5) Platelet Count 135 x10^3/uL (140-400) Prothrombin Time 28.6 SEC (11.7-14.0) Prothromb Time International Ratio 2.8 (0.8-1.1) Sodium Level 140 mmol/L (136-145) Potassium Level 7.3 mmol/L (3.5-5.1) Chloride Level 104 mmol/L (98-107) Carbon Dioxide Level 17 mmol/L (21-32) Anion Gap 19 (6-14) Blood Urea Nitrogen 25 mg/dL (7-20) Creatinine 2.3 mg/dL (0.6-1.0) Estimated GFR (Cockcroft-Gault) 26.8 Glucose Level 177 mg/dL (70-99) Lactic Acid Level 11.4 mmol/L (0.4-2.0) Calcium Level 10.3 mg/dL (8.5-10.1) Magnesium Level 2.6 mg/dL (1.8-2.4) O2 Saturation 89 % (92-99) Arterial Blood pH 7.20 (7.35-7.45) Arterial Blood pCO2 at Patient Temp 31 mmHg (35-46) Arterial Blood pO2 at Patient Temp 73 mmHg (75-108) Arterial Blood HCO3 12 mmol/L (21-28) Arterial Blood Base Excess -15 mmol/L (-3-3) FiO2 100 Test 05/26/18 10:45 05/26/18 11:25 05/26/18 12:07 05/26/18 13:01 Sodium Level 137 mmol/L (136-145) Potassium Level 8.6 mmol/L (3.5-5.1) Chloride Level 99 mmol/L (98-107) Carbon Dioxide Level 15 mmol/L (21-32) Anion Gap 23 (6-14) Blood Urea Nitrogen 27 mg/dL (7-20) Creatinine 2.7 mg/dL (0.6-1.0) Estimated GFR (Cockcroft-Gault) 22.3 Glucose Level 232 mg/dL (70-99) Calcium Level 9.0 mg/dL (8.5-10.1) O2 Saturation 90 % (92-99) Arterial Blood pH 7.15 (7.35-7.45) Arterial Blood pCO2 at Patient Temp 36 mmHg (35-46) Arterial Blood pO2 at Patient Temp 80 mmHg (75-108) Arterial Blood HCO3 12 mmol/L (21-28) Arterial Blood Base Excess -16 mmol/L (-3-3) FiO2 100 Glucose (Fingerstick) 152 mg/dL (70-99) 112 mg/dL (70-99) Review All relevant outside records, renal labs, imaging studies, telemetry/EKG's were reviewed. Images Images US abdomen--\ Liver is increased in echogenicity. No focal hepatic masses are identified. Right lobe of the liver measures enlarged at 23.5 cm. Gallbladder demonstrates wall thickening with wall thickness of 6 mm. There is pericholecystic fluid. Common bile duct measures normally at 5 mm in diameter. Spleen is homogeneous and measures 11.5 cm in length. Right kidney is measured at 14.1 cm in length. Right kidney is without evidence of obstruction. Left kidney measures 14.1 cm in length. Left kidney is without evidence of obstruction. Parenchymal echogenicity of both kidneys appears mildly increased. Impression: 1. Gallbladder wall thickening pericholecystic fluid. No convincing gallstones are seen. Patient is NPO from the lung., Finding are compatible with acalculous cholecystitis. 2. Echogenic, enlarged liver. Most likely etiology is fatty liver disease. At times, early cirrhosis or hepatitis can give a similar appearance. 3. Both kidneys are apparently mildly enlarged and mildly echogenic. Findings are compatible with nonspecific medical renal disease. CxR-- Worsening of right upper lobe infiltrate, continued infiltrates and edema throughout the remaining lung. MABEL ODONNELL MD May 26, 2018 14:50
[2018-05-26] MEDS: FAMOTIDINE 20 MG/2 ML VIAL IVP SCH ×2 (17:04→21:14)
[2018-05-26 18:01] LABS: HEMATOCRIT 25.4 % (36.0-47.0); HEMOGLOBIN 8.5 g/dL (12.0-15.5)
[2018-05-26] MEDS ORDERED: NOREPINEPHRIN 8MG/250ML PREMIX 250 ML IV ONE (18:25)
[2018-05-26] MEDS: PROPOFOL 100 ML IV PRN (19:36)
[2018-05-26] MEDS ORDERED: VANCOMYCIN PER PHARMACY MC PRN (19:45)
[2018-05-26] MEDS ORDERED: PIP/TAZO PER PHARMACY MC PRN (19:45)
[2018-05-26 19:50] LABS: PCO2 ABG 33 mmHg (35-46)
[2018-05-26 20:14] LABS: FIO2 ABG 80
[2018-05-26] MEDS ORDERED: IV RINGERS,LACTATED 1000ML 1,000 ML IV SCH (20:15)
[2018-05-26] MEDS: POTASSIUM CHLORIDE 15 MEQ in DIALYSIS SOLUTION BGK 0/2.5 5,000 ML IV SCH ×8 (20:15→22:38)
[2018-05-26] MEDS ORDERED: VANCOMYCIN 2 GM in IV NORMAL SALINE 500ML BAG 500 ML IV ONE (20:30)
[2018-05-26] MEDS ORDERED: SODIUM BICARBONATE VIAL 150 MEQ in IV DEXTROSE 5 %-0.45 % NACL 1,000 ML IV SCH (20:30)
[2018-05-26] MEDS: PIPERACILLIN/TAZOBACTAM 4.5 GM in IV NORMAL SALINE 100ML 100 ML IV SCH (20:31)
[2018-05-26] MEDS: fentaNYL PF VIAL 100 MCG/2 ML VIAL IV PRN (20:36)
[2018-05-26] MEDS: ATORVASTATIN CALCIUM 40 MG TABLET. PO SCH (21:14)
[2018-05-26 21:29] LABS: CALCIUM 7.9 mg/dL (8.5-10.1); CREATININE 2.1 mg/dL (0.6-1.0); GFR 29.8; MAGNESIUM 2.1 mg/dL (1.8-2.4); PHOSPHORUS 6.5 mg/dL (2.6-4.7); POTASSIUM 4.9 mmol/L (3.5-5.1)
[2018-05-26 22:12] LABS: BASE EXCESS ABG -13 mmol/L (-3-3); HCO3 ABG 13 mmol/L (21-28); PCO2 ABG 30 mmHg (35-46); PO2 ABG 83 mmHg (75-108); SAT O2 ABG 92 % (92-99)
[2018-05-26 22:16] LABS: FIO2 ABG 60
[2018-05-26] MEDS ORDERED: CALCIUM CHLORIDE 1,000 MG/10 ML DISP.SYRIN ONE (23:00)
[2018-05-26] MEDS ORDERED: EPINEPHrine SYRINGE 1 MG/10 ML SYRINGE ONE (23:00)
[2018-05-26] MEDS ORDERED: SODIUM BICARB ADULT 8.4% 50 MEQ/50 ML DISP.SYRIN. ONE (23:00)
[2018-05-27] VITALS (27 sets, daily range): BP systolic 0–104; BP diastolic 0–68
[2018-05-27] MEDS ORDERED: LIDOCAINE 1% PF 2 ML VIAL. ONE (00:16)
[2018-05-27] MEDS: fentaNYL PF VIAL 100 MCG/2 ML VIAL IV PRN ×4 (00:44→04:51)
[2018-05-27] MEDS: POTASSIUM CHLORIDE 15 MEQ in DIALYSIS SOLUTION BGK 0/2.5 5,000 ML IV SCH ×12 (01:20→09:12)
[2018-05-27 02:01] LABS: CALCIUM 7.5 mg/dL (8.5-10.1); CREATININE 1.9 mg/dL (0.6-1.0); GFR 33.5; MAGNESIUM 2.5 mg/dL (1.8-2.4); POTASSIUM 4.7 mmol/L (3.5-5.1)
[2018-05-27] MEDS ORDERED: ALBUMIN HUMAN 5% 500 ML IV ONE ×2 (02:30→11:15)
[2018-05-27] MEDS: NOREPINEPHRIN 8MG/250ML PREMIX 250 ML IV PRN ×2 (03:46→09:44)
[2018-05-27 05:06] LABS: BASO # 0.1 x10^3/uL (0.0-0.2); BASO % 1 % (0-3); EOS % 0 % (0-3); HEMATOCRIT 21.4 % (36.0-47.0); HEMOGLOBIN 7.1 g/dL (12.0-15.5); LYMPH # 2.4 x10^3/uL (1.0-4.8); LYMPH % 22 % (24-48); MEAN CORPUSCULAR HEMOGLOBIN 28 pg (25-35); MEAN CORPUSCULAR HGB CONC 33 g/dL (31-37); MEAN CORPUSCULAR VOLUME 85 fL (79-100); MONO # 0.8 x10^3/uL (0.0-1.1); MONO % 7 % (0-9); NEUT # 7.8 x10^3uL (1.8-7.7); NEUT % 71 % (31-73); PLATELET COUNT 44 x10^3/uL (140-400); RED BLOOD COUNT 2.51 x10^6/uL (3.50-5.40); RED CELL DISTRIBUTION WIDTH 15.4 % (11.5-14.5); WHITE BLOOD COUNT 11.1 x10^3/uL (4.0-11.0)
[2018-05-27 05:26] LABS: CALCIUM 7.4 mg/dL (8.5-10.1); CREATININE 1.7 mg/dL (0.6-1.0); MAGNESIUM 2.4 mg/dL (1.8-2.4); POTASSIUM 4.6 mmol/L (3.5-5.1)
[2018-05-27] MEDS: PIPERACILLIN/TAZOBACTAM 4.5 GM in IV NORMAL SALINE 100ML 100 ML IV SCH (05:34)
[2018-05-27] MEDS: DEXTROSE 50% 25 GM / 50ML DISP.SYRIN. IV PRN ×2 (05:48→09:16)
[2018-05-27 05:56] LABS: BASE EXCESS ABG -17 mmol/L (-3-3); HCO3 ABG 10 mmol/L (21-28); PCO2 ABG 29 mmHg (35-46); PO2 ABG 88 mmHg (75-108); SAT O2 ABG 91 % (92-99)
[2018-05-27 06:04] LABS: FIO2 ABG 60
[2018-05-27] MEDS ORDERED: SODIUM BICARB ADULT 8.4% 50 MEQ/50 ML DISP.SYRIN. IV ONE ×2 (06:15→09:30)
[2018-05-27] MEDS ORDERED: CALCIUM GLUCONATE 1,000 MG/10 ML VIAL. IVP ONE (06:15)
[2018-05-27 07:52] LABS: PO2 ABG 64 mmHg (75-108)
[2018-05-27 07:53] LABS: BASE EXCESS ABG -6 mmol/L (-3-3); HCO3 ABG 19 mmol/L (21-28)
[2018-05-27 07:56] LABS: SAT O2 ABG 89 % (92-99)
[2018-05-27] MEDS: CARVEDILOL 12.5 MG TABLET. PO SCH (08:00)
[2018-05-27] MEDS: ASPIRIN ENTERIC COATED 325 MG TABLET.DR. PO SCH (08:00)
[2018-05-27 08:09] LABS: BASE EXCESS ABG -11 mmol/L (-3-3); HCO3 ABG 15 mmol/L (21-28); PCO2 ABG 33 mmHg (35-46); PO2 ABG 101 mmHg (75-108); SAT O2 ABG 95 % (92-99)
[2018-05-27 08:11] LABS: FIO2 ABG 80
--- NOTE | 2018-05-27 08:24 | RAD ---
Portable chest, 05/27/2018: HISTORY: Postop CABG Comparison is made to yesterday's study. The ET tube tip lies well above the jenn. A left jugular catheter extends into the superior aspect of the right atrium. An NG tube extends into the stomach. A right jugular vascular sheath remains in place. 2 mediastinal drains and a left chest tube remain in place. The heart is enlarged. There are persistent pulmonary infiltrates with poor definition of the underlying pulmonary vascularity. The appearance suggests pulmonary edema. The pulmonary opacities have improved slightly in the right upper chest. These parahilar opacities have worsened slightly on the left. There is now obscuration of the left hemidiaphragm.. There may be a component of left-sided pleural fluid. There is no evidence of pneumothorax. IMPRESSION: 1. Stable tube positions. 2. Ongoing pulmonary edema with slight interval improvement on the right and worsening on the left. Electronically signed by: Ventura Anglin MD (05/27/2018 8:21 AM) [facility]
[2018-05-27 08:45] LABS: BASE EXCESS ABG -19 mmol/L (-3-3); HCO3 ABG 9 mmol/L (21-28); PCO2 ABG 28 mmHg (35-46); PO2 ABG 73 mmHg (75-108); SAT O2 ABG 86 % (92-99)
[2018-05-27 08:48] LABS: FIO2 ABG 50
[2018-05-27 08:58] LABS: CALCIUM 7.3 mg/dL (8.5-10.1); CREATININE 1.7 mg/dL (0.6-1.0); MAGNESIUM 2.4 mg/dL (1.8-2.4); PHOSPHORUS 6.1 mg/dL (2.6-4.7); POTASSIUM 4.6 mmol/L (3.5-5.1)
[2018-05-27] MEDS: SENNOSIDES/DOCUSATE 8.6/50MG TABLET. PO SCH (09:00)
[2018-05-27] MEDS: CHLORHEXIDINE 0.12% 15 ML MOUTHWASH. MM SCH (09:00)
[2018-05-27] MEDS: ISOSORBIDE MONONITRATE ER 30 MG TAB.ER.24H PO SCH (09:00)
[2018-05-27] MEDS: amLODIPine BESYLATE 10 MG TABLET PO SCH (09:00)
--- NOTE | 2018-05-27 09:04 | PDOC2 ---
GI CONSULT Reason For Consult: Cholelithiasis HPI: HPI: 52 y/o female w/ NSTEMI, s/p CABG x 3, s/p code blue (x2) 05/26. Seen in ICU this morning, intubated and lightly sedated on three pressors, HR 40, dialyzing. Reviewed w/ RN, GI consulted w/ concern for acidosis. On US report : possible acalculous cholecystitis. PMH: PMH: obtained per chart - CAD, HTN, HLD, COPD, seizure, hepatic steatosis, DM, OA, C- sections, right total knee replacement, left ankle surgery, left rotator cuff repair FH: Family History: Other (unable to obtain) Social History: Smoke: <1 pack per day Drugs: Marijuana ROS: Unable to obtain. Vitals: Vitals: Vital Signs Date Time Temp Pulse Resp B/P (MAP) Pulse Ox O2 Delivery O2 Flow Rate FiO2 05/27/18 08:44 97.8 44 20 103/63 97.8 05/27/18 08:10 97 Ventilator 05/26/18 17:03 8.0 Labs: Labs: Laboratory Tests Test 05/26/18 09:05 05/26/18 09:10 05/26/18 09:55 05/26/18 10:45 Glucose (Fingerstick) 173 mg/dL (70-99) White Blood Count 12.2 x10^3/uL (4.0-11.0) Red Blood Count 3.12 x10^6/uL (3.50-5.40) Hemoglobin 8.8 g/dL (12.0-15.5) Hematocrit 26.4 % (36.0-47.0) Mean Corpuscular Volume 85 fL (79-100) Mean Corpuscular Hemoglobin 28 pg (25-35) Mean Corpuscular Hemoglobin Concent 33 g/dL (31-37) Red Cell Distribution Width 15.9 % (11.5-14.5) Platelet Count 135 x10^3/uL (140-400) Prothrombin Time 28.6 SEC (11.7-14.0) Prothromb Time International Ratio 2.8 (0.8-1.1) Sodium Level 140 mmol/L (136-145) 137 mmol/L (136-145) Potassium Level 7.3 mmol/L (3.5-5.1) 8.6 mmol/L (3.5-5.1) Chloride Level 104 mmol/L (98-107) 99 mmol/L (98-107) Carbon Dioxide Level 17 mmol/L (21-32) 15 mmol/L (21-32) Anion Gap 19 (6-14) 23 (6-14) Blood Urea Nitrogen 25 mg/dL (7-20) 27 mg/dL (7-20) Creatinine 2.3 mg/dL (0.6-1.0) 2.7 mg/dL (0.6-1.0) Estimated GFR (Cockcroft-Gault) 26.8 22.3 Glucose Level 177 mg/dL (70-99) 232 mg/dL (70-99) Lactic Acid Level 11.4 mmol/L (0.4-2.0) Calcium Level 10.3 mg/dL (8.5-10.1) 9.0 mg/dL (8.5-10.1) Magnesium Level 2.6 mg/dL (1.8-2.4) Hepatitis B Surface Antigen Nonreactive (Nonreactive) Hepatitis B Surface Antibody Nonreactive O2 Saturation 89 % (92-99) Arterial Blood pH 7.20 (7.35-7.45) Arterial Blood pCO2 at Patient Temp 31 mmHg (35-46) Arterial Blood pO2 at Patient Temp 73 mmHg (75-108) Arterial Blood HCO3 12 mmol/L (21-28) Arterial Blood Base Excess -15 mmol/L (-3-3) FiO2 100 Test 05/26/18 11:25 05/26/18 12:07 05/26/18 13:01 05/26/18 14:08 O2 Saturation 90 % (92-99) Arterial Blood pH 7.15 (7.35-7.45) Arterial Blood pCO2 at Patient Temp 36 mmHg (35-46) Arterial Blood pO2 at Patient Temp 80 mmHg (75-108) Arterial Blood HCO3 12 mmol/L (21-28) Arterial Blood Base Excess -16 mmol/L (-3-3) FiO2 100 Glucose (Fingerstick) 152 mg/dL (70-99) 112 mg/dL (70-99) 104 mg/dL (70-99) Test 05/26/18 15:15 05/26/18 17:30 05/26/18 18:00 05/26/18 18:51 O2 Saturation 89 % (92-99) Arterial Blood pH 7.38 (7.35-7.45) Arterial Blood pCO2 at Patient Temp 33 mmHg (35-46) Arterial Blood pO2 at Patient Temp 64 mmHg (75-108) Arterial Blood HCO3 19 mmol/L (21-28) Arterial Blood Base Excess -6 mmol/L (-3-3) FiO2 80 Potassium Level 4.4 mmol/L (3.5-5.1) Hemoglobin 8.5 g/dL (12.0-15.5) Hematocrit 25.4 % (36.0-47.0) Glucose (Fingerstick) 79 mg/dL (70-99) 102 mg/dL (70-99) Test 05/26/18 19:49 05/26/18 21:03 05/26/18 21:07 05/26/18 22:00 O2 Saturation 95 % (92-99) 92 % (92-99) Arterial Blood pH 7.27 (7.35-7.45) 7.25 (7.35-7.45) Arterial Blood pCO2 at Patient Temp 33 mmHg (35-46) 30 mmHg (35-46) Arterial Blood pO2 at Patient Temp 101 mmHg (75-108) 83 mmHg (75-108) Arterial Blood HCO3 15 mmol/L (21-28) 13 mmol/L (21-28) Arterial Blood Base Excess -11 mmol/L (-3-3) -13 mmol/L (-3-3) FiO2 80 60 Sodium Level 141 mmol/L (136-145) Potassium Level 4.9 mmol/L (3.5-5.1) Chloride Level 103 mmol/L (98-107) Carbon Dioxide Level 14 mmol/L (21-32) Anion Gap 24 (6-14) Blood Urea Nitrogen 22 mg/dL (7-20) Creatinine 2.1 mg/dL (0.6-1.0) Estimated GFR (Cockcroft-Gault) 29.8 Glucose Level 86 mg/dL (70-99) Calcium Level 7.9 mg/dL (8.5-10.1) Phosphorus Level 6.5 mg/dL (2.6-4.7) Magnesium Level 2.1 mg/dL (1.8-2.4) Creatine Kinase 1140 U/L (26-192) Glucose (Fingerstick) 100 mg/dL (70-99) Test 05/27/18 01:10 05/27/18 04:58 05/27/18 06:00 05/27/18 06:10 Sodium Level 142 mmol/L (136-145) 141 mmol/L (136-145) Potassium Level 4.7 mmol/L (3.5-5.1) 4.6 mmol/L (3.5-5.1) Chloride Level 103 mmol/L (98-107) 102 mmol/L (98-107) Carbon Dioxide Level 13 mmol/L (21-32) 10 mmol/L (21-32) Anion Gap 26 (6-14) 29 (6-14) Blood Urea Nitrogen 19 mg/dL (7-20) 17 mg/dL (7-20) Creatinine 1.9 mg/dL (0.6-1.0) 1.7 mg/dL (0.6-1.0) Estimated GFR (Cockcroft-Gault) 33.5 38.0 Glucose Level 84 mg/dL (70-99) 71 mg/dL (70-99) Calcium Level 7.5 mg/dL (8.5-10.1) 7.4 mg/dL (8.5-10.1) Phosphorus Level 6.0 mg/dL (2.6-4.7) 5.9 mg/dL (2.6-4.7) Magnesium Level 2.5 mg/dL (1.8-2.4) 2.4 mg/dL (1.8-2.4) White Blood Count 11.1 x10^3/uL (4.0-11.0) Red Blood Count 2.51 x10^6/uL (3.50-5.40) Hemoglobin 7.1 g/dL (12.0-15.5) Hematocrit 21.4 % (36.0-47.0) Mean Corpuscular Volume 85 fL (79-100) Mean Corpuscular Hemoglobin 28 pg (25-35) Mean Corpuscular Hemoglobin Concent 33 g/dL (31-37) Red Cell Distribution Width 15.4 % (11.5-14.5) Platelet Count 44 x10^3/uL (140-400) Neutrophils (%) (Auto) 71 % (31-73) Lymphocytes (%) (Auto) 22 % (24-48) Monocytes (%) (Auto) 7 % (0-9) Eosinophils (%) (Auto) 0 % (0-3) Basophils (%) (Auto) 1 % (0-3) Neutrophils # (Auto) 7.8 x10^3uL (1.8-7.7) Lymphocytes # (Auto) 2.4 x10^3/uL (1.0-4.8) Monocytes # (Auto) 0.8 x10^3/uL (0.0-1.1) Eosinophils # (Auto) 0.0 x10^3/uL (0.0-0.7) Basophils # (Auto) 0.1 x10^3/uL (0.0-0.2) O2 Saturation 91 % (92-99) Arterial Blood pH 7.16 (7.35-7.45) Arterial Blood pCO2 at Patient Temp 29 mmHg (35-46) Arterial Blood pO2 at Patient Temp 88 mmHg (75-108) Arterial Blood HCO3 10 mmol/L (21-28) Arterial Blood Base Excess -17 mmol/L (-3-3) FiO2 60 Glucose (Fingerstick) 113 mg/dL (70-99) Test 05/27/18 08:38 O2 Saturation 86 % (92-99) Arterial Blood pH 7.13 (7.35-7.45) Arterial Blood pCO2 at Patient Temp 28 mmHg (35-46) Arterial Blood pO2 at Patient Temp 73 mmHg (75-108) Arterial Blood HCO3 9 mmol/L (21-28) Arterial Blood Base Excess -19 mmol/L (-3-3) FiO2 50 Allergies: Coded Allergies: lisinopril (Verified Allergy, Intermediate, 11/16/16) Medications: Current Medications Medications (Trade) Dose Ordered Sig/Nura Route PRN Reason Start Time Stop Time Status Last Admin Dose Admin Albuterol Sulfate (Ventolin Neb Soln) 2.5 mg 1X ONCE NEB 05/26/18 09:45 05/26/18 09:46 DC 05/26/18 16:14 Sodium Bicarbonate (Sodium Bicarb Adult 8.4% Syr) 100 meq 1X ONCE IV 05/26/18 10:15 05/26/18 10:16 DC 05/26/18 10:52 Lidocaine/Sodium Bicarbonate (Buffered Lidocaine 1%) 6 ml 1X ONCE INJ 05/26/18 11:00 05/26/18 11:01 DC 05/26/18 11:00 Heparin Sodium (Porcine) (Heparin Sodium) 2,500 unit 1X ONCE INT CAT 05/26/18 11:00 05/26/18 11:01 DC 05/26/18 11:30 Calcium Chloride (Calcium Chloride) 1,000 mg 1X ONCE IV 05/26/18 11:30 05/26/18 11:31 DC 05/26/18 11:30 Sodium Bicarbonate (Sodium Bicarb Adult 8.4% Syr) 50 meq 1X ONCE IV 05/26/18 11:45 05/26/18 11:46 DC 05/26/18 11:53 Dopamine HCl/ Dextrose 250 ml @ 7.792 mls/ hr CONT PRN IV SEE I/O RECORD 05/26/18 14:30 05/26/18 21:15 Potassium Chloride 15 meq/ Bicarbonate Dialysis Soln w/ out KCl 5,007.5 ml @ 1,000 mls/ hr Q5H1M IV 05/26/18 17:00 05/27/18 04:17 Potassium Chloride 15 meq/ Bicarbonate Dialysis Soln w/ out KCl 5,007.5 ml @ 1,500 mls/ hr Q3H21M IV 05/26/18 17:00 05/27/18 04:17 Potassium Chloride 15 meq/ Bicarbonate Dialysis Soln w/ out KCl 5,007.5 ml @ 1,500 mls/ hr Q3H21M IV 05/26/18 17:00 05/27/18 04:18 Vancomycin HCl (Vanco Per Pharmacy) 1 each PRN DAILY PRN MC SEE COMMENTS 05/26/18 19:45 05/26/18 21:05 Piperacillin Sod/ Tazobactam Sod 4.5 gm/Sodium Chloride 100 ml @ 200 mls/hr Q8HRS IV 05/26/18 20:00 05/27/18 05:34 Vancomycin HCl 2 gm/Sodium Chloride 500 ml @ 250 mls/hr ONCE ONCE IV 05/26/18 20:30 05/26/18 22:29 DC 05/26/18 21:16 Fentanyl Citrate (Fentanyl 2ml Vial) 25 mcg PRN Q1HR PRN IV PAIN SEVERE 05/26/18 20:15 05/27/18 04:51 Sodium Bicarbonate 150 meq/Dextrose/ Sodium Chloride 1,150 ml @ 100 mls/hr [id number] IV 05/26/18 20:30 05/26/18 20:31 Sodium Bicarbonate (Sodium Bicarb Adult 8.4% Syr) 100 meq 1X ONCE IV 05/26/18 22:45 05/26/18 22:46 DC 05/26/18 22:41 Norepinephrine Bitartrate 250 ml @ 1.875 mls/ hr CONT PRN IV SEE I/O RECORD 05/27/18 01:15 05/27/18 03:46 Albumin Human 500 ml @ 125 mls/hr 1X ONCE IV 05/27/18 02:30 05/27/18 06:29 DC 05/27/18 02:40 Sodium Bicarbonate (Sodium Bicarb Adult 8.4% Syr) 150 meq 1X ONCE IV 05/27/18 06:15 05/27/18 06:16 DC 05/27/18 06:13 Calcium Gluconate (Calcium Gluconate) 2,000 mg 1X ONCE IVP 05/27/18 06:15 05/27/18 06:16 DC 05/27/18 06:13 Imaging: Imaging: Abd US 05/26 Impression: 1. Gallbladder wall thickening pericholecystic fluid. No convincing gallstones are seen. Patient is NPO from the lung., Finding are compatible with acalculous cholecystitis. 2. Echogenic, enlarged liver. Most likely etiology is fatty liver disease. At times, early cirrhosis or hepatitis can give a similar appearance. 3. Both kidneys are apparently mildly enlarged and mildly echogenic. Findings are compatible with nonspecific medical renal disease. KUB 05/26 Findings: There is endotracheal tube, tip is 4.5 cm superior to the jenn. Enteric tube tip is in the proximal stomach. Mediastinal drains and left chest tube are unchanged. Right IJ sheath is stable. Median sternotomy wires and CABG. Stable cardiomegaly. There are interstitial opacities in the lungs. Left basilar airspace disease is unchanged. There is no pneumothorax. IMPRESSION: 1. Life support devices as above. 2. Interstitial opacities in the lungs may be pulmonary edema. 3. Unchanged left basilar airspace disease. CT Chest 05/22 Impression: No significant coronary arterial calcification. Bibasilar lower lobe atelectasis is present. Partial left lower lobe atelectasis present. Minimal right lower lobe linear atelectasis. Dilated main pulmonary artery of concern for pulmonary artery hypertension. High density within the gallbladder. Correlate for underlying sludge or calculus involvement. Correlate with contrast administration. Please see additional in [employer]. PE: GEN: intubated HEENT: atraumatic LUNGS: vent HEART: bradycardic ABD: BS quiet EXTREMITY: BLE trace edema NEURO/PSYCH: sedated A/P: A/P: S/p code blue/acidosis, hypotension NSTEMI s/p CABG, KANIKA Abnormal GB imaging Anemia, thrombocytopenia - no obvious bleeding, on IV H2 gabi -- Reviewed w/ Dr. Dickey - if stable enough, check CT A/P. Note IR asked to see re: gallbladder. YANNI TURNER May 27, 2018 09:04
[2018-05-27] MEDS: FAMOTIDINE 20 MG/2 ML VIAL IVP SCH (09:39)
[2018-05-27] MEDS ORDERED: [UNRECOGNIZED DRUG - OTHER] IV SCH ×10 (09:45→10:00)
[2018-05-27] MEDS ORDERED: POTASSIUM CHLORIDE IV SCH ×10 (09:45→10:00)
[2018-05-27] MEDS ORDERED: SODIUM BICARBONATE IV SCH ×10 (09:45→10:00)
[2018-05-27 10:38] LABS: CALCIUM 6.6 mg/dL (8.5-10.1); CREATININE 1.6 mg/dL (0.6-1.0); GFR 40.8; POTASSIUM 4.6 mmol/L (3.5-5.1)
[2018-05-27 10:41] LABS: MAGNESIUM 2.3 mg/dL (1.8-2.4); PHOSPHORUS 6.3 mg/dL (2.6-4.7)
[2018-05-27] MEDS ORDERED: VASOPRESSIN 40 UNIT in IV DEXTROSE 5% 100ML 100 ML IV PRN (10:45)
--- NOTE | 2018-05-27 10:45 | PDOC ---
Provider Note Provider Note 05/27/2018 1010 Post CABG, POD#2. Code blue initiated today with 4 minutes to ROSC noted with PEA, x1 epi and HCO3 given. Likely cause is significant metabolic derangement. Pt is acidotic with pH at 7.1, HCO3 drip in place. Pacing currently CRRT is ongoing. Pt is anemic at 7.1 and currently receiving 2nd unit. PLT at 44, INR at 2.8 BP is low but stable. Intubated/vent. Multiple drips. Notified primary radio despatcher and CTS. Obtain DIC panel. HUNTER ARMENDARIZ [employer] L[employer] GENERATOR May 27, 2018 10:45
--- NOTE | 2018-05-27 11:01 | PDOC ---
PULMONARY PROGRESS NOTES Subjective CODED AGAIN WITH BRADYCARDIA/ PACEMAKER DID NOT CAPTURED ON MAX DOSES OF PRESSORS AC MODE Vitals Vital Signs Date Time Temp Pulse Resp B/P (MAP) Pulse Ox O2 Delivery O2 Flow Rate FiO2 05/27/18 09:41 96 Ventilator 05/27/18 09:00 42 93/56 05/27/18 08:44 97.8 20 97.8 05/26/18 17:03 8.0 Lungs: Other (diminished breath sounds, on vent) Cardiovascular: S1, S2 Abdomen: Soft, Non-tender Extremities: Other (1+edema) Labs Laboratory Tests Test 05/25/18 11:16 05/25/18 11:48 05/25/18 11:49 05/25/18 12:16 Bedside Hemoglobin (Calculated) 10.2 g/dL (12-15) 10.2 g/dL (12-15) 10.2 g/dL (12-15) Bedside Hematocrit 30 % (36-40) 30 % (36-40) 30 % (36-40) Activated Clotting Time 455 SEC (90-125) 468 SEC (90-125) 500 SEC (90-125) Bedside Arterial pH 7.31 (7.35-7.45) 7.29 (7.35-7.45) 7.35 (7.35-7.45) Bedside Arterial pCO2 52 mmHg (35-45) 55 mmHg (35-45) 50 mmHg (35-45) Bedside Arterial pO2 176 mmHg (75-100) 191 mmHg (75-100) 317 mmHg (75-100) Bedside Arterial HCO3 26 mmol/L (21-28) 27 mmol/L (21-28) 28 mmol/L (21-28) Bedside Arterial Total CO2 28 mmol/L (21-32) 28 mmol/L (21-32) 29 mmol/L (21-32) Arterial Bld O2 Saturation (Measur) 99 % (95-99) 100 % (95-99) 100 % (95-99) Bedside Arterial Blood Base Excess 0 mmol/L (0-3) 0 mmol/L (0-3) 2 mmol/L (0-3) Bedside FiO2 70.0 75.0 85.0 Bedside Sodium 138 mmol/L (135-145) 139 mmol/L (135-145) 139 mmol/L (135-145) Bedside Potassium 4.1 mmol/L (3.5-5.0) 4.5 mmol/L (3.5-5.0) 4.6 mmol/L (3.5-5.0) Glucose Level 201 mg/dL (70-99) 184 mg/dL (70-99) 181 mg/dL (70-99) Bedside Ionized Calcium (Donald) 1.15 mmol/L (1.13-1.32) 1.15 mmol/L (1.13-1.32) 1.12 mmol/L (1.13-1.32) Test 05/25/18 12:54 05/25/18 12:55 05/25/18 13:00 05/25/18 13:49 Bedside Hemoglobin (Calculated) 8.5 g/dL (12-15) 9.5 g/dL (12-15) Bedside Hematocrit 25 % (36-40) 28 % (36-40) Bedside Arterial pH 7.41 (7.35-7.45) 7.45 (7.35-7.45) Bedside Arterial pCO2 42 mmHg (35-45) 35 mmHg (35-45) Bedside Arterial pO2 331 mmHg (75-100) 341 mmHg (75-100) Bedside Arterial HCO3 26 mmol/L (21-28) 24 mmol/L (21-28) Bedside Arterial Total CO2 28 mmol/L (21-32) 25 mmol/L (21-32) Arterial Bld O2 Saturation (Measur) 100 % (95-99) 100 % (95-99) Bedside Arterial Blood Base Excess 2 mmol/L (0-3) 0 mmol/L (0-3) Bedside FiO2 100.0 100.0 Bedside Sodium 136 mmol/L (135-145) 139 mmol/L (135-145) Bedside Potassium 4.3 mmol/L (3.5-5.0) 3.9 mmol/L (3.5-5.0) Glucose Level 164 mg/dL (70-99) 133 mg/dL (70-99) Bedside Ionized Calcium (Donald) 1.92 mmol/L (1.13-1.32) 1.62 mmol/L (1.13-1.32) Activated Clotting Time 116 SEC (90-125) White Blood Count 7.0 x10^3/uL (4.0-11.0) Red Blood Count 3.23 x10^6/uL (3.50-5.40) Hemoglobin 9.1 g/dL (12.0-15.5) Hematocrit 26.5 % (36.0-47.0) Mean Corpuscular Volume 82 fL (79-100) Mean Corpuscular Hemoglobin 28 pg (25-35) Mean Corpuscular Hemoglobin Concent 34 g/dL (31-37) Red Cell Distribution Width 15.4 % (11.5-14.5) Platelet Count 97 x10^3/uL (140-400) Neutrophils (%) (Auto) 75 % (31-73) Lymphocytes (%) (Auto) 21 % (24-48) Monocytes (%) (Auto) 4 % (0-9) Eosinophils (%) (Auto) 1 % (0-3) Basophils (%) (Auto) 0 % (0-3) Neutrophils # (Auto) 5.2 x10^3uL (1.8-7.7) Lymphocytes # (Auto) 1.5 x10^3/uL (1.0-4.8) Monocytes # (Auto) 0.3 x10^3/uL (0.0-1.1) Eosinophils # (Auto) 0.0 x10^3/uL (0.0-0.7) Basophils # (Auto) 0.0 x10^3/uL (0.0-0.2) Prothrombin Time 17.9 SEC (11.7-14.0) Prothromb Time International Ratio 1.5 (0.8-1.1) Activated Partial Thromboplast Time 31 SEC (24-38) Fibrinogen 417 mg/dL (200-440) Test 05/25/18 14:35 05/25/18 14:40 05/25/18 15:30 05/25/18 15:47 Glucose (Fingerstick) 148 mg/dL (70-99) 201 mg/dL (70-99) O2 Saturation 95 % (92-99) Arterial Blood pH 7.34 (7.35-7.45) Arterial Blood pCO2 at Patient Temp 41 mmHg (35-46) Arterial Blood pO2 at Patient Temp 83 mmHg (75-108) Arterial Blood HCO3 22 mmol/L (21-28) Arterial Blood Base Excess -4 mmol/L (-3-3) Oxyhemoglobin 93.8 % Methemoglobin 0.3 % (0.0-1.9) Carbon Monoxide, Quantitative 0.4 % (0.0-1.9) FiO2 100% simv12 650 ps10 White Blood Count 8.2 x10^3/uL (4.0-11.0) Red Blood Count 3.99 x10^6/uL (3.50-5.40) Hemoglobin 11.1 g/dL (12.0-15.5) Hematocrit 32.8 % (36.0-47.0) Mean Corpuscular Volume 82 fL (79-100) Mean Corpuscular Hemoglobin 28 pg (25-35) Mean Corpuscular Hemoglobin Concent 34 g/dL (31-37) Red Cell Distribution Width 15.6 % (11.5-14.5) Platelet Count 135 x10^3/uL (140-400) Prothrombin Time 15.3 SEC (11.7-14.0) Prothromb Time International Ratio 1.3 (0.8-1.1) Activated Partial Thromboplast Time 31 SEC (24-38) Sodium Level 142 mmol/L (136-145) Potassium Level 4.2 mmol/L (3.5-5.1) Chloride Level 108 mmol/L (98-107) Carbon Dioxide Level 28 mmol/L (21-32) Anion Gap 6 (6-14) Blood Urea Nitrogen 13 mg/dL (7-20) Creatinine 0.7 mg/dL (0.6-1.0) Estimated GFR (Cockcroft-Gault) 105.9 Glucose Level 218 mg/dL (70-99) Calcium Level 10.1 mg/dL (8.5-10.1) Magnesium Level 2.4 mg/dL (1.8-2.4) Test 05/25/18 16:56 05/25/18 18:00 05/25/18 18:20 05/25/18 19:04 Glucose (Fingerstick) 202 mg/dL (70-99) 188 mg/dL (70-99) 174 mg/dL (70-99) O2 Saturation 91 % (92-99) Arterial Blood pH 7.39 (7.35-7.45) Arterial Blood pCO2 at Patient Temp 40 mmHg (35-46) Arterial Blood pO2 at Patient Temp 66 mmHg (75-108) Arterial Blood HCO3 24 mmol/L (21-28) Arterial Blood Base Excess -1 mmol/L (-3-3) FiO2 40% Test 05/25/18 19:57 05/25/18 21:07 05/25/18 22:02 05/25/18 23:04 White Blood Count 8.5 x10^3/uL (4.0-11.0) Red Blood Count 3.70 x10^6/uL (3.50-5.40) Hemoglobin 10.3 g/dL (12.0-15.5) Hematocrit 30.5 % (36.0-47.0) Mean Corpuscular Volume 83 fL (79-100) Mean Corpuscular Hemoglobin 28 pg (25-35) Mean Corpuscular Hemoglobin Concent 34 g/dL (31-37) Red Cell Distribution Width 15.5 % (11.5-14.5) Platelet Count 145 x10^3/uL (140-400) Potassium Level 5.4 mmol/L (3.5-5.1) Glucose (Fingerstick) 165 mg/dL (70-99) 143 mg/dL (70-99) 125 mg/dL (70-99) 121 mg/dL (70-99) Test 05/26/18 00:02 05/26/18 01:12 05/26/18 02:20 05/26/18 03:14 Glucose (Fingerstick) 116 mg/dL (70-99) 113 mg/dL (70-99) 140 mg/dL (70-99) 138 mg/dL (70-99) Test 05/26/18 04:17 05/26/18 05:30 05/26/18 05:32 05/26/18 06:25 Glucose (Fingerstick) 135 mg/dL (70-99) 130 mg/dL (70-99) White Blood Count 9.3 x10^3/uL (4.0-11.0) Red Blood Count 3.64 x10^6/uL (3.50-5.40) Hemoglobin 10.3 g/dL (12.0-15.5) Hematocrit 30.3 % (36.0-47.0) Mean Corpuscular Volume 83 fL (79-100) Mean Corpuscular Hemoglobin 28 pg (25-35) Mean Corpuscular Hemoglobin Concent 34 g/dL (31-37) Red Cell Distribution Width 15.7 % (11.5-14.5) Platelet Count 166 x10^3/uL (140-400) Neutrophils (%) (Auto) 76 % (31-73) Lymphocytes (%) (Auto) 11 % (24-48) Monocytes (%) (Auto) 13 % (0-9) Eosinophils (%) (Auto) 0 % (0-3) Basophils (%) (Auto) 0 % (0-3) Neutrophils # (Auto) 7.1 x10^3uL (1.8-7.7) Lymphocytes # (Auto) 1.0 x10^3/uL (1.0-4.8) Monocytes # (Auto) 1.2 x10^3/uL (0.0-1.1) Eosinophils # (Auto) 0.0 x10^3/uL (0.0-0.7) Basophils # (Auto) 0.0 x10^3/uL (0.0-0.2) Sodium Level 135 mmol/L (136-145) Potassium Level 7.0 mmol/L (3.5-5.1) Chloride Level 104 mmol/L (98-107) Carbon Dioxide Level 20 mmol/L (21-32) Anion Gap 11 (6-14) Blood Urea Nitrogen 22 mg/dL (7-20) Creatinine 1.7 mg/dL (0.6-1.0) Estimated GFR (Cockcroft-Gault) 38.0 Glucose Level 143 mg/dL (70-99) Calcium Level 8.9 mg/dL (8.5-10.1) Magnesium Level 2.4 mg/dL (1.8-2.4) Test 05/26/18 06:40 05/26/18 09:05 05/26/18 09:10 05/26/18 09:55 Glucose (Fingerstick) 137 mg/dL (70-99) 173 mg/dL (70-99) White Blood Count 12.2 x10^3/uL (4.0-11.0) Red Blood Count 3.12 x10^6/uL (3.50-5.40) Hemoglobin 8.8 g/dL (12.0-15.5) Hematocrit 26.4 % (36.0-47.0) Mean Corpuscular Volume 85 fL (79-100) Mean Corpuscular Hemoglobin 28 pg (25-35) Mean Corpuscular Hemoglobin Concent 33 g/dL (31-37) Red Cell Distribution Width 15.9 % (11.5-14.5) Platelet Count 135 x10^3/uL (140-400) Prothrombin Time 28.6 SEC (11.7-14.0) Prothromb Time International Ratio 2.8 (0.8-1.1) Sodium Level 140 mmol/L (136-145) Potassium Level 7.3 mmol/L (3.5-5.1) Chloride Level 104 mmol/L (98-107) Carbon Dioxide Level 17 mmol/L (21-32) Anion Gap 19 (6-14) Blood Urea Nitrogen 25 mg/dL (7-20) Creatinine 2.3 mg/dL (0.6-1.0) Estimated GFR (Cockcroft-Gault) 26.8 Glucose Level 177 mg/dL (70-99) Lactic Acid Level 11.4 mmol/L (0.4-2.0) Calcium Level 10.3 mg/dL (8.5-10.1) Magnesium Level 2.6 mg/dL (1.8-2.4) Hepatitis B Surface Antigen Nonreactive (Nonreactive) Hepatitis B Surface Antibody Nonreactive O2 Saturation 89 % (92-99) Arterial Blood pH 7.20 (7.35-7.45) Arterial Blood pCO2 at Patient Temp 31 mmHg (35-46) Arterial Blood pO2 at Patient Temp 73 mmHg (75-108) Arterial Blood HCO3 12 mmol/L (21-28) Arterial Blood Base Excess -15 mmol/L (-3-3) FiO2 100 Test 05/26/18 10:45 05/26/18 11:25 05/26/18 12:07 05/26/18 13:01 Sodium Level 137 mmol/L (136-145) Potassium Level 8.6 mmol/L (3.5-5.1) Chloride Level 99 mmol/L (98-107) Carbon Dioxide Level 15 mmol/L (21-32) Anion Gap 23 (6-14) Blood Urea Nitrogen 27 mg/dL (7-20) Creatinine 2.7 mg/dL (0.6-1.0) Estimated GFR (Cockcroft-Gault) 22.3 Glucose Level 232 mg/dL (70-99) Calcium Level 9.0 mg/dL (8.5-10.1) O2 Saturation 90 % (92-99) Arterial Blood pH 7.15 (7.35-7.45) Arterial Blood pCO2 at Patient Temp 36 mmHg (35-46) Arterial Blood pO2 at Patient Temp 80 mmHg (75-108) Arterial Blood HCO3 12 mmol/L (21-28) Arterial Blood Base Excess -16 mmol/L (-3-3) FiO2 100 Glucose (Fingerstick) 152 mg/dL (70-99) 112 mg/dL (70-99) Test 05/26/18 14:08 05/26/18 15:15 05/26/18 17:30 05/26/18 18:00 Glucose (Fingerstick) 104 mg/dL (70-99) 79 mg/dL (70-99) O2 Saturation 89 % (92-99) Arterial Blood pH 7.38 (7.35-7.45) Arterial Blood pCO2 at Patient Temp 33 mmHg (35-46) Arterial Blood pO2 at Patient Temp 64 mmHg (75-108) Arterial Blood HCO3 19 mmol/L (21-28) Arterial Blood Base Excess -6 mmol/L (-3-3) FiO2 80 Potassium Level 4.4 mmol/L (3.5-5.1) Hemoglobin 8.5 g/dL (12.0-15.5) Hematocrit 25.4 % (36.0-47.0) Test 05/26/18 18:51 05/26/18 19:49 05/26/18 21:03 05/26/18 21:07 Glucose (Fingerstick) 102 mg/dL (70-99) 100 mg/dL (70-99) O2 Saturation 95 % (92-99) Arterial Blood pH 7.27 (7.35-7.45) Arterial Blood pCO2 at Patient Temp 33 mmHg (35-46) Arterial Blood pO2 at Patient Temp 101 mmHg (75-108) Arterial Blood HCO3 15 mmol/L (21-28) Arterial Blood Base Excess -11 mmol/L (-3-3) FiO2 80 Sodium Level 141 mmol/L (136-145) Potassium Level 4.9 mmol/L (3.5-5.1) Chloride Level 103 mmol/L (98-107) Carbon Dioxide Level 14 mmol/L (21-32) Anion Gap 24 (6-14) Blood Urea Nitrogen 22 mg/dL (7-20) Creatinine 2.1 mg/dL (0.6-1.0) Estimated GFR (Cockcroft-Gault) 29.8 Glucose Level 86 mg/dL (70-99) Calcium Level 7.9 mg/dL (8.5-10.1) Phosphorus Level 6.5 mg/dL (2.6-4.7) Magnesium Level 2.1 mg/dL (1.8-2.4) Creatine Kinase 1140 U/L (26-192) Test 05/26/18 22:00 05/27/18 01:10 05/27/18 04:58 05/27/18 06:00 O2 Saturation 92 % (92-99) 91 % (92-99) Arterial Blood pH 7.25 (7.35-7.45) 7.16 (7.35-7.45) Arterial Blood pCO2 at Patient Temp 30 mmHg (35-46) 29 mmHg (35-46) Arterial Blood pO2 at Patient Temp 83 mmHg (75-108) 88 mmHg (75-108) Arterial Blood HCO3 13 mmol/L (21-28) 10 mmol/L (21-28) Arterial Blood Base Excess -13 mmol/L (-3-3) -17 mmol/L (-3-3) FiO2 60 60 Sodium Level 142 mmol/L (136-145) 141 mmol/L (136-145) Potassium Level 4.7 mmol/L (3.5-5.1) 4.6 mmol/L (3.5-5.1) Chloride Level 103 mmol/L (98-107) 102 mmol/L (98-107) Carbon Dioxide Level 13 mmol/L (21-32) 10 mmol/L (21-32) Anion Gap 26 (6-14) 29 (6-14) Blood Urea Nitrogen 19 mg/dL (7-20) 17 mg/dL (7-20) Creatinine 1.9 mg/dL (0.6-1.0) 1.7 mg/dL (0.6-1.0) Estimated GFR (Cockcroft-Gault) 33.5 38.0 Glucose Level 84 mg/dL (70-99) 71 mg/dL (70-99) Calcium Level 7.5 mg/dL (8.5-10.1) 7.4 mg/dL (8.5-10.1) Phosphorus Level 6.0 mg/dL (2.6-4.7) 5.9 mg/dL (2.6-4.7) Magnesium Level 2.5 mg/dL (1.8-2.4) 2.4 mg/dL (1.8-2.4) White Blood Count 11.1 x10^3/uL (4.0-11.0) Red Blood Count 2.51 x10^6/uL (3.50-5.40) Hemoglobin 7.1 g/dL (12.0-15.5) Hematocrit 21.4 % (36.0-47.0) Mean Corpuscular Volume 85 fL (79-100) Mean Corpuscular Hemoglobin 28 pg (25-35) Mean Corpuscular Hemoglobin Concent 33 g/dL (31-37) Red Cell Distribution Width 15.4 % (11.5-14.5) Platelet Count 44 x10^3/uL (140-400) Neutrophils (%) (Auto) 71 % (31-73) Lymphocytes (%) (Auto) 22 % (24-48) Monocytes (%) (Auto) 7 % (0-9) Eosinophils (%) (Auto) 0 % (0-3) Basophils (%) (Auto) 1 % (0-3) Neutrophils # (Auto) 7.8 x10^3uL (1.8-7.7) Lymphocytes # (Auto) 2.4 x10^3/uL (1.0-4.8) Monocytes # (Auto) 0.8 x10^3/uL (0.0-1.1) Eosinophils # (Auto) 0.0 x10^3/uL (0.0-0.7) Basophils # (Auto) 0.1 x10^3/uL (0.0-0.2) Test 05/27/18 06:10 05/27/18 08:30 05/27/18 08:38 05/27/18 10:25 Glucose (Fingerstick) 113 mg/dL (70-99) Sodium Level 145 mmol/L (136-145) 148 mmol/L (136-145) Potassium Level 4.6 mmol/L (3.5-5.1) 4.6 mmol/L (3.5-5.1) Chloride Level 103 mmol/L (98-107) 107 mmol/L (98-107) Carbon Dioxide Level 10 mmol/L (21-32) 12 mmol/L (21-32) Anion Gap 32 (6-14) 29 (6-14) Blood Urea Nitrogen 15 mg/dL (7-20) 14 mg/dL (7-20) Creatinine 1.7 mg/dL (0.6-1.0) 1.6 mg/dL (0.6-1.0) Estimated GFR (Cockcroft-Gault) 38.0 40.8 Glucose Level 58 mg/dL (70-99) 131 mg/dL (70-99) Calcium Level 7.3 mg/dL (8.5-10.1) 6.6 mg/dL (8.5-10.1) Phosphorus Level 6.1 mg/dL (2.6-4.7) 6.3 mg/dL (2.6-4.7) Magnesium Level 2.4 mg/dL (1.8-2.4) 2.3 mg/dL (1.8-2.4) O2 Saturation 86 % (92-99) Arterial Blood pH 7.13 (7.35-7.45) Arterial Blood pCO2 at Patient Temp 28 mmHg (35-46) Arterial Blood pO2 at Patient Temp 73 mmHg (75-108) Arterial Blood HCO3 9 mmol/L (21-28) Arterial Blood Base Excess -19 mmol/L (-3-3) FiO2 50 Laboratory Tests Test 05/26/18 11:25 05/26/18 12:07 05/26/18 13:01 05/26/18 14:08 O2 Saturation 90 % (92-99) Arterial Blood pH 7.15 (7.35-7.45) Arterial Blood pCO2 at Patient Temp 36 mmHg (35-46) Arterial Blood pO2 at Patient Temp 80 mmHg (75-108) Arterial Blood HCO3 12 mmol/L (21-28) Arterial Blood Base Excess -16 mmol/L (-3-3) FiO2 100 Glucose (Fingerstick) 152 mg/dL (70-99) 112 mg/dL (70-99) 104 mg/dL (70-99) Test 05/26/18 15:15 05/26/18 17:30 05/26/18 18:00 05/26/18 18:51 O2 Saturation 89 % (92-99) Arterial Blood pH 7.38 (7.35-7.45) Arterial Blood pCO2 at Patient Temp 33 mmHg (35-46) Arterial Blood pO2 at Patient Temp 64 mmHg (75-108) Arterial Blood HCO3 19 mmol/L (21-28) Arterial Blood Base Excess -6 mmol/L (-3-3) FiO2 80 Potassium Level 4.4 mmol/L (3.5-5.1) Hemoglobin 8.5 g/dL (12.0-15.5) Hematocrit 25.4 % (36.0-47.0) Glucose (Fingerstick) 79 mg/dL (70-99) 102 mg/dL (70-99) Test 05/26/18 19:49 05/26/18 21:03 05/26/18 21:07 05/26/18 22:00 O2 Saturation 95 % (92-99) 92 % (92-99) Arterial Blood pH 7.27 (7.35-7.45) 7.25 (7.35-7.45) Arterial Blood pCO2 at Patient Temp 33 mmHg (35-46) 30 mmHg (35-46) Arterial Blood pO2 at Patient Temp 101 mmHg (75-108) 83 mmHg (75-108) Arterial Blood HCO3 15 mmol/L (21-28) 13 mmol/L (21-28) Arterial Blood Base Excess -11 mmol/L (-3-3) -13 mmol/L (-3-3) FiO2 80 60 Sodium Level 141 mmol/L (136-145) Potassium Level 4.9 mmol/L (3.5-5.1) Chloride Level 103 mmol/L (98-107) Carbon Dioxide Level 14 mmol/L (21-32) Anion Gap 24 (6-14) Blood Urea Nitrogen 22 mg/dL (7-20) Creatinine 2.1 mg/dL (0.6-1.0) Estimated GFR (Cockcroft-Gault) 29.8 Glucose Level 86 mg/dL (70-99) Calcium Level 7.9 mg/dL (8.5-10.1) Phosphorus Level 6.5 mg/dL (2.6-4.7) Magnesium Level 2.1 mg/dL (1.8-2.4) Creatine Kinase 1140 U/L (26-192) Glucose (Fingerstick) 100 mg/dL (70-99) Test 05/27/18 01:10 05/27/18 04:58 05/27/18 06:00 05/27/18 06:10 Sodium Level 142 mmol/L (136-145) 141 mmol/L (136-145) Potassium Level 4.7 mmol/L (3.5-5.1) 4.6 mmol/L (3.5-5.1) Chloride Level 103 mmol/L (98-107) 102 mmol/L (98-107) Carbon Dioxide Level 13 mmol/L (21-32) 10 mmol/L (21-32) Anion Gap 26 (6-14) 29 (6-14) Blood Urea Nitrogen 19 mg/dL (7-20) 17 mg/dL (7-20) Creatinine 1.9 mg/dL (0.6-1.0) 1.7 mg/dL (0.6-1.0) Estimated GFR (Cockcroft-Gault) 33.5 38.0 Glucose Level 84 mg/dL (70-99) 71 mg/dL (70-99) Calcium Level 7.5 mg/dL (8.5-10.1) 7.4 mg/dL (8.5-10.1) Phosphorus Level 6.0 mg/dL (2.6-4.7) 5.9 mg/dL (2.6-4.7) Magnesium Level 2.5 mg/dL (1.8-2.4) 2.4 mg/dL (1.8-2.4) White Blood Count 11.1 x10^3/uL (4.0-11.0) Red Blood Count 2.51 x10^6/uL (3.50-5.40) Hemoglobin 7.1 g/dL (12.0-15.5) Hematocrit 21.4 % (36.0-47.0) Mean Corpuscular Volume 85 fL (79-100) Mean Corpuscular Hemoglobin 28 pg (25-35) Mean Corpuscular Hemoglobin Concent 33 g/dL (31-37) Red Cell Distribution Width 15.4 % (11.5-14.5) Platelet Count 44 x10^3/uL (140-400) Neutrophils (%) (Auto) 71 % (31-73) Lymphocytes (%) (Auto) 22 % (24-48) Monocytes (%) (Auto) 7 % (0-9) Eosinophils (%) (Auto) 0 % (0-3) Basophils (%) (Auto) 1 % (0-3) Neutrophils # (Auto) 7.8 x10^3uL (1.8-7.7) Lymphocytes # (Auto) 2.4 x10^3/uL (1.0-4.8) Monocytes # (Auto) 0.8 x10^3/uL (0.0-1.1) Eosinophils # (Auto) 0.0 x10^3/uL (0.0-0.7) Basophils # (Auto) 0.1 x10^3/uL (0.0-0.2) O2 Saturation 91 % (92-99) Arterial Blood pH 7.16 (7.35-7.45) Arterial Blood pCO2 at Patient Temp 29 mmHg (35-46) Arterial Blood pO2 at Patient Temp 88 mmHg (75-108) Arterial Blood HCO3 10 mmol/L (21-28) Arterial Blood Base Excess -17 mmol/L (-3-3) FiO2 60 Glucose (Fingerstick) 113 mg/dL (70-99) Test 05/27/18 08:30 05/27/18 08:38 05/27/18 10:25 Sodium Level 145 mmol/L (136-145) 148 mmol/L (136-145) Potassium Level 4.6 mmol/L (3.5-5.1) 4.6 mmol/L (3.5-5.1) Chloride Level 103 mmol/L (98-107) 107 mmol/L (98-107) Carbon Dioxide Level 10 mmol/L (21-32) 12 mmol/L (21-32) Anion Gap 32 (6-14) 29 (6-14) Blood Urea Nitrogen 15 mg/dL (7-20) 14 mg/dL (7-20) Creatinine 1.7 mg/dL (0.6-1.0) 1.6 mg/dL (0.6-1.0) Estimated GFR (Cockcroft-Gault) 38.0 40.8 Glucose Level 58 mg/dL (70-99) 131 mg/dL (70-99) Calcium Level 7.3 mg/dL (8.5-10.1) 6.6 mg/dL (8.5-10.1) Phosphorus Level 6.1 mg/dL (2.6-4.7) 6.3 mg/dL (2.6-4.7) Magnesium Level 2.4 mg/dL (1.8-2.4) 2.3 mg/dL (1.8-2.4) O2 Saturation 86 % (92-99) Arterial Blood pH 7.13 (7.35-7.45) Arterial Blood pCO2 at Patient Temp 28 mmHg (35-46) Arterial Blood pO2 at Patient Temp 73 mmHg (75-108) Arterial Blood HCO3 9 mmol/L (21-28) Arterial Blood Base Excess -19 mmol/L (-3-3) FiO2 50 Medications Active Scripts Medications Dose Route/Sig Max Daily Dose Days Date Category Proair Hfa Inhaler (Albuterol Sulfate) 8.5 Gm Hfa.aer.ad 1 Puff INH PRN Q6HRS PRN 60 12/21/17 Rx Cefpodoxime Proxetil 100 Mg Tablet 200 Mg PO BID 7 12/21/17 Rx Janumet 50-1,000 Mg Tablet (Sitagliptin Phos/Metformin Hcl) 1 Each Tablet 2 Tab PO QHS 12/17/17 Reported Glyburide 5 Mg Tablet 2 Tab PO BID 12/17/17 Reported Cyclobenzaprine Hcl 10 Mg Tablet 1 Tab PO BID 12/17/17 Reported Amlodipine Besylate 10 Mg Tablet 10 Mg PO DAILY 12/17/17 Reported Atenolol 100 Mg Tablet 1 Tab PO DAILY 12/17/17 Reported Nifedipine Er (Nifedipine) 60 Mg Tab.er.24 1 Tab PO DAILY 09/04/17 Rx Carvedilol 12.5 Mg Tablet 25 Mg PO BIDWMEALS 09/04/17 Rx Isosorbide Mononitrate Er (Isosorbide Mononitrate) 30 Mg Tab.er.24h 30 Mg PO DAILY 09/04/17 Rx Naproxen 500 Mg Tablet 1 Tab PO BID 09/03/17 Reported Atorvastatin Calcium 40 Mg Tablet 1 Tab PO QHS 09/03/17 Reported Gabapentin 300 Mg Capsule 300 Mg PO TID 09/03/17 Reported Clonidine Hcl 0.2 Mg Tablet 1 Tab PO BID 09/03/17 Reported Comments CXR reviewed bilateral infiltrates Impression . 1. Acute respiratory failure secondary to respiratory/cardiac arrest post coronary artery bypass graft. The patient was extubated and had to be reintubated 05/26. Coded twice since re-intubation with PEA activity/ again today 2. Status post coronary artery bypass graft for 3-vessel coronary artery disease. 3. [id number] myocardial infarction, present on admission, with 3-vessel coronary artery disease. 4. Hyperkalemia. Probably the etiology of code blue initially 5. Acute renal failure. 6. Abnormal chest x-ray, consistent with asymmetric interstitial edema. 7. Reactive leukocytosis. 8. Positive marijuana use. 9. Metabolic acidosis.post code, suspect sepsis 10. Lactic acidosis secondary to code blue with poor perfusion. 11. shock, suspect septic. source could be acalculous cholecystitis 12. Possible HUS/ TTP 13. Thrombocytopenia/ suspect DIC vs TTP/ HUS Plan . 1. Discussed with last night and renal today.. We will continue with present assist control mode. We will follow ABGs and make necessary adjustment. 2. DIC panel/ Possible GB drain/ ct abdomen/pelvis. 3. CRRT per Renal recommendation. 4. Follow chest x-rays. 5. add vasopressin/ BS Abx added yesterday 6. Follow CV Surgery recommendation. 7. Continue present vasopressors. 8. No evidence of any pericardial tamponade. 9. May need to change leads of external pacemaker. 10. Peripheral smear to r/o hemolysis 11. May need plasmapharesis if P.smear positive 10. Discussed with RN and RT. Discussed with the family and we will follow along with you. cct 50 min TAYLOR MANNING MD May 27, 2018 11:01
[2018-05-27 11:06] LABS: HEMATOCRIT 22.3 % (36.0-47.0); HEMOGLOBIN 7.3 g/dL (12.0-15.5)
[2018-05-27 11:16] LABS: % ATYL 1 % (0-0); % BANDS 21 % (0-9); % LYMPHS 31 % (24-48); % METAS 1 % (0-0); % MONOS 5 % (0-10); % SEGS 41 % (35-66)
[2018-05-27 11:17] LABS: PLT ESTIMATE DECREASED (ADEQUATE); TOXIC VACUOLATION PRESENT
[2018-05-27 11:25] LABS: PROTHROMBIN TIME PATIENT 92.4 SEC (11.7-14.0)
--- NOTE | 2018-05-27 11:45 | PDOC ---
SUBJECTIVE ROS Intubated, On vent. Coded again this am CRRT last night after HD in am for few hrs OBJECTIVE Vital Signs Vital Signs Date Time Temp Pulse Resp B/P (MAP) Pulse Ox O2 Delivery O2 Flow Rate FiO2 05/27/18 09:41 96 Ventilator 05/27/18 09:30 42 20 96/56 05/27/18 08:44 97.8 97.8 05/26/18 17:03 8.0 I & 0 Intake and Output 05/27/18 07:00 Intake Total 3653 ml Output Total 560 ml Balance 3093 ml Intake Oral 0 ml IV Total 3653 ml Output Urine Total 50 ml Chest Tube Drainage Total 510 ml PHYSICAL EXAM Physical Exam GENERAL: intubated and sedated. HEENT: Pupils small, but reactive. NECK: Supple. LUNGS: With diminished breath sounds. CARDIOVASCULAR EXAMINATION: Regular rate and rhythm. ABDOMEN: Soft, obese. EXTREMITIES: Trace pitting edema Barber + NEURO - Intubated on vent SKIN- No rash DIAGNOSIS/ASSESSMENT Assessment & Plan KANIKA - Normal Creatinine on admission s/p CABG ,Decreased UOP Emergent HD yesterday , Switched to CRRT last evening as Hypotensive on pressors Rule out sepsis/TTP/DIC/sepsis Hem/Onc Consulted , Plan for continuing CRRT this am, pt coded again , BP in 60's on Dopamine, Epi and Levophed Hold CRRT BP very low on max doses of pressors , will restart once hemodynamically stable Metabolic acidosis- Etiology? Sepsis ,shock, Source could be acalculous cholecystitis Hyperkalemia--yesterday coronary artery bypass graft on 05/25 . Emergent dialysis Done , K Normal Acute respiratory failure secondary to respiratory/cardiac arrest post coronary artery bypass graft. Status post coronary artery bypass graft for 3-vessel coronary artery disease. [id number] myocardial infarction, present on admission, with 3- vessel coronary artery disease. Positive marijuana use. Discussed with RN, Pulm, Cardiology and family Spent > 45 Mins COMMENT/RELEVANT DATA Meds Current Medications Medications (Trade) Dose Ordered Sig/Nura Start Time Stop Time Status Last Admin Dose Admin Acetaminophen (Tylenol) 650 mg PRN Q4HRS PRN 05/25/18 14:00 UNV Albumin Human 500 ml @ 125 mls/hr 1X ONCE 05/27/18 11:15 05/27/18 15:14 11/1/18 11:16 125 MLS/HR Albuterol Sulfate (Ventolin Neb Soln) 2.5 mg 1X ONCE 05/26/18 09:45 05/26/18 09:46 DC 05/26/18 16:14 2.5 MG Aminocaproic Acid (Amicar) 5,000 mg STK-MED ONCE 05/25/18 02:55 05/25/18 02:56 DC Amiodarone HCl 150 mg/Dextrose 103 ml @ 200 mls/hr 1X PRN PRN 05/25/18 14:00 05/25/18 14:55 200 MLS/HR Amiodarone HCl 900 mg/Dextrose 518 ml @ 33.33 mls/ hr CONT PRN PRN 05/25/18 14:00 05/26/18 18:21 DC 05/25/18 14:55 33.33 MLS/HR Amlodipine Besylate (Norvasc) 10 mg DAILY 05/21/18 14:00 05/24/18 08:41 10 MG Aspirin (Aspirin) 300 mg PRN DAILY PRN 05/25/18 14:00 Aspirin (Children'S Aspirin) 324 mg 1X ONCE 05/21/18 00:30 05/21/18 00:31 DC 05/21/18 00:26 324 MG Aspirin (Ecotrin) 325 mg [id number] 05/26/18 08:00 05/27/18 08:00 325 MG Atorvastatin Calcium (Lipitor) 40 mg QHS 05/21/18 21:00 05/26/18 21:14 40 MG Atropine Sulfate (ATROPINE 1mg SYRINGE) 2 mg 1X ONCE 05/26/18 11:30 05/26/18 18:21 DC Calcium Chloride (Calcium Chloride) 1,000 mg 1X ONCE 05/26/18 11:30 05/26/18 11:31 DC 05/26/18 11:30 1,000 MG Calcium Gluconate (Calcium Gluconate) 2,000 mg 1X ONCE 05/27/18 06:15 05/27/18 06:16 DC 05/27/18 06:13 2,000 MG Carvedilol (Coreg) 25 mg [id number] 05/21/18 17:00 05/24/18 17:28 25 MG Cefazolin Sodium 1 gm/Sodium Chloride 500 ml @ 500 mls/hr 1X ONCE 05/25/18 06:00 05/25/18 06:59 DC 05/25/18 08:49 Cefazolin Sodium/ Dextrose 50 ml @ 100 mls/hr Q8H 05/25/18 16:00 05/27/18 02:55 DC 05/26/18 21:14 100 MLS/HR Cellulose (Surgicel Hemostat 4x8) 1 each STK-MED ONCE 05/25/18 04:18 05/25/18 05:19 DC 05/25/18 08:49 1 EACH Chlorhexidine Gluconate (Peridex) 15 ml BID 05/25/18 21:00 05/26/18 21:14 15 ML Cyclobenzaprine HCl (Flexeril) 10 mg PRN Q6HRS PRN 05/21/18 21:00 05/26/18 18:21 DC 05/24/18 17:28 10 MG Dextrose (Dextrose 50%-Water Syringe) 25 gm 1X ONCE 05/26/18 07:00 05/26/18 07:11 DC 05/26/18 08:17 25 GM Dopamine HCl/ Dextrose (DOPamine 400MG/ 250ML PREMIX) 400 mg STK-MED ONCE 05/26/18 12:00 05/27/18 08:57 DC Ephedrine Sulfate (ePHEDrine PF IN SALINE SYRINGE) 50 mg STK-MED ONCE 05/25/18 02:54 05/25/18 02:55 DC Epinephrine HCl 4 mg/Sodium Chloride 254 ml @ 385.92 mls/ hr CONT PRN 05/26/18 09:45 UNV Etomidate (Amidate) 20 mg STK-MED ONCE 05/25/18 03:01 05/25/18 03:02 DC Famotidine (Pepcid Vial) 20 mg BID 05/25/18 21:00 05/27/18 09:39 20 MG Fentanyl Citrate (Fentanyl 2ml Vial) 25 mcg PRN Q1HR PRN 05/26/18 20:15 05/27/18 04:51 25 MCG Furosemide (Lasix) 20 mg 1X ONCE 05/26/18 06:00 05/26/18 06:01 DC 05/26/18 06:14 20 MG Heparin Sodium (Porcine) (Heparin Sodium) 2,500 unit 1X ONCE 05/26/18 11:00 05/26/18 11:01 DC 05/26/18 11:30 2,500 UNIT Heparin Sodium (Porcine) 34614 unit/Ringer's Solution 1,020 ml @ 1,020 mls/hr 1X ONCE 05/25/18 06:00 05/25/18 06:59 DC 05/25/18 08:49 Heparin Sodium/ Dextrose 500 ml @ 0 mls/hr CONT PRN 05/21/18 01:00 05/25/18 15:21 DC 05/21/18 01:21 20 MLS/HR Heparin Sodium/ Sodium Chloride (HEPARIN for ARTERIAL LINE FLUSH) 1,000 unit 1X ONCE 05/21/18 15:30 05/21/18 15:31 DC 05/21/18 15:30 1,000 UNIT Hydromorphone HCl (Dilaudid) 0.5 mg PRN Q10MIN PRN 05/25/18 07:00 05/26/18 06:59 DC Info (Anti-Coagulation Monitoring By Pharmacy) 1 each PRN DAILY PRN 05/21/18 01:15 05/23/18 14:55 DC 05/21/18 02:26 1 EACH Info (CONTRAST GIVEN -- Rx MONITORING) 1 each PRN DAILY PRN 05/21/18 15:30 05/23/18 15:29 DC Info (KCl Per Protocol) 1 ea CONT PRN PRN 05/25/18 14:00 Info (PHARMACY MONITORING -- do not chart) 1 each PRN DAILY PRN 05/26/18 11:30 UNV Insulin Human Lispro (HumaLOG VIAL) 5 unit 1X ONCE 05/25/18 07:45 05/25/18 07:54 DC Insulin Human Lispro (HumaLOG) 0-9 UNITS [id number] 05/21/18 22:00 05/25/18 16:30 DC 05/24/18 21:18 7 UNITS Insulin Human Regular (HumuLIN R VIAL) 10 unit 1X ONCE 05/26/18 07:30 05/26/18 07:31 DC 05/26/18 07:30 10 UNIT Insulin Human Regular 150 unit/ Sodium Chloride 151.5 ml @ 0 mls/hr CONT PRN PRN 05/25/18 14:00 UNV Iodixanol (Visipaque 320) 100 ml 1X ONCE 05/21/18 15:30 05/21/18 15:31 DC 05/21/18 15:30 138 ML Isoflurane (Isoflurane) 90 ml STK-MED ONCE 05/25/18 02:55 05/25/18 02:56 DC Isosorbide Mononitrate (Imdur) 30 mg DAILY 05/21/18 14:00 05/24/18 08:42 30 MG Ketorolac Tromethamine (Toradol 15mg Vial) 15 mg PRN Q6HRS PRN 05/25/18 18:00 05/26/18 20:10 DC Labetalol HCl (Normodyne Iv Push) 20 mg PRN Q2HR PRN 05/21/18 13:15 Lidocaine HCl (Lidocaine 1% 50ml Vial) 50 ml 1X ONCE 05/21/18 15:30 05/21/18 15:31 DC 05/21/18 15:30 18 ML Lidocaine HCl (Lidocaine Pf 2% Vial) 5 ml STK-MED ONCE 05/25/18 12:52 05/25/18 12:53 DC Lidocaine HCl (Xylocaine-Mpf 1% 2ml Vial) 2 ml STK-MED ONCE 05/26/18 12:00 05/27/18 08:57 DC Lidocaine HCl (Xylocaine-Mpf 2% Vial) 2 ml STK-MED ONCE 05/25/18 06:58 05/25/18 06:59 DC Lidocaine/Sodium Bicarbonate (Buffered Lidocaine 1%) 6 ml 1X ONCE 05/26/18 11:00 05/26/18 11:01 DC 05/26/18 11:00 5 ML Magnesium Sulfate 5 gm STK-MED ONCE 05/25/18 12:52 05/25/18 12:53 DC Magnesium Sulfate/ Dextrose 100 ml @ 100 mls/hr PRN DAILY PRN 05/25/18 14:00 Mannitol (Mannitol) 12.5 g STK-MED ONCE 05/25/18 12:52 05/25/18 12:53 DC Meperidine HCl (Demerol) 12.5 mg PRN Q15MIN PRN 05/25/18 14:00 05/26/18 13:46 DC Midazolam HCl (Versed) 5 mg STK-MED ONCE 05/26/18 12:00 05/27/18 08:57 DC Morphine Sulfate (Morphine Sulfate) 2 mg PRN Q1HR PRN 05/25/18 14:00 05/26/18 19:35 2 MG Nicardipine HCl 50 mg/Sodium Chloride 270 ml @ 0 mls/hr CONT PRN PRN 05/25/18 14:00 UNV Nitroglycerin (Nitro-Bid Oint) 1 inch 1X ONCE 05/21/18 00:30 05/21/18 00:31 DC 05/21/18 00:27 1 INCH Nitroglycerin (Nitrostat) 0.4 mg PRN Q5MIN PRN 05/21/18 17:15 Nitroglycerin/ Dextrose 250 ml @ 0 mls/hr CONT PRN PRN 05/25/18 14:00 05/26/18 18:21 DC Norepinephrine Bitartrate (Levophed 8mg/ 250ml Premix Drip) 8 mg STK-MED ONCE 05/26/18 12:00 05/27/18 08:57 DC Ondansetron HCl (Zofran) 4 mg PRN Q4HRS PRN 05/25/18 14:00 UNV Oxycodone HCl (Roxicodone) 10 mg PRN Q6HRS PRN 05/25/18 14:00 05/26/18 17:03 10 MG Papaverine HCl 60 mg STK-MED ONCE 05/25/18 04:18 05/25/18 05:19 DC 05/25/18 08:49 60 MG Phenylephrine HCl (Bryan-Synephrine Inj) 10 mg STK-MED ONCE 05/25/18 02:55 05/25/18 02:56 DC Phenylephrine HCl 20 mg/Sodium Chloride 252 ml @ 0 mls/hr CONT PRN PRN 05/25/18 14:00 Piperacillin Sod/ Tazobactam Sod (Zosyn Per Pharmacy) 1 each PRN DAILY PRN 05/26/18 19:45 Piperacillin Sod/ Tazobactam Sod 4.5 gm/Sodium Chloride 100 ml @ 200 mls/hr Q8HRS 05/26/18 20:00 05/27/18 05:34 200 MLS/HR Potassium Chloride 15 meq/ Bicarbonate Dialysis Soln w/ out KCl 5,007.5 ml @ 1,500 mls/ hr Q3H21M 05/26/18 17:00 05/27/18 09:47 DC 05/27/18 09:04 1,500 MLS/HR Potassium Chloride 15 meq/ Sodium Bicarbonate 12.5 meq/Parenteral Electrolytes 520 ml @ 520 mls/hr 1X ONCE 05/25/18 06:00 05/25/18 06:59 DC 05/25/18 10:38 520 MLS/HR Potassium Chloride 15 meq/ Sodium Bicarbonate 40 meq/Bicarbonate Dialysis Soln w/ out KCl 5,047.5 ml @ 1,500 mls/ hr Q3H22M 05/27/18 10:00 05/27/18 10:25 1,500 MLS/HR Potassium Chloride 70 meq/ Sodium Bicarbonate 12.5 meq/Lidocaine HCl 24 ml/Parenteral Electrolytes 571.5 ml @ 571.5 mls/ hr 1X ONCE 05/25/18 06:00 05/25/18 06:59 DC 05/25/18 10:38 571.5 MLS/HR Potassium Chloride/Water 50 ml @ 50 mls/hr 1X ONCE 05/25/18 16:30 05/25/18 17:29 DC 05/25/18 16:33 50 MLS/HR Prochlorperazine Edisylate (Compazine) 5 mg PACU PRN PRN 05/25/18 07:00 05/26/18 06:59 DC Propofol 100 ml @ 0 mls/hr CONT PRN PRN 05/25/18 14:00 05/26/18 19:36 10 MLS/HR Protamine Sulfate (Protamine) 250 mg STK-MED ONCE 05/25/18 13:36 05/25/18 13:37 DC Ringer's Solution 1,000 ml @ 75 mls/hr [id number] 05/26/18 20:15 05/26/18 22:34 DC Rocuronium [place] (Zemuron) 50 mg STK-MED ONCE 05/25/18 12:48 05/25/18 12:49 DC Senna/Docusate Sodium (Senna Plus) 1 tab BID 05/25/18 21:00 05/26/18 21:14 1 TAB Sodium Bicarbonate 150 meq/Dextrose/ Sodium Chloride 1,150 ml @ 100 mls/hr [id number] 05/26/18 20:30 05/26/18 20:31 80 MLS/HR Sodium Polystyrene Sulfonate (Kayexalate) 30 gm 1X ONCE 05/26/18 10:00 10/31/18 10:01 DC Sodium Bicarbonate (Sodium Bicarb Adult 8.4% Syr) 100 meq 1X ONCE 05/27/18 09:30 05/27/18 09:31 DC 05/27/18 09:34 100 MEQ Sodium Chloride 1,000 ml @ 400 mls/hr Q2H30M PRN 05/26/18 11:28 05/26/18 18:21 DC Sodium Chloride (Normal Saline Flush) 3 ml QSHIFT PRN 05/21/18 17:15 Sodium Chloride (SODIUM CHLORIDE 20ml) 20 ml STK-MED ONCE 05/25/18 04:19 05/25/18 05:20 DC 05/25/18 08:49 20 ML Sufentanil Citrate (Sufenta) 100 mcg STK-MED ONCE 05/25/18 08:44 05/25/18 08:45 DC Vancomycin HCl (VANCO for OR ONLY) 10 gm STK-MED ONCE 05/25/18 04:18 05/25/18 05:18 DC 05/25/18 08:49 10 GM Vancomycin HCl (Vanco Per Pharmacy) 1 each PRN DAILY PRN 05/26/18 19:45 05/26/18 21:05 1 EACH Vancomycin HCl (Vancomycin Trough Level) 1 each 1X ONCE 05/28/18 20:30 05/28/18 20:31 Vancomycin HCl 1.5 gm/Sodium Chloride 500 ml @ 250 mls/hr Q24H 05/27/18 21:00 Vancomycin HCl 2 gm/Sodium Chloride 500 ml @ 250 mls/hr ONCE ONCE 05/26/18 20:30 05/26/18 22:29 DC 05/26/18 21:16 250 MLS/HR Vasopressin 40 unit/Dextrose 102 ml @ 6 mls/hr CONT PRN 05/27/18 10:45 05/27/18 10:56 6 MLS/HR Lab Laboratory Tests Test 05/26/18 12:07 05/26/18 13:01 05/26/18 14:08 05/26/18 15:15 Glucose (Fingerstick) 152 mg/dL (70-99) 112 mg/dL (70-99) 104 mg/dL (70-99) O2 Saturation 89 % (92-99) Arterial Blood pH 7.38 (7.35-7.45) Arterial Blood pCO2 at Patient Temp 33 mmHg (35-46) Arterial Blood pO2 at Patient Temp 64 mmHg (75-108) Arterial Blood HCO3 19 mmol/L (21-28) Arterial Blood Base Excess -6 mmol/L (-3-3) FiO2 80 Potassium Level 4.4 mmol/L (3.5-5.1) Test 05/26/18 17:30 05/26/18 18:00 05/26/18 18:51 05/26/18 19:49 Hemoglobin 8.5 g/dL (12.0-15.5) Hematocrit 25.4 % (36.0-47.0) Glucose (Fingerstick) 79 mg/dL (70-99) 102 mg/dL (70-99) O2 Saturation 95 % (92-99) Arterial Blood pH 7.27 (7.35-7.45) Arterial Blood pCO2 at Patient Temp 33 mmHg (35-46) Arterial Blood pO2 at Patient Temp 101 mmHg (75-108) Arterial Blood HCO3 15 mmol/L (21-28) Arterial Blood Base Excess -11 mmol/L (-3-3) FiO2 80 Test 05/26/18 21:03 05/26/18 21:07 05/26/18 22:00 05/27/18 01:10 Sodium Level 141 mmol/L (136-145) 142 mmol/L (136-145) Potassium Level 4.9 mmol/L (3.5-5.1) 4.7 mmol/L (3.5-5.1) Chloride Level 103 mmol/L (98-107) 103 mmol/L (98-107) Carbon Dioxide Level 14 mmol/L (21-32) 13 mmol/L (21-32) Anion Gap 24 (6-14) 26 (6-14) Blood Urea Nitrogen 22 mg/dL (7-20) 19 mg/dL (7-20) Creatinine 2.1 mg/dL (0.6-1.0) 1.9 mg/dL (0.6-1.0) Estimated GFR (Cockcroft-Gault) 29.8 33.5 Glucose Level 86 mg/dL (70-99) 84 mg/dL (70-99) Calcium Level 7.9 mg/dL (8.5-10.1) 7.5 mg/dL (8.5-10.1) Phosphorus Level 6.5 mg/dL (2.6-4.7) 6.0 mg/dL (2.6-4.7) Magnesium Level 2.1 mg/dL (1.8-2.4) 2.5 mg/dL (1.8-2.4) Creatine Kinase 1140 U/L (26-192) Glucose (Fingerstick) 100 mg/dL (70-99) O2 Saturation 92 % (92-99) Arterial Blood pH 7.25 (7.35-7.45) Arterial Blood pCO2 at Patient Temp 30 mmHg (35-46) Arterial Blood pO2 at Patient Temp 83 mmHg (75-108) Arterial Blood HCO3 13 mmol/L (21-28) Arterial Blood Base Excess -13 mmol/L (-3-3) FiO2 60 Test 05/27/18 04:58 05/27/18 06:00 05/27/18 06:10 05/27/18 08:30 White Blood Count 11.1 x10^3/uL (4.0-11.0) Red Blood Count 2.51 x10^6/uL (3.50-5.40) Hemoglobin 7.1 g/dL (12.0-15.5) Hematocrit 21.4 % (36.0-47.0) Mean Corpuscular Volume 85 fL (79-100) Mean Corpuscular Hemoglobin 28 pg (25-35) Mean Corpuscular Hemoglobin Concent 33 g/dL (31-37) Red Cell Distribution Width 15.4 % (11.5-14.5) Platelet Count 44 x10^3/uL (140-400) Neutrophils (%) (Auto) 71 % (31-73) Lymphocytes (%) (Auto) 22 % (24-48) Monocytes (%) (Auto) 7 % (0-9) Eosinophils (%) (Auto) 0 % (0-3) Basophils (%) (Auto) 1 % (0-3) Neutrophils # (Auto) 7.8 x10^3uL (1.8-7.7) Lymphocytes # (Auto) 2.4 x10^3/uL (1.0-4.8) Monocytes # (Auto) 0.8 x10^3/uL (0.0-1.1) Eosinophils # (Auto) 0.0 x10^3/uL (0.0-0.7) Basophils # (Auto) 0.1 x10^3/uL (0.0-0.2) Segmented Neutrophils % 41 % (35-66) Band Neutrophils % 21 % (0-9) Lymphocytes % 31 % (24-48) Atypical Lymphocytes % (Manual) 1 % (0-0) Monocytes % 5 % (0-10) Metamyelocytes % 1 % (0-0) Toxic Vacuolation Present Platelet Estimate Decreased (ADEQUATE) Sodium Level 141 mmol/L (136-145) 145 mmol/L (136-145) Potassium Level 4.6 mmol/L (3.5-5.1) 4.6 mmol/L (3.5-5.1) Chloride Level 102 mmol/L (98-107) 103 mmol/L (98-107) Carbon Dioxide Level 10 mmol/L (21-32) 10 mmol/L (21-32) Anion Gap 29 (6-14) 32 (6-14) Blood Urea Nitrogen 17 mg/dL (7-20) 15 mg/dL (7-20) Creatinine 1.7 mg/dL (0.6-1.0) 1.7 mg/dL (0.6-1.0) Estimated GFR (Cockcroft-Gault) 38.0 38.0 Glucose Level 71 mg/dL (70-99) 58 mg/dL (70-99) Calcium Level 7.4 mg/dL (8.5-10.1) 7.3 mg/dL (8.5-10.1) Phosphorus Level 5.9 mg/dL (2.6-4.7) 6.1 mg/dL (2.6-4.7) Magnesium Level 2.4 mg/dL (1.8-2.4) 2.4 mg/dL (1.8-2.4) O2 Saturation 91 % (92-99) Arterial Blood pH 7.16 (7.35-7.45) Arterial Blood pCO2 at Patient Temp 29 mmHg (35-46) Arterial Blood pO2 at Patient Temp 88 mmHg (75-108) Arterial Blood HCO3 10 mmol/L (21-28) Arterial Blood Base Excess -17 mmol/L (-3-3) FiO2 60 Glucose (Fingerstick) 113 mg/dL (70-99) Test 05/27/18 08:38 05/27/18 10:25 05/27/18 11:00 O2 Saturation 86 % (92-99) Arterial Blood pH 7.13 (7.35-7.45) Arterial Blood pCO2 at Patient Temp 28 mmHg (35-46) Arterial Blood pO2 at Patient Temp 73 mmHg (75-108) Arterial Blood HCO3 9 mmol/L (21-28) Arterial Blood Base Excess -19 mmol/L (-3-3) FiO2 50 Sodium Level 148 mmol/L (136-145) Potassium Level 4.6 mmol/L (3.5-5.1) Chloride Level 107 mmol/L (98-107) Carbon Dioxide Level 12 mmol/L (21-32) Anion Gap 29 (6-14) Blood Urea Nitrogen 14 mg/dL (7-20) Creatinine 1.6 mg/dL (0.6-1.0) Estimated GFR (Cockcroft-Gault) 40.8 Glucose Level 131 mg/dL (70-99) Calcium Level 6.6 mg/dL (8.5-10.1) Phosphorus Level 6.3 mg/dL (2.6-4.7) Magnesium Level 2.3 mg/dL (1.8-2.4) Hemoglobin 7.3 g/dL (12.0-15.5) Hematocrit 22.3 % (36.0-47.0) Results All relevant outside records, renal labs, imaging studies, telemetry/EKG's were reviewed. MABEL ODONNELL MD May 27, 2018 11:45
[2018-05-27 11:54] LABS: D-DIMER 14.23 ug/mlFEU (0.00-0.50)
[2018-05-27 12:03] LABS: SPHEROCYTES PRESENT
[2018-05-27 12:13] LABS: ALT (SGPT) 6433 U/L (14-59); AST (SGOT) 29446 U/L (15-37); LACTATE DEHYDROGENASE 20632 U/L (81-234)
--- NOTE | 2018-05-27 12:56 | PDOC ---
PROGRESS NOTES Chief Complaint Chief Complaint NSTEMI s/p triple vessel CABG (LEAVITT to LAD, SVG to RPDA, SVG to OM1) on 05/25 Hyperkalemia KANIKA PEA, coded three times on 05/26 before 1200hrs Acute on chronic diastolic CHF HTN Hyperlipidemia H/o COPD H/o seizures H/o T2DM History of Present Illness History of Present Illness Pt seen and examined in ICU Pt sedated and intubated on vent (AC 20/600/50%/5 PEEP) Pt went into PEA and coded prior to our arrival in ICU, pt given atropine. She stabilized. Systolic BP in the 60s. TONY RN Vitals Vitals Vital Signs Date Time Temp Pulse Resp B/P (MAP) Pulse Ox O2 Delivery O2 Flow Rate FiO2 05/27/18 12:28 Ventilator 05/27/18 09:41 96 05/27/18 09:30 42 20 96/56 05/27/18 08:44 97.8 97.8 05/26/18 17:03 8.0 Physical Exam Physical Exam Pupils 6 mm, dilated (received atropine during code) General: moderate distress, Other (patient coded prior to arrival in the ICU) Heart: Other (ESM 2/6 aortic, lisette, PEA, widened QRS) Lungs: Other (diminished breath sounds, on vent) Abdomen: Soft, No masses Extremities: No clubbing, No cyanosis, No edema Skin: No rashes, No breakdown Labs LABS Laboratory Tests Test 05/26/18 13:01 05/26/18 14:08 05/26/18 15:15 05/26/18 17:30 Glucose (Fingerstick) 112 mg/dL (70-99) 104 mg/dL (70-99) O2 Saturation 89 % (92-99) Arterial Blood pH 7.38 (7.35-7.45) Arterial Blood pCO2 at Patient Temp 33 mmHg (35-46) Arterial Blood pO2 at Patient Temp 64 mmHg (75-108) Arterial Blood HCO3 19 mmol/L (21-28) Arterial Blood Base Excess -6 mmol/L (-3-3) FiO2 80 Potassium Level 4.4 mmol/L (3.5-5.1) Hemoglobin 8.5 g/dL (12.0-15.5) Hematocrit 25.4 % (36.0-47.0) Test 05/26/18 18:00 05/26/18 18:51 05/26/18 19:49 05/26/18 21:03 Glucose (Fingerstick) 79 mg/dL (70-99) 102 mg/dL (70-99) O2 Saturation 95 % (92-99) Arterial Blood pH 7.27 (7.35-7.45) Arterial Blood pCO2 at Patient Temp 33 mmHg (35-46) Arterial Blood pO2 at Patient Temp 101 mmHg (75-108) Arterial Blood HCO3 15 mmol/L (21-28) Arterial Blood Base Excess -11 mmol/L (-3-3) FiO2 80 Sodium Level 141 mmol/L (136-145) Potassium Level 4.9 mmol/L (3.5-5.1) Chloride Level 103 mmol/L (98-107) Carbon Dioxide Level 14 mmol/L (21-32) Anion Gap 24 (6-14) Blood Urea Nitrogen 22 mg/dL (7-20) Creatinine 2.1 mg/dL (0.6-1.0) Estimated GFR (Cockcroft-Gault) 29.8 Glucose Level 86 mg/dL (70-99) Calcium Level 7.9 mg/dL (8.5-10.1) Phosphorus Level 6.5 mg/dL (2.6-4.7) Magnesium Level 2.1 mg/dL (1.8-2.4) Creatine Kinase 1140 U/L (26-192) Test 05/26/18 21:07 05/26/18 22:00 05/27/18 01:10 05/27/18 04:58 Glucose (Fingerstick) 100 mg/dL (70-99) O2 Saturation 92 % (92-99) Arterial Blood pH 7.25 (7.35-7.45) Arterial Blood pCO2 at Patient Temp 30 mmHg (35-46) Arterial Blood pO2 at Patient Temp 83 mmHg (75-108) Arterial Blood HCO3 13 mmol/L (21-28) Arterial Blood Base Excess -13 mmol/L (-3-3) FiO2 60 Sodium Level 142 mmol/L (136-145) 141 mmol/L (136-145) Potassium Level 4.7 mmol/L (3.5-5.1) 4.6 mmol/L (3.5-5.1) Chloride Level 103 mmol/L (98-107) 102 mmol/L (98-107) Carbon Dioxide Level 13 mmol/L (21-32) 10 mmol/L (21-32) Anion Gap 26 (6-14) 29 (6-14) Blood Urea Nitrogen 19 mg/dL (7-20) 17 mg/dL (7-20) Creatinine 1.9 mg/dL (0.6-1.0) 1.7 mg/dL (0.6-1.0) Estimated GFR (Cockcroft-Gault) 33.5 38.0 Glucose Level 84 mg/dL (70-99) 71 mg/dL (70-99) Calcium Level 7.5 mg/dL (8.5-10.1) 7.4 mg/dL (8.5-10.1) Phosphorus Level 6.0 mg/dL (2.6-4.7) 5.9 mg/dL (2.6-4.7) Magnesium Level 2.5 mg/dL (1.8-2.4) 2.4 mg/dL (1.8-2.4) White Blood Count 11.1 x10^3/uL (4.0-11.0) Red Blood Count 2.51 x10^6/uL (3.50-5.40) Hemoglobin 7.1 g/dL (12.0-15.5) Hematocrit 21.4 % (36.0-47.0) Mean Corpuscular Volume 85 fL (79-100) Mean Corpuscular Hemoglobin 28 pg (25-35) Mean Corpuscular Hemoglobin Concent 33 g/dL (31-37) Red Cell Distribution Width 15.4 % (11.5-14.5) Platelet Count 44 x10^3/uL (140-400) Neutrophils (%) (Auto) 71 % (31-73) Lymphocytes (%) (Auto) 22 % (24-48) Monocytes (%) (Auto) 7 % (0-9) Eosinophils (%) (Auto) 0 % (0-3) Basophils (%) (Auto) 1 % (0-3) Neutrophils # (Auto) 7.8 x10^3uL (1.8-7.7) Lymphocytes # (Auto) 2.4 x10^3/uL (1.0-4.8) Monocytes # (Auto) 0.8 x10^3/uL (0.0-1.1) Eosinophils # (Auto) 0.0 x10^3/uL (0.0-0.7) Basophils # (Auto) 0.1 x10^3/uL (0.0-0.2) Segmented Neutrophils % 41 % (35-66) Band Neutrophils % 21 % (0-9) Lymphocytes % 31 % (24-48) Atypical Lymphocytes % (Manual) 1 % (0-0) Monocytes % 5 % (0-10) Metamyelocytes % 1 % (0-0) Toxic Vacuolation Present Platelet Estimate Decreased (ADEQUATE) Spherocytes Present Test 05/27/18 06:00 05/27/18 06:10 05/27/18 08:30 05/27/18 08:38 O2 Saturation 91 % (92-99) 86 % (92-99) Arterial Blood pH 7.16 (7.35-7.45) 7.13 (7.35-7.45) Arterial Blood pCO2 at Patient Temp 29 mmHg (35-46) 28 mmHg (35-46) Arterial Blood pO2 at Patient Temp 88 mmHg (75-108) 73 mmHg (75-108) Arterial Blood HCO3 10 mmol/L (21-28) 9 mmol/L (21-28) Arterial Blood Base Excess -17 mmol/L (-3-3) -19 mmol/L (-3-3) FiO2 60 50 Glucose (Fingerstick) 113 mg/dL (70-99) Sodium Level 145 mmol/L (136-145) Potassium Level 4.6 mmol/L (3.5-5.1) Chloride Level 103 mmol/L (98-107) Carbon Dioxide Level 10 mmol/L (21-32) Anion Gap 32 (6-14) Blood Urea Nitrogen 15 mg/dL (7-20) Creatinine 1.7 mg/dL (0.6-1.0) Estimated GFR (Cockcroft-Gault) 38.0 Glucose Level 58 mg/dL (70-99) Calcium Level 7.3 mg/dL (8.5-10.1) Phosphorus Level 6.1 mg/dL (2.6-4.7) Magnesium Level 2.4 mg/dL (1.8-2.4) Test 05/27/18 10:25 05/27/18 11:00 Sodium Level 148 mmol/L (136-145) Potassium Level 4.6 mmol/L (3.5-5.1) Chloride Level 107 mmol/L (98-107) Carbon Dioxide Level 12 mmol/L (21-32) Anion Gap 29 (6-14) Blood Urea Nitrogen 14 mg/dL (7-20) Creatinine 1.6 mg/dL (0.6-1.0) Estimated GFR (Cockcroft-Gault) 40.8 Glucose Level 131 mg/dL (70-99) Calcium Level 6.6 mg/dL (8.5-10.1) Phosphorus Level 6.3 mg/dL (2.6-4.7) Magnesium Level 2.3 mg/dL (1.8-2.4) Aspartate Amino Transf (AST/SGOT) 93917 U/L (15-37) Alanine Aminotransferase (ALT/SGPT) 6433 U/L (14-59) Lactate Dehydrogenase 68044 U/L (81-234) Hemoglobin 7.3 g/dL (12.0-15.5) Hematocrit 22.3 % (36.0-47.0) Platelet Count 15 x10^3/uL (140-400) Prothrombin Time 92.4 SEC (11.7-14.0) Prothromb Time International Ratio 12.2 (0.8-1.1) Activated Partial Thromboplast Time 67 SEC (24-38) Fibrinogen 107 mg/dL (200-440) D-Dimer (Emilia) 14.23 ug/mlFEU (0.00-0.50) Review of Systems Review of Systems Pt is intubated and sedated. Unable to obtain. Assessment and Plan Assessmemt and Plan Problems Medical Problems: (1) Hypertensive emergency Status: Acute Assessment: NSTEMI s/p triple vessel CABG (LEAVITT to LAD, SVG to RPDA, SVG to OM1) on 05/25 Hyperkalemia KANIKA PEA, coded three times on 05/26 before 1200hrs Acute on chronic diastolic CHF HTN Hyperlipidemia H/o COPD H/o seizures H/o T2DM Plan: ICU monitoring Cont Abx CRRT Severe hyperkalemia: improved PEA: CPR, atropine Anemia: prn transfusion Severe hyperkalemia: improved Monitor labs and ABG Vent monitoring IV pressors Comment Review of Relevant I have reviewed the following items yan (where applicable) has been applied. Labs Laboratory Tests Test 05/25/18 12:54 05/25/18 12:55 05/25/18 13:00 05/25/18 13:49 Bedside Hemoglobin (Calculated) 8.5 g/dL (12-15) 9.5 g/dL (12-15) Bedside Hematocrit 25 % (36-40) 28 % (36-40) Bedside Arterial pH 7.41 (7.35-7.45) 7.45 (7.35-7.45) Bedside Arterial pCO2 42 mmHg (35-45) 35 mmHg (35-45) Bedside Arterial pO2 331 mmHg (75-100) 341 mmHg (75-100) Bedside Arterial HCO3 26 mmol/L (21-28) 24 mmol/L (21-28) Bedside Arterial Total CO2 28 mmol/L (21-32) 25 mmol/L (21-32) Arterial Bld O2 Saturation (Measur) 100 % (95-99) 100 % (95-99) Bedside Arterial Blood Base Excess 2 mmol/L (0-3) 0 mmol/L (0-3) Bedside FiO2 100.0 100.0 Bedside Sodium 136 mmol/L (135-145) 139 mmol/L (135-145) Bedside Potassium 4.3 mmol/L (3.5-5.0) 3.9 mmol/L (3.5-5.0) Glucose Level 164 mg/dL (70-99) 133 mg/dL (70-99) Bedside Ionized Calcium (Donald) 1.92 mmol/L (1.13-1.32) 1.62 mmol/L (1.13-1.32) Activated Clotting Time 116 SEC (90-125) White Blood Count 7.0 x10^3/uL (4.0-11.0) Red Blood Count 3.23 x10^6/uL (3.50-5.40) Hemoglobin 9.1 g/dL (12.0-15.5) Hematocrit 26.5 % (36.0-47.0) Mean Corpuscular Volume 82 fL (79-100) Mean Corpuscular Hemoglobin 28 pg (25-35) Mean Corpuscular Hemoglobin Concent 34 g/dL (31-37) Red Cell Distribution Width 15.4 % (11.5-14.5) Platelet Count 97 x10^3/uL (140-400) Neutrophils (%) (Auto) 75 % (31-73) Lymphocytes (%) (Auto) 21 % (24-48) Monocytes (%) (Auto) 4 % (0-9) Eosinophils (%) (Auto) 1 % (0-3) Basophils (%) (Auto) 0 % (0-3) Neutrophils # (Auto) 5.2 x10^3uL (1.8-7.7) Lymphocytes # (Auto) 1.5 x10^3/uL (1.0-4.8) Monocytes # (Auto) 0.3 x10^3/uL (0.0-1.1) Eosinophils # (Auto) 0.0 x10^3/uL (0.0-0.7) Basophils # (Auto) 0.0 x10^3/uL (0.0-0.2) Prothrombin Time 17.9 SEC (11.7-14.0) Prothromb Time International Ratio 1.5 (0.8-1.1) Activated Partial Thromboplast Time 31 SEC (24-38) Fibrinogen 417 mg/dL (200-440) Test 05/25/18 14:35 05/25/18 14:40 05/25/18 15:30 05/25/18 15:47 Glucose (Fingerstick) 148 mg/dL (70-99) 201 mg/dL (70-99) O2 Saturation 95 % (92-99) Arterial Blood pH 7.34 (7.35-7.45) Arterial Blood pCO2 at Patient Temp 41 mmHg (35-46) Arterial Blood pO2 at Patient Temp 83 mmHg (75-108) Arterial Blood HCO3 22 mmol/L (21-28) Arterial Blood Base Excess -4 mmol/L (-3-3) Oxyhemoglobin 93.8 % Methemoglobin 0.3 % (0.0-1.9) Carbon Monoxide, Quantitative 0.4 % (0.0-1.9) FiO2 100% simv12 650 ps10 White Blood Count 8.2 x10^3/uL (4.0-11.0) Red Blood Count 3.99 x10^6/uL (3.50-5.40) Hemoglobin 11.1 g/dL (12.0-15.5) Hematocrit 32.8 % (36.0-47.0) Mean Corpuscular Volume 82 fL (79-100) Mean Corpuscular Hemoglobin 28 pg (25-35) Mean Corpuscular Hemoglobin Concent 34 g/dL (31-37) Red Cell Distribution Width 15.6 % (11.5-14.5) Platelet Count 135 x10^3/uL (140-400) Prothrombin Time 15.3 SEC (11.7-14.0) Prothromb Time International Ratio 1.3 (0.8-1.1) Activated Partial Thromboplast Time 31 SEC (24-38) Sodium Level 142 mmol/L (136-145) Potassium Level 4.2 mmol/L (3.5-5.1) Chloride Level 108 mmol/L (98-107) Carbon Dioxide Level 28 mmol/L (21-32) Anion Gap 6 (6-14) Blood Urea Nitrogen 13 mg/dL (7-20) Creatinine 0.7 mg/dL (0.6-1.0) Estimated GFR (Cockcroft-Gault) 105.9 Glucose Level 218 mg/dL (70-99) Calcium Level 10.1 mg/dL (8.5-10.1) Magnesium Level 2.4 mg/dL (1.8-2.4) Test 05/25/18 16:56 05/25/18 18:00 05/25/18 18:20 05/25/18 19:04 Glucose (Fingerstick) 202 mg/dL (70-99) 188 mg/dL (70-99) 174 mg/dL (70-99) O2 Saturation 91 % (92-99) Arterial Blood pH 7.39 (7.35-7.45) Arterial Blood pCO2 at Patient Temp 40 mmHg (35-46) Arterial Blood pO2 at Patient Temp 66 mmHg (75-108) Arterial Blood HCO3 24 mmol/L (21-28) Arterial Blood Base Excess -1 mmol/L (-3-3) FiO2 40% Test 05/25/18 19:57 05/25/18 21:07 05/25/18 22:02 05/25/18 23:04 White Blood Count 8.5 x10^3/uL (4.0-11.0) Red Blood Count 3.70 x10^6/uL (3.50-5.40) Hemoglobin 10.3 g/dL (12.0-15.5) Hematocrit 30.5 % (36.0-47.0) Mean Corpuscular Volume 83 fL (79-100) Mean Corpuscular Hemoglobin 28 pg (25-35) Mean Corpuscular Hemoglobin Concent 34 g/dL (31-37) Red Cell Distribution Width 15.5 % (11.5-14.5) Platelet Count 145 x10^3/uL (140-400) Potassium Level 5.4 mmol/L (3.5-5.1) Glucose (Fingerstick) 165 mg/dL (70-99) 143 mg/dL (70-99) 125 mg/dL (70-99) 121 mg/dL (70-99) Test 05/26/18 00:02 05/26/18 01:12 05/26/18 02:20 05/26/18 03:14 Glucose (Fingerstick) 116 mg/dL (70-99) 113 mg/dL (70-99) 140 mg/dL (70-99) 138 mg/dL (70-99) Test 05/26/18 04:17 05/26/18 05:30 05/26/18 05:32 05/26/18 06:25 Glucose (Fingerstick) 135 mg/dL (70-99) 130 mg/dL (70-99) White Blood Count 9.3 x10^3/uL (4.0-11.0) Red Blood Count 3.64 x10^6/uL (3.50-5.40) Hemoglobin 10.3 g/dL (12.0-15.5) Hematocrit 30.3 % (36.0-47.0) Mean Corpuscular Volume 83 fL (79-100) Mean Corpuscular Hemoglobin 28 pg (25-35) Mean Corpuscular Hemoglobin Concent 34 g/dL (31-37) Red Cell Distribution Width 15.7 % (11.5-14.5) Platelet Count 166 x10^3/uL (140-400) Neutrophils (%) (Auto) 76 % (31-73) Lymphocytes (%) (Auto) 11 % (24-48) Monocytes (%) (Auto) 13 % (0-9) Eosinophils (%) (Auto) 0 % (0-3) Basophils (%) (Auto) 0 % (0-3) Neutrophils # (Auto) 7.1 x10^3uL (1.8-7.7) Lymphocytes # (Auto) 1.0 x10^3/uL (1.0-4.8) Monocytes # (Auto) 1.2 x10^3/uL (0.0-1.1) Eosinophils # (Auto) 0.0 x10^3/uL (0.0-0.7) Basophils # (Auto) 0.0 x10^3/uL (0.0-0.2) Sodium Level 135 mmol/L (136-145) Potassium Level 7.0 mmol/L (3.5-5.1) Chloride Level 104 mmol/L (98-107) Carbon Dioxide Level 20 mmol/L (21-32) Anion Gap 11 (6-14) Blood Urea Nitrogen 22 mg/dL (7-20) Creatinine 1.7 mg/dL (0.6-1.0) Estimated GFR (Cockcroft-Gault) 38.0 Glucose Level 143 mg/dL (70-99) Calcium Level 8.9 mg/dL (8.5-10.1) Magnesium Level 2.4 mg/dL (1.8-2.4) Test 05/26/18 06:40 05/26/18 09:05 05/26/18 09:10 05/26/18 09:55 Glucose (Fingerstick) 137 mg/dL (70-99) 173 mg/dL (70-99) White Blood Count 12.2 x10^3/uL (4.0-11.0) Red Blood Count 3.12 x10^6/uL (3.50-5.40) Hemoglobin 8.8 g/dL (12.0-15.5) Hematocrit 26.4 % (36.0-47.0) Mean Corpuscular Volume 85 fL (79-100) Mean Corpuscular Hemoglobin 28 pg (25-35) Mean Corpuscular Hemoglobin Concent 33 g/dL (31-37) Red Cell Distribution Width 15.9 % (11.5-14.5) Platelet Count 135 x10^3/uL (140-400) Prothrombin Time 28.6 SEC (11.7-14.0) Prothromb Time International Ratio 2.8 (0.8-1.1) Sodium Level 140 mmol/L (136-145) Potassium Level 7.3 mmol/L (3.5-5.1) Chloride Level 104 mmol/L (98-107) Carbon Dioxide Level 17 mmol/L (21-32) Anion Gap 19 (6-14) Blood Urea Nitrogen 25 mg/dL (7-20) Creatinine 2.3 mg/dL (0.6-1.0) Estimated GFR (Cockcroft-Gault) 26.8 Glucose Level 177 mg/dL (70-99) Lactic Acid Level 11.4 mmol/L (0.4-2.0) Calcium Level 10.3 mg/dL (8.5-10.1) Magnesium Level 2.6 mg/dL (1.8-2.4) Hepatitis B Surface Antigen Nonreactive (Nonreactive) Hepatitis B Surface Antibody Nonreactive O2 Saturation 89 % (92-99) Arterial Blood pH 7.20 (7.35-7.45) Arterial Blood pCO2 at Patient Temp 31 mmHg (35-46) Arterial Blood pO2 at Patient Temp 73 mmHg (75-108) Arterial Blood HCO3 12 mmol/L (21-28) Arterial Blood Base Excess -15 mmol/L (-3-3) FiO2 100 Test 05/26/18 10:45 05/26/18 11:25 05/26/18 12:07 05/26/18 13:01 Sodium Level 137 mmol/L (136-145) Potassium Level 8.6 mmol/L (3.5-5.1) Chloride Level 99 mmol/L (98-107) Carbon Dioxide Level 15 mmol/L (21-32) Anion Gap 23 (6-14) Blood Urea Nitrogen 27 mg/dL (7-20) Creatinine 2.7 mg/dL (0.6-1.0) Estimated GFR (Cockcroft-Gault) 22.3 Glucose Level 232 mg/dL (70-99) Calcium Level 9.0 mg/dL (8.5-10.1) O2 Saturation 90 % (92-99) Arterial Blood pH 7.15 (7.35-7.45) Arterial Blood pCO2 at Patient Temp 36 mmHg (35-46) Arterial Blood pO2 at Patient Temp 80 mmHg (75-108) Arterial Blood HCO3 12 mmol/L (21-28) Arterial Blood Base Excess -16 mmol/L (-3-3) FiO2 100 Glucose (Fingerstick) 152 mg/dL (70-99) 112 mg/dL (70-99) Test 05/26/18 14:08 05/26/18 15:15 05/26/18 17:30 05/26/18 18:00 Glucose (Fingerstick) 104 mg/dL (70-99) 79 mg/dL (70-99) O2 Saturation 89 % (92-99) Arterial Blood pH 7.38 (7.35-7.45) Arterial Blood pCO2 at Patient Temp 33 mmHg (35-46) Arterial Blood pO2 at Patient Temp 64 mmHg (75-108) Arterial Blood HCO3 19 mmol/L (21-28) Arterial Blood Base Excess -6 mmol/L (-3-3) FiO2 80 Potassium Level 4.4 mmol/L (3.5-5.1) Hemoglobin 8.5 g/dL (12.0-15.5) Hematocrit 25.4 % (36.0-47.0) Test 05/26/18 18:51 05/26/18 19:49 05/26/18 21:03 05/26/18 21:07 Glucose (Fingerstick) 102 mg/dL (70-99) 100 mg/dL (70-99) O2 Saturation 95 % (92-99) Arterial Blood pH 7.27 (7.35-7.45) Arterial Blood pCO2 at Patient Temp 33 mmHg (35-46) Arterial Blood pO2 at Patient Temp 101 mmHg (75-108) Arterial Blood HCO3 15 mmol/L (21-28) Arterial Blood Base Excess -11 mmol/L (-3-3) FiO2 80 Sodium Level 141 mmol/L (136-145) Potassium Level 4.9 mmol/L (3.5-5.1) Chloride Level 103 mmol/L (98-107) Carbon Dioxide Level 14 mmol/L (21-32) Anion Gap 24 (6-14) Blood Urea Nitrogen 22 mg/dL (7-20) Creatinine 2.1 mg/dL (0.6-1.0) Estimated GFR (Cockcroft-Gault) 29.8 Glucose Level 86 mg/dL (70-99) Calcium Level 7.9 mg/dL (8.5-10.1) Phosphorus Level 6.5 mg/dL (2.6-4.7) Magnesium Level 2.1 mg/dL (1.8-2.4) Creatine Kinase 1140 U/L (26-192) Test 05/26/18 22:00 05/27/18 01:10 05/27/18 04:58 05/27/18 06:00 O2 Saturation 92 % (92-99) 91 % (92-99) Arterial Blood pH 7.25 (7.35-7.45) 7.16 (7.35-7.45) Arterial Blood pCO2 at Patient Temp 30 mmHg (35-46) 29 mmHg (35-46) Arterial Blood pO2 at Patient Temp 83 mmHg (75-108) 88 mmHg (75-108) Arterial Blood HCO3 13 mmol/L (21-28) 10 mmol/L (21-28) Arterial Blood Base Excess -13 mmol/L (-3-3) -17 mmol/L (-3-3) FiO2 60 60 Sodium Level 142 mmol/L (136-145) 141 mmol/L (136-145) Potassium Level 4.7 mmol/L (3.5-5.1) 4.6 mmol/L (3.5-5.1) Chloride Level 103 mmol/L (98-107) 102 mmol/L (98-107) Carbon Dioxide Level 13 mmol/L (21-32) 10 mmol/L (21-32) Anion Gap 26 (6-14) 29 (6-14) Blood Urea Nitrogen 19 mg/dL (7-20) 17 mg/dL (7-20) Creatinine 1.9 mg/dL (0.6-1.0) 1.7 mg/dL (0.6-1.0) Estimated GFR (Cockcroft-Gault) 33.5 38.0 Glucose Level 84 mg/dL (70-99) 71 mg/dL (70-99) Calcium Level 7.5 mg/dL (8.5-10.1) 7.4 mg/dL (8.5-10.1) Phosphorus Level 6.0 mg/dL (2.6-4.7) 5.9 mg/dL (2.6-4.7) Magnesium Level 2.5 mg/dL (1.8-2.4) 2.4 mg/dL (1.8-2.4) White Blood Count 11.1 x10^3/uL (4.0-11.0) Red Blood Count 2.51 x10^6/uL (3.50-5.40) Hemoglobin 7.1 g/dL (12.0-15.5) Hematocrit 21.4 % (36.0-47.0) Mean Corpuscular Volume 85 fL (79-100) Mean Corpuscular Hemoglobin 28 pg (25-35) Mean Corpuscular Hemoglobin Concent 33 g/dL (31-37) Red Cell Distribution Width 15.4 % (11.5-14.5) Platelet Count 44 x10^3/uL (140-400) Neutrophils (%) (Auto) 71 % (31-73) Lymphocytes (%) (Auto) 22 % (24-48) Monocytes (%) (Auto) 7 % (0-9) Eosinophils (%) (Auto) 0 % (0-3) Basophils (%) (Auto) 1 % (0-3) Neutrophils # (Auto) 7.8 x10^3uL (1.8-7.7) Lymphocytes # (Auto) 2.4 x10^3/uL (1.0-4.8) Monocytes # (Auto) 0.8 x10^3/uL (0.0-1.1) Eosinophils # (Auto) 0.0 x10^3/uL (0.0-0.7) Basophils # (Auto) 0.1 x10^3/uL (0.0-0.2) Segmented Neutrophils % 41 % (35-66) Band Neutrophils % 21 % (0-9) Lymphocytes % 31 % (24-48) Atypical Lymphocytes % (Manual) 1 % (0-0) Monocytes % 5 % (0-10) Metamyelocytes % 1 % (0-0) Toxic Vacuolation Present Platelet Estimate Decreased (ADEQUATE) Spherocytes Present Test 05/27/18 06:10 05/27/18 08:30 05/27/18 08:38 05/27/18 10:25 Glucose (Fingerstick) 113 mg/dL (70-99) Sodium Level 145 mmol/L (136-145) 148 mmol/L (136-145) Potassium Level 4.6 mmol/L (3.5-5.1) 4.6 mmol/L (3.5-5.1) Chloride Level 103 mmol/L (98-107) 107 mmol/L (98-107) Carbon Dioxide Level 10 mmol/L (21-32) 12 mmol/L (21-32) Anion Gap 32 (6-14) 29 (6-14) Blood Urea Nitrogen 15 mg/dL (7-20) 14 mg/dL (7-20) Creatinine 1.7 mg/dL (0.6-1.0) 1.6 mg/dL (0.6-1.0) Estimated GFR (Cockcroft-Gault) 38.0 40.8 Glucose Level 58 mg/dL (70-99) 131 mg/dL (70-99) Calcium Level 7.3 mg/dL (8.5-10.1) 6.6 mg/dL (8.5-10.1) Phosphorus Level 6.1 mg/dL (2.6-4.7) 6.3 mg/dL (2.6-4.7) Magnesium Level 2.4 mg/dL (1.8-2.4) 2.3 mg/dL (1.8-2.4) O2 Saturation 86 % (92-99) Arterial Blood pH 7.13 (7.35-7.45) Arterial Blood pCO2 at Patient Temp 28 mmHg (35-46) Arterial Blood pO2 at Patient Temp 73 mmHg (75-108) Arterial Blood HCO3 9 mmol/L (21-28) Arterial Blood Base Excess -19 mmol/L (-3-3) FiO2 50 Aspartate Amino Transf (AST/SGOT) 65427 U/L (15-37) Alanine Aminotransferase (ALT/SGPT) 6433 U/L (14-59) Lactate Dehydrogenase 08011 U/L (81-234) Test 05/27/18 11:00 Hemoglobin 7.3 g/dL (12.0-15.5) Hematocrit 22.3 % (36.0-47.0) Platelet Count 15 x10^3/uL (140-400) Prothrombin Time 92.4 SEC (11.7-14.0) Prothromb Time International Ratio 12.2 (0.8-1.1) Activated Partial Thromboplast Time 67 SEC (24-38) Fibrinogen 107 mg/dL (200-440) D-Dimer (Emilia) 14.23 ug/mlFEU (0.00-0.50) Laboratory Tests Test 05/26/18 13:01 05/26/18 14:08 05/26/18 15:15 05/26/18 17:30 Glucose (Fingerstick) 112 mg/dL (70-99) 104 mg/dL (70-99) O2 Saturation 89 % (92-99) Arterial Blood pH 7.38 (7.35-7.45) Arterial Blood pCO2 at Patient Temp 33 mmHg (35-46) Arterial Blood pO2 at Patient Temp 64 mmHg (75-108) Arterial Blood HCO3 19 mmol/L (21-28) Arterial Blood Base Excess -6 mmol/L (-3-3) FiO2 80 Potassium Level 4.4 mmol/L (3.5-5.1) Hemoglobin 8.5 g/dL (12.0-15.5) Hematocrit 25.4 % (36.0-47.0) Test 05/26/18 18:00 05/26/18 18:51 05/26/18 19:49 05/26/18 21:03 Glucose (Fingerstick) 79 mg/dL (70-99) 102 mg/dL (70-99) O2 Saturation 95 % (92-99) Arterial Blood pH 7.27 (7.35-7.45) Arterial Blood pCO2 at Patient Temp 33 mmHg (35-46) Arterial Blood pO2 at Patient Temp 101 mmHg (75-108) Arterial Blood HCO3 15 mmol/L (21-28) Arterial Blood Base Excess -11 mmol/L (-3-3) FiO2 80 Sodium Level 141 mmol/L (136-145) Potassium Level 4.9 mmol/L (3.5-5.1) Chloride Level 103 mmol/L (98-107) Carbon Dioxide Level 14 mmol/L (21-32) Anion Gap 24 (6-14) Blood Urea Nitrogen 22 mg/dL (7-20) Creatinine 2.1 mg/dL (0.6-1.0) Estimated GFR (Cockcroft-Gault) 29.8 Glucose Level 86 mg/dL (70-99) Calcium Level 7.9 mg/dL (8.5-10.1) Phosphorus Level 6.5 mg/dL (2.6-4.7) Magnesium Level 2.1 mg/dL (1.8-2.4) Creatine Kinase 1140 U/L (26-192) Test 05/26/18 21:07 05/26/18 22:00 05/27/18 01:10 05/27/18 04:58 Glucose (Fingerstick) 100 mg/dL (70-99) O2 Saturation 92 % (92-99) Arterial Blood pH 7.25 (7.35-7.45) Arterial Blood pCO2 at Patient Temp 30 mmHg (35-46) Arterial Blood pO2 at Patient Temp 83 mmHg (75-108) Arterial Blood HCO3 13 mmol/L (21-28) Arterial Blood Base Excess -13 mmol/L (-3-3) FiO2 60 Sodium Level 142 mmol/L (136-145) 141 mmol/L (136-145) Potassium Level 4.7 mmol/L (3.5-5.1) 4.6 mmol/L (3.5-5.1) Chloride Level 103 mmol/L (98-107) 102 mmol/L (98-107) Carbon Dioxide Level 13 mmol/L (21-32) 10 mmol/L (21-32) Anion Gap 26 (6-14) 29 (6-14) Blood Urea Nitrogen 19 mg/dL (7-20) 17 mg/dL (7-20) Creatinine 1.9 mg/dL (0.6-1.0) 1.7 mg/dL (0.6-1.0) Estimated GFR (Cockcroft-Gault) 33.5 38.0 Glucose Level 84 mg/dL (70-99) 71 mg/dL (70-99) Calcium Level 7.5 mg/dL (8.5-10.1) 7.4 mg/dL (8.5-10.1) Phosphorus Level 6.0 mg/dL (2.6-4.7) 5.9 mg/dL (2.6-4.7) Magnesium Level 2.5 mg/dL (1.8-2.4) 2.4 mg/dL (1.8-2.4) White Blood Count 11.1 x10^3/uL (4.0-11.0) Red Blood Count 2.51 x10^6/uL (3.50-5.40) Hemoglobin 7.1 g/dL (12.0-15.5) Hematocrit 21.4 % (36.0-47.0) Mean Corpuscular Volume 85 fL (79-100) Mean Corpuscular Hemoglobin 28 pg (25-35) Mean Corpuscular Hemoglobin Concent 33 g/dL (31-37) Red Cell Distribution Width 15.4 % (11.5-14.5) Platelet Count 44 x10^3/uL (140-400) Neutrophils (%) (Auto) 71 % (31-73) Lymphocytes (%) (Auto) 22 % (24-48) Monocytes (%) (Auto) 7 % (0-9) Eosinophils (%) (Auto) 0 % (0-3) Basophils (%) (Auto) 1 % (0-3) Neutrophils # (Auto) 7.8 x10^3uL (1.8-7.7) Lymphocytes # (Auto) 2.4 x10^3/uL (1.0-4.8) Monocytes # (Auto) 0.8 x10^3/uL (0.0-1.1) Eosinophils # (Auto) 0.0 x10^3/uL (0.0-0.7) Basophils # (Auto) 0.1 x10^3/uL (0.0-0.2) Segmented Neutrophils % 41 % (35-66) Band Neutrophils % 21 % (0-9) Lymphocytes % 31 % (24-48) Atypical Lymphocytes % (Manual) 1 % (0-0) Monocytes % 5 % (0-10) Metamyelocytes % 1 % (0-0) Toxic Vacuolation Present Platelet Estimate Decreased (ADEQUATE) Spherocytes Present Test 05/27/18 06:00 05/27/18 06:10 05/27/18 08:30 05/27/18 08:38 O2 Saturation 91 % (92-99) 86 % (92-99) Arterial Blood pH 7.16 (7.35-7.45) 7.13 (7.35-7.45) Arterial Blood pCO2 at Patient Temp 29 mmHg (35-46) 28 mmHg (35-46) Arterial Blood pO2 at Patient Temp 88 mmHg (75-108) 73 mmHg (75-108) Arterial Blood HCO3 10 mmol/L (21-28) 9 mmol/L (21-28) Arterial Blood Base Excess -17 mmol/L (-3-3) -19 mmol/L (-3-3) FiO2 60 50 Glucose (Fingerstick) 113 mg/dL (70-99) Sodium Level 145 mmol/L (136-145) Potassium Level 4.6 mmol/L (3.5-5.1) Chloride Level 103 mmol/L (98-107) Carbon Dioxide Level 10 mmol/L (21-32) Anion Gap 32 (6-14) Blood Urea Nitrogen 15 mg/dL (7-20) Creatinine 1.7 mg/dL (0.6-1.0) Estimated GFR (Cockcroft-Gault) 38.0 Glucose Level 58 mg/dL (70-99) Calcium Level 7.3 mg/dL (8.5-10.1) Phosphorus Level 6.1 mg/dL (2.6-4.7) Magnesium Level 2.4 mg/dL (1.8-2.4) Test 05/27/18 10:25 05/27/18 11:00 Sodium Level 148 mmol/L (136-145) Potassium Level 4.6 mmol/L (3.5-5.1) Chloride Level 107 mmol/L (98-107) Carbon Dioxide Level 12 mmol/L (21-32) Anion Gap 29 (6-14) Blood Urea Nitrogen 14 mg/dL (7-20) Creatinine 1.6 mg/dL (0.6-1.0) Estimated GFR (Cockcroft-Gault) 40.8 Glucose Level 131 mg/dL (70-99) Calcium Level 6.6 mg/dL (8.5-10.1) Phosphorus Level 6.3 mg/dL (2.6-4.7) Magnesium Level 2.3 mg/dL (1.8-2.4) Aspartate Amino Transf (AST/SGOT) 48704 U/L (15-37) Alanine Aminotransferase (ALT/SGPT) 6433 U/L (14-59) Lactate Dehydrogenase 39198 U/L (81-234) Hemoglobin 7.3 g/dL (12.0-15.5) Hematocrit 22.3 % (36.0-47.0) Platelet Count 15 x10^3/uL (140-400) Prothrombin Time 92.4 SEC (11.7-14.0) Prothromb Time International Ratio 12.2 (0.8-1.1) Activated Partial Thromboplast Time 67 SEC (24-38) Fibrinogen 107 mg/dL (200-440) D-Dimer (Emilia) 14.23 ug/mlFEU (0.00-0.50) Medications Current Medications Labetalol HCl (Normodyne Iv Push) 20 mg 1X ONCE IVP Last administered on 05/21at 00:26; Start 05/21/18 at 00:30; Stop 05/21/18 at 00:31; Status DC Nitroglycerin (Nitro-Bid Oint) 1 inch 1X ONCE TP Last administered on at 00:27; Start 05/21/18 at 00:30; Stop 05/21/18 at 00:31; Status DC Aspirin (Children'S Aspirin) 324 mg 1X ONCE PO Last administered on at 00:26; Start 05/21/18 at 00:30; Stop 05/21/18 at 00:31; Status DC Nitroglycerin/ Dextrose 250 ml @ 0 mls/hr 1X ONCE IV Last administered on at 01:17; Start 05/21/18 at 01:15; Stop 05/21/18 at 01:16; Status DC Heparin Sodium (Porcine) (Heparin Sodium) 4,000 unit 1X ONCE IV Last administered on 05/21/18at 02:56; Start 05/21/18 at 01:15; Stop 05/21/18 at 01 :16; Status DC Heparin Sodium/ Dextrose 500 ml @ 0 mls/hr CONT PRN IV SEE I/O RECORD Last administered on 05/21/18at 01:21; Start 05/21/18 at 01:00; Stop 05/25/18 at 15 :21; Status DC Heparin Sodium (Porcine) (Heparin Sodium) 2,500 unit PRN Q6HRS PRN IV FOR UFH LEVEL LESS THAN 0.2 Last administered on 05/21/18at 12:32; Start 05/21/18 at 01 :00; Stop 05/25/18 at 15:21; Status DC Furosemide (Lasix) 40 mg 1X ONCE IVP Last administered on 05/21/18at 01:23; Start 05/21/18 at 01:30; Stop 05/21/18 at 01:31; Status DC Info (Anti-Coagulation Monitoring By Pharmacy) 1 each PRN DAILY PRN MC SEE COMMENTS Last administered on 05/21/18at 02:26; Start 05/21/18 at 01:15; Stop 05/23/18 at 14:55; Status DC Sodium Chloride 1,000 ml @ 100 mls/hr Q10H IV ; Start 05/21/18 at 01:30; Stop 05/21/18 at 17:47; Status DC Nicardipine HCl 50 mg/Sodium Chloride 270 ml @ 27 mls/hr CONT PRN IV SEE I/O RECORD Last administered on 05/26/18at 06:13; Start 05/21/18 at 03:30; Stop at 18:21; Status DC Furosemide (Lasix) 40 mg 1X ONCE IVP Last administered on 05/21/18at 09:24; Start 05/21/18 at 09:15; Stop 05/21/18 at 09:16; Status DC Amlodipine Besylate (Norvasc) 10 mg DAILY PO Last administered on 05/24/18at 08 :41; Start 05/21/18 at 14:00 Atorvastatin Calcium (Lipitor) 40 mg QHS PO Last administered on 05/26/18at 21: 14; Start 05/21/18 at 21:00 Carvedilol (Coreg) 25 mg BIDWMEALS PO Last administered on 05/24/18at 17:28; Start 05/21/18 at 17:00 Isosorbide Mononitrate (Imdur) 30 mg DAILY PO Last administered on 05/24/18at 08:42; Start 05/21/18 at 14:00 Labetalol HCl (Normodyne Iv Push) 20 mg PRN Q2HR PRN IVP HYPERTENSION, SEE COMMENTS; Start 05/21/18 at 13:15 Iodixanol (Visipaque 320) 100 ml STK-MED ONCE .ROUTE ; Start 05/21/18 at 14:25 ; Stop 05/21/18 at 14:26; Status DC Lidocaine HCl (Lidocaine 1% 50ml Vial) 50 ml STK-MED ONCE .ROUTE ; Start at 14:25; Stop 05/21/18 at 14:26; Status DC Heparin Sodium/ Sodium Chloride 500 ml @ As Directed STK-MED ONCE .ROUTE ; Start 05/21/18 at 14:25; Stop 05/21/18 at 14:26; Status DC Fentanyl Citrate (Fentanyl 2ml Vial) 100 mcg STK-MED ONCE .ROUTE ; Start at 15:09; Stop 05/21/18 at 15:10; Status DC Midazolam HCl (Versed) 5 mg STK-MED ONCE .ROUTE ; Start 05/21/18 at 15:09; Stop 05/21/18 at 15:10; Status DC Heparin Sodium/ Sodium Chloride 500 ml @ As Directed STK-MED ONCE .ROUTE ; Start 05/21/18 at 15:13; Stop 05/21/18 at 15:14; Status DC Heparin Sodium/ Sodium Chloride (HEPARIN for ARTERIAL LINE FLUSH) 1,000 unit 1X ONCE IART Last administered on 05/21/18at 15:30; Start 05/21/18 at 15:30; Stop 05/21/18 at 15:31; Status DC Heparin Sodium/ Sodium Chloride (HEPARIN for ARTERIAL LINE FLUSH) 1,000 unit 1X ONCE IART Last administered on 05/21/18at 15:30; Start 05/21/18 at 15:30; Stop 05/21/18 at 15:31; Status DC Midazolam HCl (Versed) 5 mg 1X ONCE IV Last administered on 05/21/18at 15:30; Start 05/21/18 at 15:30; Stop 05/21/18 at 15:31; Status DC Iodixanol (Visipaque 320) 100 ml 1X ONCE IART Last administered on 05/21/18at 15:30; Start 05/21/18 at 15:30; Stop 05/21/18 at 15:31; Status DC Lidocaine HCl (Lidocaine 1% 50ml Vial) 50 ml 1X ONCE INJ Last administered on 05/21/18at 15:30; Start 05/21/18 at 15:30; Stop 05/21/18 at 15:31; Status DC Info (CONTRAST GIVEN -- Rx MONITORING) 1 each PRN DAILY PRN MC SEE COMMENTS; Start 05/21/18 at 15:30; Stop 05/23/18 at 15:29; Status DC Heparin Sodium (Porcine) (Heparin Sodium) 10,000 unit STK-MED ONCE .ROUTE ; Start 05/21/18 at 15:30; Stop 05/21/18 at 15:31; Status DC Fentanyl Citrate (Fentanyl 2ml Vial) 100 mcg 1X ONCE IV Last administered on 05/21/18at 16:00; Start 05/21/18 at 16:00; Stop 05/21/18 at 16:01; Status DC Cefazolin Sodium/ Dextrose 50 ml @ 100 mls/hr 1X PREOP PRN IV PEROP DOSE/ PRIOR TO PROCEDURE; Start 05/22/18 at 06:00; Stop 05/22/18 at 18:00; Status DC Sodium Chloride (Normal Saline Flush) 3 ml QSHIFT PRN IV AFTER MEDS AND BLOOD DRAWS; Start 05/21/18 at 17:15 Sodium Chloride 1,000 ml @ 60 mls/hr [id number] IV Last administered on at 21:58; Start 05/21/18 at 17:01; Stop 05/22/18 at 01:00; Status DC Nitroglycerin (Nitrostat) 0.4 mg PRN Q5MIN PRN SL CHEST PAIN; Start 05/21/18 at 17:15 Insulin Human Lispro (HumaLOG) 0-9 UNITS [id number] SQ Last administered on at 21:18; Start 05/21/18 at 22:00; Stop 05/25/18 at 16:30; Status DC Dextrose (Dextrose 50%-Water Syringe) 12.5 gm PRN Q15MIN PRN IV SEE COMMENTS Last administered on 05/27/18at 09:16; Start 05/21/18 at 21:00 Cyclobenzaprine HCl (Flexeril) 10 mg PRN Q6HRS PRN PO MUSCLE SPASMS Last administered on 05/24/18at 17:28; Start 05/21/18 at 21:00; Stop 05/26/18 at 18 :21; Status DC Ondansetron HCl (Zofran) 4 mg PRN Q6HRS PRN IV NAUSEA/VOMITING Last administered on 05/26/18at 02:37; Start 05/23/18 at 08:00 Acetaminophen (Tylenol) 650 mg PRN Q6HRS PRN PO MILD PAIN / TEMP Last administered on 05/26/18at 01:59; Start 05/23/18 at 20:45 Potassium Chloride 70 meq/ Sodium Bicarbonate 12.5 meq/Lidocaine HCl 24 ml/ Parenteral Electrolytes 571.5 ml @ 571.5 mls/ hr 1X ONCE IRR Last administered on 05/25/18at 10:38; Start 05/25/18 at 06:00; Stop 05/25/18 at 06 :59; Status DC Potassium Chloride 15 meq/ Sodium Bicarbonate 12.5 meq/Parenteral Electrolytes 520 ml @ 520 mls/hr 1X ONCE IRR Last administered on 05/25/18at 10:38; Start 05/25/18 at 06:00; Stop 05/25/18 at 06:59; Status DC Heparin Sodium (Porcine) 37043 unit/Ringer's Solution 1,020 ml @ 1,020 mls/hr 1X ONCE IRR Last administered on 05/25/18at 08:49; Start 05/25/18 at 06:00; Stop 05/25/18 at 06:59; Status DC Cefazolin Sodium 1 gm/Sodium Chloride 500 ml @ 500 mls/hr 1X ONCE IRR Last administered on 05/25/18at 08:49; Start 05/25/18 at 06:00; Stop 05/25/18 at 06 :59; Status DC Ondansetron HCl (Zofran) 4 mg PRN Q6HRS PRN IV NAUSEA/VOMITING; Start at 07:00; Stop 05/26/18 at 06:59; Status DC Fentanyl Citrate (Fentanyl 2ml Vial) 25 mcg PRN Q5MIN PRN IV MILD PAIN; Start 05/25/18 at 07:00; Stop 05/26/18 at 06:59; Status DC Fentanyl Citrate (Fentanyl 2ml Vial) 50 mcg PRN Q5MIN PRN IV MODERATE TO SEVERE PAIN; Start 05/25/18 at 07:00; Stop 05/26/18 at 06:59; Status DC Morphine Sulfate (Morphine Sulfate) 1 mg PRN Q10MIN PRN IV SEVERE PAIN; Start 05/25/18 at 07:00; Stop 05/26/18 at 06:59; Status DC Ringer's Solution 1,000 ml @ 30 mls/hr Q24H IV Last administered on at 07:41; Start 05/25/18 at 07:00; Stop 05/25/18 at 17:08; Status DC Lidocaine HCl (Xylocaine-Mpf 1% 2ml Vial) 2 ml PRN 1X PRN ID IV START Last administered on 05/25/18at 07:20; Start 05/25/18 at 07:00; Stop 05/26/18 at 06 :59; Status DC Hydromorphone HCl (Dilaudid) 0.5 mg PRN Q10MIN PRN IV SEV PAIN, Second choice; Start 05/25/18 at 07:00; Stop 05/26/18 at 06:59; Status DC Prochlorperazine Edisylate (Compazine) 5 mg PACU PRN PRN IV NAUSEA, MRX1; Start 05/25/18 at 07:00; Stop 05/26/18 at 06:59; Status DC Rocuronium [place] (Zemuron) 100 mg STK-MED ONCE .ROUTE ; Start 05/25/18 at 02: 49; Stop 05/25/18 at 02:50; Status DC Sufentanil Citrate (Sufenta) 100 mcg STK-MED ONCE .ROUTE ; Start 05/25/18 at 02 :49; Stop 05/25/18 at 02:50; Status DC Fentanyl Citrate (Fentanyl 2ml Vial) 100 mcg STK-MED ONCE .ROUTE ; Start at 02:49; Stop 05/25/18 at 02:50; Status DC Midazolam HCl (Versed) 2 mg STK-MED ONCE .ROUTE ; Start 05/25/18 at 02:49; Stop 05/25/18 at 02:50; Status DC Ephedrine Sulfate (ePHEDrine PF IN SALINE SYRINGE) 50 mg STK-MED ONCE IV ; Start 05/25/18 at 02:54; Stop 05/25/18 at 02:55; Status DC Nitroglycerin/ Dextrose 250 ml @ As Directed STK-MED ONCE IV ; Start 05/25/18 at 02:54; Stop 05/25/18 at 02:55; Status DC Aminocaproic Acid (Amicar) 5,000 mg STK-MED ONCE IV ; Start 05/25/18 at 02:55; Stop 05/25/18 at 02:56; Status DC Heparin Sodium (Porcine) (Heparin Sodium) 10,000 unit STK-MED ONCE .ROUTE ; Start 05/25/18 at 02:55; Stop 05/25/18 at 02:56; Status DC Heparin Sodium (Porcine) 30,000 unit STK-MED ONCE .ROUTE ; Start 05/25/18 at 02 :55; Stop 05/25/18 at 02:56; Status DC Phenylephrine HCl (Bryan-Synephrine Inj) 10 mg STK-MED ONCE .ROUTE ; Start at 02:55; Stop 05/25/18 at 02:56; Status DC Phenylephrine HCl (Bryan-Synephrine Inj) 10 mg STK-MED ONCE .ROUTE ; Start at 02:55; Stop 05/25/18 at 02:56; Status DC Phenylephrine HCl (Bryan-Synephrine Inj) 10 mg STK-MED ONCE .ROUTE ; Start at 02:55; Stop 05/25/18 at 02:56; Status DC Aminocaproic Acid (Amicar) 5,000 mg STK-MED ONCE IV ; Start 05/25/18 at 02:55; Stop 05/25/18 at 02:56; Status DC Aminocaproic Acid (Amicar) 5,000 mg STK-MED ONCE IV ; Start 05/25/18 at 02:55; Stop 05/25/18 at 02:56; Status DC Isoflurane (Isoflurane) 90 ml STK-MED ONCE IH ; Start 05/25/18 at 02:55; Stop 05/25/18 at 02:56; Status DC Etomidate (Amidate) 20 mg STK-MED ONCE IV ; Start 05/25/18 at 03:01; Stop at 03:02; Status DC Insulin Human Regular 150 unit/ Sodium Chloride 151.5 ml @ 1 mls/hr CONT PRN IV SEE I/O RECORD Last administered on 05/25/18at 15:02; Start 05/25/18 at 03: 15 Vancomycin HCl (VANCO for OR ONLY) 10 gm STK-MED ONCE .ROUTE Last administered on 05/25/18at 08:49; Start 05/25/18 at 04:18; Stop 05/25/18 at 05:18; Status DC Cellulose (Surgicel Hemostat 4x8) 1 each STK-MED ONCE .ROUTE Last administered on 05/25/18at 08:49; Start 05/25/18 at 04:18; Stop 05/25/18 at 05:19; Status DC Papaverine HCl 60 mg STK-MED ONCE .ROUTE Last administered on 05/25/18at 08:49 ; Start 05/25/18 at 04:18; Stop 05/25/18 at 05:19; Status DC Aspirin (Aspirin) 300 mg STK-MED ONCE .ROUTE Last administered on 05/25/18at 13 :51; Start 05/25/18 at 04:18; Stop 05/25/18 at 05:19; Status DC Sodium Chloride (SODIUM CHLORIDE 20ml) 20 ml STK-MED ONCE IJ Last administered on 05/25/18at 08:49; Start 05/25/18 at 04:19; Stop 05/25/18 at 05:19; Status DC Sodium Chloride (SODIUM CHLORIDE 20ml) 20 ml STK-MED ONCE IJ Last administered on 05/25/18at 08:49; Start 05/25/18 at 04:19; Stop 05/25/18 at 05:20; Status DC Sodium Chloride (SODIUM CHLORIDE 20ml) 20 ml STK-MED ONCE IJ Last administered on 05/25/18at 08:49; Start 05/25/18 at 04:19; Stop 05/25/18 at 05:20; Status DC Cefazolin Sodium/ Dextrose 50 ml @ As Directed STK-MED ONCE IV ; Start at 06:58; Stop 05/25/18 at 06:59; Status DC Lidocaine HCl (Xylocaine-Mpf 2% Vial) 2 ml STK-MED ONCE .ROUTE ; Start at 06:58; Stop 05/25/18 at 06:59; Status DC Insulin Human Lispro (HumaLOG VIAL) 5 unit 1X ONCE SQ ; Start 05/25/18 at 07: 45; Stop 05/25/18 at 07:54; Status DC Cefazolin Sodium/ Dextrose 50 ml @ 100 mls/hr 1X ONCE IV Last administered on 05/25/18at 08:31; Start 05/25/18 at 07:45; Stop 05/25/18 at 08:14; Status DC Midazolam HCl (Versed) 5 mg STK-MED ONCE .ROUTE ; Start 05/25/18 at 07:48; Stop 05/25/18 at 07:49; Status DC Sufentanil Citrate (Sufenta) 100 mcg STK-MED ONCE .ROUTE ; Start 05/25/18 at 08 :44; Stop 05/25/18 at 08:45; Status DC Rocuronium [place] (Zemuron) 100 mg STK-MED ONCE .ROUTE ; Start 05/25/18 at 08: 57; Stop 05/25/18 at 08:58; Status DC Cefazolin Sodium/ Dextrose 50 ml @ 100 mls/hr 1X ONCE IV Last administered on 05/25/18at 12:45; Start 05/25/18 at 12:45; Stop 05/25/18 at 13:14; Status DC Rocuronium [place] (Zemuron) 50 mg STK-MED ONCE .ROUTE ; Start 05/25/18 at 12: 48; Stop 05/25/18 at 12:49; Status DC Heparin Sodium (Porcine) (Heparin Sodium) 10,000 unit STK-MED ONCE .ROUTE ; Start 05/25/18 at 12:52; Stop 05/25/18 at 12:53; Status DC Lidocaine HCl (Lidocaine Pf 2% Vial) 5 ml STK-MED ONCE .ROUTE ; Start 05/25/18 at 12:52; Stop 05/25/18 at 12:53; Status DC Magnesium Sulfate 5 gm STK-MED ONCE .ROUTE ; Start 05/25/18 at 12:52; Stop at 12:53; Status DC Heparin Sodium (Porcine) 30,000 unit STK-MED ONCE .ROUTE ; Start 05/25/18 at 12 :52; Stop 05/25/18 at 12:53; Status DC Mannitol (Mannitol) 12.5 g STK-MED ONCE .ROUTE ; Start 05/25/18 at 12:52; Stop 05/25/18 at 12:53; Status DC Albumin Human 200 ml @ As Directed STK-MED ONCE IV ; Start 05/25/18 at 12:52; Stop 05/25/18 at 12:53; Status DC Calcium Chloride (Calcium Chloride) 1,000 mg STK-MED ONCE .ROUTE ; Start at 12:52; Stop 05/25/18 at 12:53; Status DC Sodium Bicarbonate (Sodium Bicarb Adult 8.4% Syr) 50 meq STK-MED ONCE .ROUTE ; Start 05/25/18 at 12:52; Stop 05/25/18 at 12:53; Status DC Protamine Sulfate (Protamine) 250 mg STK-MED ONCE IV ; Start 05/25/18 at 13:36 ; Stop 05/25/18 at 13:37; Status DC Protamine Sulfate (Protamine) 250 mg STK-MED ONCE IV ; Start 05/25/18 at 13:36 ; Stop 05/25/18 at 13:37; Status DC Albumin Human 250 ml @ 60 mls/hr PRN Q4HRS PRN IV SEE I/O RECORD Last administered on 05/25/18at 21:15; Start 05/25/18 at 14:00; Stop 05/26/18 at 13 :45; Status DC Insulin Human Regular 150 unit/ Sodium Chloride 151.5 ml @ 0 mls/hr CONT PRN PRN IV SEE I/O RECORD; Start 05/25/18 at 14:00; Status UNV Dextrose (Dextrose 50%-Water Syringe) 25 gm PRN Q15MIN PRN IV LOW BLOOD SUGAR; Start 05/25/18 at 14:00; Status UNV Nitroglycerin/ Dextrose 250 ml @ 0 mls/hr CONT PRN PRN IV SEE I/O RECORD; Start 05/25/18 at 14:00; Stop 05/26/18 at 18:21; Status DC Phenylephrine HCl 20 mg/Sodium Chloride 252 ml @ 0 mls/hr CONT PRN PRN IV HYPOTENSION; Start 05/25/18 at 14:00 Epinephrine HCl 4 mg/Sodium Chloride 254 ml @ 0 mls/hr CONT PRN PRN IV POST CV SURGERY Last administered on 05/27/18at 12:42; Start 05/25/18 at 14:00 Amiodarone HCl 150 mg/Dextrose 103 ml @ 200 mls/hr 1X PRN PRN IV VT Last administered on 05/25/18at 14:55; Start 05/25/18 at 14:00 Amiodarone HCl 900 mg/Dextrose 518 ml @ 33.33 mls/ hr CONT PRN PRN IV SEE COMMENTS Last administered on 05/25/18at 14:55; Start 05/25/18 at 14:00; Stop 05/26/18 at 18:21; Status DC Info (KCl Per Protocol) 1 ea CONT PRN PRN MC SEE COMMENTS; Start 05/25/18 at 14:00 Magnesium Sulfate/ Dextrose 100 ml @ 100 mls/hr PRN DAILY PRN IV FOR MAG < 2.2 ; Start 05/25/18 at 14:00 Famotidine (Pepcid Vial) 20 mg BID IVP Last administered on 05/27/18at 09:39; Start 05/25/18 at 21:00 Ondansetron HCl (Zofran) 4 mg PRN Q4HRS PRN IV NAUSEA/VOMITING; Start at 14:00; Status UNV Morphine Sulfate (Morphine Sulfate) 2 mg PRN Q1HR PRN IV PAIN Last administered on 05/26/18at 19:35; Start 05/25/18 at 14:00 Acetaminophen (Tylenol) 650 mg PRN Q4HRS PRN PO MILD PAIN / TEMP; Start at 14:00; Status UNV Meperidine HCl (Demerol) 12.5 mg PRN Q15MIN PRN IV SHIVERING; Start 05/25/18 at 14:00; Stop 05/26/18 at 13:46; Status DC Propofol 100 ml @ 0 mls/hr CONT PRN PRN IV POSTOP SEDATION UNTIL EXTUBATE Last administered on 05/26/18at 19:36; Start 05/25/18 at 14:00 Senna/Docusate Sodium (Senna Plus) 1 tab BID PO Last administered on at 21:14; Start 05/25/18 at 21:00 Chlorhexidine Gluconate (Peridex) 15 ml BID MM Last administered on 05/26/18at 21:14; Start 05/25/18 at 21:00 Aspirin (Ecotrin) 325 mg DAILYWBKFT PO Last administered on 05/27/18at 08:00; Start 05/26/18 at 08:00 Aspirin (Aspirin) 300 mg PRN DAILY PRN GA IF UNABLE TO TAKE PO; Start at 14:00 Albuterol Sulfate (Ventolin Neb Soln) 2.5 mg PRN Q4HRS PRN NEB SHORTNESS OF BREATH; Start 05/25/18 at 14:00 Nicardipine HCl 50 mg/Sodium Chloride 270 ml @ 0 mls/hr CONT PRN PRN IV PER PROTOCOL; Start 05/25/18 at 14:00; Status UNV Cefazolin Sodium/ Dextrose 50 ml @ 100 mls/hr Q8H IV Last administered on at 21:14; Start 05/25/18 at 16:00; Stop 05/27/18 at 02:55; Status DC Oxycodone HCl (Roxicodone) 10 mg PRN Q6HRS PRN PO MODERATE-SEVERE PAIN Last administered on 05/26/18at 17:03; Start 05/25/18 at 14:00 Sodium Bicarbonate (Sodium Bicarb Adult 8.4% Syr) 50 meq 1X ONCE IV Last administered on 05/25/18at 15:18; Start 05/25/18 at 15:15; Stop 05/25/18 at 15 :16; Status DC Potassium Chloride/Water 50 ml @ 50 mls/hr 1X ONCE IV Last administered on at 16:33; Start 05/25/18 at 16:30; Stop 05/25/18 at 17:29; Status DC Ringer's Solution 1,000 ml @ 30 mls/hr Q24H IV Last administered on at 17:17; Start 05/25/18 at 17:15; Stop 05/26/18 at 18:21; Status DC Ketorolac Tromethamine (Toradol 15mg Vial) 15 mg PRN Q6HRS PRN IV PAIN; Start 05/25/18 at 18:00; Stop 05/26/18 at 20:10; Status DC Albumin Human 250 ml @ 62.5 mls/hr 1X ONCE IV Last administered on at 02:13; Start 05/26/18 at 02:30; Stop 05/26/18 at 06:29; Status DC Furosemide (Lasix) 20 mg 1X ONCE IVP Last administered on 05/26/18at 06:14; Start 05/26/18 at 06:00; Stop 05/26/18 at 06:01; Status DC Sodium Chloride 1,000 ml @ 60 mls/hr [id number] IV Last administered on at 08:20; Start 05/26/18 at 07:00; Stop 05/26/18 at 22:52; Status DC Insulin Human Regular (HumuLIN R VIAL) 10 unit 1X ONCE IV Last administered on 05/26/18at 07:30; Start 05/26/18 at 07:30; Stop 05/26/18 at 07:31; Status DC Dextrose (Dextrose 50%-Water Syringe) 25 gm 1X ONCE IV Last administered on at 08:17; Start 05/26/18 at 07:00; Stop 05/26/18 at 07:11; Status DC Midazolam HCl (Versed) 5 mg STK-MED ONCE .ROUTE ; Start 05/26/18 at 09:21; Stop 05/26/18 at 09:22; Status DC Epinephrine HCl 4 mg/Sodium Chloride 254 ml @ 385.92 mls/ hr CONT PRN IV SEE I /O RECORD; Start 05/26/18 at 09:45; Status UNV Albuterol Sulfate (Ventolin Neb Soln) 2.5 mg 1X ONCE NEB Last administered on 05/26/18at 16:14; Start 05/26/18 at 09:45; Stop 05/26/18 at 09:46; Status DC Sodium Polystyrene Sulfonate (Kayexalate) 30 gm 1X ONCE PO ; Start 05/26/18 at 09:45; Stop 05/26/18 at 09:48; Status DC Sodium Polystyrene Sulfonate (Kayexalate) 30 gm 1X ONCE RC ; Start 05/26/18 at 10:00; Stop 05/26/18 at 10:01; Status DC Sodium Bicarbonate (Sodium Bicarb Adult 8.4% Syr) 100 meq 1X ONCE IV Last administered on 05/26/18at 10:52; Start 05/26/18 at 10:15; Stop 05/26/18 at 10 :16; Status DC Dopamine HCl/ Dextrose 250 ml @ As Directed STK-MED ONCE IV ; Start 05/26/18 at 10:29; Stop 05/26/18 at 10:30; Status DC Lidocaine/Sodium Bicarbonate (Buffered Lidocaine 1%) 3 ml STK-MED ONCE .ROUTE ; Start 05/26/18 at 10:41; Stop 05/26/18 at 10:42; Status DC Heparin Sodium (Porcine) (Heparin Sodium) 10,000 unit STK-MED ONCE .ROUTE ; Start 05/26/18 at 10:42; Stop 05/26/18 at 10:43; Status DC Lidocaine/Sodium Bicarbonate (Buffered Lidocaine 1%) 6 ml 1X ONCE INJ Last administered on 05/26/18at 11:00; Start 05/26/18 at 11:00; Stop 05/26/18 at 11 :01; Status DC Heparin Sodium (Porcine) (Heparin Sodium) 2,500 unit 1X ONCE INT CAT Last administered on 05/26/18at 11:30; Start 05/26/18 at 11:00; Stop 05/26/18 at 11 :01; Status DC Atropine Sulfate (ATROPINE 1mg SYRINGE) 2 mg 1X ONCE IM ; Start 05/26/18 at 11 :30; Stop 05/26/18 at 18:21; Status DC Calcium Chloride (Calcium Chloride) 1,000 mg 1X ONCE IV Last administered on 05/26/18at 11:30; Start 05/26/18 at 11:30; Stop 05/26/18 at 11:31; Status DC Sodium Chloride 1,000 ml @ 1,000 mls/hr Q1H PRN IV hypotension; Start at 11:28; Stop 05/26/18 at 17:27; Status DC Albumin Human 200 ml @ 200 mls/hr 1X PRN PRN IV Hypotension; Start 05/26/18 at 11:30; Stop 05/26/18 at 17:29; Status DC Sodium Chloride 1,000 ml @ 400 mls/hr Q2H30M PRN IV PATENCY; Start 05/26/18 at 11:28; Stop 05/26/18 at 18:21; Status DC Info (PHARMACY MONITORING -- do not chart) 1 each PRN DAILY PRN MC SEE COMMENTS ; Start 05/26/18 at 11:30 Info (PHARMACY MONITORING -- do not chart) 1 each PRN DAILY PRN MC SEE COMMENTS ; Start 05/26/18 at 11:30; Status UNV Sodium Bicarbonate (Sodium Bicarb Adult 8.4% Syr) 50 meq 1X ONCE IV Last administered on 05/26/18at 11:53; Start 05/26/18 at 11:45; Stop 05/26/18 at 11 :46; Status DC Dopamine HCl/ Dextrose 250 ml @ 7.792 mls/ hr CONT PRN IV SEE I/O RECORD Last administered on 05/26/18at 21:15; Start 05/26/18 at 14:30 Potassium Chloride 15 meq/ Bicarbonate Dialysis Soln w/ out KCl 5,007.5 ml @ 1, 000 mls/ hr Q5H1M IV Last administered on 05/27/18at 09:12; Start 05/26/18 at 17:00; Stop 05/27/18 at 09:43; Status DC Potassium Chloride 15 meq/ Bicarbonate Dialysis Soln w/ out KCl 5,007.5 ml @ 1, 500 mls/ hr Q3H21M IV Last administered on 05/27/18at 09:08; Start 05/26/18 at 17:00; Stop 05/27/18 at 09:46; Status DC Potassium Chloride 15 meq/ Bicarbonate Dialysis Soln w/ out KCl 5,007.5 ml @ 1, 500 mls/ hr Q3H21M IV Last administered on 05/27/18at 09:04; Start 05/26/18 at 17:00; Stop 05/27/18 at 09:47; Status DC Norepinephrine Bitartrate 250 ml @ As Directed STK-MED ONCE IV ; Start at 18:25; Stop 05/26/18 at 18:26; Status DC Piperacillin Sod/ Tazobactam Sod (Zosyn Per Pharmacy) 1 each PRN DAILY PRN MC SEE COMMENTS; Start 05/26/18 at 19:45 Vancomycin HCl (Vanco Per Pharmacy) 1 each PRN DAILY PRN MC SEE COMMENTS Last administered on 05/26/18at 21:05; Start 05/26/18 at 19:45 Piperacillin Sod/ Tazobactam Sod 4.5 gm/Sodium Chloride 100 ml @ 200 mls/hr Q8HRS IV Last administered on 05/27/18at 05:34; Start 05/26/18 at 20:00 Vancomycin HCl 2 gm/Sodium Chloride 500 ml @ 250 mls/hr ONCE ONCE IV Last administered on 05/26/18at 21:16; Start 05/26/18 at 20:30; Stop 05/26/18 at 22 :29; Status DC Fentanyl Citrate (Fentanyl 2ml Vial) 25 mcg PRN Q1HR PRN IV PAIN SEVERE Last administered on 05/27/18at 04:51; Start 05/26/18 at 20:15 Sodium Bicarbonate 150 meq/Dextrose/ Sodium Chloride 1,150 ml @ 100 mls/hr [id number] IV Last administered on 05/26/18at 20:31; Start 05/26/18 at 20:30 Ringer's Solution 1,000 ml @ 75 mls/hr [id number] IV ; Start 05/26/18 at 20:15; Stop 05/26/18 at 22:34; Status DC Vancomycin HCl 1.5 gm/Sodium Chloride 500 ml @ 250 mls/hr Q24H IV ; Start 05/27 at 21:00 Vancomycin HCl (Vancomycin Trough Level) 1 each 1X ONCE MC ; Start 05/28/18 at 20:30; Stop 05/28/18 at 20:31 Sodium Bicarbonate (Sodium Bicarb Adult 8.4% Syr) 100 meq 1X ONCE IV Last administered on 05/26/18at 22:41; Start 05/26/18 at 22:45; Stop 05/26/18 at 22 :46; Status DC Lidocaine HCl (Xylocaine-Mpf 1% 2ml Vial) 2 ml STK-MED ONCE .ROUTE ; Start 05/27 at 00:16; Stop 05/27/18 at 00:17; Status DC Norepinephrine Bitartrate 250 ml @ 1.875 mls/ hr CONT PRN IV SEE I/O RECORD Last administered on 05/27/18at 09:44; Start 05/27/18 at 01:15 Albumin Human 500 ml @ 125 mls/hr 1X ONCE IV Last administered on 05/27/18at 02:40; Start 05/27/18 at 02:30; Stop 05/27/18 at 06:29; Status DC Sodium Bicarbonate (Sodium Bicarb Adult 8.4% Syr) 150 meq 1X ONCE IV Last administered on 05/27/18at 06:13; Start 05/27/18 at 06:15; Stop 05/27/18 at 06:16 ; Status DC Calcium Gluconate (Calcium Gluconate) 2,000 mg 1X ONCE IVP Last administered on 05/27/18at 06:13; Start 05/27/18 at 06:15; Stop 05/27/18 at 06:16; Status DC Lidocaine HCl (Xylocaine-Mpf 1% 2ml Vial) 2 ml STK-MED ONCE .ROUTE ; Start at 12:00; Stop 05/27/18 at 08:57; Status DC Norepinephrine Bitartrate (Levophed 8mg/ 250ml Premix Drip) 8 mg STK-MED ONCE IV ; Start 05/26/18 at 12:00; Stop 05/27/18 at 08:57; Status DC Dopamine HCl/ Dextrose (DOPamine 400MG/ 250ML PREMIX) 400 mg STK-MED ONCE IV ; Start 05/26/18 at 12:00; Stop 05/27/18 at 08:57; Status DC Midazolam HCl (Versed) 5 mg STK-MED ONCE .ROUTE ; Start 05/26/18 at 12:00; Stop 05/27/18 at 08:57; Status DC Sodium Bicarbonate (Sodium Bicarb Adult 8.4% Syr) 100 meq 1X ONCE IV Last administered on 05/27/18at 09:34; Start 05/27/18 at 09:30; Stop 05/27/18 at 09:31 ; Status DC Potassium Chloride 15 meq/ Sodium Bicarbonate 40 meq/Bicarbonate Dialysis Soln w / out KCl 5,047.5 ml @ 1,000 mls/ hr Q5H3M IV Last administered on 05/27/18at 10:24; Start 05/27/18 at 10:00 Potassium Chloride 15 meq/ Sodium Bicarbonate 40 meq/Bicarbonate Dialysis Soln w / out KCl 5,047.5 ml @ 1,500 mls/ hr Q3H22M IV ; Start 05/27/18 at 09:45; Status Cancel Potassium Chloride 15 meq/ Sodium Bicarbonate 40 meq/Bicarbonate Dialysis Soln w / out KCl 5,047.5 ml @ 1,500 mls/ hr Q3H22M IV Last administered on 05/27/18at 10:24; Start 05/27/18 at 10:00 Potassium Chloride 15 meq/ Sodium Bicarbonate 40 meq/Bicarbonate Dialysis Soln w / out KCl 5,047.5 ml @ 1,500 mls/ hr Q3H22M IV Last administered on 05/27/18at 10:25; Start 05/27/18 at 10:00 Vasopressin 40 unit/Dextrose 102 ml @ 6 mls/hr CONT PRN IV SEE I/O RECORD Last administered on 05/27/18at 10:56; Start 05/27/18 at 10:45 Albumin Human 500 ml @ 125 mls/hr 1X ONCE IV Last administered on 05/27/18at 11:16; Start 05/27/18 at 11:15; Stop 05/27/18 at 15:14 Active Scripts Active Proair Hfa Inhaler (Albuterol Sulfate) 8.5 Gm Hfa.aer.ad 1 Puff INH PRN Q6HRS PRN 60 Days Cefpodoxime Proxetil 100 Mg Tablet 200 Mg PO BID 7 Days Nifedipine Er (Nifedipine) 60 Mg Tab.er.24 1 Tab PO DAILY Carvedilol 12.5 Mg Tablet 25 Mg PO BIDWMEALS Isosorbide Mononitrate Er (Isosorbide Mononitrate) 30 Mg Tab.er.24h 30 Mg PO DAILY Reported Janumet 50-1,000 Mg Tablet (Sitagliptin Phos/Metformin Hcl) 1 Each Tablet 2 Tab PO QHS Glyburide 5 Mg Tablet 2 Tab PO BID Cyclobenzaprine Hcl 10 Mg Tablet 1 Tab PO BID Amlodipine Besylate 10 Mg Tablet 10 Mg PO DAILY Atenolol 100 Mg Tablet 1 Tab PO DAILY Naproxen 500 Mg Tablet 1 Tab PO BID Atorvastatin Calcium 40 Mg Tablet 1 Tab PO QHS Gabapentin 300 Mg Capsule 300 Mg PO TID Clonidine Hcl 0.2 Mg Tablet 1 Tab PO BID Vitals/I & O Vital Sign - Last 24 Hours 05/26/18 05/26/18 05/26/18 05/26/18 13:00 13:35 14:00 14:30 Pulse 84 Resp 20 20 20 B/P (MAP) 90/50 (63) 118/60 (79) 112/58 (76) Pulse Ox 100 95 100 100 O2 Delivery Ventilator Ventilator Ventilator Ventilator 05/26/18 05/26/18 05/26/18 05/26/18 15:00 15:07 15:30 16:00 Resp 20 19 B/P (MAP) 106/62 (77) 98/54 (69) Pulse Ox 100 95 100 O2 Delivery Ventilator Ventilator Ventilator 05/26/18 05/26/18 05/26/18 05/26/18 16:00 16:00 16:30 16:55 Temp 98.0 98.0 Resp 20 20 B/P (MAP) 100/54 (69) 96/54 (68) Pulse Ox 99 99 90 O2 Delivery Ventilator Mechanical Ventilator Ventilator Ventilator 05/26/18 05/26/18 05/26/18 05/26/18 17:00 17:00 17:03 19:00 Pulse 80 88 Resp 20 20 B/P (MAP) 89/52 (64) 94/52 100/54 (69) Pulse Ox 90 95 O2 Delivery Ventilator Ventilator O2 Flow Rate 8.0 05/26/18 05/26/18 05/26/18 05/26/18 20:00 20:00 20:00 20:21 Temp 98.0 98.0 Pulse 84 Resp 20 B/P (MAP) 91/52 (65) Pulse Ox 96 98 O2 Delivery Mechanical Ventilator Ventilator Ventilator 05/26/18 05/26/18 05/26/18 05/26/18 21:00 21:56 22:00 23:00 Pulse 84 84 84 Resp 20 20 20 B/P (MAP) 94/55 (68) 96/57 (70) 95/59 (71) Pulse Ox 97 96 97 97 O2 Delivery Ventilator Ventilator Ventilator Ventilator 05/26/18 05/26/18 05/27/18 05/27/18 23:35 23:59 00:00 00:00 Temp 97.9 97.9 Pulse 84 Resp 20 B/P (MAP) Pulse Ox 96 97 O2 Delivery Ventilator Ventilator Mechanical Ventilator 05/27/18 05/27/18 05/27/18 05/27/18 00:30 01:00 01:09 02:00 Pulse 88 88 Resp 20 20 B/P (MAP) 100/60 (73) 92/58 (69) 94/63 (73) Pulse Ox 97 96 95 O2 Delivery Ventilator Ventilator Ventilator 05/27/18 05/27/18 05/27/18 05/27/18 03:00 03:04 03:32 03:33 Pulse 80 Resp 20 B/P (MAP) 101/67 (78) Pulse Ox 98 98 O2 Delivery Ventilator Ventilator Mechanical Ventilator 05/27/18 05/27/18 05/27/18 05/27/18 04:00 05:00 05:17 06:00 Temp 97.6 97.6 Pulse 81 76 84 Resp 20 20 20 B/P (MAP) 94/65 (75) 94/67 (76) 91/65 (74) Pulse Ox 98 98 98 99 O2 Delivery Ventilator Ventilator Ventilator Ventilator 05/27/18 05/27/18 05/27/18 05/27/18 06:36 06:50 08:00 08:10 Temp 97.4 97.2 97.4 97.2 Pulse 78 78 48 Resp 20 20 B/P (MAP) 99/68 98/67 100/58 Pulse Ox 97 O2 Delivery Ventilator 05/27/18 05/27/18 05/27/18 05/27/18 08:44 09:00 09:00 09:00 Temp 97.8 97.8 Pulse 44 41 42 52 Resp 20 B/P (MAP) 103/63 97/55 93/56 104/62 05/27/18 05/27/18 05/27/18 05/27/18 09:15 09:30 09:41 12:28 Pulse 48 42 Resp 20 20 B/P (MAP) 104/62 96/56 Pulse Ox 96 O2 Delivery Ventilator Ventilator Intake and Output 05/26/18 05/26/18 05/27/18 15:00 23:00 07:00 Intake Total 0 ml 750 ml 2903 ml Output Total 245 ml 125 ml 190 ml Balance -245 ml 625 ml 2713 ml EMMANUEL BENNETT III DO May 27, 2018 12:56
--- NOTE | 2018-05-27 13:04 | PN ---
DATE: ADDENDUM The patient continued to deteriorate clinically. She remains in profound shock. She is currently on 4 pressors and her pressure is in the 60s. Her platelet count is down to 15,000 only and her INR is 12.2. She has severe shock, likely septic shock and source could be bowel ischemia. The patient was already started on broad-spectrum antibiotics yesterday. Unfortunately, her prognosis is extremely grim. She had coded again today. I have discussed with Dr. Wright and discussed with the entire family. I approached them regarding code status and they all agreed not to do CPR and any further chest compressions or shock. We will continue on present pressor support until she declares herself. Dr. Wright will also be talking to the family later. All the extended family members were available for the conversation. TAYLOR MANNING MD DR: IMTIAZ/cassius JOB#: [id number] / [id number] QUIQUE
--- NOTE | 2018-05-27 14:21 | PDOC ---
Progress Note Subjective Subjective Worsening acidosis, not responding to iv fluids, blood transfusion, bicarb infusion or [employer]. Escalating pressor requirements. INR 12,2, PLT 15K, AST 30K. SBP in the 80s. ROS ROS No nausea No vomiting No pain No rash Vital Sign Vital Signs Vital Signs Date Time Temp Pulse Resp B/P (MAP) Pulse Ox O2 Delivery O2 Flow Rate FiO2 05/27/18 12:30 60 20 66/46 (53) Ventilator 05/27/18 12:00 97.2 97.2 05/27/18 10:00 95 05/26/18 17:03 8.0 Physical Exam PHYSICAL EXAM Pupils 6 mm, dilated (received atropine during code) Labs Lab Laboratory Tests Test 05/26/18 15:15 05/26/18 17:30 05/26/18 18:00 05/26/18 18:51 O2 Saturation 89 % (92-99) Arterial Blood pH 7.38 (7.35-7.45) Arterial Blood pCO2 at Patient Temp 33 mmHg (35-46) Arterial Blood pO2 at Patient Temp 64 mmHg (75-108) Arterial Blood HCO3 19 mmol/L (21-28) Arterial Blood Base Excess -6 mmol/L (-3-3) FiO2 80 Potassium Level 4.4 mmol/L (3.5-5.1) Hemoglobin 8.5 g/dL (12.0-15.5) Hematocrit 25.4 % (36.0-47.0) Glucose (Fingerstick) 79 mg/dL (70-99) 102 mg/dL (70-99) Test 05/26/18 19:49 05/26/18 21:03 05/26/18 21:07 05/26/18 22:00 O2 Saturation 95 % (92-99) 92 % (92-99) Arterial Blood pH 7.27 (7.35-7.45) 7.25 (7.35-7.45) Arterial Blood pCO2 at Patient Temp 33 mmHg (35-46) 30 mmHg (35-46) Arterial Blood pO2 at Patient Temp 101 mmHg (75-108) 83 mmHg (75-108) Arterial Blood HCO3 15 mmol/L (21-28) 13 mmol/L (21-28) Arterial Blood Base Excess -11 mmol/L (-3-3) -13 mmol/L (-3-3) FiO2 80 60 Sodium Level 141 mmol/L (136-145) Potassium Level 4.9 mmol/L (3.5-5.1) Chloride Level 103 mmol/L (98-107) Carbon Dioxide Level 14 mmol/L (21-32) Anion Gap 24 (6-14) Blood Urea Nitrogen 22 mg/dL (7-20) Creatinine 2.1 mg/dL (0.6-1.0) Estimated GFR (Cockcroft-Gault) 29.8 Glucose Level 86 mg/dL (70-99) Calcium Level 7.9 mg/dL (8.5-10.1) Phosphorus Level 6.5 mg/dL (2.6-4.7) Magnesium Level 2.1 mg/dL (1.8-2.4) Creatine Kinase 1140 U/L (26-192) Glucose (Fingerstick) 100 mg/dL (70-99) Test 05/27/18 01:10 05/27/18 04:58 05/27/18 06:00 05/27/18 06:10 Sodium Level 142 mmol/L (136-145) 141 mmol/L (136-145) Potassium Level 4.7 mmol/L (3.5-5.1) 4.6 mmol/L (3.5-5.1) Chloride Level 103 mmol/L (98-107) 102 mmol/L (98-107) Carbon Dioxide Level 13 mmol/L (21-32) 10 mmol/L (21-32) Anion Gap 26 (6-14) 29 (6-14) Blood Urea Nitrogen 19 mg/dL (7-20) 17 mg/dL (7-20) Creatinine 1.9 mg/dL (0.6-1.0) 1.7 mg/dL (0.6-1.0) Estimated GFR (Cockcroft-Gault) 33.5 38.0 Glucose Level 84 mg/dL (70-99) 71 mg/dL (70-99) Calcium Level 7.5 mg/dL (8.5-10.1) 7.4 mg/dL (8.5-10.1) Phosphorus Level 6.0 mg/dL (2.6-4.7) 5.9 mg/dL (2.6-4.7) Magnesium Level 2.5 mg/dL (1.8-2.4) 2.4 mg/dL (1.8-2.4) White Blood Count 11.1 x10^3/uL (4.0-11.0) Red Blood Count 2.51 x10^6/uL (3.50-5.40) Hemoglobin 7.1 g/dL (12.0-15.5) Hematocrit 21.4 % (36.0-47.0) Mean Corpuscular Volume 85 fL (79-100) Mean Corpuscular Hemoglobin 28 pg (25-35) Mean Corpuscular Hemoglobin Concent 33 g/dL (31-37) Red Cell Distribution Width 15.4 % (11.5-14.5) Platelet Count 44 x10^3/uL (140-400) Neutrophils (%) (Auto) 71 % (31-73) Lymphocytes (%) (Auto) 22 % (24-48) Monocytes (%) (Auto) 7 % (0-9) Eosinophils (%) (Auto) 0 % (0-3) Basophils (%) (Auto) 1 % (0-3) Neutrophils # (Auto) 7.8 x10^3uL (1.8-7.7) Lymphocytes # (Auto) 2.4 x10^3/uL (1.0-4.8) Monocytes # (Auto) 0.8 x10^3/uL (0.0-1.1) Eosinophils # (Auto) 0.0 x10^3/uL (0.0-0.7) Basophils # (Auto) 0.1 x10^3/uL (0.0-0.2) Segmented Neutrophils % 41 % (35-66) Band Neutrophils % 21 % (0-9) Lymphocytes % 31 % (24-48) Atypical Lymphocytes % (Manual) 1 % (0-0) Monocytes % 5 % (0-10) Metamyelocytes % 1 % (0-0) Toxic Vacuolation Present Platelet Estimate Decreased (ADEQUATE) Spherocytes Present O2 Saturation 91 % (92-99) Arterial Blood pH 7.16 (7.35-7.45) Arterial Blood pCO2 at Patient Temp 29 mmHg (35-46) Arterial Blood pO2 at Patient Temp 88 mmHg (75-108) Arterial Blood HCO3 10 mmol/L (21-28) Arterial Blood Base Excess -17 mmol/L (-3-3) FiO2 60 Glucose (Fingerstick) 113 mg/dL (70-99) Test 05/27/18 08:30 05/27/18 08:38 05/27/18 10:25 05/27/18 11:00 Sodium Level 145 mmol/L (136-145) 148 mmol/L (136-145) Potassium Level 4.6 mmol/L (3.5-5.1) 4.6 mmol/L (3.5-5.1) Chloride Level 103 mmol/L (98-107) 107 mmol/L (98-107) Carbon Dioxide Level 10 mmol/L (21-32) 12 mmol/L (21-32) Anion Gap 32 (6-14) 29 (6-14) Blood Urea Nitrogen 15 mg/dL (7-20) 14 mg/dL (7-20) Creatinine 1.7 mg/dL (0.6-1.0) 1.6 mg/dL (0.6-1.0) Estimated GFR (Cockcroft-Gault) 38.0 40.8 Glucose Level 58 mg/dL (70-99) 131 mg/dL (70-99) Calcium Level 7.3 mg/dL (8.5-10.1) 6.6 mg/dL (8.5-10.1) Phosphorus Level 6.1 mg/dL (2.6-4.7) 6.3 mg/dL (2.6-4.7) Magnesium Level 2.4 mg/dL (1.8-2.4) 2.3 mg/dL (1.8-2.4) O2 Saturation 86 % (92-99) Arterial Blood pH 7.13 (7.35-7.45) Arterial Blood pCO2 at Patient Temp 28 mmHg (35-46) Arterial Blood pO2 at Patient Temp 73 mmHg (75-108) Arterial Blood HCO3 9 mmol/L (21-28) Arterial Blood Base Excess -19 mmol/L (-3-3) FiO2 50 Aspartate Amino Transf (AST/SGOT) 68612 U/L (15-37) Alanine Aminotransferase (ALT/SGPT) 6433 U/L (14-59) Lactate Dehydrogenase 48569 U/L (81-234) Hemoglobin 7.3 g/dL (12.0-15.5) Hematocrit 22.3 % (36.0-47.0) Platelet Count 15 x10^3/uL (140-400) Reticulocyte Count (auto) 1.0 % (0.5-2.5) Prothrombin Time 92.4 SEC (11.7-14.0) Prothromb Time International Ratio 12.2 (0.8-1.1) Activated Partial Thromboplast Time 67 SEC (24-38) Fibrinogen 107 mg/dL (200-440) D-Dimer (Emilia) 14.23 ug/mlFEU (0.00-0.50) Objective Assessment POD#2, s/p CABG x 3 (LEAVITT to LAD, SVG to RPDA, SVG to OM1) Worsening acidosis, not responding to iv fluids, blood transfusion, bicarb infusion or [employer]. Escalating pressor requirements. INR 12,2, PLT 15K, AST 30K. SBP in the 80s. Patient was initially fast track extubated and doing well, when suddenly she became unstable with PEA on POD#1. ROSC after code. ECHO showed normal LV function. Since then, she has had worsening metabolic acidosis, which has not responded to any treatment. I suspect a major intra abdominal catastrophic event has occurred (eg mesenteric ischemia, hollow viscus perforation, liver failure, necrotizing pancreatitis). Given her hemodynamic instability, she wouldn't tolerate any type of transfer for imaging (CT abdomen) or an exploratory laparotomy in the OR. Given the severity and rapid progress of her status, her intra abdominal event would not be reversible by any means. Have discussed with family the grave prognosis and they understand the situation and have asked to make her DNR. Comfort care at this point. Plan Plan of Care DNR Comfort care BRANT VOGT MD May 27, 2018 14:21
[2018-05-27] MEDS ORDERED: VANCOMYCIN 1.5 GM in IV NORMAL SALINE 500ML BAG 500 ML IV SCH (21:00)
== END 2018-05-27 14:13 | disposition expired | DRG 233 ==
LOC: ER 23:48 → 1 WEST ICU 05-21 01:00 → 2 NORTH 05-23 14:59 → 1 WEST ICU 05-25 10:20
PROVIDERS: ADMIT Family Medicine; ATTEND Family Medicine
PROC: 4A023N7 Measurement of Cardiac Sampling and Pressure, Left Heart, Percutaneous Approach (ICD-10-PCS; 2018-05-21)
PROC: B2151ZZ Fluoroscopy of Left Heart using Low Osmolar Contrast (ICD-10-PCS; 2018-05-21)
PROC: B2111ZZ Fluoroscopy of Multiple Coronary Arteries using Low Osmolar Contrast (ICD-10-PCS; 2018-05-21)
PROC: 021109W Bypass Coronary Artery, Two Arteries from Aorta with Autologous Venous Tissue, Open Approach (ICD-10-PCS; 2018-05-25)
PROC: 06BQ4ZZ Excision of Left Saphenous Vein, Percutaneous Endoscopic Approach (ICD-10-PCS; 2018-05-25)
PROC: 02HP32Z Insertion of Monitoring Device into Pulmonary Trunk, Percutaneous Approach (ICD-10-PCS; 2018-05-25)
PROC: 5A1221Z Performance of Cardiac Output, Continuous (ICD-10-PCS; 2018-05-25)
PROC: 03B10ZZ Excision of Left Internal Mammary Artery, Open Approach (ICD-10-PCS; 2018-05-25)
PROC: 02100Z9 Bypass Coronary Artery, One Artery from Left Internal Mammary, Open Approach (ICD-10-PCS; principal; 2018-05-25 07:30)
PROC: 5A1D90Z Performance of Urinary Filtration, Continuous, Greater than 18 hours Per Day (ICD-10-PCS; 2018-05-26)
PROC: 02HV33Z Insertion of Infusion Device into Superior Vena Cava, Percutaneous Approach (ICD-10-PCS; 2018-05-26)
PROC: B548ZZA Ultrasonography of Superior Vena Cava, Guidance (ICD-10-PCS; 2018-05-26)
PROC: 5A12012 Performance of Cardiac Output, Single, Manual (ICD-10-PCS; 2018-05-26)
PROC: 5A1945Z Respiratory Ventilation, 24-96 Consecutive Hours (ICD-10-PCS; 2018-05-26)
PROC: 0BH17EZ Insertion of Endotracheal Airway into Trachea, Via Natural or Artificial Opening (ICD-10-PCS; 2018-05-26)
PROC: 30233N1 Transfusion of Nonautologous Red Blood Cells into Peripheral Vein, Percutaneous Approach (ICD-10-PCS; 2018-05-27)
DX: I21.4 Non-ST elevation (NSTEMI) myocardial infarction (principal); I50.33 Acute on chronic diastolic (congestive) heart failure; J96.00 Acute respiratory failure, unspecified whether with hypoxia or hypercapnia; I16.1 Hypertensive emergency; N17.9 Acute kidney failure, unspecified; K55.9 Vascular disorder of intestine, unspecified; I46.9 Cardiac arrest, cause unspecified; Z66 Do not resuscitate; Z51.5 Encounter for palliative care; J44.9 Chronic obstructive pulmonary disease, unspecified; I11.0 Hypertensive heart disease with heart failure; E78.00 Pure hypercholesterolemia, unspecified; E10.9 Type 1 diabetes mellitus without complications; M19.90 Unspecified osteoarthritis, unspecified site; F41.9 Anxiety disorder, unspecified; G89.29 Other chronic pain; F12.90 Cannabis use, unspecified, uncomplicated; E78.5 Hyperlipidemia, unspecified; I25.10 Atherosclerotic heart disease of native coronary artery without angina pectoris; F17.210 Nicotine dependence, cigarettes, uncomplicated; E66.01 Morbid (severe) obesity due to excess calories; M54.5 Low back pain; Z96.651 Presence of right artificial knee joint; D69.6 Thrombocytopenia, unspecified; E87.5 Hyperkalemia; D64.9 Anemia, unspecified; Z98.891 History of uterine scar from previous surgery; Z82.49 Family history of ischemic heart disease and other diseases of the circulatory system; Z88.8 Allergy status to other drugs, medicaments and biological substances; Z91.19 Patient's noncompliance with other medical treatment and regimen; Z68.38 Body mass index [BMI] 38.0-38.9, adult
CPT/HCPCS: 36415; 36556; 36600; 71045; 71250; 74018; 76700; 76937; 80048; 80053; 80061; 80307; 81001; 82550; 82553; 82803; 82805; 82962; 83605; 83615; 83690; 83735; 83880; 84100; 84132; 84450; 84460; 84484; 85007; 85014; 85018; 85025; 85027; 85045; 85049; 85347; 85379; 85384; 85520; 85610; 85730; 86706; 86850; 86900; 86901; 86920; 87340; 87641; 93005; 93306; 93308; 93458; 93880; 93970; 94002; 94003; 94640; 96365; 96368; 96375; 99152; 99153; 99291; A7015; C1769; C1771; C1781; C1892; G0269; J0171; J0282; J0461; J0610; J0690; J1265; J1644; J1815; J1940; J2001; J2150; J2250; J2270; J2405; J2440; J2543; J2704; J3010; J3370; J3475; J3480; J3490; J7030; J7040; J7042; J7050; J7120; J7613; P9016; P9041; P9045; P9046; G0479